=== PATIENT | male | born 1945 | race Caucasian/White ===

== ENCOUNTER → 2017-04-24 | Outpatient (CLI) | payer MEDICARE, OTHER ==
[~2017-04-24] MED LIST: ALLP100T; ALLP100T PO; AMLO10TA2 PO; AMLO10TA4; AMLO10TA82 PO; ASP325T; ASP325TEC PO; ASP81TEC PO; ATEN25TA PO; ATOR40TA PO; ATR20T; FLC100T; FLC1T; FLC1T PO; FLEC100T2 PO; IRBE1TAB18; IRBE1TAB18 PO; LOSA100T28 PO; LOSA1TAB23 PO; METO-333 PO; MTX2.5T; MTX2.5T PO; NEBI5TAB8; NEBI5TAB8 PO; SMV20T PO; SOTA80TA PO; WARF7.5T49 PO; WRF5T; WRF5T PO
== END ==
LOC: CARD 11:03
PROVIDERS: ATTEND Physician Assistant
DX: I65.23 Occlusion and stenosis of bilateral carotid arteries (principal); E78.2 Mixed hyperlipidemia; I10 Essential (primary) hypertension; I48.0 Paroxysmal atrial fibrillation
CPT/HCPCS: 93306

== ENCOUNTER 2019-06-14 05:38 | Outpatient (CLI) | payer MEDICARE, OTHER ==
[~2019-06-14] VITALS: Ht 177.8 cm; Wt 129.5 kg
[~2019-06-14 05:38] MED LIST changes: -AMLO10TA2 PO; +AMLO10TA7 PO; -LOSA100T28 PO; +LOSA100T57 PO
[2019-06-14] MEDS ORDERED: ALLO100T PO (10:21)
[2019-06-14] MEDS ORDERED: ASPI-983 PO (10:21)
== END 2019-06-14 10:22 | disposition home or self-care (01) ==
LOC: PREOP 05:38
PROVIDERS: ATTEND Internal Medicine
DX: Z01.818 Encounter for other preprocedural examination (principal)

== ENCOUNTER 2019-11-14 06:21 | Outpatient (RCR) | payer MEDICARE, OTHER ==
[~2019-11-14 06:21] MED LIST changes: +ALLO100T PO; +ASPI-1238 PO; +WARF7.5T3 PO; -WARF7.5T49 PO
== END 2020-02-12 | disposition home or self-care (01) ==
LOC: PREOP 06:21
PROVIDERS: ATTEND Internal Medicine
DX: Z01.818 Encounter for other preprocedural examination (principal)

== ENCOUNTER 2020-11-26 08:30 | Outpatient (CLI) | payer MEDICARE, OTHER ==
[~2020-11-26] VITALS: Ht 177.8 cm; Wt 129.5 kg
[~2020-11-26 08:30] MED LIST changes: +AMLO-251 PO; -AMLO10TA7 PO
== END 2020-11-26 13:57 | disposition home or self-care (01) ==
LOC: PREOP 08:30
PROVIDERS: ATTEND Internal Medicine
DX: Z01.818 Encounter for other preprocedural examination (principal)

== ENCOUNTER 2020-12-04 07:20 | Day surgery (SDC) | payer MEDICARE, OTHER ==
--- NOTE | 2019-11-11 09:43 | HISTORY AND PHYSICAL ---
DATE OF SERVICE: COLONOSCOPY HISTORY AND PHYSICAL HISTORY OF PRESENT ILLNESS: The patient is a 74-year-old white male referred by Dr. Fuller for surveillance colonoscopy. I performed his first colonoscopy on 06/21/2019 at which time eight polyps were removed, four were clustered to the hepatic flexure, two at the splenic flexure, at least 1 polyp was left that was small in the sigmoid colon where the patient did have moderate diverticular disease. With positive family history of colon cancer, it raises the possibility of hereditary nonpolyposis cancer syndrome. The majority of his polyps were tubular adenomas. He has noted no blood per rectum, bright red or melena and has had no bowel habit change. He denied any problems with his colonoscopy other than some increased sensitivity for which we will be doing this procedure under Diprivan for improved patient comfort. The patient reports no change in his health history, although he admits to being depressed over his 's failing health with advancing dementia, presumably Alzheimer's in etiology. He has had no chest discomforts or increase in dyspnea on exertion. PAST MEDICAL HISTORY: Significant for hypertension, hyperlipidemia and paroxysmal atrial fibrillation for which he takes Coumadin as well as a baby aspirin. PHYSICAL EXAMINATION: GENERAL: Revealed a depressed white male, who otherwise appeared to be in no acute distress. VITAL SIGNS: Weight at 278 pounds, is down 7 pounds from his last office weight from May. Blood pressure 136/66. HEENT: Unremarkable. CHEST: Clear. CARDIOVASCULAR: Revealed regular rate and rhythm without murmur, S3 or S4. ABDOMEN: Soft, supple without mass, organomegaly or tenderness. EXTREMITIES: Reveal trace bilateral edema without cyanosis or clubbing. No ulceration noted. ASSESSMENT AND PLAN: The patient was set up for surveillance colonoscopy for which we will be utilizing Diprivan per anesthesia due to history of increased bowel sensitivity on his last colonoscopy in May of this year. Prep instructions with Colyte were given and questions were answered. He will hold his Coumadin 48 hours prior to the test and aspirin a week prior and written instructions were given. Job ID: [id number] DocumentID: [id number] Dictated Date: 10/29/2019 11:13:03 Campus Recruiter Date: 10/29/2019 11:53:13 Dictated By: SHIVA VAUGHN MD
--- NOTE | 2020-11-11 19:08 | HISTORY AND PHYSICAL ---
DATE OF SERVICE: HISTORY OF PRESENT ILLNESS: The patient is a 75-year-old white male undergoing repeat colonoscopy for evaluation of multiple adenomatous colonic polyps having been removed on colonoscopy a little over 5 months ago. In particularly, he had 2 larger flat tubular adenomas, for which there is increased risk for recurrence due to their size. He reports that he had no difficulty after colonoscopy and no problems with bleeding and he has noted no melena or bright red blood per rectum. He reports that there have been no changes in his health status since his last colonoscopy. The patient does have a strong family history for colon cancer. Both parents were diagnosed with colon cancer. His mother at the age of 80 and father has in early 60s. PAST MEDICAL HISTORY: Significant for hypertension, hyperlipidemia and paroxysmal atrial fibrillation for which he has recently been switched to Xarelto and doing well along without any reports of melena or bright red blood per rectum. PHYSICAL EXAMINATION: GENERAL: Reveals pleasant overweight white male in no acute distress. VITAL SIGNS: Weight was 273 pounds, blood pressure 130/70. HEENT: Unremarkable. CHEST: Clear. CARDIOVASCULAR: Reveals a regular rate and rhythm without significant murmur, S3 or S4. ABDOMEN: Soft, supple without mass, organomegaly or tenderness. EXTREMITIES: Reveal no cyanosis, clubbing or edema. ASSESSMENT AND PLAN: The patient is set up for repeat surveillance colonoscopy due to strong family history for colon cancer and history of multiple adenomatous colonic polyps. Prep instructions with Suprep kit were given and questions were answered. The patient will be done under Diprivan based anesthesia. Job ID: [id number] DocumentID: [id number] Dictated Date: 11/11/2020 18:25:13 Geophysical Computer Date: 11/11/2020 18:35:30 Dictated By: SHIVA VAUGHN MD
[~2020-12-04] VITALS: Ht 177.8 cm; Wt 129.5 kg
[2020-12-04] MEDS ORDERED: GLYCOPYRROLATE 0.2 MG/ML (ROBINUL) 2 ML VIAL IJ ONE (07:21)
[2020-12-04] MEDS ORDERED: LACTATED RINGERS 1,000 ML IV ONE (07:28)
[2020-12-04] MEDS ORDERED: LACTATED RINGERS 1,000 ML IV STA (07:35)
[2020-12-04] MEDS ORDERED: MAGN400C PO (07:40)
[2020-12-04] MEDS ORDERED: RIVA10T PO (07:40)
[2020-12-04 07:45] VITALS: BP 164/79
[2020-12-04] MEDS ORDERED: LIDOCAINE JELLY 2% 6 ML SYRINGE MM PRN (07:45)
[2020-12-04] MEDS ORDERED: PROPOFOL INJECTION 50 ML IV ONE ×2 (07:47→08:52)
--- NOTE | 2020-12-04 08:05 | Pre-Op Note & Conscious Sedat ---
Pre-Operative Progress Note H&P Reviewed The H&P was reviewed, patient examined and no changes noted. Date H&P Reviewed: Dec 04, 2020 Time H&P Reviewed: 08:05 Conscious Sedation Pre-Proced ASA Score 3 For ASA 3 and 4: Consider anesthesia and medical clearance. Also, for patients with a history of failed moderate sedation consider anesthesia. Airway Lungs Heart ASA score ASA 1: a normal healthy patient ASA 2: a patient with a mild systemic disease (mid diabetes, controlled hypertension, obesity ASA 3: a patient with a severe systemic disease that limits activity (angina, COPD, prior Myocardial infarction) ASA 4: a patient with an incapacitating disease that is a constant threat to life (CHF, renal failure) ASA 5: a moribund patient not expected to survive 24 hrs. (ruptured aneurysm) ASA 6: a declared brain- patient whose organs are being harvested. For emergent operations, add the letter E after the classification Mallampati Classification Grade 2 Sedation Plan Analgesia, Amnesia, Plan communicated to team members, Discussed options with patient/fam, Discussed risks with patient/fam The patient is an appropriate candidate to undergo the planned procedure, sedation, and anesthesia. The patient immediately re-assessed prior to indication. SHIVA VAUGHN MD Dec 04, 2020 08:05
[2020-12-04 09:30] VITALS: BP 124/60
[2020-12-04 09:35] VITALS: BP 120/70
[2020-12-04 10:00] VITALS: BP 151/77
[2020-12-04 10:15] VITALS: BP 151/77
--- NOTE | 2020-12-04 15:40 | OPERATIVE REPORT ---
DATE OF SERVICE: 12/04/2020 COLONOSCOPY SUMMARY INDICATION FOR THE PROCEDURE: Surveillance, history of colon polyps and family history for colon cancer. DESCRIPTION OF PROCEDURE: The patient was placed in the left lateral decubitus position. Prior to undergoing colonoscopy, digital rectal evaluation was performed. Prostate is mildly enlarged, anodular and nontender to digital inspection. No abnormalities were noted on digital inspection of anal canal or distal rectal vault. The colonoscope was then inserted into the rectum and under direct visualization advanced to cecum. The cecum was identified by identification of ileocecal valve and cecal strap. Photographic documentation was obtained. Quality of prep was fair. FINDINGS: There was no evidence for internal or external hemorrhoids and the rectum was unremarkable. Mild to moderate diverticular disease confined to the sigmoid colon was present. Present in the mid sigmoid colon was a 1 cm pedunculated polyp on a short stalk. It was snared and submitted in its entirety for histopathology. No other sigmoid colonic abnormalities were appreciated. The descending colon was unremarkable as was the splenic flexure. In the distal transverse colon was a diminutive sessile polyp. It was biopsied and ablated and submitted for histopathology. The remainder of the transverse colon, hepatic flexure and ascending colon were unremarkable. In the cecum adjacent to the ileocecal valve was a diminutive 2 mm sessile polyp. It was photographed and biopsied and ablated with no subsequent blood loss. The cecum was suboptimally visualized due to some retained stool. ASSESSMENT: Three polyps were removed today, most notable in the mid sigmoid colon with no subsequent bleeding. The patient was advised to resume Xarelto and aspirin in one week. As long as there are no surprise on histopathology report, would advocate repeat surveillance colonoscopy in one year. Mild to moderate diverticular disease confined to the sigmoid colon was present. I thank you for the referral of this pleasant gentleman. Job ID: [id number] DocumentID: [id number] Dictated Date: 12/04/2020 10:04:32 Benzol Still Operator Date: 12/04/2020 15:39:50 Dictated By: SHIVA VAUGHN MD
== END 2020-12-04 10:15 | disposition home or self-care (01) ==
LOC: ENDO 07:20
PROVIDERS: ATTEND Internal Medicine
DX: Z12.11 Encounter for screening for malignant neoplasm of colon (principal); D12.0 Benign neoplasm of cecum; D12.5 Benign neoplasm of sigmoid colon; K63.5 Polyp of colon; K57.30 Diverticulosis of large intestine without perforation or abscess without bleeding; I10 Essential (primary) hypertension; I48.0 Paroxysmal atrial fibrillation; E78.5 Hyperlipidemia, unspecified; E66.9 Obesity, unspecified; Z68.41 Body mass index [BMI] 40.0-44.9, adult; Z79.899 Other long term (current) drug therapy; Z87.891 Personal history of nicotine dependence; Z80.0 Family history of malignant neoplasm of digestive organs
CPT/HCPCS: 88305

== ENCOUNTER → 2021-12-22 | Outpatient (CLI) | payer MEDICARE, OTHER ==
[~2021-12-22] VITALS: Ht 177.8 cm; Wt 122.7 kg
[~2021-12-22] MED LIST changes: +MAGN400C PO; +RIVA10T PO
== END | disposition home or self-care (01) ==
LOC: PREOP 05:44
PROVIDERS: ATTEND Internal Medicine
DX: Z01.818 Encounter for other preprocedural examination (principal)

== ENCOUNTER 2021-12-31 08:45 | Day surgery (SDC) | payer MEDICARE, OTHER ==
--- NOTE | 2021-12-21 20:47 | HISTORY AND PHYSICAL ---
DATE OF SERVICE: COLONOSCOPY HISTORY AND PHYSICAL HISTORY OF PRESENT ILLNESS: The patient is a 76-year-old white male referred by Dr. Fuller for surveillance colonoscopy due to past history of colon polyps. He underwent colonoscopy a little over one year ago, at which time he had three polyps, most significant one was pedunculated tubulovillous adenoma in the mid sigmoid colon. He had a tubular adenoma removed from the cecum adjacent to the ileocecal valve. It was only 2 mm in size. He reports since that time, he has had no abdominal pain or bleeding. There have been no changes in health status, although he is still grieving over the loss of his in May. PAST MEDICAL HISTORY: Significant for hypertension, hyperlipidemia and paroxysmal atrial fibrillation. PHYSICAL EXAMINATION: GENERAL: Reveals somewhat depressed-appearing white male in no acute distress. VITAL SIGNS: Weight is 279 pounds, up 3 pounds from a year ago. Blood pressure 136/60. HEENT: Unremarkable. Sclerae nonicteric. CHEST: Clear. Oral cavity reveals Mallampati 2 pharyngeal configuration without erythema or exudate. CHEST: Clear to auscultation. CARDIOVASCULAR: Reveals a regular rate and rhythm without murmur, S3 or S4. Occasional prematurity is noted. ABDOMEN: Soft, supple without mass, organomegaly or tenderness. EXTREMITIES: Reveal no cyanosis, clubbing or edema. ASSESSMENT AND PLAN: The patient is being set up for surveillance colonoscopy. Most notable polyp was in the sigmoid colon, at least 1.2 cm tubulovillous adenoma removed via snare resection little over one year ago. Prep instructions were given, and questions were answered. I thank you for the referral. Job ID: [id number] DocumentID: [id number] Dictated Date: 12/15/2021 17:56:44 Geneticist Date: 12/15/2021 18:33:06 Dictated By: SHIVA VAUGHN MD
[~2021-12-31] VITALS: Ht 177.8 cm; Wt 122.7 kg
[2021-12-31] MEDS ORDERED: LACTATED RINGERS 1,000 ML IV STA (09:03)
--- NOTE | 2021-12-31 09:06 | Pre-Op Note & Conscious Sedat ---
Pre-Operative Progress Note Date H&P Reviewed: Dec 31, 2021 Time H&P Reviewed: 09:06 History & Physical: H&P Reviewed, Patient Examed, No changes noted Pre-Op Diagnosis: hx of colon polyps Conscious Sedation Pre-Proced ASA Score 2 For ASA 3 and 4: Consider anesthesia and medical clearance. Also, for patients with a history of failed moderate sedation consider anesthesia. Airway Lungs Heart ASA score ASA 1: a normal healthy patient ASA 2: a patient with a mild systemic disease (mid diabetes, controlled hypertension, obesity ASA 3: a patient with a severe systemic disease that limits activity (angina, COPD, prior Myocardial infarction) ASA 4: a patient with an incapacitating disease that is a constant threat to life (CHF, renal failure) ASA 5: a moribund patient not expected to survive 24 hrs. (ruptured aneurysm) ASA 6: a declared brain- patient whose organs are being harvested. For emergent operations, add the letter E after the classification Mallampati Classification Grade 2 Sedation Plan Analgesia, Amnesia, Plan communicated to team members, Discussed options with patient/fam, Discussed risks with patient/fam The patient is an appropriate candidate to undergo the planned procedure, sedation, and anesthesia. The patient immediately re-assessed prior to indication. SHIVA VAUGHN MD Dec 31, 2021 09:06
[2021-12-31] MEDS ORDERED: LACTATED RINGERS 1,000 ML IV ONE (09:09)
[2021-12-31 09:12] VITALS: BP 164/70
[2021-12-31] MEDS ORDERED: PROPOFOL INJECTION 50 ML IV ONE ×2 (09:43→10:01)
[2021-12-31 10:25] VITALS: BP 102/54
--- NOTE | 2021-12-31 10:30 | Progress Note-Post Operative ---
Post-Procedure Note Physician (s)/[place] Nailer (s) Physician SHIVA VAUGHN MD Pre-Procedure Diagnosis Pre-Procedure Diagnosis: hx of colon polyps Post-Procedure Diagnosis Post-operative diagnosis: polyps removed via hot bx from distal and mid transverse colon, hepatic flexure and cecum. Moderated sigmoid diverticular disease. SHIAV VAUGHN MD Dec 31, 2021 10:30
[2021-12-31 10:31] VITALS: BP 118/58
[2021-12-31 10:47] VITALS: BP 142/67
[2021-12-31 10:55] VITALS: BP 142/67
--- NOTE | 2021-12-31 11:30 | Anesthesia-General Post-Op ---
MAC Patient Condition Mental Status/LOC: Same as Preop Cardiovascular: Satisfactory Nausea/Vomiting: Absent Respiratory: Satisfactory Pain: Controlled Complications: Absent Post Op Complications Complications None Follow Up Care/Instructions Patient Instructions None needed. Anesthesiology Discharge Order Discharge Order Patient is doing well, no complaints, stable vital signs, no apparent adverse anesthesia problems. No complications reported per nursing. CITLALLI العلي CRNA Dec 31, 2021 11:30
--- NOTE | 2021-12-31 17:11 | OPERATIVE REPORT ---
DATE OF SERVICE: COLONOSCOPY SUMMARY INDICATION FOR THE PROCEDURE: Surveillance, history of colon polyps. DESCRIPTION OF PROCEDURE: The patient was placed in a left lateral decubitus position. Prior to undergoing colonoscopy, a digital rectal evaluation was performed. Prostate was mildly enlarged and anodular on digital inspection. No digital abnormalities were noted on inspection of the anal canal or distal rectal vault. The colonoscope was then inserted into the rectum and under direct visualization advanced to the cecum. The cecum was identified by identification of ileocecal valve and cecal strap. Photographic documentation was obtained. Quality of the prep was fair. FINDINGS: There was no evidence for internal or external hemorrhoids and the rectum was unremarkable. Mild to moderate diverticular disease with one large proximal sigmoid diverticulum was present without evidence for diverticulitis. There was no evidence for any remnant of the previous pedunculated polyp removed from the sigmoid colon. Present in the distal transverse colon was an 8 mm sessile adenomatous polyp, nonulcerated. It was photographed, snared, and removed. There was a small fragment remaining post snare that was biopsied and cauterized. All tissue was submitted for histopathology. A 3 mm sessile polyp was removed via hot forceps from the mid transverse colon. A similar polyp was removed without blood loss from the hepatic flexure as well as cecum. ASSESSMENT: Multiple adenomatous polyps were again removed not enough to qualify for polyposis syndrome, but will likely be advocating repeat surveillance colonoscopy in one year pending pathology evaluation. Job ID: [id number] DocumentID: [id number] Dictated Date: 12/31/2021 10:26:08 Communication Arts Lecturer Date: 12/31/2021 17:10:24 Dictated By: SHIVA VAUGHN MD [facility]
== END 2021-12-31 11:05 | disposition home or self-care (01) ==
LOC: ENDO 08:45
PROVIDERS: ATTEND Internal Medicine
DX: Z12.11 Encounter for screening for malignant neoplasm of colon (principal); D12.0 Benign neoplasm of cecum; D12.2 Benign neoplasm of ascending colon; D12.3 Benign neoplasm of transverse colon; E66.9 Obesity, unspecified; Z68.39 Body mass index [BMI] 39.0-39.9, adult; Z87.891 Personal history of nicotine dependence
CPT/HCPCS: 88305

== ENCOUNTER → 2022-09-12 | Outpatient (CLI) | payer MEDICARE, OTHER ==
[~2022-09-12] MED LIST changes: +AMIO200T65 PO; +ERGO1250 PO; +RIVA20TA PO
--- NOTE | 2022-09-12 14:11 | Diagnostic Imaging Report ---
PROCEDURE: CT abdomen and pelvis without contrast. TECHNIQUE: Multiple contiguous axial images were obtained through the abdomen and pelvis without the use of intravenous contrast. Auto Exposure Controls were utilized during the CT exam to meet ALARA standards for radiation dose reduction. INDICATION: Abdominal discomfort and swelling. COMPARISON: No prior studies are available for comparison. FINDINGS: Imaging through the lung bases does show areas of atelectasis in the right middle lobe. The liver demonstrates nodular contour, suggestive of cirrhosis. No discrete liver mass is identified. There is a large amount of perihepatic and perisplenic ascites. Gallbladder contains small stones versus sludge. No biliary ductal dilatation is seen. Pancreas is unremarkable. Spleen is not enlarged. No adrenal mass is identified. Kidneys are without calculi or hydronephrosis. Aorta is calcified but nonaneurysmal. The bowel loops are normal in caliber and nonobstructed. There is diverticulosis of the descending and sigmoid colon but no evidence of acute diverticulitis. Bladder is decompressed. Prostate is unremarkable. Bony structures are nonacute. IMPRESSION: 1. Right middle lobe subsegmental atelectasis. 2. Cirrhotic liver morphology without evidence of discrete mass. There is moderate abdominal and pelvic ascites, suggestive of portal hypertension. Spleen does not appear to be enlarged. 3. Gallstones versus sludge. 4. Uncomplicated diverticulosis. Dictated by: Dictated on workstation # [id number]
== END ==
LOC: RAD 12:45
PROVIDERS: ATTEND Internal Medicine
DX: K74.60 Unspecified cirrhosis of liver (principal); K57.30 Diverticulosis of large intestine without perforation or abscess without bleeding; J98.11 Atelectasis; R18.8 Other ascites
CPT/HCPCS: 74176

== ENCOUNTER 2022-09-13 09:30 | Inpatient (IN) | payer MEDICARE, OTHER ==
[~2022-09-13] VITALS: Ht 175.3 cm; Wt 125.9 kg
[~2022-09-13 09:30] MED LIST changes: -AMIO200T65 PO; -ERGO1250 PO; -RIVA20TA PO
[2022-09-13] MEDS: FUROSEMIDE 40 MG/4 ML INJ (LASIX) IVP SCH (12:05)
--- NOTE | 2022-09-13 15:29 | Diagnostic Imaging Report ---
EXAMINATION: Chest 1 view HISTORY: SOB COMPARISON: 09/18/2012 FINDINGS: Heart size and pulmonary vasculature are normal. There are mild interstitial opacities in lung bases. No pleural effusion or pneumothorax. The osseous structures are intact. IMPRESSION: 1. Mild interstitial opacities the lung bases which could represent atelectasis, edema, or pneumonia. Dictated by: Dictated on workstation # [id number]
[2022-09-13] MEDS ORDERED: ONDANSETRON 4 MG/2 ML (SDV) Z0FRAN IV PRN (15:45)
[2022-09-13] MEDS ORDERED: CATHETER FLUSH 10 ML SYR IVP PRN (15:45)
[2022-09-13 15:55] VITALS: BP 101/55
[2022-09-13] MEDS ORDERED: AMIO200T65 PO (16:03)
[2022-09-13] MEDS ORDERED: RIVA20TA PO (16:03)
[2022-09-13 16:07] LABS: CLARITY,URINE CLEAR; COLOR,URINE DARK YELLOW; GLUCOSE, URINE (UA) TRACE (NEGATIVE); KETONES,URINE NEGATIVE (NEGATIVE); NITRITE,URINE NEGATIVE (NEGATIVE); PH,URINE 5.5 (5-9); PROTEIN,URINE TRACE (NEGATIVE)
[2022-09-13] MEDS ORDERED: ERGO1250 PO (16:07)
[2022-09-13 16:08] LABS: AMORPHOUS SEDIMENT,UR MOD AMOR URATES /LPF; BACTERIA,URINE TRACE /HPF; BILIRUBIN,URINE 1+ (NEGATIVE); LEUKOCYTE ESTERASE ,URINE NEGATIVE (NEGATIVE); WBC,URINE RARE /HPF
[2022-09-13 16:09] LABS: BASOPHILS # (AUTO) 0.1 10^3/uL (0.0-0.1); BASOPHILS % (AUTO) 1 % (0-10); EOSINOPHILS # (AUTO) 0.3 10^3/uL (0.0-0.3); EOSINOPHILS % (AUTO) 2 % (0-10); HEMATOCRIT 40 % (40-54); LYMPHOCYTES # (AUTO) 3.4 10^3/uL (1.0-4.0); LYMPHOCYTES % (AUTO) 22 % (12-44); MEAN CORPUSCULAR HEMOGLOBIN 33 pg (25-34); MEAN CORPUSCULAR HGB CONC 32 g/dL (32-36); MEAN CORPUSCULAR VOLUME 101 fL (80-99); MEAN PLATELET VOLUME 13.6 fL (9.0-12.2); MONOCYTES # (AUTO) 1.4 10^3/uL (0.0-1.0); MONOCYTES % (AUTO) 9 % (0-12); NEUTROPHILS # (AUTO) 10.6 10^3/uL (1.8-7.8); NEUTROPHILS % (AUTO) 67 % (42-75); PLATELET COUNT 221 10^3/uL (130-400); PROTHROMBIN TIME PATIENT 39.4 SEC (12.2-14.7); WHITE BLOOD COUNT 15.8 10^3/uL (4.3-11.0)
[2022-09-13] MEDS ORDERED: KCL 20 MEQ TAB (K-DUR) PO ONE (17:00)
[2022-09-13 17:01] LABS: BAND NEUTROPHILS 0 %; BASOPHILS % (MANUAL) 0 %; EOSINOPHILS % (MANUAL) 2 %; LYMPHOCYTES % (MANUAL) 12 %; MONOCYTES % (MANUAL) 7 %; NEUTROPHILS % (MANUAL) 79 %; RBC MORPH NORMAL
[2022-09-13 17:38] LABS: ALBUMIN 2.9 GM/DL (3.2-4.5); BILIRUBIN,TOTAL 1.6 MG/DL (0.1-1.0); CALCIUM 8.8 MG/DL (8.5-10.1); CREATININE SERUM 1.82 MG/DL (0.60-1.30); POTASSIUM 4.1 MMOL/L (3.6-5.0); TOTAL PROTEIN 7.6 GM/DL (6.4-8.2)
--- NOTE | 2022-09-13 18:10 | Consultation - Surgery ---
ELIOT TOPETE 09/13/22 1810: History of Present Illness History of Present Illness Patient Consulted On(good/time) 09/13/22 18:02 Date Seen by Provider: September 13, 2022 Time Seen by Provider: 15:30 Reason for Visit: Ascites History of Present Illness Consulted by Dr. Padilla for Ascites and SOB Pt is a very pleasant 77yo male, with history of cirrhosis of his liver, he was seen with his daughter in the room, he says that his abdominal distension/pressure has been worsening the last 12 days and its starting to make his legs swell, make it hard to breath, and he notices having diarrhea and nausea. He had a CT yesterday at [facility] which does show liquid and hepatomegaly. He says he took his blood thinner xerelto yeterday night, but is agreeable to the idea of paracentesis tomorrow. Allergies and Home Medications Allergies Coded Allergies: No Known Drug Allergies (Unverified , 11/21/09) Patient Home Medication List Allopurinol (Allopurinol) 100 Mg Tablet, 100 MG PO BID, (Reported) Entered as Reported by: RAVEN BENJAMIN on 06/14/19 1021 Last Action: Continued Amiodarone HCl (Amiodarone HCl) 200 Mg Tablet, 200 MG PO BID, (Reported) Entered as Reported by: YOHANA GABRIEL on 09/13/221602 Last Action: Continued Amlodipine Besylate (Amlodipine Besylate) 10 Mg Tablet, 10 MG PO DAILY, (Reported) Entered as Reported by: RAVEN BENJAMIN on 01/21/16928 Last Action: Held Aspirin (Aspirin EC) 81 Mg Tablet.dr, 81 MG PO DAILY, (Reported) Entered as Reported by: RAVEN BENJAMIN on 06/14/19 1021 Last Action: Held Ergocalciferol (Vitamin D2) (Vitamin D2) 1,250 Mcg (15335 Unit) Capsule, 1,250 MCG PO SAT, (Reported) Entered as Reported by: YOHANA GABRIEL on 09/13/22 160 Last Action: Continued Losartan Potassium (Losartan Potassium) 100 Mg Tablet, 100 MG PO DAILY, (Reported) Entered as Reported by: RAVEN BENJAMIN on 01/21/16928 Last Action: Held Magnesium Oxide (Magnesium) 400 Mg Capsule, 400 MG PO BID, (Reported) Entered as Reported by: CHARLENE VILLAGRAN on 12/04/20 0740 Last Action: Converted Metoprolol Tartrate (Metoprolol Tartrate) 25 Mg Tablet, 25 MG PO BID, (Reported) Entered as Reported by: RAVEN BENJAMIN on 01/21/16 0986 Last Action: Continued Rivaroxaban (Xarelto) 20 Mg Tablet, 20 MG PO DAILY, (Reported) Entered as Reported by: YOHANA GABRIEL on 09/13/22 1603 Last Action: Held Discontinued Medications Rivaroxaban (Xarelto Tablet) 10 Mg Tablet, 10 MG PO DAILY, (Reported) Discontinued Reason: Prescription changed Entered as Reported by: CHARLENE VILLAGRAN on 12/04/20739 Past Kwznyjo-Tvngum-Biqkiq Hx Patient Social History Former Smoker, Quit: Jan 13, 2005 Type Used: Cigarettes 2nd Hand Smoke Exposure: No Recent Hopitalizations: No Alcohol Use?: No (daughter said he quit a couple months ago, but his last year and he had been drinking heavily) Have you traveled recently?: No Immunizations Up To Date Tetanus Booster (TDap): Unknown Date of Pneumonia Vaccine: Feb 19, 2015 Date of Influenza Vaccine: Mar 14, 2019 Seasonal Allergies Seasonal Allergies: No Surgeries History of Surgeries: Yes Surgeries: Cardiac Respiratory History of Respiratory Disorde: No Cardiovascular History of Cardiac Disorders: Yes Cardiac Disorders: Atrial Fibrillation Neurological History of Neurological Disord: No Reproductive System Hx Reproductive Disorders: No Sexually Transmitted Disease: No Genitourinary History of Genitourinary Disor: No Gastrointestinal History of Gastrointestinal Di: Yes Gastrointestinal Disorders: Polyps Musculoskeletal History of Musculoskeletal Dis: No Musculoskeletal Disorders: Gout Endocrine History of Endocrine Disorders: No HEENT History of HEENT Disorders: No Loss of Vision: Denies Hearing Impairment: Denies Cancer History of Cancer: No Psychosocial History of Psychiatric Problem: No Behavioral Health Disorders: Depression Integumentary History of Skin or Integumenta: No Blood Transfusions History of Blood Disorders: No Adverse Reaction to a Blood Tr: No Family Medical History Family Medial History: Colon cancer Review of Systems-General Constitutional: No chills, No diaphoresis, No dizziness, No fever; weakness EENTM: No blurred vision, No vision loss, No hoarseness, No mouth pain Respiratory: No cough; dyspnea on exertion; No hemoptysis; short of breath Cardiovascular: No chest pain; edema, Hx of Intervention; No palpitations Gastrointestinal: No abdominal pain; diarrhea, loss of appetite, nausea; No vomiting Genitourinary: dysuria, pain (mentioned his casas cath "burned") Musculoskeletal: No muscle pain, No muscle stiffness, No muscle cramps Skin: No lesions, No pruritus, No rash Psychiatric/Neurological: Depressed ( last year, says he is starting to do better ); Denies Headache, Denies Numbness, Denies Paresthesia, Denies Tremors Physical Exam-General Problems Physical Exam Vital Signs Vital Signs - First Documented 09/13/22 15:55 Temp 36.1 Pulse 51 Resp 18 B/P (MAP) 101/55 (70) Pulse Ox 94 O2 Delivery Room Air Capillary Refill : General Appearance: WD/WN, no apparent distress HEENT: PERRL/EOMI; No pale conjunctivae (R), No pale conjunctivae (L), No photophobia Neck: non-tender, supple Respiratory: chest non-tender, no respiratory distress, no accessory muscle use, decreased breath sounds (b/l bases) Cardiovascular: regular rate, rhythm, no murmur Peripheral Pulses: 2+ Radial Pulses (R), 2+ Radial Pulses (L) Gastrointestinal: no pulsatile mass, distended; No guarding, No rebound, No tenderness Back: no CVA tenderness, decreased range of motion Extremities: no calf tenderness; No inflammation; other (+1 pitting edema b/l) Neurologic/Psychiatric: alert, oriented x 3; No aphasia, No facial droop Skin: warm/dry; No ecchymosis, No pallor Lymphatic: no adenopathy Data Review Labs Laboratory Tests 09/13/22 09:34: White Blood Count 15.8H, Red Blood Count 4.00L, Hemoglobin 13.0L, Hematocrit 40, Mean Corpuscular Volume 101H, Mean Corpuscular Hemoglobin 33, Mean Corpuscular Hemoglobin Concent 32, Red Cell Distribution Width 15.9H, Platelet Count 221, Mean Platelet Volume 13.6H, Immature Granulocyte % (Auto) 0, Neutrophils (%) (Auto) 67, Lymphocytes (%) (Auto) 22, Monocytes (%) (Auto) 9, Eosinophils (%) (Auto) 2, Basophils (%) (Auto) 1, Neutrophils # (Auto) 10.6H, Lymphocytes # (Auto) 3.4, Monocytes # (Auto) 1.4H, Eosinophils # (Auto) 0.3, Basophils # (Auto) 0.1, Immature Granulocyte # (Auto) 0.1, Neutrophils % (Manual) 79, Lymphocytes % (Manual) 12, Monocytes % (Manual) 7, Eosinophils % (Manual) 2, Basophils % (Manual) 0, Band Neutrophils 0, Blood Morphology Comment NORMAL, Prothrombin Time 39.4H, INR Comment 4.0H 09/13/22 09:45: Sodium Level 138, Potassium Level 4.1, Chloride Level 103, Carbon Dioxide Level 24, Anion Gap 11, Blood Urea Nitrogen 27H, Creatinine 1.82H, Estimat Glomerular Filtration Rate 38, BUN/Creatinine Ratio 15, Glucose Level 134H, Calcium Level 8.8, Corrected Calcium 9.7, Total Bilirubin 1.6H, Aspartate Amino Transf (AST/S GOT) 94H, Alanine Aminotransferase (ALT/SGPT) 35, Alkaline Phosphatase 171H, C-Reactive Protein High Sensitivity 6.11H, Total Protein 7.6, Albumin 2.9L 09/13/22 12:31: Urine Color DARK YELLOW, Urine Clarity CLEAR, Urine pH 5.5, Urine Specific Pollard 1.025H, Urine Protein TRACEH, Urine Glucose (UA) TRACEH, Urine Ketones NEGATIVE, Urine Nitrite NEGATIVE, Urine Bilirubin 1+H, Urine Urobilinogen 1.0, Urine Leukocyte Esterase NEGATIVE, Urine RBC (Auto) NEGATIVE, Urine RBC NONE, Urine WBC RARE, Urine Squamous Epithelial Cells NONE, Urine Crystals PRESENTH, Urine Amorphous Sediment MOD JOSIE URATESH, Urine Bacteria TRACE, Urine Casts PRESENT, Urine Hyaline Casts 10-25H, Urine Mucus NEGATIVE, Urine Culture Indicated NO Assessment/Plan Assessment/Plan Assessment/Plan Liver Cirrhosis Ascites Luekocytosis (15.8 today) / possible pneumonia * Pt reports CT was done yesterday in ED and it showed fluids in abdomen * will order U/S of the abdomen tomorrow * Paracentesis tomorrow, to allow last dose of xarelto to run its course. * f/u with PCP Dr. Fuller to continue monitoring liver function pt was explained to about the procedure and was agreeable to having it done RONDA LESTER DO 09/13/221: History of Present Illness History of Present Illness History of Present Illness Consult requested by Dr. Carrasco for ascites shortness of breath. Patient is a 77 year old male with recent liver failure. He has been noticing last couple weeks that began having increasing abdominal distention. Abdominal pain lower abdomen just a slight pressure type pain no radiation. Casas seems to have helped with that pain though. With increasing distention began having increasing shortness of breath. Also has noticed legs swelling more as well. He has been having nausea. Also with some diarrhea. Had ct scan abdomen/pelvis yesterday:1. Right middle lobe subsegmental atelectasis. 2. Cirrhotic liver morphology without evidence of discrete mass. There is moderate abdominal and pelvic ascites, suggestive of portal hypertension. Spleen does not appear to be enlarged. 3. Gallstones versus sludge. 4. Uncomplicated diverticulosis. Allergies and Home Medications Allergies Coded Allergies: No Known Drug Allergies (Unverified , 11/21/09) Patient Home Medication List Home Medication List Reviewed: Yes Allopurinol (Allopurinol) 100 Mg Tablet, 100 MG PO BID, (Reported) Entered as Reported by: RAVEN BENJAMIN on 06/14/19 1021 Last Action: Continued Amiodarone HCl (Amiodarone HCl) 200 Mg Tablet, 200 MG PO BID, (Reported) Entered as Reported by: YOHANA GABRIEL on 09/13/22 1603 Last Action: Continued Amlodipine Besylate (Amlodipine Besylate) 10 Mg Tablet, 10 MG PO DAILY, (Reported) Entered as Reported by: RAVEN BENJAMIN on 01/21/16928 Last Action: Held Aspirin (Aspirin EC) 81 Mg Tablet.dr, 81 MG PO DAILY, (Reported) Entered as Reported by: RAVEN BENJAMIN on 06/14/19 1021 Last Action: Held Ergocalciferol (Vitamin D2) (Vitamin D2) 1,250 Mcg (47008 Unit) Capsule, 1,250 MCG PO SAT, (Reported) Entered as Reported by: YOHANA GABRIEL on 09/13/22 1607 Last Action: Continued Losartan Potassium (Losartan Potassium) 100 Mg Tablet, 100 MG PO DAILY, (Reported) Entered as Reported by: RAVEN BENJAMIN on 01/21/16928 Last Action: Held Magnesium Oxide (Magnesium) 400 Mg Capsule, 400 MG PO BID, (Reported) Entered as Reported by: CHARLENE VILLAGRAN on 12/04/20 0740 Last Action: Converted Metoprolol Tartrate (Metoprolol Tartrate) 25 Mg Tablet, 25 MG PO BID, (Reported) Entered as Reported by: RAVEN BENJAMIN on 01/21/16 0929 Last Action: Continued Rivaroxaban (Xarelto) 20 Mg Tablet, 20 MG PO DAILY, (Reported) Entered as Reported by: YOHANA GABRIEL on 09/13/22 1603 Last Action: Held Discontinued Medications Rivaroxaban (Xarelto Tablet) 10 Mg Tablet, 10 MG PO DAILY, (Reported) Discontinued Reason: Prescription changed Entered as Reported by: CHARLENE VILLAGRAN on 12/04/20 0740 Past Rrfxqfq-Cppdou-Zovkel Hx Surgeries History of Surgeries: Yes Surgeries: Appendectomy Reviewed Nursing Assessment Reviewed/Agree w Nursing PMH: Yes Family Medical History Significant Family History: No Pertinent Family Hx Family Medial History: Colon cancer Review of Systems-General Constitutional: No chills, No diaphoresis EENTM: No blurred vision Respiratory: No cough; dyspnea on exertion, short of breath Cardiovascular: No chest pain; edema, Hx of Intervention; No palpitations Gastrointestinal: abdominal pain (lower abdomen discomfort), diarrhea, loss of appetite, nausea; No vomiting Genitourinary: dysuria, pain (mentioned his casas cath "burned") Musculoskeletal: No muscle pain, No muscle stiffness, No muscle cramps Skin: No lesions, No pruritus, No rash Psychiatric/Neurological: Depressed ( last year, says he is starting to do better ); Denies Headache, Denies Numbness All Other Systems Reviewed Negative Unless Noted: Yes (Negative excepted noted.) Physical Exam-General Problems Physical Exam General Appearance: no apparent distress, obese HEENT: PERRL/EOMI, normal ENT inspection Neck: non-tender, supple Respiratory: chest non-tender, no respiratory distress, no accessory muscle use Cardiovascular: regular rate, rhythm, no JVD Gastrointestinal: distended; No rebound, No tenderness Rectal: deferred Back: no CVA tenderness, no vertebral tenderness Extremities: non-tender, no calf tenderness, other (+1 pitting edema b/l) Neurologic/Psychiatric: alert, oriented x 3 Skin: warm/dry; No ecchymosis, No pallor Lymphatic: no adenopathy Assessment/Plan Assessment/Plan Assessment/Plan Liver Cirrhosis Symptomatic Ascites Luekocytosis (15.8 today) / possible pneumonia Hypercoagulation INR elevated Recheck labs including coagulation studies in am, may need reversed to do paracentesis * will order U/S of the abdomen tomorrow * Paracentesis tomorrow, to allow last dose of xarelto to run its course and coagulation studies approprate pt was explained to about the procedure and was agreeable to having it done Supervisory-Addendum Brief Verification & Attestation Participated in pt care: history, MDM, physical Personally performed: exam, history, MDM, supervision of care Care discussed with: Medical Student Procedures: n/a Results interpretation: Verified all documentation Verification and Attestation of Medical Student E/M Service A medical student performed and documented this service in my presence. I reviewed and verified all information documented by the medical student and made modifications to such information, when appropriate. I personally performed the physical exam and medical decision making. Ronda Lester, September 13, 2022,22:25 ELIOT TOPETE September 13, 2022 18:10 RONDA LESTER DO September 13, 2022 22:21
[2022-09-13 19:57] VITALS: BP 132/63
[2022-09-13] MEDS ORDERED: NON-FORMULARY MEDICATION 1 EA EA (Magnesium Oxide (Magnesium) 400 MG) PO SCH (21:00)
--- NOTE | 2022-09-13 21:19 | ED General ---
General Chief Complaint: Abdominal/GI Problems Stated Complaint: ASCITES|SOA|WEAKNESS|LEUKOCYTOSIS Nursing Triage Note: PT TO RM 3 WITH DAUGHTER BY WC WITH C/O FLUID ON ABDOMEN, LIVER CIRRHOSIS AND DIARRHEA FOR A FEW DAYS. PT SENT FROM DR IZQUIERDO FOR POSS PARACENTESIS Source of Information: Patient, Family Exam Limitations: No Limitations History of Present Illness Date Seen by Provider: September 13, 2022 Time Seen by Provider: 09:35 Allergies and Home Medications Allergies Coded Allergies: No Known Drug Allergies (Unverified , 11/21/09) Patient Home Medication List Allopurinol (Allopurinol) 100 Mg Tablet, 100 MG PO BID, (Reported) Entered as Reported by: RAVEN BENJAMIN on 06/14/19 102 Last Action: Continued Amiodarone HCl (Amiodarone HCl) 200 Mg Tablet, 200 MG PO BID, (Reported) Entered as Reported by: YOHANA GABRIEL on 09/13/221602 Last Action: Continued Amlodipine Besylate (Amlodipine Besylate) 10 Mg Tablet, 10 MG PO DAILY, (Reported) Entered as Reported by: RAVEN BENJAMIN on 01/21/16928 Last Action: Held Aspirin (Aspirin EC) 81 Mg Tablet.dr, 81 MG PO DAILY, (Reported) Entered as Reported by: RAVEN BENJAMIN on 06/14/19 102 Last Action: Held Ergocalciferol (Vitamin D2) (Vitamin D2) 1,250 Mcg (62026 Unit) Capsule, 1,250 M CG PO SAT, (Reported) Entered as Reported by: YOHANA GABRIEL on 09/13/22 160 Last Action: Continued Losartan Potassium (Losartan Potassium) 100 Mg Tablet, 100 MG PO DAILY, (Reported) Entered as Reported by: RAVEN BENJAMIN on 01/21/16928 Last Action: Held Magnesium Oxide (Magnesium) 400 Mg Capsule, 400 MG PO BID, (Reported) Entered as Reported by: CHARLENE VILLAGRAN on 12/04/20 0740 Last Action: Converted Metoprolol Tartrate (Metoprolol Tartrate) 25 Mg Tablet, 25 MG PO BID, (Reported) Entered as Reported by: RAVEN BENJAMIN on 01/21/16928 Last Action: Continued Rivaroxaban (Xarelto) 20 Mg Tablet, 20 MG PO DAILY, (Reported) Entered as Reported by: YOHANA GABRIEL on 09/13/22 1603 Last Action: Held Discontinued Medications Rivaroxaban (Xarelto Tablet) 10 Mg Tablet, 10 MG PO DAILY, (Reported) Discontinued Reason: Prescription changed Entered as Reported by: CHARLENE VILLAGRAN on 12/04/20 0740 Past Hsexxwd-Pupimt-Fwcecm Hx Patient Social History Tobacco Use?: No Smokeless Tobacco Frequency: Former User Use of E-Cig and/or Vaping dev: No Substance use?: No Alcohol Use?: No (daughter said he quit a couple months ago, but his last year and he had been drinking heavily) Pt feels they are or have been: No Immunizations Up To Date Tetanus Booster (TDap): Unknown Influenza Vaccine Up-to-Date: Yes; Up-to-Date First/Initial COVID19 Vaccinat: 2020 Second COVID19 Vaccination Saurabh: 2020 Third COVID19 Vaccination Date: 2020 Seasonal Allergies Seasonal Allergies: No Past Medical History Surgery/Hospitalization HX: APPENDECTOMY,AFIB,ABLATION, CARDIOVERSION ,HTN , GOUT Surgeries: Yes Cardiac Respiratory: No Currently Using CPAP: No Currently Using BIPAP: No Cardiac: Yes Atrial Fibrillation Neurological: No Reproductive Disorders: No Sexually Transmitted Disease: No Genitourinary: No Gastrointestinal: Yes Polyps Musculoskeletal: No Gout Endocrine: No HEENT: No Loss of Vision: Denies Hearing Impairment: Denies Cancer: No Psychosocial: No Depression Integumentary: No Blood Disorders: No Adverse Reaction/Blood Tranf: No Family Medical History Colon cancer Physical Exam Vital Signs Vital Signs - First Documented 09/13/22 09:30 Temp 36.4 Pulse 65 Resp 18 B/P (MAP) 130/70 (90) Pulse Ox 95 O2 Delivery Room Air Capillary Refill : Height, Weight, BMI Height: 5'10.00" Weight: 284lbs. 0.0oz. 128.394602zh; 38.81 BMI Method: Progress/Results/Core Measures Suspected Sepsis SIRS Temperature: Pulse: 51 Respiratory Rate: 17 Laboratory Tests 09/13/22 09:34: White Blood Count 15.8H Blood Pressure 132 /63 Mean: 86 Laboratory Tests 09/13/22 09:34: INR Comment 4.0H, Platelet Count 221 09/13/22 09:45: Creatinine 1.82H, Total Bilirubin 1.6H Results/Orders Lab Results Laboratory Tests Test 09/13/22 09:34 09/13/22 09:45 09/13/22 12:31 Range/Units White Blood Count 15.8 H 4.3-11.0 10^3/uL Red Blood Count 4.00 L 4.30-5.52 10^6/uL Hemoglobin 13.0 L 13.3-17.7 g/dL Hematocrit 40 40-54 % Mean Corpuscular Volume 101 H 80-99 fL Mean Corpuscular Hemoglobin 33 25-34 pg Mean Corpuscular Hemoglobin Concent 32 32-36 g/dL Red Cell Distribution Width 15.9 H 10.0-14.5 % Platelet Count 221 130-400 10^3/uL Mean Platelet Volume 13.6 H 9.0-12.2 fL Immature Granulocyte % (Auto) 0 % Neutrophils (%) (Auto) 67 42-75 % Lymphocytes (%) (Auto) 22 12-44 % Monocytes (%) (Auto) 9 0-12 % Eosinophils (%) (Auto) 2 0-10 % Basophils (%) (Auto) 1 0-10 % Neutrophils # (Auto) 10.6 H 1.8-7.8 10^3/uL Lymphocytes # (Auto) 3.4 1.0-4.0 10^3/uL Monocytes # (Auto) 1.4 H 0.0-1.0 10^3/uL Eosinophils # (Auto) 0.3 0.0-0.3 10^3/uL Basophils # (Auto) 0.1 0.0-0.1 10^3/uL Immature Granulocyte # (Auto) 0.1 0.0-0.1 10^3/uL Neutrophils % (Manual) 79 % Lymphocytes % (Manual) 12 % Monocytes % (Manual) 7 % Eosinophils % (Manual) 2 % Basophils % (Manual) 0 % Band Neutrophils 0 % Blood Morphology Comment NORMAL Prothrombin Time 39.4 H 12.2-14.7 SEC INR Comment 4.0 H 0.8-1.4 Sodium Level 138 135-145 MMOL/L Potassium Level 4.1 3.6-5.0 MMOL/L Chloride Level 103 98-107 MMOL/L Carbon Dioxide Level 24 21-32 MMOL/L Anion Gap 11 5-14 MMOL/L Blood Urea Nitrogen 27 H 7-18 MG/DL Creatinine 1.82 H 0.60-1.30 MG/DL Estimat Glomerular Filtration Rate 38 BUN/Creatinine Ratio 15 Glucose Level 134 H 70-105 MG/DL Calcium Level 8.8 8.5-10.1 MG/DL Corrected Calcium 9.7 8.5-10.1 MG/DL Total Bilirubin 1.6 H 0.1-1.0 MG/DL Aspartate Amino Transf (AST/SGOT) 94 H 5-34 U/L Alanine Aminotransferase (ALT/SGPT) 35 0-55 U/L Alkaline Phosphatase 171 H 40-136 U/L C-Reactive Protein High Sensitivity 6.11 H 0.00-0.50 MG/DL Total Protein 7.6 6.4-8.2 GM/DL Albumin 2.9 L 3.2-4.5 GM/DL Urine Color DARK YELLOW Urine Clarity CLEAR Urine pH 5.5 5-9 Urine Specific Wana 1.025 H 1.016-1.022 Urine Protein TRACE H NEGATIVE Urine Glucose (UA) TRACE H NEGATIVE Urine Ketones NEGATIVE NEGATIVE Urine Nitrite NEGATIVE NEGATIVE Urine Bilirubin 1+ H NEGATIVE Urine Urobilinogen 1.0 < = 1.0 MG/DL Urine Leukocyte Esterase NEGATIVE NEGATIVE Urine RBC (Auto) NEGATIVE NEGATIVE Urine RBC NONE /HPF Urine WBC RARE /HPF Urine Squamous Epithelial Cells NONE /HPF Urine Crystals PRESENT H /LPF Urine Amorphous Sediment MOD JOSIE URATES H /LPF Urine Bacteria TRACE /HPF Urine Casts PRESENT /LPF Urine Hyaline Casts 10-25 H /LPF Urine Mucus NEGATIVE /LPF Urine Culture Indicated NO Vital Signs/I&O 09/13/22 09:30 Temp 36.4 Pulse 65 Resp 18 B/P (MAP) 130/70 (90) Pulse Ox 95 O2 Delivery Room Air Capillary Refill : Blood Pressure Mean: 86 Departure Communication (Admissions) Dr. Carrasco Impression Primary Impression: Ascites Qualified Codes: R18.8 - Other ascites Additional Impressions: Liver failure Qualified Codes: K72.10 - Chronic hepatic failure without coma Generalized weakness Leukocytosis Qualified Codes: D72.829 - Elevated white blood cell count, unspecified Disposition: ADMITTED INPATIENT Condition: Stable Admissions Decision to Admit Reason: Admit from ER (General) Decision to Admit/Date: September 13, 2022 Departure-Patient Inst. Referrals: ELIU BETTS MD (PCP) Primary Care Physician Copy Copies To 1: ELIU BETTS MD Copies To 2: JIMMY DOWNS MD, JOSHUA T MD September 13, 2022 21:19
[2022-09-13] MEDS: ALLOPURINOL 100 MG (ZYLOPRIM) TAB PO SCH (21:50)
[2022-09-13] MEDS: MAGNESIUM OXIDE (MAG-OX)400 MG TAB PO SCH (21:51)
[2022-09-13] MEDS: meTOprolol TARTRATE 25 MG (LOPRESSOR) TABLET PO SCH (21:51)
[2022-09-13] MEDS: AMIODARONE 200 MG (CORDARONE) TAB PO SCH (21:51)
[2022-09-13] MEDS: CATHETER FLUSH 10 ML SYR IVP SCH (21:51)
[2022-09-13 23:15] VITALS: BP 120/60
[2022-09-14 03:24] VITALS: BP 134/63
[2022-09-14] MEDS: CATHETER FLUSH 10 ML SYR IVP SCH ×3 (05:51→20:00)
[2022-09-14 06:27] LABS: HEMATOCRIT 36 % (40-54); MEAN CORPUSCULAR HEMOGLOBIN 33 pg (25-34); MEAN CORPUSCULAR HGB CONC 33 g/dL (32-36); MEAN CORPUSCULAR VOLUME 99 fL (80-99); MEAN PLATELET VOLUME 13.5 fL (9.0-12.2); PLATELET COUNT 168 10^3/uL (130-400); WHITE BLOOD COUNT 15.6 10^3/uL (4.3-11.0)
[2022-09-14 06:51] LABS: INR 2.5 (0.8-1.4); PROTHROMBIN TIME PATIENT 27.4 SEC (12.2-14.7)
[2022-09-14 06:52] LABS: CALCIUM 8.5 MG/DL (8.5-10.1); CREATININE SERUM 1.85 MG/DL (0.60-1.30); POTASSIUM 4.6 MMOL/L (3.6-5.0)
--- NOTE | 2022-09-14 07:25 | Progress Note - Surgery ---
YOSELYNELIOT 09/14/22 0725: Subjective Date Seen by a Provider: September 14, 2022 Time Seen by a Provider: 06:45 Subjective/Events-last exam pt was using bathroom when I arrived, said he has had two soft bowel movements over night, and per nursing he has had limited urine output, they had changed out his first casas catheter for another, and he still is having less than 100ml out despite a bladder scan showing ~800ml. There was some blood on his gown and around the catheter, aside from this he has no complaints and denies n/v/d, chest pain, lightheadedness, abd pain, fevers or chills. +SOB, weakness Daughter voiced concerns that her father would be "thrown out" after the parac entesis and she wanted to make sure there wasnt any other comorbidities causing his symptoms. Objective Exam Vital Signs Date Time Temp Pulse Resp B/P (MAP) Pulse Ox O2 Delivery O2 Flow Rate FiO2 09/14/22 03:24 36.0 55 17 134/63 (86) 96 Room Air 09/13/22 23:15 36.5 55 17 120/60 (80) 96 Room Air 09/13/22 20:00 Room Air 09/13/22 19:57 36.1 51 17 132/63 (86) 94 Room Air 09/13/22 17:48 Room Air 09/13/22 15:55 36.1 51 18 101/55 (70) 94 Room Air 09/13/22 12:45 36.4 53 18 106/64 95 Room Air 09/13/22 09:30 36.4 65 18 130/70 (90) 95 Room Air I & O 09/14/22 07:00 Intake Total 700 ml Output Total 200 ml Balance 500 ml Capillary Refill : General Appearance: No Apparent Distress, WD/WN HEENT: PERRL/EOMI, Moist Mucous Membranes; No Photophobia, No Scleral Icterus (L), No Scleral Icterus (R) Neck: Non Tender, Supple Respiratory: Chest Non Tender, No Accessory Muscle Use, No Respiratory Distress, Decreased Breath Sounds Cardiovascular: Regular Rate, Rhythm, No Murmur Peripheral Pulses: 2+ Radial Pulses (R), 2+ Radial Pulses (L) Gastrointestinal: non tender, distended; No guarding, No rebound Extremity: No Calf Tenderness; No Inflammation, No Pedal Edema; Other (edema improved from yesterday, almost unnoticeable ) Neurologic/Psychiatric: Alert, Oriented x3; No Aphasia, No Facial Droop Skin: Warm/Dry; No Diaphoresis, No Ecchymosis; Other (some dry blood noticed around casas catheter site) Lymphatic: No Adenopathy Results Lab Laboratory Tests 09/13/22 09:34: White Blood Count 15.8H, Red Blood Count 4.00L, Hemoglobin 13.0L, Hematocrit 40, Mean Corpuscular Volume 101H, Mean Corpuscular Hemoglobin 33, Mean Corpuscular Hemoglobin Concent 32, Red Cell Distribution Width 15.9H, Platelet Count 221, Mean Platelet Volume 13.6H, Immature Granulocyte % (Auto) 0, Neutrophils (%) (Auto) 67, Lymphocytes (%) (Auto) 22, Monocytes (%) (Auto) 9, Eosinophils (%) (Auto) 2, Basophils (%) (Auto) 1, Neutrophils # (Auto) 10.6H, Lymphocytes # (Auto) 3.4, Monocytes # (Auto) 1.4H, Eosinophils # (Auto) 0.3, Basophils # (Auto) 0.1, Immature Granulocyte # (Auto) 0.1, Neutrophils % (Manual) 79, Lymphocytes % (Manual) 12, Monocytes % (Manual) 7, Eosinophils % (Manual) 2, Basophils % (Manual) 0, Band Neutrophils 0, Blood Morphology Comment NORMAL, Prothrombin Time 39.4H, INR Comment 4.0H 09/13/22 09:45: Sodium Level 138, Potassium Level 4.1, Chloride Level 103, Carbon Dioxide Level 24, Anion Gap 11, Blood Urea Nitrogen 27H, Creatinine 1.82H, Estimat Glomerular Filtration Rate 38, BUN/Creatinine Ratio 15, Glucose Level 134H, Calcium Level 8.8, Corrected Calcium 9.7, Total Bilirubin 1.6H, Aspartate Amino Transf (AST/SGOT) 94H, Alanine Aminotransferase (ALT/SGPT) 35, Alkaline Phosphatase 171H, C-Reactive Protein High Sensitivity 6.11H, Total Protein 7.6, Albumin 2.9L 09/13/22 12:31: Urine Color DARK YELLOW, Urine Clarity CLEAR, Urine pH 5.5, Urine Specific [place] 1.025H, Urine Protein TRACEH, Urine Glucose (UA) TRACEH, Urine Ketones NEGATIVE, Urine Nitrite NEGATIVE, Urine Bilirubin 1+H, Urine Urobilinogen 1.0, Urine Leukocyte Esterase NEGATIVE, Urine RBC (Auto) NEGATIVE, Urine RBC NONE, Urine WBC RARE, Urine Squamous Epithelial Cells NONE, Urine Crystals PRESENTH, Urine Amorphous Sediment MOD JOSIE URATESH, Urine Bacteria TRACE, Urine Casts PRESENT, Urine Hyaline Casts 10-25H, Urine Mucus NEGATIVE, Urine Culture Indicated NO 09/14/22 06:03: White Blood Count 15.6H, Red Blood Count 3.64L, Hemoglobin 12.0L, Hematocrit 36L , Mean Corpuscular Volume 99, Mean Corpuscular Hemoglobin 33, Mean Corpuscular Hemoglobin Concent 33, Red Cell Distribution Width 15.9H, Platelet Count 168, Mean Platelet Volume 13.5H, Prothrombin Time 27.4H, INR Comment 2.5H, Sodium Level 137, Potassium Level 4.6, Chloride Level 103, Carbon Dioxide Level 26, Anion Gap 8, Blood Urea Nitrogen 30H, Creatinine 1.85H, Estimat Glomerular Filtration Rate 37, BUN/Creatinine Ratio 16, Glucose Level 110H, Calcium Level 8.5, Activated Partial Thromboplast Time 59H Assessment/Plan Assessment/Plan Assessment/Plan Liver Cirrhosis Symptomatic Ascites Luekocytosis (15.6 today) / possible pneumonia Hypocoagulation INR elevated * INR down to 2 from 4 yesterday * Ordered 1 unit of Fresh Frozen Plasma * U/S to assess site of drain placement * Paracentesis if indicated by sonogram pt was explained to about the procedure and was agreeable to having it done RONDA YOUNGER DO 09/14/22 1734: Subjective Subjective/Events-last exam Patient abdomen still distended. Still shortness of berath. INR still elevated. No new complaints. Denies n/v fever sweats chills or chest pain at this time. Objective Exam General Appearance: No Apparent Distress, WD/WN, Obese HEENT: PERRL/EOMI, Normal ENT Inspection Neck: Non Tender, Supple Respiratory: Chest Non Tender, No Accessory Muscle Use, No Respiratory Distress Cardiovascular: Regular Rate, Rhythm, No JVD Gastrointestinal: non tender, distended; No guarding, No rebound Extremity: No Calf Tenderness, Other (edema improved from yesterday, almost unnoticeable ) Neurologic/Psychiatric: Alert, Oriented x3 Skin: Warm/Dry, Other (some dry blood noticed around casas catheter site) Lymphatic: No Adenopathy Assessment/Plan Assessment/Plan Assessment/Plan Liver Cirrhosis Symptomatic Ascites Luekocytosis (15.6 today) / possible pneumonia Hypocoagulation INR elevated * INR down to 2 from 4 yesterday * Ordered 1 unit of Fresh Frozen Plasma * U/S to assess site of drain placement * Paracentesis if indicated by sonogram pt was explained risks and benefits and wishes to proceed with U/s guided paracentesis. IF greater than 5 L removed will give albumin. Will sign off, call if needed. DATE OF SERVICE: 09/14/22 PREOPERATIVE DIAGNOSIS: Symptomatic abdominal ascites. POSTOPERATIVE DIAGNOSIS: Symptomatic abdominal ascites. PROCEDURE: Ultrasound-guided paracentesis. SURGEON: Ronda Younger DO ANESTHESIA: Local. ESTIMATED BLOOD LOSS: Scant. COMPLICATIONS: None. INDICATIONS: The patient is a 77 male with liver failure and symptomatic ascites.The patient understands risks and benefits of procedure and wished to proceed. Consent was signed and on the chart. DESCRIPTION OF PROCEDURE: The patient was prepped and draped in sterile fashion after ultrasound was used to isolate the best pocket for drainage. Local anesthetic was infiltrated. An 11 blade scalpel was then used to make a small incision. The [id number] needle and catheter were then advanced through the abdominal wall until straw-colored fluid was withdrawn. The catheter was advanced, and the needle was removed. 8850 mL of straw-colored fluid was withdrawn. The catheter was then removed, and a sterile bandage was applied. The patient tolerated procedure well without any complications. Supervisory-Addendum Brief Verification & Attestation Participated in pt care: history, MDM, physical Personally performed: exam, history, MDM, supervision of care Care discussed with: Medical Student Procedures: n/a Results interpretation: Verified all documentation Verification and Attestation of Medical Student E/M Service A medical student performed and documented this service in my presence. I reviewed and verified all information documented by the medical student and made modifications to such information, when appropriate. I personally performed the physical exam and medical decision making. Ronda Younger, September 14, 2022,17:34 ELIOT TOPETE September 14, 2022 07:25 RONDA YOUNGER DO September 14, 2022 17:34
[2022-09-14] MEDS: ALLOPURINOL 100 MG (ZYLOPRIM) TAB PO SCH ×2 (09:09→19:58)
[2022-09-14] MEDS: MAGNESIUM OXIDE (MAG-OX)400 MG TAB PO SCH ×2 (09:19→17:57)
[2022-09-14] MEDS: meTOprolol TARTRATE 25 MG (LOPRESSOR) TABLET PO SCH ×2 (09:19→19:58)
[2022-09-14] MEDS: FUROSEMIDE 40 MG/4 ML INJ (LASIX) IVP SCH (09:19)
[2022-09-14] MEDS: AMIODARONE 200 MG (CORDARONE) TAB PO SCH ×2 (09:19→20:00)
[2022-09-14] MEDS ORDERED: NS IV 500 ML 500 ML IV PRN (11:00)
[2022-09-14 11:41] VITALS: BP 140/61
--- NOTE | 2022-09-14 12:03 | Physical Therapy Progress Note ---
Therapy Progress Note Patient refused. Reports he doesn't feel well and is supposed to have a procedure later today. Will attempt treatment again tomorrow and progress per patient tolerance. ELIU HERRON PT September 14, 2022 12:03
--- NOTE | 2022-09-14 14:04 | Occupational Therapy Eval ---
OT Evaluation-General/PLF Medical Diagnosis Admission Date September 13, 2022 at 12:40 Medical Diagnosis: Liver Cirrhosis Onset Date: September 13, 2022 Therapy Diagnosis Therapy Diagnosis: weakness Height/Weight Height (Feet): 5 Height (Inches): 10.00 Weight (Pounds): 284 Weight (Ounces): 0.0 Precautions Precautions/Isolations: Fall Prevention, Standard Precautions Weight Bear Status Weight Bearing Restriction: Weight Bearing/Tolerated Referral Referral Reason: Activity Tolerance, Self Care, Evaluation/Treatment, Strengthening/ROM Social History Home: Single Level Current Living Status: Alone ( passed May 2021) Entry Into Home: Stairs With Railing Steps Into Home: 3 Steps Inside Home: 0 Other Obstacles: has more difficulty ascending steps ADL-Prior Level of Function SCALE: Activities may be completed with or without assistive devices. 0-Ybdfktdvyy-jebnpvc completes the activity by him/herself with no assistance from a helper. 5-Set-up or Clean-up Assistance-helper sets up or cleans up; patient completes activity. [place] assists only prior to or following the activity. 4-Supervision or Touching Assistance-helper provides verbal cues and/or touchi ng/steadying and/or contact guard assistance as patient completes activity. Assistance may be provided throughout the activity or intermittently. 3-Partial/Moderate Assistance-helper does LESS THAN HALF the effort. [place] lifts, holds or supports trunk or limbs, but provides less than half the effort. 2-Substantial/Maximal Assistance-helper does MORE THAN HALF the effort. [place] lifts or holds trunk or limbs and provides more than half the effort. 7-Inawpdspz-bpgawx does ALL the effort. Patient does none of the effort to complete the activity. Or, the assistance of 2 or more helpers is required for the patient to complete the activity. If activity was not attempted, code reason: 7-Patient Refused. 9-Not Applicable-not attempted and the patient did not perform the activity before the current illness, exacerbation or injury. 10-Not Attempted due to Environmental Limitations-(lack of equipment, weather restraints, etc.). 88-Not Attempted due to Medical Conditions or Safety Concerns. Self Care: Independent Functional Cognition: Independent DME/Equipment: Bath Bench, Shower Hose Housekeeping Lead DME/Equipment Comments was on Hospice however most DME has been returned ot hospice. Drive Self: Yes (difficulty w/ transfer in /out of vehicle month ago) OT Current Status Subjective Resting in bed w/ daughter present Mental Status/Objective Patient Orientation: Person, Place, Time, Situation Required redirection to answer questions w/o family interference Attachments: Zaragoza Catheter, IV, Other-See Comments (pneumothorax) Current Glasses/Contacts: Yes (reading) Hearing Aids: Yes Upper Extremity ROM ROM/MMT performed in supine d/t drain not sutured. ROM WFLS Upper Extremity Strength MMT +4/5 ADL-Treatment Eating (QC): 6 Oral Hygiene (QC): 4 Shower/Bathe Self (QC): 88 Upper Body Dressing (QC): 7 Lower Body Dressing (QC): 88 On/Off Footwear (QC): 7 Toileting Hygiene (QC): 88 to remain supine Education OT Patient Education: Modified ADL techniques, Progress toward Goal/Update tx plan, Purpose of tx/functional activities, Reviewed precautions, Rehab process, Safety issues, Transfer techniques, Use of adapted equipment Teaching Recipient: Patient, Family Teaching Methods: Demonstration, Discussion Response to Teaching: Reinforcement Needed OT Jail Goals [place] Operator Goals 1=Demonstrate adherence to instructed precautions during ADL tasks. 2=Patient will verbalize/demonstrate understanding of assistive devices/modifications for ADL. 3=Patient will improve strength/tolerance for activity to enable patient to perform ADL's. OT Education/Plan Problem List/Assessment Assessment: Decreased Activ Tolerance, Impaired Self-Care Skills Discharge Recommendations Plan/Recommendations: Continue POC Therapy Discharge Recommendati: Post Acute OT Treatment Plan/Plan of Care Treatment,Training & Education: Yes Patient would benefit from OT for education, treatment and training to promote independence in ADL's, mobility, safety and/or upper extremity function for ADL's. Plan of Care: ADL Retraining, Functional Mobility, Group Exercise/Act as Ind, UE Funct Exercise/Act Treatment Duration: September 24, 2022 Frequency: 3 times per week (3-5 times week) Estimated Hrs Per Day: .25 hour per day Agreement: Yes Rehab Potential: Guarded Time Start Time: 14:00 Stop Time: 14:28 DATE: September 14, 2022 Total Time Billed (hr/min): 28 Billed Treatment Time EVM 28 min ALCON JACK OT September 14, 2022 14:03
--- NOTE | 2022-09-14 14:45 | Progress Note - Hospitalist ---
Subjective HPI/CC On Admission Date Seen by Provider: September 14, 2022 Subjective/Events-last exam Pt reports having a rough night. Had some hematuria after casas placed and then concerned about catheter clotting off. Abd usg pending. hematuria resolved. Objective Exam Vital Signs Vital Signs Date Time Temp Pulse Resp B/P (MAP) Pulse Ox O2 Delivery O2 Flow Rate FiO2 09/14/22 11:41 36.3 55 18 140/61 (87) 95 Room Air Capillary Refill : General Appearance: No Apparent Distress, Chronically ill Respiratory: Lungs Clear, No Respiratory Distress Cardiovascular: Regular Rate, Rhythm Gastrointestinal: Normal Bowel Sounds, Distended; No Guarding Neurologic/Psychiatric: Alert, Oriented x3 Results/Procedures Lab Laboratory Tests 09/14/22 06:03 Patient resulted labs reviewed. Assessment/Plan Assessment and Plan Assess & Plan/Chief Complaint Decompensated cirrhosis RODRIGUEZ Ascites Elevated INR DC lasix Casas in place- three way place for CBI but CBI discontinued due to cleaning of hematuria INR down to 2.5- FFP ordered Paracentesis planing by surgery today PT/OT Hematuria three way catheter in place CBI discontinued as hematuria resolved A fib HTN Continue home meds as able Hold GILLIAN Wu MD September 14, 2022 14:45
--- NOTE | 2022-09-14 14:52 | Diagnostic Imaging Report ---
PROCEDURE: US Abdomen, limited. TECHNIQUE: Multiple realtime grayscale images were obtained over the abdomen in various projections. INDICATION: Ascites. COMPARISON: CT dated 09/12/2022 FINDINGS: Limited sonographic evaluation the abdomen was performed and demonstrates moderate ascites. IMPRESSION: 1. Moderate ascites. Dictated by: Dictated on workstation # [id number]
[2022-09-14 16:28] VITALS: BP 135/62
[2022-09-14] MEDS ORDERED: ALBUMIN 25% 25 GM/100 ML 200 ML IV ONE (17:30)
[2022-09-14 19:37] VITALS: BP 134/60
[2022-09-15 00:11] VITALS: BP 132/58
[2022-09-15 04:00] VITALS: BP 128/60
[2022-09-15 05:39] LABS: HEMOGLOBIN 10.4 g/dL (13.3-17.7)
[2022-09-15 05:40] LABS: MEAN PLATELET VOLUME 13.4 fL (9.0-12.2); WHITE BLOOD COUNT 7.3 10^3/uL (4.3-11.0)
[2022-09-15 05:58] LABS: POTASSIUM 4.3 MMOL/L (3.6-5.0)
[2022-09-15 05:59] LABS: CALCIUM 8.5 MG/DL (8.5-10.1)
[2022-09-15 06:03] LABS: CREATININE SERUM 1.76 MG/DL (0.60-1.30)
[2022-09-15 06:08] LABS: INR 1.9 (0.8-1.4); PROTHROMBIN TIME PATIENT 22.7 SEC (12.2-14.7)
[2022-09-15] MEDS: CATHETER FLUSH 10 ML SYR IVP SCH (06:19)
[2022-09-15 07:46] VITALS: BP 104/56
[2022-09-15] MEDS: ALLOPURINOL 100 MG (ZYLOPRIM) TAB PO SCH (08:47)
[2022-09-15] MEDS: MAGNESIUM OXIDE (MAG-OX)400 MG TAB PO SCH (08:47)
[2022-09-15 08:50] VITALS: BP 96/48
[2022-09-15] MEDS: AMIODARONE 200 MG (CORDARONE) TAB PO SCH (09:23)
[2022-09-15] MEDS: meTOprolol TARTRATE 25 MG (LOPRESSOR) TABLET PO SCH (09:24)
--- NOTE | 2022-09-15 11:28 | Progress Note - Hospitalist ---
Subjective HPI/CC On Admission Date Seen by Provider: September 15, 2022 Subjective/Events-last exam Pt reports feeling much better. Abdomen much less distended. Ready to work with PT today. Still has catheter in though. Discussed with him and his daughter regarding discharge planning and seeing what patient could do with PT first. Objective Exam Vital Signs Vital Signs Date Time Temp Pulse Resp B/P (MAP) Pulse Ox O2 Delivery O2 Flow Rate FiO2 09/15/22 08:50 48 96/48 (64) 09/15/22 08:00 Room Air 09/15/22 07:46 36.3 18 93 Capillary Refill : General Appearance: No Apparent Distress, Obese Respiratory: Lungs Clear, No Respiratory Distress Cardiovascular: No Murmur, Bradycardia Gastrointestinal: Normal Bowel Sounds, Soft, Other (much less distended) Neurologic/Psychiatric: Alert, Oriented x3 Results/Procedures Lab Laboratory Tests 09/15/22 05:10 Patient resulted labs reviewed. Assessment/Plan Assessment and Plan Assess & Plan/Chief Complaint Decompensated cirrhosis RODRIGUEZ Ascites Elevated INR Thrombocytopenia Zaragoza in place- to monitor UOP INR improved Paracentesisdone 09/14- almost 9L removed PT/OT IRF eval SW consulted Trend plts Hematuria Resolved Catheter in place A fib HTN Continue home meds as able Resume xarelto DVT ppx: GILLIAN Gresham MD September 15, 2022 11:27
--- NOTE | 2022-09-15 11:37 | Physical Therapy Daily Note ---
PT Daily Note-Current Subjective Patient is up in recliner and agrees to PT. Pain Section J - Health Conditions 1. Rarely or not at all 2. Occasionally 3. Frequently 4. Almost constantly 8. Unable to answer Pain Effect on Sleep: 1 Pain Interference with Therapy: 1 Pain Interference w/Day-to-Day: 1 Mental Status Patient Orientation: Normal For Age Attachments: Zaragoza Catheter Transfers SCALE: Activities may be completed with or without assistive devices. 9-Rpxicrzosu-hnrfits completes the activity by him/herself with no assistance from a helper. 5-Set-up or Clean-up Assistance-helper sets up or cleans up; patient completes activity. Jbphh assists only prior to or following the activity. 4-Supervision or Touching Assistance-helper provides verbal cues and/or touching/steadying and/or contact guard assistance as patient completes activity. Assistance may be provided throughout the activity or intermittently. 3-Partial/Moderate Assistance-helper does LESS THAN HALF the effort. Jbphh lifts, holds or supports trunk or limbs, but provides less than half the effort. 2-Substantial/Maximal Assistance-helper does MORE THAN HALF the effort. Jbphh lifts or holds trunk or limbs and provides more than half the effort. 8-Xfwkrshvd-qzrktj does ALL the effort. Patient does none of the effort to complete the activity. Or, the assistance of 2 or more helpers is required for the patient to complete the activity. If activity was not attempted, code reason: 7-Patient Refused. 9-Not Applicable-not attempted and the patient did not perform the activity before the current illness, exacerbation or injury. 10-Not Attempted due to Environmental Limitations-(lack of equipment, weather restraints, etc.). 88-Not Attempted due to Medical Conditions or Safety Concerns. Sit to Stand (QC): 6 Gait Training Distance: 200' Walk 10 feet (QC): 4 Walk 50 ft with 2 Turns(QC): 4 Walk 150 ft (QC): 4 Gait Assistive Device: FWW improved gait sequence with FWW use Assessment Patient would benefit from FWW for home use and patient agrees. Noted i mprovement in balance and functional mobility with FWW use for energy conservation. PT Plan Treatment/Plan Treatment Plan: Continue Plan of Care Treatment Duration: October 01, 2022 Frequency: 6 times per week Estimated Hrs Per Day: .25 hour per day Patient and/or Family Agrees t: Yes Time Time In: 1048 Time Out: 1058 DATE: September 15, 2022 Total Billed Treatment Time: 10 Total Billed Treatment 1 visit FA 10 min GEORGIE TOVAR PT September 15, 2022 11:37
--- NOTE | 2022-09-15 11:58 | Occupational Ther Daily Note ---
OT Current Status-Daily Note Subjective EASILY AROUSED ON OT ARRIVAL, AGREES TO THERAPY Mental Status/Objective Patient Orientation: Person, Place, Time, Situation Attachments: Zaragoza Catheter ADL-Treatment Therapy Code Descriptions/Definitions Functional [place] Measure: 0=Not Assessed/NA 4=Minimal Assistance 1=Total Assistance 5=Supervision or Setup 2=Maximal Assistance 6=Modified [place] 3=Moderate Assistance 7=Complete IndependenceSCALE: Activities may be completed with or without assistive devices. 7-Linyvzrqew-zxkpqdo completes the activity by him/herself with no assistance from a helper. 5-Set-up or Clean-up Assistance-helper sets up or cleans up; patient completes activity. [place] assists only prior to or following the activity. 4-Supervision or Touching Assistance-helper provides verbal cues and/or touching/steadying and/or contact guard assistance as patient completes activity. Assistance may be provided throughout the activity or intermittently. 3-Partial/Moderate Assistance-helper does LESS THAN HALF the effort. [place] lifts, holds or supports trunk or limbs, but provides less than half the effort. 2-Substantial/Maximal Assistance-helper does MORE THAN HALF the effort. [place] lifts or holds trunk or limbs and provides more than half the effort. 9-Nucthvsjs-fbfdtz does ALL the effort. Patient does none of the effort to complete the activity. Or, the assistance of 2 or more helpers is required for the patient to complete the activity. If activity was not attempted, code reason: 7-Patient Refused. 9-Not Applicable-not attempted and the patient did not perform the activity before the current illness, exacerbation or injury. 10-Not Attempted due to Environmental Limitations-(lack of equipment, weather restraints, etc.). 88-Not Attempted due to Medical Conditions or Safety Concerns. Eating (QC): 6 Oral Hygiene (QC): 5 Shower/Bathe Self (QC): 7 Upper Body Dressing (QC): 5 Lower Body Dressing (QC): 4 On/Off Footwear: 3 Toileting Hygiene (QC): 3 Toilet Transfer (QC): 4 Education OT Patient Education: Correct positioning, Modified ADL techniques, Progress toward Goal/Update tx plan, Purpose of tx/functional activities, Reviewed precautions, Rehab process, Safety issues, Transfer techniques Teaching Recipient: Patient Teaching Methods: Demonstration, Discussion Response to Teaching: Reinforcement Needed OT [facility] Goals [facility] Goals 1=Demonstrate adherence to instructed precautions during ADL tasks. 2=Patient will verbalize/demonstrate understanding of assistive devices/modifications for ADL. 3=Patient will improve strength/tolerance for activity to enable patient to perform ADL's. OT Education/Plan Problem List/Assessment Assessment: Decreased Activ Tolerance, Impaired Self-Care Skills Discharge Recommendations Plan/Recommendations: Continue POC Treatment Plan/Plan of Care Treatment,Training & Education: Yes Patient would benefit from OT for education, treatment and training to promote independence in ADL's, mobility, safety and/or upper extremity function for ADL's. Plan of Care: ADL Retraining, Functional Mobility, Group Exercise/Act as Ind, UE Funct Exercise/Act Treatment Duration: September 24, 2022 Frequency: 3 times per week (3-5 times week) Estimated Hrs Per Day: .25 hour per day Agreement: Yes Rehab Potential: Guarded ALL NEEDS MET Time Start Time: 09:55 Stop Time: 10:10 DATE: September 15, 2022 Total Time Billed (hr/min): 15 Billed Treatment Time ADL 15 MIN ALCON JACK OT September 15, 2022 11:58
[2022-09-15 12:28] VITALS: BP 103/49
[2022-09-15 14:11] VITALS: BP 103/49
--- NOTE | 2022-09-15 14:18 | Discharge Summary ---
Diagnosis/Chief Complaint Date of Admission September 15, 2022 at 09:50 Date of Discharge Discharge Date: September 15, 2022 Primary Care Paul Fuller MD Discharge Summary Procedures/Consulations Dr Younger- Surgery Discharge Physical Exam Allergies: Coded Allergies: No Known Drug Allergies (Unverified , 11/21/09) Vitals & I&Os Vital Signs Date Time Temp Pulse Resp B/P (MAP) Pulse Ox O2 Delivery O2 Flow Rate FiO2 09/15/22 12:28 36.4 46 18 103/49 (67) 97 Room Air General Appearance: No Apparent Distress, Chronically ill, Obese Respiratory: Lungs Clear, No Respiratory Distress Cardiovascular: Regular Rate, Rhythm, No Murmur Neurologic/Psychiatric: Alert, Oriented x3 Hospital Course Patient was admitted to the hospital secondary to decompensated cirrhosis with ascites and generalized weakness. He was seen by surgery and after unit of [facility] due to supratherapeutic INR from auto anticoagulation he underwent paracentesis. Just under 9 L was removed and he was given albumin following that. He was seen by physical therapy and Occupational Therapy due to his debility and deemed an appropriate candidate for inpatient rehab. Was discharged there in stable improved condition. His Xarelto was restarted for stroke prophylaxis from his A-fib though his antihypertensives were held due to hypotension likely secondary to volume paracentesis. I did call and update Dr. Fuller regarding this admission upon patient's discharge to inpatient rehab. Labs (last 24 hrs) Laboratory Tests 09/15/22 05:10: White Blood Count 7.3, Red Blood Count 3.19L, Hemoglobin 10.4L, Hematocrit 32L, Mean Corpuscular Volume 99, Mean Corpuscular Hemoglobin 33, Mean Corpuscular H emoglobin Concent 33, Red Cell Distribution Width 15.9H, Platelet Count 93L, Mean Platelet Volume 13.4H, Percent Immature Platelet Fraction 13.3H, Prothrombin Time 22.7H, INR Comment 1.9H, Sodium Level 137, Potassium Level 4.3, Chloride Level 104, Carbon Dioxide Level 22, Anion Gap 11, Blood Urea Nitrogen 29H, Creatinine 1.76H, Estimat Glomerular Filtration Rate 39, BUN/Creatinine Ratio 16, Glucose Level 80, Calcium Level 8.5 Patient resulted labs reviewed. Discussion & Recommendations Discharge Planning: >30 minutes discharge planning Discharge Home Medications: Active Scripts Active Reported Vitamin D2 (Ergocalciferol (Vitamin D2)) 1,250 Mcg (08509 Unit) Capsule 1,250 Mcg PO SAT Amiodarone HCl 200 Mg Tablet 200 Mg PO BID Xarelto (Rivaroxaban) 20 Mg Tablet 20 Mg PO DAILY Magnesium (Magnesium Oxide) 400 Mg Capsule 400 Mg PO BID Aspirin EC (Aspirin) 81 Mg Tablet.dr 81 Mg PO DAILY Allopurinol 100 Mg Tablet 100 Mg PO BID Metoprolol Tartrate 25 Mg Tablet 25 Mg PO BID Losartan Potassium 100 Mg Tablet 100 Mg PO DAILY Amlodipine Besylate 10 Mg Tablet 10 Mg PO DAILY Instructions to patient/family Please see electronic discharge instructions given to patient. GILLIAN LUI MD September 15, 2022 14:18
[2022-09-16] MEDS ORDERED: RIVAROXABAN 20 MG TABLET (XARELTO) PO SCH (09:00)
[2022-09-17] MEDS ORDERED: VITAMIN D2 1.25 MG (50,000 UNITS) CAP PO SCH (09:00)
== END 2022-09-15 14:15 | DRG 433 ==
LOC: ER 09:32 → EDUNIT# 12:13 → 4TH 12:40 → OBSVTOIN 09-15 09:50
PROVIDERS: ADMIT Family Medicine; ATTEND Family Medicine
PROC: 0W9G3ZZ Drainage of Peritoneal Cavity, Percutaneous Approach (ICD-10-PCS; principal; 2022-09-14)
DX: K74.60 Unspecified cirrhosis of liver (principal); R18.8 Other ascites; T83.83XA Hemorrhage due to genitourinary prosthetic devices, implants and grafts, initial encounter; K75.81 Nonalcoholic steatohepatitis (NASH); I95.89 Other hypotension; D69.6 Thrombocytopenia, unspecified; I10 Essential (primary) hypertension; F32.A Depression, unspecified; I48.91 Unspecified atrial fibrillation; Z79.01 Long term (current) use of anticoagulants; D72.829 Elevated white blood cell count, unspecified; M10.9 Gout, unspecified; Z87.891 Personal history of nicotine dependence; Z79.82 Long term (current) use of aspirin; Z79.899 Other long term (current) drug therapy
CPT/HCPCS: 36415; 36430; 51702; 71045; 76705; 80048; 80053; 81000; 85007; 85027; 85610; 85730; 86141; 86850; 86900; 86901; 86927; G0378

== ENCOUNTER 2022-09-15 12:41 | Inpatient (IN) | payer MEDICARE, OTHER ==
[~2022-09-15] VITALS: Ht 175.3 cm; Wt 122.6 kg
[~2022-09-15 12:41] MED LIST changes: +AMIO200T65 PO; +ERGO1250 PO; +RIVA20TA PO
--- NOTE | 2022-09-15 14:43 | PM&R Post Admission Assessment ---
PM&R Date of Visit: September 15, 2022 Time of Visit: 14:45 History of Present Illness CC: Debility from end stage liver disease HPI: (DC summary from 4th floor: Patient was admitted to the hospital secondary to decompensated cirrhosis with ascites and generalized weakness. He was seen by surgery and after unit of [facility] due to supratherapeutic INR from auto anticoagulation he underwent paracentesis. Just under 9 L was removed and he w as given albumin following that. He was seen by physical therapy and Occupational Therapy due to his debility and deemed an appropriate candidate for inpatient rehab. Was discharged there in stable improved condition. His Xarelto was restarted for stroke prophylaxis from his A-fib though his antihypertensives were held due to hypotension likely secondary to volume paracentesis. I did call and update Dr. Fuller regarding this admission upon patient's discharge to inpatient rehab). Currently patient is willing to participate in therapy and will be monitored in meantime. Past Nvbckxr-Nbnkok-Nlponn Hx Past Med/Social Hx: Reviewed Nursing Past Med/Soc Hx, Reviewed and Corrections made Patient Social History Marrital Status: single Employed/Student: retired Alcohol Use: Past History Alcohol Beverage of Choice: Vodka Former Smoker, Quit: Jan 13, 2005 Type Used: Cigarettes 2nd Hand Smoke Exposure: No Recent Hopitalizations: No Immunizations Up To Date Tetanus Booster (TDap): Unknown Date of Pneumonia Vaccine: Feb 19, 2015 Date of Influenza Vaccine: Mar 14, 2019 Seasonal Allergies Seasonal Allergies: No Past Medical History Surgeries: Appendectomy Currently Using CPAP: No Currently Using BIPAP: No Cardiac: Atrial Fibrillation Reproductive: No Sexually Transmitted Disease: No Gastrointestinal: Polyps, Cirrhosis Musculoskeletal: Gout Loss of Vision: Denies Hearing Impairment: Denies Psychosocial: Depression History of Blood Disorders: No Adverse Reaction to Blood Jiménez: No Family History Colon cancer No Pertinent Family Hx PM&R Allergy/Meds/Data Review Allergies Coded Allergies: No Known Drug Allergies (Unverified , 11/21/09) Home Medications Scheduled Allopurinol (Allopurinol), 100 MG PO BID, (Reported) Amiodarone HCl (Amiodarone HCl), 200 MG PO BID, (Reported) Amlodipine Besylate (Amlodipine Besylate), 10 MG PO DAILY, (Reported) Aspirin (Aspirin EC), 81 MG PO DAILY, (Reported) Ergocalciferol (Vitamin D2) (Vitamin D2), 1,250 MCG PO SAT, (Reported) Losartan Potassium (Losartan Potassium), 100 MG PO DAILY, (Reported) Magnesium Oxide (Magnesium), 400 MG PO BID, (Reported) Metoprolol Tartrate (Metoprolol Tartrate), 25 MG PO BID, (Reported) Rivaroxaban (Xarelto), 20 MG PO DAILY, (Reported) Discontinued Medications Rivaroxaban (Xarelto Tablet), 10 MG PO DAILY, (Reported) Discontinued Reason: Prescription changed Current Medications Current Medications Reviewed Review of Systems Constitutional: see HPI, malaise, weakness EENTM: no symptoms reported Respiratory: no symptoms reported Cardiovascular: edema Gastrointestinal: no symptoms reported Genitourinary: no symptoms reported Musculoskeletal: no symptoms reported Skin: no symptoms reported Psychiatric/Neurological: No Symptoms Reported All Other Systems Reviewed Negative Unless Noted: Yes Physical Exam Physical Exam Vital Signs Capillary Refill : Height, Weight, BMI Height: 5'10.00" Weight: 284lbs. 0.0oz. 128.902149fi; 40.96 BMI Method: General Appearance: No Apparent Distress, WD/WN, Chronically ill, Obese Eyes: Bilateral Eye Normal Inspection, Bilateral Eye PERRL HEENT: PERRL/EOMI, Normal ENT Inspection, Pharynx Normal Neck: Full Range of Motion, Normal Inspection, Non Tender, Supple, Carotid Bruit Respiratory: Chest Non Tender, Lungs Clear, Normal Breath Sounds, No Accessory Muscle Use, No Respiratory Distress Cardiovascular: No Edema, No Gallop, No JVD, No Murmur, Normal Peripheral Pulses, Irregularly Irregular Gastrointestinal: Normal Bowel Sounds, No Organomegaly, No Pulsatile Mass, Non Tender, Soft, Distended, Other (ascites) Back: Normal Inspection, No CVA Tenderness, No Vertebral Tenderness Extremity: Normal Capillary Refill, Normal Inspection, Normal Range of Motion, Non Tender, No Calf Tenderness, Pedal Edema Neurologic/Psychiatric: Alert, Oriented x3, No Motor/Sensory Deficits, Normal Mood/Affect Skin: Normal Color, Warm/Dry Lymphatic: No Adenopathy PM&R Medical Assessment & Plan REHAB/MEDICAL ASSESSMENT AND PLAN: REHAB IMPAIRMENT GROUP: Debility from decompensation of liver failure ETIOLOGIC DIAGNOSIS: Debility from decompensation of liver failure The comorbidities that impact the patients function and/or functional outcome by: end stage liver disease, ascites, a fib, lives alone REHAB PLAN: The patient is being admitted to our comprehensive inpatient rehabilitation facility and can tolerate the intensity of service consisting of at least: 180 minutes of therapy a day, 5 out of 7 days a week Rehab treatment will consist of: PT OT will focus on regaining function in order to ambulate and increase ADL's to create and safe DC to home The patient/family has a good understanding of our discharge process and will benefit from an interdisciplinary inpatient rehabilitation program. The patient has potential to make improvement and is in need of at least two of the following multidisciplinary therapies including but not limited to physical, occupational, speech, and prosthetics and orthotics. Additionally the patient will need services from respiratory, nutritional services, wound care, psychology, etc. (Customize this to each patient). Given the patients complex condition and risk of further medical complications, rehabilitation services cannot be safely or effectively provided at a lower level of care such as a custodial facility. BARRIERS TO DISCHARGE: ESLD ESTIMATED LOS: 7 days DISPOSITION: Home RELEVANT CHANGES SINCE PREADMISSION SCREENING: I have compared the patients medical and functional status at the time of the preadmission screening and there are: no changes PROGNOSIS: Fair REHABILITATION GOALS: 1. PT OT will focus on regaining function in order to ambulate and increase ADL's to create and safe DC to home All the above goals were reviewed with the patient and he/she is in agreement. By signing this document, I acknowledge that I have personally performed a full physical examination on this patient within 24 hours of admission to this inpatient rehabilitation facility and have determined the patient to be able to tolerate the above course of treatment at an intensive level for a reasonable period of time. I will be completing a detailed individualized Plan of Care for this patient by day #4 of the patients stay based upon the Preadmission Screen, the Post-Admission Evaluation, and the therapy evaluations. Admission Dx/Comorbidities: (1) Liver failure Status: Acute ICD Codes: K72.90 - Hepatic failure, unspecified without coma Assessment/Plan Assessment and Plan Assess & Plan/Chief Complaint Assessment: Debility following ESLD decompensation Ascites AF Previous OAC for CVA prophylaxis holding for now HTN HLP Plan: Monitor labs Monitor AF Decision on anticoagulation pending PT OT TULIO HILLMAN DO September 15, 2022 14:43
[2022-09-15] MEDS ORDERED: LOPERAMIDE 2 MG (IMODIUM) TABLET PO PRN (14:45)
[2022-09-15] MEDS ORDERED: CALCIUM CARBONATE 500 MG (TUMS) TAB.CHEW PO PRN (14:45)
[2022-09-15] MEDS ORDERED: ALPRAZolam 0.25 MG (XANAX) TAB PO PRN (14:45)
[2022-09-15] MEDS ORDERED: DOCUSATE SODIUM 100 MG (COLACE) CAP PO PRN (14:45)
[2022-09-15] MEDS ORDERED: FLEET ENEMA ADULT 1 EA BTL PR PRN (14:45)
[2022-09-15] MEDS ORDERED: ONDANSETRON 4 MG/2 ML (SDV) Z0FRAN IV PRN (14:45)
[2022-09-15] MEDS ORDERED: LACTULOSE SYRUP 10GM/15ML (ENULOSE) 30ML UDC PO PRN (14:45)
[2022-09-15] MEDS ORDERED: MELATONIN 3 MG TABLET PO PRN (14:45)
[2022-09-15] MEDS ORDERED: guaiFENesin/CODEINE (ROBITUSSIN AC) 10ML UDC PO PRN (14:45)
[2022-09-15] MEDS ORDERED: BISACODYL 10 MG SUPP (DULCOLAX) PR PRN (14:45)
[2022-09-15] MEDS ORDERED: ONDANSETRON 4 MG (ZOFRAN) ORAL DISSOLVE TAB PO PRN (14:45)
[2022-09-15 15:04] VITALS: BP 128/60
--- NOTE | 2022-09-15 15:10 | Physical Therapy Evaluation ---
PT Evaluation-General Medical Diagnosis Admission Date September 15, 2022 at 14:05 Medical Diagnosis: liver failure, cirrhosis Onset Date: September 13, 2022 Therapy Diagnosis Therapy Diagnosis: decreased actvity tolerance, safety deficit/fall risk, functional mobility Height/Weight Height (Feet): 5 Height (Inches): 10.00 Weight (Pounds): 284 Weight (Ounces): 0.0 Precautions Precautions/Isolations: Fall Prevention, Standard Precautions Recent paracentesis at abdomen (~ 9L) Weight Bear Status Full Weight Bearing Full Weight Bearing Referral Physician: Pedro Reason for Referral: Evaluation/Treatment Medical History Pertinent Medical History: Atrial Fib, HTN Additional Medical History depression, gout, polyps, hx cardia ablation and cardioversion, 9L paracentesis of abdomen 09/14/22. Reviewed History: Yes Social History Home: Single Level Current Living Status: Alone Entry Into Home: Stairs With Railing PT Steps Into Home: 3 PT Steps Inside Home: 0 May 2021 Prior Prior Level of Function SCALE: Activities may be completed with or without assistive devices. 1-Pottgiqwit-yphzmxp completes the activity by him/herself with no assistance from a helper. 5-Set-up or Clean-up Assistance-helper sets up or cleans up; patient completes activity. [place] assists only prior to or following the activity. 4-Supervision or Touching Assistance-helper provides verbal cues and/or touching/steadying and/or contact guard assistance as patient completes activi ty. Assistance may be provided throughout the activity or intermittently. 3-Partial/Moderate Assistance-helper does LESS THAN HALF the effort. Equinunk lifts, holds or supports trunk or limbs, but provides less than half the effort. 2-Substantial/Maximal Assistance-helper does MORE THAN HALF the effort. [place]unk lifts or holds trunk or limbs and provides more than half the effort. 7-Efaelcmkp-kzholf does ALL the effort. Patient does none of the effort to complete the activity. Or, the assistance of 2 or more helpers is required for the patient to complete the activity. If activity was not attempted, code reason: 7-Patient Refused. 9-Not Applicable-not attempted and the patient did not perform the activity before the current illness, exacerbation or injury. 10-Not Attempted due to Environmental Limitations-(lack of equipment, weather restraints, etc.). 88-Not Attempted due to Medical Conditions or Safety Concerns. Bed Mobility: 6 (Regular bed) Transfers (B,C,W/C): 6 Gait: 6 (/s AD) Stairs: 6 (3 with rails) Wheelchair Mobility: 9 Indoor Mobility (Ambulation): Independent Stairs: Independent Prior Device Use: none, but has 2 canes available at home.Did state he had a hand-held shower PT Evaluation-Current Subjective C/o mild discomfort in abdomen, but does not rate as pain. Pleasant male. States he drove prior to coming to the hospital. States he could cook simple meals, but did not have endurance to stand to cook a big meal. States daughter helps with cleaning, shopping, laundry. Pain Section J - Health Conditions 1. Rarely or not at all 2. Occasionally 3. Frequently 4. Almost constantly 8. Unable to answer Pain Effect on Sleep: 1 Pain Interference with Therapy: 1 Pain Interference w/Day-to-Day: 1 Pt/Family Goals To return to his home. Objective Patient Orientation: Person, Place Attachments: [place] Catheter ROM/Strength ROM Lower Extremities mild limitation in hip flexion due to abdominal girth Strength Lower Extremities MMT seated in w/c: Ankle PF 5/5 (B), ankle DF 4+/5 (B), knee extension 4+/5, knee flexion 5/5 (B), hip flexion 3+/5 in limited range due to abdominal girth Sensory Vision: Functional Hearing: Functional Sensation Right Lower Extremit: Intact Sensation Left Lower Extremity: Intact Transfers Roll Left & Right (QC): 6 (with use of bed rail) Sit to Lying (QC): 3 (mod (A) for (B) LE's) Lying to Sitting/Side of Bed(Q: 3 (Min (A) to assist with trunk elevation) Sit to Stand (QC): 3 (Min (A) from lower chairs to FWW) Chair/Qbd-rd-Hjzrn Xfer(QC): 3 (min (A) - CGA with cues for safety, turning completely and using walker correctly.) Toilet Transfer (QC): 3 (min (A) from low toilet with grab bars) Car Transfer (QC): 3 (Min (A) to lift legs in to car. Attempted to stand with one leg on ground and one leg in "car". Instructed to sit for safety and swing both legs out - min (A) to move both legs out of car.) Gait Does the Patient Walk?: Yes Mode of Locomotion: Walk Anticipated Mode of Locomotion: Walk Walk 10 feet (QC): 3 (Min (A), assist with walker control to not understep walker) Walk 50 ft with 2 Turns(QC): 3 (Min (A) with FWW) Walk 150 ft (QC): 3 (Min (A) with FWW) Walking 10ft/uneven surface-QC: 3 (Min (A) with FWW) Distance: 150' Gait Assistive Device: FWW Wheelchair Training Does the Pt Use a Wheelchair?: No Wheel 50 ft with 2 turns (QC): 9 Wheel 150 ft (QC): 9 Stairs 1 Step (curb) (QC): 3 (2" curb step with FWW min (A)) 4 Steps (QC): 3 (min (A) with (B) railings.) 12 Steps (QC): 88 (fatigued after 10 steps, 12 not attempted) Walking Assistive Device: Walker Balance Sitting Static: Good Sitting Dynamic: Fair Standing Static: Fair Standing Dynamic: Fair Picking up an Object (QC): 6 (with walker and automation software engineer) Special Test Comments Elderly Mobility Scale: 01/01 Treatment (B) LE exercise in sittin x 20 heel raise,toe raise 1 x 15 ankle circles CW,CCW (B) LAQ x 15 (B) Hip flexion/march x 10 (B) Hip abduction with green t-band x 10 Ham curls with GTB x 10 (B) Hip adduction pillow squeeze x 15 *All exercises, with exception of ham curls, given in HEP for patient to complete on his own during down time and on weekends. Patient education on HEP completion. Copies of HEP placed in patient chart and in "HOME PROGRAMS" file in patient room. Patient verbalized understanding. Assessment/Needs 77 year old male with liver failure, admitted to ARU this date for continued rehab to build up activity tolerance, strength and mobility so that patient can regain functional (I) and return to his previous residence safely. Rehab Potential: Good Equipment Needs FWW at this time. PT Correction Goals Correction Goals PT University Professor Goals Time Frame: September 29, 2022 Roll Left to Right (QC): 6 Sit to Lying (QC): 6 (with leg dictating machine typist if needed) Lying-Sitting on Side/Bed(QC): 6 Sit to Stand (QC): 6 (to FWW) Chair/Kpv-ox-Iulsj Xfer(QC): 6 (with FWW) Toilet/Commode Transfer (QC): 6 (with FWW) Car Transfer (QC): 5 (with FWW) Does the Patient Walk: Yes Walk 10 feet (QC): 6 (with FWW) Walk 10ft-Uneven Surface(QC): 6 (with FWW) Walk 50ft with 2 Turns (QC): 6 (with FWW) Walk 150 ft (QC): 6 (with FWW) Does the Pt use WC or Scooter?: No Wheel 50 feet with 2 turns (QC: 9 Type: N/A Wheel 150 feet: 9 Type: N/A 1 Step (curb) (QC): 6 (with FWW) 4 Steps (QC): 6 (with rails) 12 Steps (QC): 6 (with (B) Rails) Picking up an Object (QC): 6 (with AD) Elderly Mobility Scale of 13/20 or greater. PT Plan Problem List Problem List: Activity Tolerance, Functional Strength, Safety, Balance, Gait, Transfer, Bed Mobility, ROM Treatment/Plan Treatment Plan: Continue Plan of Care Treatment Plan: Bed Mobility, Education, Functional Activity Yordy, Functional Strength, Group Therapy, Gait, Safety, Therapeutic Exercise, Transfers, Other (Co-treatment prn to address multiple issues which require 2 skilled therapists to treat safely.) Treatment Duration: September 29, 2022 Frequency: At least 5 of 7 days/Wk (IRF) Estimated Hrs Per Day: 1.5 hours per day Patient and/or Family Agrees t: Yes Safety Risks/Education Patient Education: Transfer Techniques, Issued Written HEP Teaching Recipient: Patient Teaching Methods: Demonstration, Handout, Discussion, Audiovisual Response to Teaching: Verbalize Understanding, Reinforcement Needed Discharge Recommendations Therapy Discharge Recommendati: Post Acute PT Equpiment Recommendations-D/C: Front Wheeled Walker Target Placement To previous residence Time Time In: 1405 (Co-treat 14:35) Time Out: 1420 (Co-treat: 1550) DATE: September 15, 2022 Total Billed Treatment Time: 90 Total Billed Treatment 15' EVM, 75' co-treatment (1EX, 2FA, 2 GT) -- co-treatment to address multiple functional issues due to patient's activity tolerance deficits, which requireed 2 skilled therapists to address and ensure patient safety Nayeli Pleitez PT September 15, 2022 15:10
--- NOTE | 2022-09-15 15:35 | Occupational Therapy Eval ---
OT Evaluation-General/PLF Medical Diagnosis Admission Date September 15, 2022 at 14:05 Medical Diagnosis: debility with ascites Onset Date: September 13, 2022 Therapy Diagnosis Therapy Diagnosis: decreased ADL status Height/Weight Height (Feet): 5 Height (Inches): 10.00 Weight (Pounds): 284 Weight (Ounces): 0.0 Precautions Precautions/Isolations: Fall Prevention, Standard Precautions Referral Physician: Pedro Referral Reason: Evaluation/Treatment Medical History Additional Medical History cirrhosis of liver, afib, gout, depression Current History ED with worsening abdominal distension, pressure for the last 12 days with leg swelling, difficulty breathing, diarrhea and nausea. CT showed liquid and hepatomegaly. s/p paracentesis 09/14/22 (8850 mL fluid withdrawn) Social History Home: Single Level Current Living Status: Alone Entry Into Home: Stairs With Railing Steps Into Home: 3 ADL-Prior Level of Function SCALE: Activities may be completed with or without assistive devices. 0-Rluceqjzlk-xdcerzf completes the activity by him/herself with no assistance from a helper. 5-Set-up or Clean-up Assistance-helper sets up or cleans up; patient completes activity. [place] assists only prior to or following the activity. 4-Supervision or Touching Assistance-helper provides verbal cues and/or t ouching/steadying and/or contact guard assistance as patient completes activity. Assistance may be provided throughout the activity or intermittently. 3-Partial/Moderate Assistance-helper does LESS THAN HALF the effort. [place] lifts, holds or supports trunk or limbs, but provides less than half the effort. 2-Substantial/Maximal Assistance-helper does MORE THAN HALF the effort. [place] lifts or holds trunk or limbs and provides more than half the effort. 2-Yxvdjwmdd-ztubhn does ALL the effort. Patient does none of the effort to complete the activity. Or, the assistance of 2 or more helpers is required for the patient to complete the activity. If activity was not attempted, code reason: 7-Patient Refused. 9-Not Applicable-not attempted and the patient did not perform the activity before the current illness, exacerbation or injury. 10-Not Attempted due to Environmental Limitations-(lack of equipment, weather restraints, etc.). 88-Not Attempted due to Medical Conditions or Safety Concerns. ADL PLOF Comments Pt reports IND with ADLs and functional mobility without AD. Pt owns a couple of canes, no walker or w/c. Pt's daughter (Tiffani) assists with IADLs. Pt reports able to make simple meals, but requires rest breaks. Self Care: Independent Functional Cognition: Independent DME/Equipment: Shower Hose Qi Specialist, Tub/Shower OT Current Status Subjective Pt agreeable to OT evaluation with OT/PT cotreat. Pt reports discomfort at catheter site, RN notified. Mental Status/Objective Patient Orientation: Person, Place, Time, Situation Current Glasses/Contacts: Yes (reading) Hearing Aids: No Dentures/Partials: Yes Hand Dominance: Right Upper Extremity ROM WFL, BUE shoulder flexion to approx 160 degrees Upper Extremity Coordination WFL Upper Extremity Sensation WFL Upper Extremity Strength grossly 4/5 BUEs. ADL-Treatment Eating (QC): 6 Oral Hygiene (QC): 5 Shower/Bathe Self (QC): 3 (Min A with washing/drying BLEs lower legs/feet.) Upper Body Dressing (QC): 5 Lower Body Dressing (QC): 3 (Min A threading LLE into shorts.) On/Off Footwear (QC): 2 (Pt able to reach top of sock, but unable to doff either sock completely. Total assist with donning. ) Toileting Hygiene (QC): 4 (CGA) Other Treatments OT evaluation complete. OT/PT cotreat due to skill of 2 clinicians required which a rehabilitation construction specialist could not perform in order to coordinate UE/LEs, decrease fall risk, and due to pt's limitations in strength, activity tolerance, mobility and transfers. OT focused on UE placement, cues for sequencing and safety and ADLs, PT focused on LE placement, gross overall movement, transfers and mobility. Pt completed functional mobility and transfers, including bed mobility, car transfer, uneven and even surface using FWW, steps. Pt then completed showering and dressing tasks in bathroom. Pt reports discomfort at catheter site, especially with bending forward with ADLS, RN notified. Pt limited with LE dressing due to discomfort with catheter. Pt used FWW to transfer to recliner. UE exercises performed in order to increase BUE strength and activity tolerance. Pt educated on HEP, instructed to complete of an evening and on weekends, x15 reps, 5/5 theraband exercises. Pt completed x15 reps 5/5 exercises with moderate-heavy resistance (green) theraband, demonstrating and verbalizing understanding of exercises. Printed copy of HEP placed in pt's paper chart, in his room, and attached to dry erase board in his room, RN notified of HEP. Post tx, pt in recliner, call light in reach and all needs met. IND rolling, mod A sit to lying, min A lying to sitting, min A sit to stand, min A-CGA bed to chair, min A toilet transfer, min A car transfer. Min A gait with FWW (150'), Education OT Patient Education: Correct positioning, Energy conservation, Modified ADL techniques, Progress toward Goal/Update tx plan, Purpose of tx/functional activities, Rehab process Teaching Recipient: Patient Teaching Methods: Demonstration Response to Teaching: Return Demonstration BIMS CAM BIMS Expression of Ideas and Wants: Without Difficulty Understanding Verbal Content: Understands IRF KAILA BIMS: IRF KAIL[place] BIMS Response (Comments) Value Repitition of Three Words Three 3 Recalls Socks Yes, No Cue Required 2 Recalls Blue Yes, After Cueing (Color) 1 Recalls Bed No, Could Not Recall 0 Year Correct 3 Month Accurate Within 5 Days 2 Day Correct 1 Total [address] Ass[address] Mental St[address] No CAM Mental Status Change/Baseline: 0 Inattention: 0 Disorganized thinkin Altered level of consciousness: 0 OT Short Term Goals Short Term Goals Time Frame: September 28, 2022 Shower/bathe self: 5 Lower body dressin Putting on/taking off footwear: 5 OT Director Insurance Goals Residential Goals Time Frame: October 07, 2022 Eating (QC): 6 Oral Hygiene (QC): 6 Toileting Hygiene (QC): 6 Shower/Bathe Self (QC): 6 Upper Body Dressing (QC): 6 Lower Body Dressing (QC): 6 On/Off Footwear (QC): 6 Additional Goals: 1-Demonstrate ADL Tasks, 2-Verbalize Understanding, 3- ImproveStrength/Yordy 1=Demonstrate adherence to instructed precautions during ADL tasks. 2=Patient will verbalize/demonstrate understanding of assistive devices/modifications for ADL. 3=Patient will improve strength/tolerance for activity to enable patient to perform ADL's. OT Education/Plan Problem List/Assessment Assessment: Decreased Activ Tolerance, Decreased UE Strength, Impaired Funct Balance, Impaired I ADL's, Impaired Self-Care Skills Discharge Recommendations Plan/Recommendations: Continue POC Equpiment Recommendations-D/C: Extended Bath Bench Treatment Plan/Plan of Care Patient would benefit from OT for education, treatment and training to promote independence in ADL's, mobility, safety and/or upper extremity function for ADL's. Plan of Care: ADL Retraining, Functional Mobility, Group Exercise/Act as Ind, UE Funct Exercise/Act Treatment Duration: October 07, 2022 Frequency: At least 5 of 7 days/Wk (IRF) Estimated Hrs Per Day: 1.5 hours per day Agreement: Yes Rehab Potential: Good Time Start Time: 14:20 Stop Time: 15:50 DATE: September 15, 2022 Total Time Billed (hr/min): 90 Billed Treatment Time [id number] OT evaluation (15'), Cotreat [id number] (75') 1, EVM (15'), FA 2 (30'), ADL 2 (30'), EX (15') ODILIA SANCHEZ OT September 15, 2022 15:35
[2022-09-15] MEDS: MAGNESIUM OXIDE (MAG-OX)400 MG TAB PO SCH (17:17)
[2022-09-15 19:50] VITALS: BP 118/59
[2022-09-15 21:00] VITALS: BP 134/60
[2022-09-15] MEDS: AMIODARONE 200 MG (CORDARONE) TAB PO SCH (21:33)
[2022-09-15] MEDS: ALLOPURINOL 100 MG (ZYLOPRIM) TAB PO SCH (21:33)
[2022-09-15] MEDS: polyethylene glycoL POWDER 17 GM (MIRALAX) PACK PO SCH (21:33)
[2022-09-15] MEDS: DOCUSATE SODIUM 100 MG (COLACE) CAP PO SCH (21:33)
[2022-09-15] MEDS: meTOprolol TARTRATE 25 MG (LOPRESSOR) TABLET PO SCH (21:33)
[2022-09-15] MEDS: SENNA W/DOCUSATE (SENOKOT S) TABLET PO SCH (21:33)
[2022-09-15] MEDS: CATHETER FLUSH 10 ML SYR IVP SCH (21:35)
[2022-09-16 05:17] LABS: HEMOGLOBIN 10.4 g/dL (13.3-17.7)
[2022-09-16 05:18] LABS: BASOPHILS % (AUTO) 0 % (0-10); EOSINOPHILS # (AUTO) 0.1 10^3/uL (0.0-0.3); EOSINOPHILS % (AUTO) 2 % (0-10); HEMATOCRIT 31 % (40-54); LYMPHOCYTES % (AUTO) 26 % (12-44); MEAN CORPUSCULAR HEMOGLOBIN 34 pg (25-34); MEAN CORPUSCULAR HGB CONC 34 g/dL (32-36); MEAN CORPUSCULAR VOLUME 98 fL (80-99); MEAN PLATELET VOLUME 13.2 fL (9.0-12.2); MONOCYTES # (AUTO) 0.7 10^3/uL (0.0-1.0); MONOCYTES % (AUTO) 10 % (0-12); NEUTROPHILS # (AUTO) 4.8 10^3/uL (1.8-7.8); NEUTROPHILS % (AUTO) 62 % (42-75); PLATELET COUNT 92 10^3/uL (130-400); WHITE BLOOD COUNT 7.8 10^3/uL (4.3-11.0)
[2022-09-16 05:34] LABS: ALBUMIN 2.6 GM/DL (3.2-4.5); BILIRUBIN,TOTAL 1.3 MG/DL (0.1-1.0); CREATININE SERUM 1.69 MG/DL (0.60-1.30); POTASSIUM 3.9 MMOL/L (3.6-5.0); TOTAL PROTEIN 6.3 GM/DL (6.4-8.2)
[2022-09-16] MEDS: CATHETER FLUSH 10 ML SYR IVP SCH ×3 (05:38→20:34)
--- NOTE | 2022-09-16 06:28 | Individualized Plan of Care ---
Individualized Plan of Care Rehab Nursing IPOC Order Admission Date September 15, 2022 at 14:05 Current Orders Orders Admission Arrival Bed Request (09/15/22 14:12) Initiate Admission Nursing Pro .admission (09/15/22 14:33) Medication-Hold (09/15/22 14:33) General/Regular (09/15/22 Lunch) Allopurinol Tablet (Zyloprim Tablet) (09/15/22 21:00) Amiodarone Tablet (Cordarone Tablet) (09/15/22 21:00) Ergocalciferol Capsule (Vitamin D2 Capsu (09/17/22 09:00) Magnesium Oxide Tablet (Mag Ox Tablet) (09/15/22 18:00) Ondansetron Injection (Zofran Injectio (09/15/22 14:45) Rivaroxaban Tablet (Xarelto Tablet) (09/16/22 09:00) Sodium Chloride Flush (Catheter Flush Sy (09/15/22 22:00) Metoprolol Tartrate (Ir) Tab (Lopressor (09/15/22 21:00) Incentive Spirometry Initial (09/15/22 14:33) Incentive Spirometry (Nursing) Q2H (09/15/22 14:33) Admission Order(Inpt,Obs,Sdc) (09/15/22 14:38) Vital Signs: Per Unit Policy ( 08,16,00 (09/15/22 14:38) Dieudonne Hose 09,21 (09/15/22 14:38) Sequential Compression Device (09/15/22 14:38) Plastic Surgery Manager-Inpt Rehab Con (09/15/22 14:38) Rehab Nursing Orders-Ipoc (09/15/22 14:38) Physical Therapy Rehab Orders (09/15/22 14:38) Occupational Therapy Rehab Ord (09/15/22 14:38) Speech Therapy Rehab Orders (09/15/22 14:38) Cbc With Automated Diff (09/16/22 06:00) Comprehensive Metabolic Panel (09/16/22 06:00) Precautions (Aru) (09/15/22 14:38) Weekly Weight WEEK (09/15/22 14:38) Rehab-Intensity Of Therapy (09/15/22 14:38) Initiate Admission Nursing Pro .admission (09/15/22 14:38) Alprazolam Tablet (Xanax Tablet) (09/15/22 14:45) Calcium Carbonate Chew Tablet (Antacid C (09/15/22 14:45) Diphenhydramine Tablet (Benadryl Tablet) (09/15/22 14:45) Docusate Sodium Capsule (Colace Capsule) (09/15/22 21:00) Docusate Sodium Capsule (Colace Capsule) (09/15/22 14:45) Bisacodyl Suppository (Dulcolax Supposit (09/15/22 14:45) Lactulose Oral Solution (Enulose Oral So (09/15/22 14:45) Na Phos/Na Biphos Enema (Fleet Enema Rao (09/15/22 14:45) Guaifenesin/Codeine Syrup (Robitussin Ac (09/15/22 14:45) Loperamide Tablet (Imodium Tablet) (09/15/22 14:45) Melatonin Tablet (Melatonin Tablet) (09/15/22 14:45) Polyethylene Glycol Powder Pkt (Miralax (09/15/22 21:00) Ondansetron Oral Dissolve Tab (Zofran (09/15/22 14:45) Senna S Tablet (Senokot S Tablet) (09/15/22 21:00) Acetaminophen Tablet/Caplet (Tylenol T (09/15/22 14:45) Initiate Admission Nursing Pro .admission (09/15/22 14:38) Isolation Central Supply Req (09/15/22 16:04) Patient Visit (09/15/22 ) Pt Eval Moderate Complexity (09/15/22 ) Functional Activities, Ea 15 (09/15/22 ) Gait Training, Ea 15 Min (09/15/22 ) Exercise Therap, Ea 15 Min (09/15/22 ) Ketoconazole Cream (Nizoral 2% Cream) (09/16/22 10:15) Code/Resuscitation (09/16/22 12:59) Patient Visit (09/16/22 ) Exercise Therap, Ea 15 Min (09/16/22 ) Gait Training, Ea 15 Min (09/16/22 ) Gait Training, Ea 15 Min (09/16/22 ) Functional Activities, Ea 15 (09/16/22 ) Catheter(Urinary) Discontinue (09/17/22 08:00) Rehab Nursing Orders: Ongoing Assess. of Cognitive Status, Ongoing Assess. of Function Status, Bladder Management, Bladder Scan, Bladder Training, Bowel Management, Bowel Training, Disease Management & Educaiton, DVT Prophylaxis, Fall Prevention, Fluid/Electrolyte/Nutrition Mgmt, Infection Prevention, Medication Management & Education, Management of Risks & Complications, Management of Skin Intergrity, Nutrition Management, Pain Management, Patient/Family Support, Safety Management, Swallow Precautions, Wound Management Intensity of Therapy to be met Patient to be seen: Min.3h per day/5 of 7d PT IPOC Problem List: Activity Tolerance, Functional Strength, Safety, Balance, Gait, Transfer, Bed Mobility, ROM Treatment Plan: Continue Plan of Care Bed Mobility, Education, Functional Activity Yordy, Functional Strength, Group Therapy, Gait, Safety, Therapeutic Exercise, Transfers, Other (Co-treatment prn to address multiple issues which require 2 skilled therapists to treat safely.) Treatment Duration: September 29, 2022 Frequency: At least 5 of 7 days/Wk (IRF) Estimated Hrs Per Day: 1.5 hours per day OT IPOC Problems: Decreased Activ Tolerance, Decreased UE Strength, Impaired Funct Balance, Impaired I ADL's, Impaired Self-Care Skills OT Treatment, Training and Edu: Yes Plan of Care: ADL Retraining, Functional Mobility, Group Exercise/Act as Ind, UE Funct Exercise/Act Treatment Duration: October 07, 2022 Frequency: At least 5 of 7 days/Wk (IRF) Estimated Hrs Per Day: 1.[address] IPOC Speech Therapy Treatment Plan: Discontinue ST Treatment Duration: September 15, 2022 Frequency: Modified Program (IRF) Estimated Hrs Per Day: Other Plastic Surgery Manager/Case Mgmt Plastic Surgery Manager/Case Managemen: Discharge Planning Dietitian/Mobility Manager Dietitian/Mobility Manager to monitor nutritional status and make changes and/or recommendations as needed and work with speech pathology on dietary upgrades as the occur. Physician IPOC Medical Issues being managed closely and that require the 24 hour availability of a physician: Recent decompensated liver failure with paracentesis will require close monitoring of AF and monitor creat closely to prevent decompensation Medical Issues: Bowel/Bladder Function, DVT Prophylaxis, Falls Precautions, Fluid/Electrolyte/Nutrition Balance, Infection Protection, Pain Management Brief Synthesis of Preadmission Screen, Post-Admission Evaluation, and Therapy Evaluations: PT OT will focus on regaining function with use of AD in order to retain function in order to return back to independent living Medical Prognosis: Fair Anticipated Length of Stay: 7 days TULIO HILLMAN DO September 16, 2022 06:28
--- NOTE | 2022-09-16 06:28 | PM&R Progress Note ---
Subjective HPI/CC On Admission Date Seen by Provider: September 16, 2022 Time Seen by Provider: 11:30 Subjective/Events-last exam 09/16/2022: Doing well today Catheter will be DC No pain reported Walking is slightly better Fatigues easily Review of Systems General: Fatigue, Malaise Objective Exam Vital Signs Vital Signs Date Time Temp Pulse Resp B/P (MAP) Pulse Ox O2 Delivery O2 Flow Rate FiO2 09/16/22 19:23 36.1 55 16 100/62 (75) 96 Room Air Capillary Refill : General Appearance: No Apparent Distress, WD/WN, Chronically ill, Obese HEENT: PERRL/EOMI, Normal ENT Inspection, Pharynx Normal Neck: Full Range of Motion, Normal Inspection, Non Tender, Supple, Carotid Bruit Respiratory: Chest Non Tender, Lungs Clear, Normal Breath Sounds, No Accessory Muscle Use, No Respiratory Distress Cardiovascular: No Edema, No Gallop, No JVD, No Murmur, Normal Peripheral Pulses, Irregularly Irregular Gastrointestinal: Normal Bowel Sounds, No Organomegaly, No Pulsatile Mass, Non Tender, Soft, Distended, Other (ascites) Back: Normal Inspection, No CVA Tenderness, No Vertebral Tenderness Extremity: Normal Capillary Refill, Normal Inspection, Normal Range of Motion, Non Tender, No Calf Tenderness, Pedal Edema Neurologic/Psychiatric: Alert, Oriented x3, No Motor/Sensory Deficits, Normal Mood/Affect Skin: Normal Color, Warm/Dry Lymphatic: No Adenopathy Results/Procedures Lab Laboratory Tests 09/16/22 05:11 Patient resulted labs reviewed. FIM Transfers Therapy Code Descriptions/Definitions Functional [place] Measure: 0=Not Assessed/NA 4=Minimal Assistance 1=Total Assistance 5=Supervision or Setup 2=Maximal Assistance 6=Modified [place] 3=Moderate Assistance 7=Complete IndependenceSCALE: Activities may be completed with or without assistive devices. 6-Jbkhammyfa-cebtmlk completes the activity by him/herself with no assistance from a helper. 5-Set-up or Clean-up Assistance-helper sets up or cleans up; patient completes activity. [place] assists only prior to or following the activity. 4-Supervision or Touching Assistance-helper provides verbal cues and/or touching/steadying and/or contact guard assistance as patient completes activity. Assistance may be provided throughout the activity or intermittently. 3-Partial/Moderate Assistance-helper does LESS THAN HALF the effort. [place] lifts, holds or supports trunk or limbs, but provides less than half the effort. 2-Substantial/Maximal Assistance-helper does MORE THAN HALF the effort. [place] lifts or holds trunk or limbs and provides more than half the effort. 5-Nxmcyhyff-lgkpsy does ALL the effort. Patient does none of the effort to complete the activity. Or, the assistance of 2 or more helpers is required for the patient to complete the activity. If activity was not attempted, code reason: 7-Patient Refused. 9-Not Applicable-not attempted and the patient did not perform the activity before the current illness, exacerbation or injury. 10-Not Attempted due to Environmental Limitations-(lack of equipment, weather restraints, etc.). 88-Not Attempted due to Medical Conditions or Safety Concerns. Roll Left to Right (QC): 6 (with use of bed rail) Sit to Lying (QC): 3 (mod (A) for (B) LE's) Sit to Stand (QC): 3 (Min (A) from lower chairs to FWW) Chair/Tpj-hw-Nsmhg Xfer(QC): 3 (min (A) - CGA with cues for safety, turning co mpletely and using walker correctly.) Car Transfer (QC): 3 (Min (A) to lift legs in to car. Attempted to stand with one leg on ground and one leg in "car". Instructed to sit for safety and swing both legs out - min (A) to move both legs out of car.) Gait Training Does the Patient Walk?: Yes Walk 10 feet (QC): 3 (Min (A), assist with walker control to not understep walker) Walk 50 ft with 2 Turns(QC): 3 (Min (A) with FWW) Walk 150 ft (QC): 3 (Min (A) with FWW) Walking 10ft/uneven surface-QC: 3 (Min (A) with FWW) Gait Assistive Device: FWW Wheelchair Training Does the Pt Use a Wheelchair?: No Wheel 50 ft with 2 turns (QC): 9 Wheel 150 ft (QC): 9 Stair Training 1 Step (curb) (QC): 3 (2" curb step with FWW min (A)) 4 Steps (QC): 3 (min (A) with (B) railings.) 12 Steps (QC): 88 (fatigued after 10 steps, 12 not attempted) Balance Picking up an Object (QC): 6 (with walker and plasma center technician) ADL-Treatment Eating (QC): 6 Oral Hygiene (QC): 5 Shower/Bathe Self (QC): 3 (Min A with washing/drying BLEs lower legs/feet.) Upper Body Dressing (QC): 5 Lower Body Dressing (QC): 3 (Min A threading LLE into shorts.) On/Off Footwear (QC): 2 (Pt able to reach top of sock, but unable to doff either sock completely. Total assist with donning. ) Toileting Hygiene (QC): 4 (CGA) Assessment/Plan Assessment and Plan Assess & Plan/Chief Complaint Assessment: Debility following ESLD decompensation Ascites AF Previous OAC for CVA prophylaxis holding for now HTN HLP Plan: Monitor labs Monitor AF Decision on anticoagulation pending PT OT 09/16/2022: DC catheter tomorrow Monitor closely (1) Liver failure Status: Acute TULIO HILLMAN DO September 16, 2022 06:28
[2022-09-16 07:55] VITALS: BP 115/58
--- NOTE | 2022-09-16 08:29 | Speech Therapy Progress Note ---
Therapy Progress Note Speech pathology received a "cognitive training" consultation for the patient as a part of the group acute rehabilitation order set. At this time, skilled speech pathology services have not been requested or warranted. Please re-consult speech pathology with any changes or concerns. Thank you. YAHAIRA BARNHART September 16, 2022 08:28
[2022-09-16] MEDS: meTOprolol TARTRATE 25 MG (LOPRESSOR) TABLET PO SCH ×2 (08:46→19:41)
[2022-09-16] MEDS: AMIODARONE 200 MG (CORDARONE) TAB PO SCH ×2 (08:46→20:34)
[2022-09-16] MEDS: MAGNESIUM OXIDE (MAG-OX)400 MG TAB PO SCH ×2 (08:46→17:32)
[2022-09-16] MEDS: RIVAROXABAN 20 MG TABLET (XARELTO) PO SCH (08:46)
[2022-09-16] MEDS: ALLOPURINOL 100 MG (ZYLOPRIM) TAB PO SCH ×2 (08:46→20:34)
[2022-09-16] MEDS: polyethylene glycoL POWDER 17 GM (MIRALAX) PACK PO SCH ×2 (08:48→19:41)
[2022-09-16] MEDS: DOCUSATE SODIUM 100 MG (COLACE) CAP PO SCH ×2 (08:48→20:34)
[2022-09-16] MEDS: SENNA W/DOCUSATE (SENOKOT S) TABLET PO SCH ×2 (08:48→20:08)
--- NOTE | 2022-09-16 09:25 | Occupational Ther Daily Note ---
OT Current Status-Daily Note Subjective Pt in recliner following PT tx, agreeable to OT Tx. Pt's TV in his room isn't working properly, RN and care team aware and maintenance notified of issue. Mental Status/Objective Patient Orientation: Person, Place, Time, Situation ADL-Treatment Therapy Code Descriptions/Definitions Functional [place] Measure: 0=Not Assessed/NA 4=Minimal Assistance 1=Total Assistance 5=Supervision or Setup 2=Maximal Assistance 6=Modified [place] 3=Moderate Assistance 7=Complete IndependenceSCALE: Activities may be completed with or without assistive devices. 6-Hxgpygihiu-nmzrkzj completes the activity by him/herself with no assistance from a helper. 5-Set-up or Clean-up Assistance-helper sets up or cleans up; patient completes activity. [place] assists only prior to or following the activity. 4-Supervision or Touching Assistance-helper provides verbal cues and/or touching/steadying and/or contact guard assistance as patient completes activity. Assistance may be provided throughout the activity or intermittently. 3-Partial/Moderate Assistance-helper does LESS THAN HALF the effort. [place] lifts, holds or supports trunk or limbs, but provides less than half the effort. 2-Substantial/Maximal Assistance-helper does MORE THAN HALF the effort. [place] lifts or holds trunk or limbs and provides more than half the effort. 0-Isyqgvuol-qnwtjy does ALL the effort. Patient does none of the effort to complete the activity. Or, the assistance of 2 or more helpers is required for the patient to complete the activity. If activity was not attempted, code reason: 7-Patient Refused. 9-Not Applicable-not attempted and the patient did not perform the activity before the current illness, exacerbation or injury. 10-Not Attempted due to Environmental Limitations-(lack of equipment, weather restraints, etc.). 88-Not Attempted due to Medical Conditions or Safety Concerns. Other Treatment Pt in recliner, declined ADLs on this date. Pt stood from recliner with CGA, then used FWW to perform functional mobility to therapy gym, CGA-SBA. OT tx focused on increaisng BUE Strength an dactivity tolerance. Pt completed arm bike x10 mins, 15 Watt resistance, multiple rest breaks. Pt removed beads from mod- heavy resistance theraputty (green), able to locate all beads without cues. Pt completed pipe tree activity, utilizing BUEs. Pt able to follow printed pattern to complete x4 configurations total. Pt then completed UE reaching task of nut/bolt block. Pt initially instructed to remove nut/bolt/washer from block, turn around, and place back onto the board. Pt had difficulty understanding instructions, even with demonstration. Pt instead instructed to remove all components from the block to start with, then placed bolt onto block, followed by washers. Pt reports increased fatigue with BUEs, unable to place nuts back onto board due to fatigue. Pt used FWW to return to his room, SBA, transferring to recliner. Pt verbalized understanding of weekend HEP, stating he has no further questions at this time. Post tx, pt in recliner, call light in reach and all needs met. Education OT Patient Education: Correct positioning, Energy conservation, Modified ADL techniques, Progress toward Goal/Update tx plan, Purpose of tx/functional activities, Rehab process Teaching Recipient: Patient Teaching Methods: Discussion Response to Teaching: Verbalize Understanding OT Short Term Goals Short Term Goals Time Frame: September 28, 2022 Shower/bathe self: 5 Lower body dressin Putting on/taking off footwear: 5 OT Half-Way Goals Half-Way Goals Time Frame: October 07, 2022 Acute change in mental status: 0 Inattention: 0 Disorganized thinkin Altered level of consciousness: 0 Eating (QC): 6 Oral Hygiene (QC): 6 Toileting Hygiene (QC): 6 Shower/Bathe Self (QC): 6 Upper Body Dressing (QC): 6 Lower Body Dressing (QC): 6 On/Off Footwear (QC): 6 Additional Goals: 1-Demonstrate ADL Tasks, 2-Verbalize Understanding, 3- ImproveStrength/Yordy 1=Demonstrate adherence to instructed precautions during ADL tasks. 2=Patient will verbalize/demonstrate understanding of assistive devices/modifications for ADL. 3=Patient will improve strength/tolerance for activity to enable patient to perform ADL's. OT Education/Plan Problem List/Assessment Assessment: Decreased Activ Tolerance, Decreased UE Strength, Impaired Funct Balance, Impaired I ADL's, Impaired Self-Care Skills Discharge Recommendations Plan/Recommendations: Continue POC Treatment Plan/Plan of Care Patient would benefit from OT for education, treatment and training to promote independence in ADL's, mobility, safety and/or upper extremity function for ADL's. Plan of Care: ADL Retraining, Functional Mobility, Group Exercise/Act as Ind, UE Funct Exercise/Act Treatment Duration: October 07, 2022 Frequency: At least 5 of 7 days/Wk (IRF) Estimated Hrs Per Day: 1.5 hours per day Agreement: Yes Rehab Potential: Good Time Start Time: 09:00 Stop Time: 10:30 DATE: September 16, 2022 Total Time Billed (hr/min): 90 Billed Treatment Time 1, EX (15'), FA 5 (75') ODILIA SANCHEZ OT September 16, 2022 09:25
--- NOTE | 2022-09-16 09:27 | Physical Therapy Daily Note ---
PT Daily Note-Current Subjective Patient has no c/o pain, but does state he is sore from the waist down, "like being sore after football practice". Patient pleasant and agreeable to work with therapy. Pain Section J - Health Conditions 1. Rarely or not at all 2. Occasionally 3. Frequently 4. Almost constantly 8. Unable to answer Pain Effect on Sleep: 1 Pain Interference with Therapy: 1 Pain Interference w/Day-to-Day: 1 Transfers SCALE: Activities may be completed with or without assistive devices. 7-Dzwhmwpaxv-scxuzfj completes the activity by him/herself with no assistance from a helper. 5-Set-up or Clean-up Assistance-helper sets up or cleans up; patient completes activity. [place] assists only prior to or following the activity. 4-Supervision or Touching Assistance-helper provides verbal cues and/or touching/steadying and/or contact guard assistance as patient completes activity. Assistance may be provided throughout the activity or intermittently. 3-Partial/Moderate Assistance-helper does LESS THAN HALF the effort. [place] lifts, holds or supports trunk or limbs, but provides less than half the effort. 2-Substantial/Maximal Assistance-helper does MORE THAN HALF the effort. [place] lifts or holds trunk or limbs and provides more than half the effort. 1-Rsigmuhcw-wpqnzs does ALL the effort. Patient does none of the effort to complete the activity. Or, the assistance of 2 or more helpers is required for the patient to complete the activity. If activity was not attempted, code reason: 7-Patient Refused. 9-Not Applicable-not attempted and the patient did not perform the activity before the current illness, exacerbation or injury. 10-Not Attempted due to Environmental Limitations-(lack of equipment, weather restraints, etc.). 88-Not Attempted due to Medical Conditions or Safety Concerns. Lying to Sitting/Side of Bed(Q: 4 (steadying assist while rising to sitting, use of bed rail) Sit to Stand (QC): 4 (CGA from recliner x 2, from Nustep x 1, to FWW) Chair/Hwd-ja-Zwfvd Xfer(QC): 3 (Min-CGA with FWW with cues to turn completely to seat, and min (A) to control descent to Nustep) Weight Bearing Full Weight Bearing Full Weight Bearing Gait Training Distance: 150', 100' Walk 10 feet (QC): 3 (CGA-min (A) with FWW, some c/o mild dizziness ) Walk 50 ft with 2 Turns(QC): 3 (CGA-min (A) with FWW, some c/o mild dizziness ) Walk 150 ft (QC): 3 (CGA-min (A) with FWW, some c/o mild dizziness, 2 standing rest breaks to reach 150'.) Gait Assistive Device: FWW Exercises Supine Ex: Bridging, Ankle pumps, Quad Set, Lower trunk rotation, Heel Slides, Short Arc Quads, Straight leg raise, Hip abd/add Supine Reps: 10 (20 reps of ankle pumps) Seated HEP reviewed and completed with patient: -Heel/toe raises x 20 (B) -ankle circles CW and CCW x 15 (B) -LAQ x 15 (B) -hip flexion/march x 15 (B) -Hip abduction with patient holding GTB x 15 -Hip adduction pillow squeeze x 15 Educated patient to completed in "downtime in afternoons" and over weekend with assist of aid if needed. NuStep Minutes: 8 NuStep Workload: 1 Assessment Current Status: Good Progress Good tolerance to LE strength/endurance exercise and Nustep exercise. Patient able to ambulate with less fatigue this am. PT Usp Goals Usp Goals PT Usp Goals Time Frame: September 29, 2022 Roll Left & Right (QC): 6 Sit to Lying (QC): 6 (with leg abnormal psychology teacher if needed) Lying-Sitting on Side/Bed(QC): 6 Sit to Stand (QC): 6 (to FWW) Chair/Fqg-ky-Fdaew Xfer(QC): 6 (with FWW) Toilet Transfer (QC): 6 (with FWW) Car Transfer (QC): 5 (with FWW) Does the Patient Walk: Yes Walk 10 feet (QC): 6 (with FWW) Walk 50ft with 2 Turns (QC): 6 (with FWW) Walk 150 ft (QC): 6 (with FWW) Walking 10ft on Uneven Surface: 6 (with FWW) 1 Step (curb) (QC): 6 (with FWW) 4 Steps (QC): 6 (with rails) 12 Steps (QC): 6 (with (B) Rails) Picking up an Object (QC): 6 (with AD) Does the Pt use WC or Scooter?: No Wheel 50 feet with 2 turns (QC: 9 Type: N/A Wheel 150 feet: 9 Type: N/A PT Plan Problem List Problem List: Activity Tolerance, Functional Strength, Safety Treatment/Plan Treatment Plan: Continue Plan of Care Treatment Plan: Bed Mobility, Education, Functional Activity Yordy, Functional Strength, Group Therapy, Gait, Safety, Therapeutic Exercise, Transfers, Other (Co-treatment prn to address multiple issues which require 2 skilled therapists to treat safely.) Treatment Duration: September 29, 2022 Frequency: At least 5 of 7 days/Wk (IRF) Estimated Hrs Per Day: 1.5 hours per day Patient and/or Family Agrees t: Yes Time Time In: 800 Time Out: 900 DATE: September 16, 2022 Total Billed Treatment Time: 60 Total Billed Treatment 3 EX, 1 GT = 60' Nayeli Pleitez PT September 16, 2022 09:27
[2022-09-16] MEDS: KETOCONAZOLE 2% CREAM 15 GM (NIZORAL) TOP SCH (11:48)
--- NOTE | 2022-09-16 14:18 | Physical Therapy Daily Note ---
PT Daily Note-Current Subjective pt in recliner upon arrival and willing for therapy. Pt reports no pain only fatigue. Pain Section J - Health Conditions 1. Rarely or not at all 2. Occasionally 3. Frequently 4. Almost constantly 8. Unable to answer Pain Effect on Sleep: 1 Pain Interference with Therapy: 1 Pain Interference w/Day-to-Day: 1 Transfers SCALE: Activities may be completed with or without assistive devices. 9-Xkmwtecxfm-kxcscuq completes the activity by him/herself with no assistance from a helper. 5-Set-up or Clean-up Assistance-helper sets up or cleans up; patient completes activity. [place] assists only prior to or following the activity. 4-Supervision or Touching Assistance-helper provides verbal cues and/or touc nathalie/steadying and/or contact guard assistance as patient completes activity. Assistance may be provided throughout the activity or intermittently. 3-Partial/Moderate Assistance-helper does LESS THAN HALF the effort. [place] lifts, holds or supports trunk or limbs, but provides less than half the effort. 2-Substantial/Maximal Assistance-helper does MORE THAN HALF the effort. [place] lifts or holds trunk or limbs and provides more than half the effort. 9-Uhowowixq-cyxein does ALL the effort. Patient does none of the effort to complete the activity. Or, the assistance of 2 or more helpers is required for the patient to complete the activity. If activity was not attempted, code reason: 7-Patient Refused. 9-Not Applicable-not attempted and the patient did not perform the activity before the current illness, exacerbation or injury. 10-Not Attempted due to Environmental Limitations-(lack of equipment, weather restraints, etc.). 88-Not Attempted due to Medical Conditions or Safety Concerns. Weight Bearing Full Weight Bearing Full Weight Bearing Stair Training 4 Steps (QC): 4 Treatments Pt is able to ascend and descend 5 stairs with CGA. VC for safety and Catheter management. Pt is able to ambulate 150ft with RW and CGA with VC for safety when pivoting and pt does require 2 rest breaks secondary to fatigue. after rest pt is able to continue ambulation. PT Sap Hana Developer Goals Sap Hana Developer Goals PT Custodial Goals Time Frame: September 29, 2022 Roll Left & Right (QC): 6 Sit to Lying (QC): 6 (with leg enterprise systems architect if needed) Lying-Sitting on Side/Bed(QC): 6 Sit to Stand (QC): 6 (to FWW) Chair/Ltm-gv-Hugab Xfer(QC): 6 (with FWW) Toilet Transfer (QC): 6 (with FWW) Car Transfer (QC): 5 (with FWW) Does the Patient Walk: Yes Walk 10 feet (QC): 6 (with FWW) Walk 50ft with 2 Turns (QC): 6 (with FWW) Walk 150 ft (QC): 6 (with FWW) Walking 10ft on Uneven Surface: 6 (with FWW) 1 Step (curb) (QC): 6 (with FWW) 4 Steps (QC): 6 (with rails) 12 Steps (QC): 6 (with (B) Rails) Picking up an Object (QC): 6 (with AD) Does the Pt use WC or Scooter?: No Wheel 50 feet with 2 turns (QC: 9 Type: N/A Wheel 150 feet: 9 Type: N/A PT Plan Problem List Problem List: Activity Tolerance Treatment/Plan Treatment Plan: Continue Plan of Care Treatment Plan: Bed Mobility, Education, Functional Activity Yordy, Functional Strength, Group Therapy, Gait, Safety, Therapeutic Exercise, Transfers, Other (Co-treatment prn to address multiple issues which require 2 skilled therapists to treat safely.) Treatment Duration: September 29, 2022 Frequency: At least 5 of 7 days/Wk (IRF) Estimated Hrs Per Day: 1.5 hours per day Patient and/or Family Agrees t: Yes Time Time In: 1130 Time Out: 1200 DATE: September 16, 2022 Total Billed Treatment Time: 30 Total Billed Treatment 1 GT FA Nettie Corrales NETWORK SYSTEMS INTEGRATOR September 16, 2022 14:18
[2022-09-16 19:23] VITALS: BP 100/62
[2022-09-17] MEDS: CATHETER FLUSH 10 ML SYR IVP SCH ×3 (06:22→21:10)
--- NOTE | 2022-09-17 06:46 | PM&R Progress Note ---
Subjective HPI/CC On Admission Date Seen by Provider: September 17, 2022 Time Seen by Provider: 11:30 Subjective/Events-last exam 09/17/2022: Doing better [place] out Monitor for retention No falls Improved 09/16/2022: Doing well today Catheter will be DC No pain reported Walking is slightly better Fatigues easily Review of Systems General: Fatigue, Malaise Objective Exam Vital Signs Vital Signs Date Time Temp Pulse Resp B/P (MAP) Pulse Ox O2 Delivery O2 Flow Rate FiO2 09/17/22 07:28 36.2 54 20 106/62 (77) 98 Room Air Capillary Refill : General Appearance: No Apparent Distress, WD/WN, Chronically ill, Obese HEENT: PERRL/EOMI, Normal ENT Inspection, Pharynx Normal Neck: Full Range of Motion, Normal Inspection, Non Tender, Supple, Carotid Bruit Respiratory: Chest Non Tender, Lungs Clear, Normal Breath Sounds, No Accessory Muscle Use, No Respiratory Distress Cardiovascular: No Edema, No Gallop, No JVD, No Murmur, Normal Peripheral Pulses, Irregularly Irregular Gastrointestinal: Normal Bowel Sounds, No Organomegaly, No Pulsatile Mass, Non Tender, Soft, Distended, Other (ascites) Back: Normal Inspection, No CVA Tenderness, No Vertebral Tenderness Extremity: Normal Capillary Refill, Normal Inspection, Normal Range of Motion, Non Tender, No Calf Tenderness, Pedal Edema Neurologic/Psychiatric: Alert, Oriented x3, No Motor/Sensory Deficits, Normal Mood/Affect Skin: Normal Color, Warm/Dry Lymphatic: No Adenopathy Results/Procedures Lab Patient resulted labs reviewed. FIM Transfers Therapy Code Descriptions/Definitions Functional [place] Measure: 0=Not Assessed/NA 4=Minimal Assistance 1=Total Assistance 5=Supervision or Setup 2=Maximal Assistance 6=Modified [place] 3=Moderate Assistance 7=Complete IndependenceSCALE: Activities may be completed with or without assistive devices. 5-Ooyslubwai-lvalzbl completes the activity by him/herself with no assistance from a helper. 5-Set-up or Clean-up Assistance-helper sets up or cleans up; patient completes activity. [place] assists only prior to or following the activity. 4-Supervision or Touching Assistance-helper provides verbal cues and/or touching/steadying and/or contact guard assistance as patient completes activity. Assistance may be provided throughout the activity or intermittently. 3-Partial/Moderate Assistance-helper does LESS THAN HALF the effort. [place] lifts, holds or supports trunk or limbs, but provides less than half the effort. 2-Substantial/Maximal Assistance-helper does MORE THAN HALF the effort. [place] lifts or holds trunk or limbs and provides more than half the effort. 2-Sarfkmhwe-ysqarg does ALL the effort. Patient does none of the effort to complete the activity. Or, the assistance of 2 or more helpers is required for the patient to complete the activity. If activity was not attempted, code reason: 7-Patient Refused. 9-Not Applicable-not attempted and the patient did not perform the activity before the current illness, exacerbation or injury. 10-Not Attempted due to Environmental Limitations-(lack of equipment, weather restraints, etc.). 88-Not Attempted due to Medical Conditions or Safety Concerns. Roll Left to Right (QC): 6 (with use of bed rail) Sit to Lying (QC): 3 (mod (A) for (B) LE's) Sit to Stand (QC): 3 (Min (A) from lower chairs to FWW) Chair/Ndg-cv-Squop Xfer(QC): 3 (min (A) - CGA with cues for safety, turning completely and using walker correctly.) Car Transfer (QC): 3 (Min (A) to lift legs in to car. Attempted to stand with one leg on ground and one leg in "car". Instructed to sit for safety and swing both legs out - min (A) to move both legs out of car.) Gait Training Does the Patient Walk?: Yes Walk 10 feet (QC): 3 (Min (A), assist with walker control to not understep walker) Walk 50 ft with 2 Turns(QC): 3 (Min (A) with FWW) Walk 150 ft (QC): 3 (Min (A) with FWW) Walking 10ft/uneven surface-QC: 3 (Min (A) with FWW) Gait Assistive Device: FWW Wheelchair Training Does the Pt Use a Wheelchair?: No Wheel 50 ft with 2 turns (QC): 9 Wheel 150 ft (QC): 9 Stair Training 1 Step (curb) (QC): 3 (2" curb step with FWW min (A)) 4 Steps (QC): 4 12 Steps (QC): 88 (fatigued after 10 steps, 12 not attempted) Balance Picking up an Object (QC): 6 (with walker and well control instructor) ADL-Treatment Eating (QC): 6 Oral Hygiene (QC): 5 Shower/Bathe Self (QC): 3 (Min A with washing/drying BLEs lower legs/feet.) Upper Body Dressing (QC): 5 Lower Body Dressing (QC): 3 (Min A threading LLE into shorts.) On/Off Footwear (QC): 2 (Pt able to reach top of sock, but unable to doff either sock completely. Total assist with donning. ) Toileting Hygiene (QC): 4 (CGA) Assessment/Plan Assessment and Plan Assess & Plan/Chief Complaint Assessment: Debility following ESLD decompensation Ascites AF Previous OAC for CVA prophylaxis holding for now HTN HLP Plan: Monitor labs Monitor AF Decision on anticoagulation pending PT OT 09/16/2022: DC catheter tomorrow Monitor closely 09/17/2022: Monitor for retention (1) Liver failure Status: Acute TULIO HILLMAN DO September 17, 2022 06:46
[2022-09-17 07:28] VITALS: BP 106/62
[2022-09-17] MEDS: meTOprolol TARTRATE 25 MG (LOPRESSOR) TABLET PO SCH ×3 (10:07→21:10)
[2022-09-17] MEDS: ALLOPURINOL 100 MG (ZYLOPRIM) TAB PO SCH ×2 (10:07→21:09)
[2022-09-17] MEDS: KETOCONAZOLE 2% CREAM 15 GM (NIZORAL) TOP SCH (10:08)
[2022-09-17] MEDS: AMIODARONE 200 MG (CORDARONE) TAB PO SCH ×2 (10:08→21:10)
[2022-09-17] MEDS: RIVAROXABAN 20 MG TABLET (XARELTO) PO SCH (10:08)
[2022-09-17] MEDS: MAGNESIUM OXIDE (MAG-OX)400 MG TAB PO SCH ×2 (10:08→18:19)
[2022-09-17] MEDS: VITAMIN D2 1.25 MG (50,000 UNITS) CAP PO SCH (10:11)
[2022-09-17] MEDS: polyethylene glycoL POWDER 17 GM (MIRALAX) PACK PO SCH ×2 (10:33→22:00)
[2022-09-17] MEDS: DOCUSATE SODIUM 100 MG (COLACE) CAP PO SCH ×2 (10:33→21:10)
[2022-09-17] MEDS: SENNA W/DOCUSATE (SENOKOT S) TABLET PO SCH ×2 (10:35→21:09)
[2022-09-17 20:35] VITALS: BP 116/56
[2022-09-18] MEDS: CATHETER FLUSH 10 ML SYR IVP SCH ×3 (06:16→20:59)
--- NOTE | 2022-09-18 07:05 | PM&R Progress Note ---
Subjective HPI/CC On Admission Date Seen by Provider: September 18, 2022 Time Seen by Provider: 12:00 Subjective/Events-last exam 09/18/2022: Doing well Sleeping well No falls Improved 09/17/2022: Doing better [place] out Monitor for retention No falls Improved 09/16/2022: Doing well today Catheter will be DC No pain reported Walking is slightly better Fatigues easily Review of Systems General: Fatigue, Malaise Objective Exam Vital Signs Vital Signs Date Time Temp Pulse Resp B/P (MAP) Pulse Ox O2 Delivery O2 Flow Rate FiO2 09/18/22 08:43 Room Air 09/18/22 08:16 36.2 58 18 99/52 (68) 96 Capillary Refill : General Appearance: No Apparent Distress, WD/WN, Chronically ill, Obese HEENT: PERRL/EOMI, Normal ENT Inspection, Pharynx Normal Neck: Full Range of Motion, Normal Inspection, Non Tender, Supple, Carotid Bruit Respiratory: Chest Non Tender, Lungs Clear, Normal Breath Sounds, No Accessory Muscle Use, No Respiratory Distress Cardiovascular: No Edema, No Gallop, No JVD, No Murmur, Normal Peripheral Pulses, Irregularly Irregular Gastrointestinal: Normal Bowel Sounds, No Organomegaly, No Pulsatile Mass, Non Tender, Soft, Distended, Other (ascites) Back: Normal Inspection, No CVA Tenderness, No Vertebral Tenderness Extremity: Normal Capillary Refill, Normal Inspection, Normal Range of Motion, Non Tender, No Calf Tenderness, Pedal Edema Neurologic/Psychiatric: Alert, Oriented x3, No Motor/Sensory Deficits, Normal Mood/Affect Skin: Normal Color, Warm/Dry Lymphatic: No Adenopathy Results/Procedures Lab Patient resulted labs reviewed. FIM Transfers Therapy Code Descriptions/Definitions Functional [place] Measure: 0=Not Assessed/NA 4=Minimal Assistance 1=Total Assistance 5=Supervision or Setup 2=Maximal Assistance 6=Modified [place] 3=Moderate Assistance 7=Complete IndependenceSCALE: Activities may be completed with or without assistive devices. 4-Kmerrahyfy-voqxasc completes the activity by him/herself with no assistance from a helper. 5-Set-up or Clean-up Assistance-helper sets up or cleans up; patient completes activity. [place] assists only prior to or following the activity. 4-Supervision or Touching Assistance-helper provides verbal cues and/or touching/steadying and/or contact guard assistance as patient completes activity. Assistance may be provided throughout the activity or intermittently. 3-Partial/Moderate Assistance-helper does LESS THAN HALF the effort. [place] lifts, holds or supports trunk or limbs, but provides less than half the effort. 2-Substantial/Maximal Assistance-helper does MORE THAN HALF the effort. [place] lifts or holds trunk or limbs and provides more than half the effort. 9-Qhxlcrtzp-cbcdqm does ALL the effort. Patient does none of the effort to complete the activity. Or, the assistance of 2 or more helpers is required for the patient to complete the activity. If activity was not attempted, code reason: 7-Patient Refused. 9-Not Applicable-not attempted and the patient did not perform the activity b efore the current illness, exacerbation or injury. 10-Not Attempted due to Environmental Limitations-(lack of equipment, weather restraints, etc.). 88-Not Attempted due to Medical Conditions or Safety Concerns. Roll Left to Right (QC): 6 (with use of bed rail) Sit to Lying (QC): 3 (mod (A) for (B) LE's) Sit to Stand (QC): 3 (Min (A) from lower chairs to FWW) Chair/Vpn-aw-Fmvgh Xfer(QC): 3 (min (A) - CGA with cues for safety, turning completely and using walker correctly.) Car Transfer (QC): 3 (Min (A) to lift legs in to car. Attempted to stand with one leg on ground and one leg in "car". Instructed to sit for safety and swing both legs out - min (A) to move both legs out of car.) Gait Training Does the Patient Walk?: Yes Walk 10 feet (QC): 3 (Min (A), assist with walker control to not understep walker) Walk 50 ft with 2 Turns(QC): 3 (Min (A) with FWW) Walk 150 ft (QC): 3 (Min (A) with FWW) Walking 10ft/uneven surface-QC: 3 (Min (A) with FWW) Gait Assistive Device: FWW Wheelchair Training Does the Pt Use a Wheelchair?: No Wheel 50 ft with 2 turns (QC): 9 Wheel 150 ft (QC): 9 Stair Training 1 Step (curb) (QC): 3 (2" curb step with FWW min (A)) 4 Steps (QC): 4 12 Steps (QC): 88 (fatigued after 10 steps, 12 not attempted) Balance Picking up an Object (QC): 6 (with walker and silk printer) ADL-Treatment Eating (QC): 6 Oral Hygiene (QC): 5 Shower/Bathe Self (QC): 3 (Min A with washing/drying BLEs lower legs/feet.) Upper Body Dressing (QC): 5 Lower Body Dressing (QC): 3 (Min A threading LLE into shorts.) On/Off Footwear (QC): 2 (Pt able to reach top of sock, but unable to doff either sock completely. Total assist with donning. ) Toileting Hygiene (QC): 4 (CGA) Assessment/Plan Assessment and Plan Assess & Plan/Chief Complaint Assessment: Debility following ESLD decompensation Ascites AF Previous OAC for CVA prophylaxis holding for now HTN HLP Plan: Monitor labs Monitor AF Decision on anticoagulation pending PT OT 09/16/2022: DC catheter tomorrow Monitor closely 09/17/2022: Monitor for retention 09/18/2022: No major issues (1) Liver failure Status: Acute TULIO HILLMAN DO September 18, 2022 07:05
[2022-09-18 08:16] VITALS: BP 99/52
[2022-09-18] MEDS: meTOprolol TARTRATE 25 MG (LOPRESSOR) TABLET PO SCH ×2 (08:28→20:58)
[2022-09-18] MEDS: SENNA W/DOCUSATE (SENOKOT S) TABLET PO SCH ×2 (08:53→21:09)
[2022-09-18] MEDS: ALLOPURINOL 100 MG (ZYLOPRIM) TAB PO SCH ×2 (08:53→20:58)
[2022-09-18] MEDS: DOCUSATE SODIUM 100 MG (COLACE) CAP PO SCH ×2 (08:53→21:09)
[2022-09-18] MEDS: MAGNESIUM OXIDE (MAG-OX)400 MG TAB PO SCH ×2 (08:53→16:48)
[2022-09-18] MEDS: polyethylene glycoL POWDER 17 GM (MIRALAX) PACK PO SCH ×3 (08:53→19:34)
[2022-09-18] MEDS: KETOCONAZOLE 2% CREAM 15 GM (NIZORAL) TOP SCH (08:53)
[2022-09-18] MEDS: AMIODARONE 200 MG (CORDARONE) TAB PO SCH ×2 (08:53→20:58)
[2022-09-18] MEDS: RIVAROXABAN 20 MG TABLET (XARELTO) PO SCH (08:53)
[2022-09-18 19:05] VITALS: BP 122/57
[2022-09-18] MEDS: diphenhydrAMINE 25 MG TAB (BENADRYL) PO PRN (21:03)
[2022-09-19] MEDS: CATHETER FLUSH 10 ML SYR IVP SCH ×3 (06:09→21:03)
--- NOTE | 2022-09-19 06:50 | PM&R Progress Note ---
Subjective HPI/CC On Admission Date Seen by Provider: September 19, 2022 Time Seen by Provider: 08:30 Subjective/Events-last exam 09/19/2022: Much improved Working with therapy Labs reviewed No falls 09/18/2022: Doing well Sleeping well No falls Improved 09/17/2022: Doing better [place] out Monitor for retention No falls Improved 09/16/2022: Doing well today Catheter will be DC No pain reported Walking is slightly better Fatigues easily Review of Systems General: Fatigue, Malaise Objective Exam Vital Signs Vital Signs Date Time Temp Pulse Resp B/P (MAP) Pulse Ox O2 Delivery O2 Flow Rate FiO2 09/19/22 20:52 37.0 60 18 121/58 (79) 97 Room Air Capillary Refill : General Appearance: No Apparent Distress, WD/WN, Chronically ill, Obese HEENT: PERRL/EOMI, Normal ENT Inspection, Pharynx Normal Neck: Full Range of Motion, Normal Inspection, Non Tender, Supple, Carotid Bruit Respiratory: Chest Non Tender, Lungs Clear, Normal Breath Sounds, No Accessory Muscle Use, No Respiratory Distress Cardiovascular: No Edema, No Gallop, No JVD, No Murmur, Normal Peripheral Pulses, Irregularly Irregular Gastrointestinal: Normal Bowel Sounds, No Organomegaly, No Pulsatile Mass, Non Tender, Soft, Distended, Other (ascites) Back: Normal Inspection, No CVA Tenderness, No Vertebral Tenderness Extremity: Normal Capillary Refill, Normal Inspection, Normal Range of Motion, Non Tender, No Calf Tenderness, Pedal Edema Neurologic/Psychiatric: Alert, Oriented x3, No Motor/Sensory Deficits, Normal Mood/Affect Skin: Normal Color, Warm/Dry Lymphatic: No Adenopathy Results/Procedures Lab Laboratory Tests 09/19/22 06:57 Patient resulted labs reviewed. FIM Transfers Therapy Code Descriptions/Definitions Functional [place] Measure: 0=Not Assessed/NA 4=Minimal Assistance 1=Total Assistance 5=Supervision or Setup 2=Maximal Assistance 6=Modified [place] 3=Moderate Assistance 7=Complete IndependenceSCALE: Activities may be completed with or without assistive devices. 1-Tbwqityuth-nntfhvf completes the activity by him/herself with no assistance from a helper. 5-Set-up or Clean-up Assistance-helper sets up or cleans up; patient completes activity. [place] assists only prior to or following the activity. 4-Supervision or Touching Assistance-helper provides verbal cues and/or touching/steadying and/or contact guard assistance as patient completes activity. Assistance may be provided throughout the activity or intermittently. 3-Partial/Moderate Assistance-helper does LESS THAN HALF the effort. [place] lifts, holds or supports trunk or limbs, but provides less than half the effort. 2-Substantial/Maximal Assistance-helper does MORE THAN HALF the effort. [place] lifts or holds trunk or limbs and provides more than half the effort. 7-Ndlckwkrb-ldgsqg does ALL the effort. Patient does none of the effort to complete the activity. Or, the assistance of 2 or more helpers is required for the patient to complete the activity. If activity was not attempted, code reason: 7-Patient Refused. 9-Not Applicable-not attempted and the patient did not perform the activity before the current illness, exacerbation or injury. 10-Not Attempted due to Environmental Limitations-(lack of equipment, weather restraints, etc.). 88-Not Attempted due to Medical Conditions or Safety Concerns. Roll Left to Right (QC): 6 (with use of bed rail) Sit to Lying (QC): 3 (mod (A) for (B) LE's) Sit to Stand (QC): 3 (Min (A) from lower chairs to FWW) Chair/Yvr-lj-Mctxo Xfer(QC): 3 (min (A) - CGA with cues for safety, turning c ompletely and using walker correctly.) Car Transfer (QC): 3 (Min (A) to lift legs in to car. Attempted to stand with one leg on ground and one leg in "car". Instructed to sit for safety and swing both legs out - min (A) to move both legs out of car.) Gait Training Does the Patient Walk?: Yes Walk 10 feet (QC): 3 (Min (A), assist with walker control to not understep walker) Walk 50 ft with 2 Turns(QC): 3 (Min (A) with FWW) Walk 150 ft (QC): 3 (Min (A) with FWW) Walking 10ft/uneven surface-QC: 3 (Min (A) with FWW) Gait Assistive Device: FWW Wheelchair Training Does the Pt Use a Wheelchair?: No Wheel 50 ft with 2 turns (QC): 9 Wheel 150 ft (QC): 9 Stair Training 1 Step (curb) (QC): 3 (2" curb step with FWW min (A)) 4 Steps (QC): 4 12 Steps (QC): 88 (fatigued after 10 steps, 12 not attempted) Balance Picking up an Object (QC): 6 (with walker and mud boss) ADL-Treatment Eating (QC): 6 Oral Hygiene (QC): 5 Shower/Bathe Self (QC): 3 (Min A with washing/drying BLEs lower legs/feet.) Upper Body Dressing (QC): 5 Lower Body Dressing (QC): 3 (Min A threading LLE into shorts.) On/Off Footwear (QC): 2 (Pt able to reach top of sock, but unable to doff either sock completely. Total assist with donning. ) Toileting Hygiene (QC): 4 (CGA) Assessment/Plan Assessment and Plan Assess & Plan/Chief Complaint Assessment: Debility following ESLD decompensation Ascites AF Previous OAC for CVA prophylaxis holding for now HTN HLP Plan: Monitor labs Monitor AF Decision on anticoagulation pending PT OT 09/16/2022: DC catheter tomorrow Monitor closely 09/17/2022: Monitor for retention 09/18/2022: No major issues 09/19/2022: Monitor closely (1) Liver failure Status: Acute TULIO HILLMAN DO September 19, 2022 06:50
[2022-09-19 07:15] LABS: BASOPHILS % (AUTO) 0 % (0-10); EOSINOPHILS # (AUTO) 0.4 10^3/uL (0.0-0.3); HEMOGLOBIN 11.2 g/dL (13.3-17.7); MEAN CORPUSCULAR VOLUME 97 fL (80-99)
[2022-09-19 07:17] LABS: BASOPHILS # (AUTO) 0.1 10^3/uL (0.0-0.1); EOSINOPHILS % (AUTO) 3 % (0-10); HEMATOCRIT 33 % (40-54); LYMPHOCYTES % (AUTO) 15 % (12-44); MEAN CORPUSCULAR HEMOGLOBIN 33 pg (25-34); MEAN CORPUSCULAR HGB CONC 34 g/dL (32-36); MEAN PLATELET VOLUME 12.9 fL (9.0-12.2); MONOCYTES # (AUTO) 1.5 10^3/uL (0.0-1.0); MONOCYTES % (AUTO) 12 % (0-12); NEUTROPHILS # (AUTO) 9.1 10^3/uL (1.8-7.8); NEUTROPHILS % (AUTO) 69 % (42-75); PLATELET COUNT 116 10^3/uL (130-400); WHITE BLOOD COUNT 13.1 10^3/uL (4.3-11.0)
[2022-09-19 07:24] LABS: ALBUMIN 2.6 GM/DL (3.2-4.5); POTASSIUM 4.4 MMOL/L (3.6-5.0)
[2022-09-19 07:25] LABS: CALCIUM 8.5 MG/DL (8.5-10.1)
[2022-09-19 07:26] LABS: TOTAL PROTEIN 6.5 GM/DL (6.4-8.2)
[2022-09-19 07:28] LABS: BILIRUBIN,TOTAL 1.7 MG/DL (0.1-1.0)
[2022-09-19 07:30] LABS: CREATININE SERUM 1.31 MG/DL (0.60-1.30)
--- NOTE | 2022-09-19 08:41 | Occupational Ther Daily Note ---
OT Current Status-Daily Note Subjective Pt found in bed, agreed to therapy. alert and cooperative. No pain mentioned. Mental Status/Objective Patient Orientation: Person, Place, Time, Situation ADL-Treatment Pt refused shower, but agreed to sponge bath. Pt ambulated with FWW , CGA to toilet. Pt urinated only. Pt CGA for toilet transfer. Pt SBA for toilet hygiene. Pt completed pericare while standing in bathroom. Pt completed upper body dressing with set up assist. Pt was able to doff old socks but needed max assist for donning socks. Increased time due to multiple breaks needed. Pt then transferred to chair in bathroom at sink and completed grooming and oral care independently. Pt ambulated with FWW SBA to chair in room. Pt completed 5 B UE exercises with green theraband. Pt needed demonstration but no verbal cues after demonstration. Pt completed 15 reps 2 sets with multiple recovery breaks after each one/each set. Pt then completed theraputty activity with green theraputty medium level difficulty. Pt also completed a clothespin activity addressing hand/finger strengthening, and coordination. Pt was left in room in chair, phone and call light within reach, all needs met in room. Therapy Code Descriptions/Definitions Functional [place] Measure: 0=Not Assessed/NA 4=Minimal Assistance 1=Total Assistance 5=Supervision or Setup 2=Maximal Assistance 6=Modified [place] 3=Moderate Assistance 7=Complete IndependenceSCALE: Activities may be completed with or without assistive devices. 0-Dtovocghxm-lyhyxvd completes the activity by him/herself with no assistance from a helper. 5-Set-up or Clean-up Assistance-helper sets up or cleans up; patient completes activity. [place] assists only prior to or following the activity. 4-Supervision or Touching Assistance-helper provides verbal cues and/or touching/steadying and/or contact guard assistance as patient completes activity. Assistance may be provided throughout the activity or intermittently. 3-Partial/Moderate Assistance-helper does LESS THAN HALF the effort. [place] lifts, holds or supports trunk or limbs, but provides less than half the effort. 2-Substantial/Maximal Assistance-helper does MORE THAN HALF the effort. [place] lifts or holds trunk or limbs and provides more than half the effort. 0-Ibsagkljx-xpagwu does ALL the effort. Patient does none of the effort to com plete the activity. Or, the assistance of 2 or more helpers is required for the patient to complete the activity. If activity was not attempted, code reason: 7-Patient Refused. 9-Not Applicable-not attempted and the patient did not perform the activity before the current illness, exacerbation or injury. 10-Not Attempted due to Environmental Limitations-(lack of equipment, weather restraints, etc.). 88-Not Attempted due to Medical Conditions or Safety Concerns. Eating (QC): 6 Oral Hygiene (QC): 6 (while seated ) Upper Body Dressing (QC): 5 On/Off Footwear: 3 Toileting Hygiene (QC): 4 Toilet Transfer (QC): 4 Education OT Patient Education: Energy conservation, Exercise program, Home exercise program, Progress toward Goal/Update tx plan, Purpose of tx/functional activities Teaching Recipient: Patient Teaching Methods: Demonstration Response to Teaching: Verbalize Understanding, Return Demonstration OT Short Term Goals Short Term Goals Time Frame: September 28, 2022 Shower/bathe self: 5 Lower body dressin Putting on/taking off footwear: 5 OT Shelter Goals [facility] Goals Time Frame: October 07, 2022 Acute change in mental status: 0 Inattention: 0 Disorganized thinkin Altered level of consciousness: 0 Eating (QC): 6 Oral Hygiene (QC): 6 Toileting Hygiene (QC): 6 Shower/Bathe Self (QC): 6 Upper Body Dressing (QC): 6 Lower Body Dressing (QC): 6 On/Off Footwear (QC): 6 Additional Goals: 1-Demonstrate ADL Tasks, 2-Verbalize Understanding, 3- ImproveStrength/Yordy 1=Demonstrate adherence to instructed precautions during ADL tasks. 2=Patient will verbalize/demonstrate understanding of assistive devices/modifications for ADL. 3=Patient will improve strength/tolerance for activity to enable patient to perform ADL's. OT Education/Plan Problem List/Assessment Assessment: Decreased Activ Tolerance, Decreased UE Strength Discharge Recommendations Plan/Recommendations: Continue POC Equpiment Recommendations-D/C: Sock Aide (will educate on next session) Treatment Plan/Plan of Care Patient would benefit from OT for education, treatment and training to promote independence in ADL's, mobility, safety and/or upper extremity function for ADL's. Plan of Care: ADL Retraining, Functional Mobility, Group Exercise/Act as Ind, UE Funct Exercise/Act Treatment Duration: October 07, 2022 Frequency: At least 5 of 7 days/Wk (IRF) Estimated Hrs Per Day: 1.5 hours per day Agreement: Yes Rehab Potential: Good Time Start Time: 07:30 Stop Time: 09:00 DATE: September 19, 2022 Total Time Billed (hr/min): 90 Billed Treatment Time 1 visit ADL 2 (30 mins) EX 4 (60 min) Xiomara Liang COTA September 19, 2022 08:41
[2022-09-19 09:00] VITALS: BP 112/65
[2022-09-19] MEDS: MAGNESIUM OXIDE (MAG-OX)400 MG TAB PO SCH ×2 (09:06→17:36)
[2022-09-19] MEDS: RIVAROXABAN 20 MG TABLET (XARELTO) PO SCH (09:06)
[2022-09-19] MEDS: meTOprolol TARTRATE 25 MG (LOPRESSOR) TABLET PO SCH ×2 (09:06→21:03)
[2022-09-19] MEDS: DOCUSATE SODIUM 100 MG (COLACE) CAP PO SCH ×2 (09:06→21:02)
[2022-09-19] MEDS: AMIODARONE 200 MG (CORDARONE) TAB PO SCH ×2 (09:06→21:03)
[2022-09-19] MEDS: SENNA W/DOCUSATE (SENOKOT S) TABLET PO SCH ×2 (09:06→21:02)
[2022-09-19] MEDS: ALLOPURINOL 100 MG (ZYLOPRIM) TAB PO SCH ×2 (09:06→21:02)
[2022-09-19] MEDS: polyethylene glycoL POWDER 17 GM (MIRALAX) PACK PO SCH ×2 (09:07→21:03)
[2022-09-19] MEDS: KETOCONAZOLE 2% CREAM 15 GM (NIZORAL) TOP SCH (09:11)
--- NOTE | 2022-09-19 11:28 | Physical Therapy Daily Note ---
PT Daily Note-Current Subjective Pt found seated in recliner upon entry. Agreed to PT. States that he is feeling a little tired today but he is doing well. Pt reports that he is not having any pain. Also reports that the pills he took earlier today have been bothering his stomach. Pain Section J - Health Conditions 1. Rarely or not at all 2. Occasionally 3. Frequently 4. Almost constantly 8. Unable to answer Pain Effect on Sleep: 1 Pain Interference with Therapy: 1 Pain Interference w/Day-to-Day: 1 Mental Status Patient Orientation: Person, Place Transfers SCALE: Activities may be completed with or without assistive devices. 3-Pzixlpgpxm-nouopdy completes the activity by him/herself with no assistance from a helper. 5-Set-up or Clean-up Assistance-helper sets up or cleans up; patient completes activity. [place] assists only prior to or following the activity. 4-Supervision or Touching Assistance-helper provides verbal cues and/or touching/steadying and/or contact guard assistance as patient completes activity. Assistance may be provided throughout the activity or intermittently. 3-Partial/Moderate Assistance-helper does LESS THAN HALF the effort. [place] lifts, holds or supports trunk or limbs, but provides less than half the effort. 2-Substantial/Maximal Assistance-helper does MORE THAN HALF the effort. [place] lifts or holds trunk or limbs and provides more than half the effort. 0-Yfnwpqrew-mtcigt does ALL the effort. Patient does none of the effort to complete the activity. Or, the assistance of 2 or more helpers is required for the patient to complete the activity. If activity was not attempted, code reason: 7-Patient Refused. 9-Not Applicable-not attempted and the patient did not perform the activity before the current illness, exacerbation or injury. 10-Not Attempted due to Environmental Limitations-(lack of equipment, weather restraints, etc.). 88-Not Attempted due to Medical Conditions or Safety Concerns. Roll Left & Right (QC): 6 Sit to Lying (QC): 3 Sit to Stand (QC): 4 Toilet Transfer (QC): 4 Pt independent /c rolling in bed. MIN-MOD assist /c LEs and trunk to complete sit to lying transfer. Pt CGA for safety due to balance deficits to complete sit to stand and toilet transfers. Weight Bearing Full Weight Bearing Full Weight Bearing Gait Training Does the Patient Walk?: Yes Distance: 75, 50, 50 Walk 10 feet (QC): 4 Walk 50 ft with 2 Turns(QC): 4 Gait Persons Needed: 1 Gait Assistive Device: FWW Pt ambulates /c CGA and use of FWW. Able to ambulate up to 75 feet before requiring a seated rest break. Pt displays good step length throughout /c slow gait cycle. No loss of balance demonstrated. Wheelchair Training Does the Pt Use a Wheelchair?: No Exercises NuStep Minutes: 7 NuStep Workload: 2 Treatments Standing exercises: Marching x 15 Step ups x 10 Side-stepping at // x 3 trips Seated exercises: RTB abd x 20 RTB marching x 20 RTB hamstring curls x 20 Heel/toe raises x 20 Hip add /c ball x 20 Sit to stands x 5 Assessment Current Status: Fair Progress Pt displays very limited endurance /c therapeutic exercises and ambulation. Required seated rest breaks throughout visit. Demonstrates good muscle strength /c exercise. Reports increased fatigue /c completion of standing exercises and nu step. Continue to progress pt as tolerated per POC to improve endurance, strength, and functional ability. PT Skilled Nursing Goals Skilled Nursing Goals PT Skilled Nursing Goals Time Frame: September 29, 2022 Roll Left & Right (QC): 6 Sit to Lying (QC): 6 (with leg feller seam operator if needed) Lying-Sitting on Side/Bed(QC): 6 Sit to Stand (QC): 6 (to FWW) Chair/Wqc-xg-Dpphs Xfer(QC): 6 (with FWW) Toilet Transfer (QC): 6 (with FWW) Car Transfer (QC): 5 (with FWW) Does the Patient Walk: Yes Walk 10 feet (QC): 6 (with FWW) Walk 50ft with 2 Turns (QC): 6 (with FWW) Walk 150 ft (QC): 6 (with FWW) Walking 10ft on Uneven Surface: 6 (with FWW) 1 Step (curb) (QC): 6 (with FWW) 4 Steps (QC): 6 (with rails) 12 Steps (QC): 6 (with (B) Rails) Picking up an Object (QC): 6 (with AD) Does the Pt use WC or Scooter?: No Wheel 50 feet with 2 turns (QC: 9 Type: N/A Wheel 150 feet: 9 Type: N/A PT Plan Treatment/Plan Treatment Plan: Continue Plan of Care Treatment Plan: Bed Mobility, Education, Functional Activity Yordy, Functional Strength, Group Therapy, Gait, Safety, Therapeutic Exercise, Transfers, Other (Co-treatment prn to address multiple issues which require 2 skilled therapists to treat safely.) Treatment Duration: September 29, 2022 Frequency: At least 5 of 7 days/Wk (IRF) Estimated Hrs Per Day: 1.5 hours per day Patient and/or Family Agrees t: Yes Time Time In: 0930 Time Out: 1100 DATE: September 19, 2022 Total Billed Treatment Time: 90 Total Billed Treatment 1 visit GT x 2 FA x 2 EX x 2 ALYSIA COATS PTA September 19, 2022 11:28
[2022-09-19 20:52] VITALS: BP 121/58
[2022-09-20] MEDS: CATHETER FLUSH 10 ML SYR IVP SCH (05:17)
--- NOTE | 2022-09-20 06:50 | PM&R Progress Note ---
Subjective HPI/CC On Admission Date Seen by Provider: September 20, 2022 Time Seen by Provider: 09:00 Subjective/Events-last exam 09/20/2022: Doing much better No pain reported Moving well 09/19/2022: Much improved Working with therapy Labs reviewed No falls 09/18/2022: Doing well Sleeping well No falls Improved 09/17/2022: Doing better [place] out Monitor for retention No falls Improved 09/16/2022: Doing well today Catheter will be DC No pain reported Walking is slightly better Fatigues easily Review of Systems General: Fatigue, Malaise Objective Exam Vital Signs Vital Signs Date Time Temp Pulse Resp B/P (MAP) Pulse Ox O2 Delivery O2 Flow Rate FiO2 09/20/22 20:45 95 Room Air 09/20/22 20:27 36.2 53 20 118/58 (78) Capillary Refill : General Appearance: No Apparent Distress, WD/WN, Chronically ill, Obese HEENT: PERRL/EOMI, Normal ENT Inspection, Pharynx Normal Neck: Full Range of Motion, Normal Inspection, Non Tender, Supple, Carotid Bruit Respiratory: Chest Non Tender, Lungs Clear, Normal Breath Sounds, No Accessory Muscle Use, No Respiratory Distress Cardiovascular: No Edema, No Gallop, No JVD, No Murmur, Normal Peripheral Pulses, Irregularly Irregular Gastrointestinal: Normal Bowel Sounds, No Organomegaly, No Pulsatile Mass, Non Tender, Soft, Distended, Other (ascites) Back: Normal Inspection, No CVA Tenderness, No Vertebral Tenderness Extremity: Normal Capillary Refill, Normal Inspection, Normal Range of Motion, Non Tender, No Calf Tenderness, Pedal Edema Neurologic/Psychiatric: Alert, Oriented x3, No Motor/Sensory Deficits, Normal Mood/Affect Skin: Normal Color, Warm/Dry Lymphatic: No Adenopathy Results/Procedures Lab Patient resulted labs reviewed. FIM Transfers Therapy Code Descriptions/Definitions Functional [place] Measure: 0=Not Assessed/NA 4=Minimal Assistance 1=Total Assistance 5=Supervision or Setup 2=Maximal Assistance 6=Modified [place] 3=Moderate Assistance 7=Complete IndependenceSCALE: Activities may be completed with or without assistive devices. 0-Janosvvuzk-puiklbz completes the activity by him/herself with no assistance from a helper. 5-Set-up or Clean-up Assistance-helper sets up or cleans up; patient completes activity. [place] assists only prior to or following the activity. 4-Supervision or Touching Assistance-helper provides verbal cues and/or touching/steadying and/or contact guard assistance as patient completes activity. Assistance may be provided throughout the activity or intermittently. 3-Partial/Moderate Assistance-helper does LESS THAN HALF the effort. [place] lifts, holds or supports trunk or limbs, but provides less than half the effort. 2-Substantial/Maximal Assistance-helper does MORE THAN HALF the effort. [place] lifts or holds trunk or limbs and provides more than half the effort. 3-Nqlydzlnv-rliopx does ALL the effort. Patient does none of the effort to comp lete the activity. Or, the assistance of 2 or more helpers is required for the patient to complete the activity. If activity was not attempted, code reason: 7-Patient Refused. 9-Not Applicable-not attempted and the patient did not perform the activity before the current illness, exacerbation or injury. 10-Not Attempted due to Environmental Limitations-(lack of equipment, weather restraints, etc.). 88-Not Attempted due to Medical Conditions or Safety Concerns. Roll Left to Right (QC): 6 Sit to Lying (QC): 3 Sit to Stand (QC): 4 Chair/Ike-my-Rtbjp Xfer(QC): 3 (min (A) - CGA with cues for safety, turning completely and using walker correctly.) Car Transfer (QC): 3 (Min (A) to lift legs in to car. Attempted to stand with one leg on ground and one leg in "car". Instructed to sit for safety and swing both legs out - min (A) to move both legs out of car.) Gait Training Does the Patient Walk?: Yes Distance: 75, 50, 50 Walk 10 feet (QC): 4 Walk 50 ft with 2 Turns(QC): 4 Walk 150 ft (QC): 3 (Min (A) with FWW) Walking 10ft/uneven surface-QC: 3 (Min (A) with FWW) Gait Persons Needed: 1 Gait Assistive Device: FWW Wheelchair Training Does the Pt Use a Wheelchair?: No Wheel 50 ft with 2 turns (QC): 9 Wheel 150 ft (QC): 9 Stair Training 1 Step (curb) (QC): 3 (2" curb step with FWW min (A)) 4 Steps (QC): 4 12 Steps (QC): 88 (fatigued after 10 steps, 12 not attempted) Balance Picking up an Object (QC): 6 (with walker and planning specialist) ADL-Treatment Eating (QC): 6 Oral Hygiene (QC): 6 (while seated ) Shower/Bathe Self (QC): 3 (Min A with washing/drying BLEs lower legs/feet.) Upper Body Dressing (QC): 5 Lower Body Dressing (QC): 3 (Min A threading LLE into shorts.) On/Off Footwear (QC): 3 Toileting Hygiene (QC): 4 Toilet Transfer (QC): 4 Assessment/Plan Assessment and Plan Assess & Plan/Chief Complaint Assessment: Debility following ESLD decompensation Ascites AF Previous OAC for CVA prophylaxis holding for now HTN HLP Plan: Monitor labs Monitor AF Decision on anticoagulation pending PT OT 09/16/2022: DC catheter tomorrow Monitor closely 09/17/2022: Monitor for retention 09/18/2022: No major issues 09/19/2022: Monitor closely 09/20/2022: Continue aggressive therapy (1) Liver failure Status: Acute TULIO HILLMAN DO September 20, 2022 06:50
[2022-09-20] MEDS: MAGNESIUM OXIDE (MAG-OX)400 MG TAB PO SCH ×2 (08:19→17:30)
[2022-09-20] MEDS: ACETAMINOPHEN 325 MG TABLET PO PRN (08:19)
[2022-09-20] MEDS: RIVAROXABAN 20 MG TABLET (XARELTO) PO SCH (08:19)
[2022-09-20] MEDS: ALLOPURINOL 100 MG (ZYLOPRIM) TAB PO SCH ×2 (08:19→20:46)
[2022-09-20] MEDS: meTOprolol TARTRATE 25 MG (LOPRESSOR) TABLET PO SCH ×2 (08:22→20:46)
[2022-09-20] MEDS: SENNA W/DOCUSATE (SENOKOT S) TABLET PO SCH ×2 (08:22→20:46)
[2022-09-20] MEDS: polyethylene glycoL POWDER 17 GM (MIRALAX) PACK PO SCH ×2 (08:22→20:48)
[2022-09-20] MEDS: DOCUSATE SODIUM 100 MG (COLACE) CAP PO SCH ×2 (08:22→20:46)
[2022-09-20] MEDS: AMIODARONE 200 MG (CORDARONE) TAB PO SCH ×2 (08:23→20:46)
[2022-09-20 08:24] VITALS: BP 100/49
--- NOTE | 2022-09-20 08:50 | Occupational Ther Daily Note ---
OT Current Status-Daily Note Subjective Pt found in room, agreed to OT. Alert and cooperative. No pain mentioned ADL-Treatment Pt agreed to shower. Pt ambulated to bathroom with FWW SBA. Pt completed a toilet transfer with SBA. Pt completed toilet hygiene with moderate assistance. Pt showered and bathed self with no assistance needed by therapist. Pt transferred out of shower to a chair in bathroom with FWW, SBA. Pt completed upper body dressing with set up assistance. Pt demonstrated difficulty putting legs into pant, and pulling up but can hike over hips, moderate assistance needed. Pt needed min assist for donning socks using adaptive equipment. therapist demonstrated on using adaptive equipment but needs further education and reinforcers when using sock aide. Pt completed oral hygiene and grooming while seated at the sink, independently. Pt ambulated back to chair in room. Pt completed B UE exercises with green theraband, 15 reps 2 sets. Pt fatigued quickly and needed multiple recovery breaks. Pt was left in room with call light and phone within reach, all needs met in room. Therapy Code Descriptions/Definitions Functional [place] Measure: 0=Not Assessed/NA 4=Minimal Assistance 1=Total Assistance 5=Supervision or Setup 2=Maximal Assistance 6=Modified [place] 3=Moderate Assistance 7=Complete IndependenceSCALE: Activities may be completed with or without assistive devices. 2-Hxtcaezirb-shmpnky completes the activity by him/herself with no assistance from a helper. 5-Set-up or Clean-up Assistance-helper sets up or cleans up; patient completes activity. [place] assists only prior to or following the activity. 4-Supervision or Touching Assistance-helper provides verbal cues and/or touching/steadying and/or contact guard assistance as patient completes activity. Assistance may be provided throughout the activity or intermittently. 3-Partial/Moderate Assistance-helper does LESS THAN HALF the effort. [place] lifts, holds or supports trunk or limbs, but provides less than half the effort. 2-Substantial/Maximal Assistance-helper does MORE THAN HALF the effort. [place] lifts or holds trunk or limbs and provides more than half the effort. 2-Btqplpwuf-kuiguc does ALL the effort. Patient does none of the effort to complete the activity. Or, the assistance of 2 or more helpers is required for the patient to complete the activity. If activity was not attempted, code reason: 7-Patient Refused. 9-Not Applicable-not attempted and the patient did not perform the activity before the current illness, exacerbation or injury. 10-Not Attempted due to Environmental Limitations-(lack of equipment, weather restraints, etc.). 88-Not Attempted due to Medical Conditions or Safety Concerns. Eating (QC): 6 Oral Hygiene (QC): 6 (seated at sink) Bathing Location: L Arm, R Arm, L Upper Leg, R Upper Leg, L Lower Leg (including foot), R Lower Leg (including foot), Chest, Abdomen, Buttocks, Perineal Area Shower/Bathe Self (QC): 5 Upper Body Dressing (QC): 5 Lower Body Dressing (QC): 3 On/Off Footwear: 3 Toileting Hygiene (QC): 3 Toilet Transfer (QC): 4 Education OT Patient Education: Correct positioning, Energy conservation, Home exercise program, Progress toward Goal/Update tx plan, Purpose of tx/functional activities, Safety issues, Transfer techniques, Use of adapted equipment Teaching Recipient: Patient Teaching Methods: Demonstration Response to Teaching: Verbalize Understanding, Return Demonstration, Reinforcement Needed OT Short Term Goals Short Term Goals Time Frame: September 28, 2022 Shower/bathe self: 5 Lower body dressin Putting on/taking off footwear: 5 OT [facility] Goals [facility] Goals Time Frame: October 07, 2022 Acute change in mental status: 0 Inattention: 0 Disorganized thinkin Altered level of consciousness: 0 Eating (QC): 6 Oral Hygiene (QC): 6 Toileting Hygiene (QC): 6 Shower/Bathe Self (QC): 6 Upper Body Dressing (QC): 6 Lower Body Dressing (QC): 6 On/Off Footwear (QC): 6 Additional Goals: 1-Demonstrate ADL Tasks, 2-Verbalize Understanding, 3- ImproveStrength/Yordy 1=Demonstrate adherence to instructed precautions during ADL tasks. 2=Patient will verbalize/demonstrate understanding of assistive devices/modifications for ADL. 3=Patient will improve strength/tolerance for activity to enable patient to perform ADL's. OT Education/Plan Problem List/Assessment Assessment: Decreased Activ Tolerance, Decreased UE Strength Discharge Recommendations Plan/Recommendations: Continue POC Treatment Plan/Plan of Care Patient would benefit from OT for education, treatment and training to promote independence in ADL's, mobility, safety and/or upper extremity function for AD L's. Plan of Care: ADL Retraining, Functional Mobility, Group Exercise/Act as Ind, UE Funct Exercise/Act Treatment Duration: October 07, 2022 Frequency: At least 5 of 7 days/Wk (IRF) Estimated Hrs Per Day: 1.5 hours per day Agreement: Yes Rehab Potential: Good Time Start Time: 07:14 Stop Time: 08:45 DATE: September 20, 2022 Total Time Billed (hr/min): 90 Billed Treatment Time 1 visit ADL 4 EX 2 Xiomara Liang COTA September 20, 2022 08:50
[2022-09-20] MEDS: KETOCONAZOLE 2% CREAM 15 GM (NIZORAL) TOP SCH (09:25)
--- NOTE | 2022-09-20 10:54 | Physical Therapy Daily Note ---
PT Daily Note-Current Subjective Pt found seated in recliner upon entry. Agreed to PT. Reports he slept on and off last night. No report of pain. Pt reports dizziness during therapeutic exercises. Pain Section J - Health Conditions 1. Rarely or not at all 2. Occasionally 3. Frequently 4. Almost constantly 8. Unable to answer Pain Effect on Sleep: 1 Pain Interference with Therapy: 1 Pain Interference w/Day-to-Day: 1 Mental Status Patient Orientation: Person, Place Transfers SCALE: Activities may be completed with or without assistive devices. 5-Qnvkulwjxa-vlwwtvx completes the activity by him/herself with no assistance from a helper. 5-Set-up or Clean-up Assistance-helper sets up or cleans up; patient completes activity. [place] assists only prior to or following the activity. 4-Supervision or Touching Assistance-helper provides verbal cues and/or touching/steadying and/or contact guard assistance as patient completes activity. Assistance may be provided throughout the activity or intermittently. 3-Partial/Moderate Assistance-helper does LESS THAN HALF the effort. [place] lifts, holds or supports trunk or limbs, but provides less than half the effort. 2-Substantial/Maximal Assistance-helper does MORE THAN HALF the effort. [place] lifts or holds trunk or limbs and provides more than half the effort. 8-Tysgmmxdo-tbarzw does ALL the effort. Patient does none of the effort to complete the activity. Or, the assistance of 2 or more helpers is required for the patient to complete the activity. If activity was not attempted, code reason: 7-Patient Refused. 9-Not Applicable-not attempted and the patient did not perform the activity before the current illness, exacerbation or injury. 10-Not Attempted due to Environmental Limitations-(lack of equipment, weather restraints, etc.). 88-Not Attempted due to Medical Conditions or Safety Concerns. Sit to Stand (QC): 4 Pt SBA /c sit to stand transfers due to strength deficits. Weight Bearing Full Weight Bearing Full Weight Bearing Gait Training Does the Patient Walk?: Yes Distance: 150, 150, 150 Walk 10 feet (QC): 4 Walk 50 ft with 2 Turns(QC): 4 Walk 150 ft (QC): 4 Gait Persons Needed: 1 Gait Assistive Device: FWW Pt close SBA /c use of FWW /c ambulation. Able to ambulate up to 150 feet before requiring a seated rest break. Displays short step lengths /c steady ambulation speed. Pt demonstrates forward trunk lean while ambulating. No loss of balance displayed throughout. Exercises NuStep Minutes: 5 NuStep Workload: 2 Treatments Standing exercises: Mini squat x 10 Step ups x 10 Side-stepping at // x 3 trips Hip 3-ways x 10 ea Heel/toe raises x 10 Assessment Current Status: Good Progress Pt displays improved tolerance to gait training and therapeutic exercises this visit. Continues to demonstrate limited endurance while completing nu-step. Pt able to ambulate up to 150 feet /c use of FWW. Short step lengths /c no loss of balance displayed. Required short seated rest breaks throughout visit. Continue to progress pt as tolerated per POC to improve strength, endurance, and functional ability. PT Calender Feeder Goals Calender Feeder Goals PT Calender Feeder Goals Time Frame: September 29, 2022 Roll Left & Right (QC): 6 Sit to Lying (QC): 6 (with leg drapery examiner if needed) Lying-Sitting on Side/Bed(QC): 6 Sit to Stand (QC): 6 (to FWW) Chair/Cxr-zk-Qmsfx Xfer(QC): 6 (with FWW) Toilet Transfer (QC): 6 (with FWW) Car Transfer (QC): 5 (with FWW) Does the Patient Walk: Yes Walk 10 feet (QC): 6 (with FWW) Walk 50ft with 2 Turns (QC): 6 (with FWW) Walk 150 ft (QC): 6 (with FWW) Walking 10ft on Uneven Surface: 6 (with FWW) 1 Step (curb) (QC): 6 (with FWW) 4 Steps (QC): 6 (with rails) 12 Steps (QC): 6 (with (B) Rails) Picking up an Object (QC): 6 (with AD) Does the Pt use WC or Scooter?: No Wheel 50 feet with 2 turns (QC: 9 Type: N/A Wheel 150 feet: 9 Type: N/A PT Plan Treatment/Plan Treatment Plan: Continue Plan of Care Treatment Plan: Bed Mobility, Education, Functional Activity Yordy, Functional Strength, Group Therapy, Gait, Safety, Therapeutic Exercise, Transfers, Other (Co-treatment prn to address multiple issues which require 2 skilled therapists to treat safely.) Treatment Duration: September 29, 2022 Frequency: At least 5 of 7 days/Wk (IRF) Estimated Hrs Per Day: 1.5 hours per day Patient and/or Family Agrees t: Yes Time Time In: 1000 Time Out: 1100 DATE: September 20, 2022 Total Billed Treatment Time: 60 Total Billed Treatment 1 visit GT x 3 EX x 3 ALYSIA COATS PTA September 20, 2022 10:54
--- NOTE | 2022-09-20 11:21 | Physical Therapy Progress Note ---
Therapy Progress Note Patient will require use of a FWW upon discharge. The patient will be unable to complete activities of daily living without use of a FWW. Patient has demonstrated ability to safely ambulate with us of walker. The patient's functional mobility deficits can be sufficiently resolved with use of a FWW. ALYSIA COATS MILLED LUMBER GRADER September 20, 2022 11:21
--- NOTE | 2022-09-20 14:13 | Physical Therapy Daily Note ---
PT Daily Note-Current Subjective Pt found laying in bed upon entry. Agreed to PT. Reports fatigue but does not have any pain. Pain Section J - Health Conditions 1. Rarely or not at all 2. Occasionally 3. Frequently 4. Almost constantly 8. Unable to answer Pain Effect on Sleep: 1 Pain Interference with Therapy: 1 Pain Interference w/Day-to-Day: 1 Mental Status Patient Orientation: Person, Place Transfers SCALE: Activities may be completed with or without assistive devices. 7-Jxmeiyxiik-icysxzg completes the activity by him/herself with no assistance from a helper. 5-Set-up or Clean-up Assistance-helper sets up or cleans up; patient completes activity. [place] assists only prior to or following the activity. 4-Supervision or Touching Assistance-helper provides verbal cues and/or touching/steadying and/or contact guard assistance as patient completes activity. Assistance may be provided throughout the activity or intermittently. 3-Partial/Moderate Assistance-helper does LESS THAN HALF the effort. [place] lifts, holds or supports trunk or limbs, but provides less than half the effort. 2-Substantial/Maximal Assistance-helper does MORE THAN HALF the effort. [place] lifts or holds trunk or limbs and provides more than half the effort. 4-Rvsdmdwga-oaqrkz does ALL the effort. Patient does none of the effort to complete the activity. Or, the assistance of 2 or more helpers is required for the patient to complete the activity. If activity was not attempted, code reason: 7-Patient Refused. 9-Not Applicable-not attempted and the patient did not perform the activity before the current illness, exacerbation or injury. 10-Not Attempted due to Environmental Limitations-(lack of equipment, weather restraints, etc.). 88-Not Attempted due to Medical Conditions or Safety Concerns. Weight Bearing Full Weight Bearing Full Weight Bearing Treatments Supine exercises: SLRs x 20 Heel slides x 20 Hip abd x 20 Ankle pumps x 20 Glute sets x 20 Quad sets x 20 Hamstring sets x 20 Hip add /c pillow x 20 SAQs x 20 TA sets x 20 LTRs x 20 Assessment Current Status: Fair Progress Pt displays increased fatigue this visit but does demonstrate good muscle strength /c therapeutic exercises. Completes all exercises supine. Required short rest breaks between sets. Continue to progress pt as tolerated per POC to improve strength, endurance, and functional ability. PT Glass Smoother Goals Glass Smoother Goals PT Glass Smoother Goals Time Frame: September 29, 2022 Roll Left & Right (QC): 6 Sit to Lying (QC): 6 (with leg lacrosse coach if needed) Lying-Sitting on Side/Bed(QC): 6 Sit to Stand (QC): 6 (to FWW) Chair/Flc-lo-Qbiwv Xfer(QC): 6 (with FWW) Toilet Transfer (QC): 6 (with FWW) Car Transfer (QC): 5 (with FWW) Does the Patient Walk: Yes Walk 10 feet (QC): 6 (with FWW) Walk 50ft with 2 Turns (QC): 6 (with FWW) Walk 150 ft (QC): 6 (with FWW) Walking 10ft on Uneven Surface: 6 (with FWW) 1 Step (curb) (QC): 6 (with FWW) 4 Steps (QC): 6 (with rails) 12 Steps (QC): 6 (with (B) Rails) Picking up an Object (QC): 6 (with AD) Does the Pt use WC or Scooter?: No Wheel 50 feet with 2 turns (QC: 9 Type: N/A Wheel 150 feet: 9 Type: N/A PT Plan Treatment/Plan Treatment Plan: Continue Plan of Care Treatment Plan: Bed Mobility, Education, Functional Activity Yordy, Functional Strength, Group Therapy, Gait, Safety, Therapeutic Exercise, Transfers, Other (Co-treatment prn to address multiple issues which require 2 skilled therapists to treat safely.) Treatment Duration: September 29, 2022 Frequency: At least 5 of 7 days/Wk (IRF) Estimated Hrs Per Day: 1.5 hours per day Patient and/or Family Agrees t: Yes Time Time In: 1400 Time Out: 1430 DATE: September 20, 2022 Total Billed Treatment Time: 30 Total Billed Treatment 1 visit EX x 2 MAJOR,ALYSIA DISTRIBUTION ASSOCIATE September 20, 2022 14:13
--- NOTE | 2022-09-20 17:16 | Podiatry Progress Note ---
Standard Progress Note Progress Notes/Assess & Plan Date Seen by a Provider: September 20, 2022 Time Seen by a Provider: 17:14 Progress/Assessment & Plan Consultation was dictated and foot care given. Apply topical antibiotic ointment to the fissures of the heels daily and cover with light dressings. Final Diagnosis Onychomycosis, Fissures, Hyperkeratosis, Peripheral Neuropathy IRISH GARCIA DPTavia September 20, 2022 17:16
--- NOTE | 2022-09-20 18:13 | CONSULTATION REPORT ---
DATE OF SERVICE: 09/20/2022 REASON FOR COMPLAINT: Foot care. HISTORY OF PRESENT ILLNESS: This 77-year-old male was admitted to the hospital, secondary to decompensating cirrhosis with ascites and generalized weakness. He has difficulty reaching for and caring for his feet. He has also developed some painful calluses and toenails. PAST MEDICAL HISTORY: Includes AFib, cirrhosis, gout, depression. PAST SURGERIES: Include appendectomy and polyp repair. SOCIAL HISTORY: The patient is single. He is retired. He consumes vodka and cigarettes. ALLERGIES: He has no known drug allergies. CURRENT MEDICATIONS: Listed on the patient's chart. PHYSICAL EXAMINATION: EXTREMITIES: On lower extremity examination, the patient has 2/4 dorsalis pedis pulse on the right, 1/4 on the left, 0/4 posterior tibial pulse bilaterally. Cap refill time is less than 3 seconds to the great toe bilaterally. NEUROLOGIC: The patient has intact protective sensation with 10 gram monofilament wire examination bilaterally. Diminished vibratory sensation to the forefoot. Diminished deep tendon reflexes to the Achilles tendon bilaterally. INTEGUMENT: The patient has multiple hyperkeratotic lesions with fissures to the plantar and plantar medial aspect of the heel bilaterally. With debridement, there is microbleeding identified to the fevers. There is also hyperkeratotic lesions with fissures to the fifth metatarsal, right worse than left. There are thick yellow dystrophic toenails with subungual debris associated with the right 2, 3, 4 and 5 digits as well as left 1, 2 and 5 digits. MUSCULOSKELETAL FINDINGS: The patient has 4/5 muscle strength to the 4 major quadrants of the foot. ASSESSMENT: Edema, atherosclerosis, idiopathic peripheral neuropathy, onychomycosis, hyperkeratosis with fissures. PLAN: Various options were discussed with the patient today. His hyperkeratotic lesions were debrided sharply with a 15 blade. We talked to the patient and daughter about utilizing mild abrasive on more frequent basis and utilizing appropriate shoe gear and socks on a more regular basis. Today, silver nitrate was applied to these microbleeds as well as bacitracin ointment. Light dressing will be applied on a daily basis until completely resolved. The patient's toenails were debrided today manually and mechanically, right 2, 3, 4 and 5 digits as well as left 1, 2 and 5 digits. Betadine applied. The patient noted good reduction of symptoms after procedure. The patient is welcome to follow up in the clinic upon discharge as necessary. Job ID: [id number] DocumentID: [id number] Dictated Date: 09/20/2022 17:13:44 Stock Broker Date: 09/20/2022 18:13:00 Dictated By: ANGIE FRIAS
[2022-09-20 20:27] VITALS: BP 118/58
[2022-09-20] MEDS: diphenhydrAMINE 25 MG TAB (BENADRYL) PO PRN (20:46)
[2022-09-20] MEDS: BACITRACIN OINTMENT 28 GM TUBE TOP SCH (20:48)
[2022-09-21] MEDS: diphenhydrAMINE 25 MG TAB (BENADRYL) PO PRN (02:42)
--- NOTE | 2022-09-21 05:28 | PM&R Progress Note ---
Subjective HPI/CC On Admission Date Seen by Provider: September 21, 2022 Time Seen by Provider: 11:00 Subjective/Events-last exam 09/21/2022: No major issues Starting on Aldactone and Lasix No pain reported 09/20/2022: Doing much better No pain reported Moving well 09/19/2022: Much improved Working with therapy Labs reviewed No falls 09/18/2022: Doing well Sleeping well No falls Improved 09/17/2022: Doing better [place] out Monitor for retention No falls Improved 09/16/2022: Doing well today Catheter will be DC No pain reported Walking is slightly better Fatigues easily Review of Systems General: Fatigue, Malaise Objective Exam Vital Signs Vital Signs Date Time Temp Pulse Resp B/P (MAP) Pulse Ox O2 Delivery O2 Flow Rate FiO2 09/21/22 20:40 96 Room Air 09/21/22 20:32 36.6 58 20 134/62 (86) Capillary Refill : General Appearance: No Apparent Distress, WD/WN, Chronically ill, Obese HEENT: PERRL/EOMI, Normal ENT Inspection, Pharynx Normal Neck: Full Range of Motion, Normal Inspection, Non Tender, Supple, Carotid Bruit Respiratory: Chest Non Tender, Lungs Clear, Normal Breath Sounds, No Accessory Muscle Use, No Respiratory Distress Cardiovascular: No Edema, No Gallop, No JVD, No Murmur, Normal Peripheral Pulses, Irregularly Irregular Gastrointestinal: Normal Bowel Sounds, No Organomegaly, No Pulsatile Mass, Non Tender, Soft, Distended, Other (ascites) Back: Normal Inspection, No CVA Tenderness, No Vertebral Tenderness Extremity: Normal Capillary Refill, Normal Inspection, Normal Range of Motion, Non Tender, No Calf Tenderness, Pedal Edema Neurologic/Psychiatric: Alert, Oriented x3, No Motor/Sensory Deficits, Normal Mood/Affect Skin: Normal Color, Warm/Dry Lymphatic: No Adenopathy Results/Procedures Lab Patient resulted labs reviewed. FIM Transfers Therapy Code Descriptions/Definitions Functional [place] Measure: 0=Not Assessed/NA 4=Minimal Assistance 1=Total Assistance 5=Supervision or Setup 2=Maximal Assistance 6=Modified [place] 3=Moderate Assistance 7=Complete IndependenceSCALE: Activities may be completed with or without assistive devices. 7-Gqkkswezwm-chaziyn completes the activity by him/herself with no assistance from a helper. 5-Set-up or Clean-up Assistance-helper sets up or cleans up; patient completes activity. [place] assists only prior to or following the activity. 4-Supervision or Touching Assistance-helper provides verbal cues and/or touching/steadying and/or contact guard assistance as patient completes activit y. Assistance may be provided throughout the activity or intermittently. 3-Partial/Moderate Assistance-helper does LESS THAN HALF the effort. [place] lifts, holds or supports trunk or limbs, but provides less than half the effort. 2-Substantial/Maximal Assistance-helper does MORE THAN HALF the effort. [place] lifts or holds trunk or limbs and provides more than half the effort. 2-Gtxehxvwg-mzlage does ALL the effort. Patient does none of the effort to complete the activity. Or, the assistance of 2 or more helpers is required for the patient to complete the activity. If activity was not attempted, code reason: 7-Patient Refused. 9-Not Applicable-not attempted and the patient did not perform the activity before the current illness, exacerbation or injury. 10-Not Attempted due to Environmental Limitations-(lack of equipment, weather restraints, etc.). 88-Not Attempted due to Medical Conditions or Safety Concerns. Roll Left to Right (QC): 6 Sit to Lying (QC): 3 Sit to Stand (QC): 4 Chair/Xwe-ng-Vkrxh Xfer(QC): 3 (Min-CGA with FWW with cues to turn completely to seat, and min (A) to control descent to Nustep) Car Transfer (QC): 3 (Min (A) to lift legs in to car. Attempted to stand with one leg on ground and one leg in "car". Instructed to sit for safety and swing both legs out - min (A) to move both legs out of car.) Gait Training Does the Patient Walk?: Yes Distance: 150, 150, 150 Walk 10 feet (QC): 4 Walk 50 ft with 2 Turns(QC): 4 Walk 150 ft (QC): 4 Walking 10ft/uneven surface-QC: 3 (Min (A) with FWW) Gait Persons Needed: 1 Gait Assistive Device: FWW Wheelchair Training Does the Pt Use a Wheelchair?: No Wheel 50 ft with 2 turns (QC): 9 Wheel 150 ft (QC): 9 Stair Training 1 Step (curb) (QC): 3 (2" curb step with FWW min (A)) 4 Steps (QC): 4 12 Steps (QC): 88 (fatigued after 10 steps, 12 not attempted) Balance Picking up an Object (QC): 6 (with walker and pickling tank operator) ADL-Treatment Eating (QC): 6 Oral Hygiene (QC): 6 (seated at sink) Bathing Location: L Arm, R Arm, L Upper Leg, R Upper Leg, L Lower Leg (including foot), R Lower Leg (including foot), Chest, Abdomen, Buttocks, Perine al Area Shower/Bathe Self (QC): 5 Upper Body Dressing (QC): 5 Lower Body Dressing (QC): 3 On/Off Footwear (QC): 3 Toileting Hygiene (QC): 3 Toilet Transfer (QC): 4 Assessment/Plan Assessment and Plan Assess & Plan/Chief Complaint Assessment: Debility following ESLD decompensation Ascites AF Previous OAC for CVA prophylaxis holding for now HTN HLP Plan: Monitor labs Monitor AF Decision on anticoagulation pending PT OT 09/16/2022: DC catheter tomorrow Monitor closely 09/17/2022: Monitor for retention 09/18/2022: No major issues 09/19/2022: Monitor closely 09/20/2022: Continue aggressive therapy 09/21/2022: Start Aldactone and Lasix for ESLD (1) Liver failure Status: Acute TULIO HILLMAN DO September 21, 2022 05:28
[2022-09-21 07:47] VITALS: BP 125/72
[2022-09-21] MEDS: MAGNESIUM OXIDE (MAG-OX)400 MG TAB PO SCH ×2 (08:07→17:23)
[2022-09-21] MEDS: DOCUSATE SODIUM 100 MG (COLACE) CAP PO SCH ×2 (08:08→20:43)
[2022-09-21] MEDS: meTOprolol TARTRATE 25 MG (LOPRESSOR) TABLET PO SCH ×2 (08:08→20:43)
[2022-09-21] MEDS: AMIODARONE 200 MG (CORDARONE) TAB PO SCH ×2 (08:08→20:43)
[2022-09-21] MEDS: ALLOPURINOL 100 MG (ZYLOPRIM) TAB PO SCH ×2 (08:08→20:43)
[2022-09-21] MEDS: ACETAMINOPHEN 325 MG TABLET PO PRN ×2 (08:08→14:09)
[2022-09-21] MEDS: RIVAROXABAN 20 MG TABLET (XARELTO) PO SCH (08:08)
[2022-09-21] MEDS: polyethylene glycoL POWDER 17 GM (MIRALAX) PACK PO SCH ×3 (08:09→20:44)
[2022-09-21] MEDS: SENNA W/DOCUSATE (SENOKOT S) TABLET PO SCH ×2 (08:10→20:43)
[2022-09-21] MEDS: BACITRACIN OINTMENT 28 GM TUBE TOP SCH ×2 (10:12→20:43)
[2022-09-21] MEDS: SPIRONOLACTONE 25 MG (ALDACTONE) TAB PO SCH (12:56)
[2022-09-21] MEDS: FUROSEMIDE 20 MG (LASIX) TAB PO SCH (12:56)
--- NOTE | 2022-09-21 13:12 | Physical Therapy Daily Note ---
PT Daily Note-Current Subjective pt in recliner upon arrival and agreeable to therapy. pt stated Dr Whitney had came in the evening prior and preformed a debridement on both feet causing them to both be sore as some areas were bleeding from the procedure. pt stated he did not want to walk a long way with his feet hurting as they are. Pain Section J - Health Conditions 1. Rarely or not at all 2. Occasionally 3. Frequently 4. Almost constantly 8. Unable to answer Pain Effect on Sleep: 1 Pain Interference with Therapy: 1 Pain Interference w/Day-to-Day: 1 Mental Status Patient Orientation: Person, Place, Time, Situation Transfers SCALE: Activities may be completed with or without assistive devices. 5-Ffjhbydvuu-vtwgvba completes the activity by him/herself with no assistance from a helper. 5-Set-up or Clean-up Assistance-helper sets up or cleans up; patient completes activity. [place] assists only prior to or following the activity. 4-Supervision or Touching Assistance-helper provides verbal cues and/or touching/steadying and/or contact guard assistance as patient completes a ctivity. Assistance may be provided throughout the activity or intermittently. 3-Partial/Moderate Assistance-helper does LESS THAN HALF the effort. [place] lifts, holds or supports trunk or limbs, but provides less than half the effort. 2-Substantial/Maximal Assistance-helper does MORE THAN HALF the effort. [place] lifts or holds trunk or limbs and provides more than half the effort. 6-Yswsnzftu-fsciie does ALL the effort. Patient does none of the effort to complete the activity. Or, the assistance of 2 or more helpers is required for the patient to complete the activity. If activity was not attempted, code reason: 7-Patient Refused. 9-Not Applicable-not attempted and the patient did not perform the activity before the current illness, exacerbation or injury. 10-Not Attempted due to Environmental Limitations-(lack of equipment, weather restraints, etc.). 88-Not Attempted due to Medical Conditions or Safety Concerns. Weight Bearing Full Weight Bearing Full Weight Bearing Exercises Seated Therapy Exercises: Ankle pumps, Long arc quads, Hip flexion, Kicking activity, Glut set Standing: Step-ups Treatments pt is able to ambulate to therapy gym with SBA with no LOB. pt preformed Nu-step for aprox 10 min with 2 rest breaks total for 2-4 mins as bottom of his feet were sore. pt preformed standing step ups on curb size step 10 times then requires rest. pt was able to preform this activity 3 times with rest in between. pt was able to ambuate back to his room and sit in recliner then preform sitting ther-ex in all planes of motion available for 3 sets of 20 with 1lb weight. pt left in recliner with all needs met Assessment Current Status: Good Progress PT Digital Sales Executive Goals Digital Sales Executive Goals PT [facility] Goals Time Frame: September 29, 2022 Roll Left & Right (QC): 6 Sit to Lying (QC): 6 (with leg coil builder if needed) Lying-Sitting on Side/Bed(QC): 6 Sit to Stand (QC): 6 (to FWW) Chair/Dog-ai-Ldybf Xfer(QC): 6 (with FWW) Toilet Transfer (QC): 6 (with FWW) Car Transfer (QC): 5 (with FWW) Does the Patient Walk: Yes Walk 10 feet (QC): 6 (with FWW) Walk 50ft with 2 Turns (QC): 6 (with FWW) Walk 150 ft (QC): 6 (with FWW) Walking 10ft on Uneven Surface: 6 (with FWW) 1 Step (curb) (QC): 6 (with FWW) 4 Steps (QC): 6 (with rails) 12 Steps (QC): 6 (with (B) Rails) Picking up an Object (QC): 6 (with AD) Does the Pt use WC or Scooter?: No Wheel 50 feet with 2 turns (QC: 9 Type: N/A Wheel 150 feet: 9 Type: N/A PT Plan Treatment/Plan Treatment Plan: Continue Plan of Care Treatment Plan: Bed Mobility, Education, Functional Activity Yordy, Functional Strength, Group Therapy, Gait, Safety, Therapeutic Exercise, Transfers, Other (Co-treatment prn to address multiple issues which require 2 skilled therapists to treat safely.) Treatment Duration: September 29, 2022 Frequency: At least 5 of 7 days/Wk (IRF) Estimated Hrs Per Day: 1.5 hours per day Patient and/or Family Agrees t: Yes Time Time In: 0930 Time Out: 1030 DATE: September 21, 2022 Total Billed Treatment Time: 90 Total Billed Treatment 1 EX x2 GT FA x 3 Nettie Corrales PRODUCTION CONSULTANT September 21, 2022 13:12
[2022-09-21] MEDS: diphenhydrAMINE 2% 30 GM CR (ALLERGY CREAM) TOP PRN ×2 (14:02→20:43)
[2022-09-21 14:03] VITALS: BP 137/65
--- NOTE | 2022-09-21 14:25 | Occupational Ther Daily Note ---
OT Current Status-Daily Note Subjective Pt found in room in bed. Alert and cooperative. Agreed to OT. ADL-Treatment Pt sat up in bed to complete 15 reps 2 sets of B UE exersices from HEP with green theraband. Pt then sat EOB with no asistance. Pt ambulated with FWW, SBA. Pt completed toilet transfer CGA. Pt completed toilet hygiene with min assist. Pt also completed lower body dressing with adaptive equipment (chucker), set up assist, after demonstration. Pt will continue to work on donning pants and brief with chucker. Pt stated he has a chucker at home. Pt propelled in wheelchair to bed. Pt completed cloths pin activity while up in bed with minimal recovery breaks. Pt completed a nuts and bolts activity addressing fine motor, dexterity, and coordination, as well as reaching and crossing midline. Pt also had 1 # wts attached to wrist for half of the nuts and bolt activity. Pt was left in bed in room, with phone and call light within reach. All pts needs were met. Therapy Code Descriptions/Definitions Functional [place] Measure: 0=Not Assessed/NA 4=Minimal Assistance 1=Total Assistance 5=Supervision or Setup 2=Maximal Assistance 6=Modified [place] 3=Moderate Assistance 7=Complete IndependenceSCALE: Activities may be completed with or without assistive devices. 7-Bithevhiev-xlxetws completes the activity by him/herself with no assistance from a helper. 5-Set-up or Clean-up Assistance-helper sets up or cleans up; patient completes activity. [place] assists only prior to or following the activity. 4-Supervision or Touching Assistance-helper provides verbal cues and/or touching/steadying and/or contact guard assistance as patient completes activity. Assistance may be provided throughout the activity or intermittently. 3-Partial/Moderate Assistance-helper does LESS THAN HALF the effort. [place] lifts, holds or supports trunk or limbs, but provides less than half the effort. 2-Substantial/Maximal Assistance-helper does MORE THAN HALF the effort. [place] lifts or holds trunk or limbs and provides more than half the effort. 8-Kqafagjpj-iumipt does ALL the effort. Patient does none of the effort to co mplete the activity. Or, the assistance of 2 or more helpers is required for the patient to complete the activity. If activity was not attempted, code reason: 7-Patient Refused. 9-Not Applicable-not attempted and the patient did not perform the activity before the current illness, exacerbation or injury. 10-Not Attempted due to Environmental Limitations-(lack of equipment, weather restraints, etc.). 88-Not Attempted due to Medical Conditions or Safety Concerns. Toileting Hygiene (QC): 3 Toilet Transfer (QC): 4 Pt was assisted to the ground due to knee weakness/buckling while standing after toileting. Pt had just finished with toileting and hiking pants when pt said "uh oh" and knees buckled. SINGH assisted pt gently to floor, ARU staff assisted pt to feet and moved pt to bed. See nrsg report for follow up. Education OT Patient Education: Correct positioning, Energy conservation, Exercise program, Home exercise program, Safety issues, Transfer techniques Teaching Recipient: Patient Teaching Methods: Demonstration Response to Teaching: Verbalize Understanding OT Short Term Goals Short Term Goals Time Frame: September 28, 2022 Shower/bathe self: 5 Lower body dressin Putting on/taking off footwear: 5 OT Fine Grade Bulldozer Operator Goals Longterm Goals Time Frame: October 07, 2022 Acute change in mental status: 0 Inattention: 0 Disorganized thinkin Altered level of consciousness: 0 Eating (QC): 6 Oral Hygiene (QC): 6 Toileting Hygiene (QC): 6 Shower/Bathe Self (QC): 6 Upper Body Dressing (QC): 6 Lower Body Dressing (QC): 6 On/Off Footwear (QC): 6 Additional Goals: 1-Demonstrate ADL Tasks, 2-Verbalize Understanding, 3- ImproveStrength/Yordy 1=Demonstrate adherence to instructed precautions during ADL tasks. 2=Patient will verbalize/demonstrate understanding of assistive devices/modifications for ADL. 3=Patient will improve strength/tolerance for activity to enable patient to perform ADL's. OT Education/Plan Discharge Recommendations Plan/Recommendations: Continue POC Treatment Plan/Plan of Care Patient would benefit from OT for education, treatment and training to promote independence in ADL's, mobility, safety and/or upper extremity function for ADL's. Plan of Care: ADL Retraining, Functional Mobility, Group Exercise/Act as Ind, UE Funct Exercise/Act Treatment Duration: October 07, 2022 Frequency: At least 5 of 7 days/Wk (IRF) Estimated Hrs Per Day: 1.5 hours per day Agreement: Yes Rehab Potential: Good Time Start Time: 13:10 Stop Time: 14:40 DATE: September 21, 2022 Total Time Billed (hr/min): 90 Billed Treatment Time 1 visit ADL 4 (60 min) Ex 2 (30 min) Xiomara Liang COTA September 21, 2022 14:25
[2022-09-21 20:32] VITALS: BP 134/62
--- NOTE | 2022-09-22 05:31 | PM&R Progress Note ---
Subjective HPI/CC On Admission Date Seen by Provider: September 22, 2022 Time Seen by Provider: 12:00 Subjective/Events-last exam 09/22/2022: No major issues Tolerating new meds well No falls 09/21/2022: No major issues Starting on Aldactone and Lasix No pain reported 09/20/2022: Doing much better No pain reported Moving well 09/19/2022: Much improved Working with therapy Labs reviewed No falls 09/18/2022: Doing well Sleeping well No falls Improved 09/17/2022: Doing better [place] out Monitor for retention No falls Improved 09/16/2022: Doing well today Catheter will be DC No pain reported Walking is slightly better Fatigues easily Review of Systems General: Fatigue, Malaise Objective Exam Vital Signs Vital Signs Date Time Temp Pulse Resp B/P (MAP) Pulse Ox O2 Delivery O2 Flow Rate FiO2 09/22/22 20:30 97 Room Air 09/22/22 19:50 36.0 58 18 126/62 (83) Capillary Refill : General Appearance: No Apparent Distress, WD/WN, Chronically ill, Obese HEENT: PERRL/EOMI, Normal ENT Inspection, Pharynx Normal Neck: Full Range of Motion, Normal Inspection, Non Tender, Supple, Carotid Bruit Respiratory: Chest Non Tender, Lungs Clear, Normal Breath Sounds, No Accessory Muscle Use, No Respiratory Distress Cardiovascular: No Edema, No Gallop, No JVD, No Murmur, Normal Peripheral Pulses, Irregularly Irregular Gastrointestinal: Normal Bowel Sounds, No Organomegaly, No Pulsatile Mass, Non Tender, Soft, Distended, Other (ascites) Back: Normal Inspection, No CVA Tenderness, No Vertebral Tenderness Extremity: Normal Capillary Refill, Normal Inspection, Normal Range of Motion, Non Tender, No Calf Tenderness, Pedal Edema Neurologic/Psychiatric: Alert, Oriented x3, No Motor/Sensory Deficits, Normal Mood/Affect Skin: Normal Color, Warm/Dry Lymphatic: No Adenopathy Results/Procedures Lab Patient resulted labs reviewed. FIM Transfers Therapy Code Descriptions/Definitions Functional [place] Measure: 0=Not Assessed/NA 4=Minimal Assistance 1=Total Assistance 5=Supervision or Setup 2=Maximal Assistance 6=Modified [place] 3=Moderate Assistance 7=Complete IndependenceSCALE: Activities may be completed with or without assistive devices. 6-Iozuwoemmd-eutcbcm completes the activity by him/herself with no assistance from a helper. 5-Set-up or Clean-up Assistance-helper sets up or cleans up; patient completes activity. [place] assists only prior to or following the activity. 4-Supervision or Touching Assistance-helper provides verbal cues and/or touching/steadying and/or contact guard assistance as patient completes activity. Assistance may be provided throughout the activity or intermittently. 3-Partial/Moderate Assistance-helper does LESS THAN HALF the effort. [place] lifts, holds or supports trunk or limbs, but provides less than half the effort. 2-Substantial/Maximal Assistance-helper does MORE THAN HALF the effort. [place] lifts or holds trunk or limbs and provides more than half the effort. 2-Kpxwkywng-mtvjfu does ALL the effort. Patient does none of the effort to complete the activity. Or, the assistance of 2 or more helpers is required for the patient to complete the activity. If activity was not attempted, code reason: 7-Patient Refused. 9-Not Applicable-not attempted and the patient did not perform the activity before the current illness, exacerbation or injury. 10-Not Attempted due to Environmental Limitations-(lack of equipment, weather restraints, etc.). 88-Not Attempted due to Medical Conditions or Safety Concerns. Roll Left to Right (QC): 6 Sit to Lying (QC): 3 Sit to Stand (QC): 4 Chair/Wdj-yb-Zvzjk Xfer(QC): 3 (Min-CGA with FWW with cues to turn completely to seat, and min (A) to control descent to [place]) Car Transfer (QC): 3 (Min (A) to lift legs in to car. Attempted to stand with one leg on ground and one leg in "car". Instructed to sit for safety and swing both legs out - min (A) to move both legs out of car.) Gait Training Does the Patient Walk?: Yes Distance: 150, 150, 150 Walk 10 feet (QC): 4 Walk 50 ft with 2 Turns(QC): 4 Walk 150 ft (QC): 4 Walking 10ft/uneven surface-QC: 3 (Min (A) with FWW) Gait Persons Needed: 1 Gait Assistive Device: FWW Wheelchair Training Does the Pt Use a Wheelchair?: No Wheel 50 ft with 2 turns (QC): 9 Wheel 150 ft (QC): 9 Stair Training 1 Step (curb) (QC): 3 (2" curb step with FWW min (A)) 4 Steps (QC): 4 12 Steps (QC): 88 (fatigued after 10 steps, 12 not attempted) Balance Picking up an Object (QC): 6 (with walker and stripping and booking machine operator) ADL-Treatment Eating (QC): 6 Oral Hygiene (QC): 6 (seated at sink) Bathing Location: L Arm, R Arm, L Upper Leg, R Upper Leg, L Lower Leg (including foot), R Lower Leg (including foot), Chest, Abdomen, Buttocks, Perineal Area Shower/Bathe Self (QC): 5 Upper Body Dressing (QC): 5 Lower Body Dressing (QC): 3 On/Off Footwear (QC): 3 Toileting Hygiene (QC): 3 Toilet Transfer (QC): 4 Assessment/Plan Assessment and Plan Assess & Plan/Chief Complaint Assessment: Debility following ESLD decompensation Ascites AF Previous OAC for CVA prophylaxis holding for now HTN HLP Plan: Monitor labs Monitor AF Decision on anticoagulation pending PT OT 09/16/2022: DC catheter tomorrow Monitor closely 09/17/2022: Monitor for retention 09/18/2022: No major issues 09/19/2022: Monitor closely 09/20/2022: Continue aggressive therapy 09/21/2022: Start Aldactone and Lasix for ESLD 09/22/2022: Check labs in am (1) Liver failure Status: Acute TULIO HILLMAN DO September 22, 2022 05:31
[2022-09-22 07:46] VITALS: BP 119/62
[2022-09-22] MEDS: FUROSEMIDE 20 MG (LASIX) TAB PO SCH (08:10)
[2022-09-22] MEDS: SPIRONOLACTONE 25 MG (ALDACTONE) TAB PO SCH (08:10)
[2022-09-22] MEDS: meTOprolol TARTRATE 25 MG (LOPRESSOR) TABLET PO SCH ×2 (08:10→20:03)
[2022-09-22] MEDS: MAGNESIUM OXIDE (MAG-OX)400 MG TAB PO SCH ×2 (08:10→17:07)
[2022-09-22] MEDS: RIVAROXABAN 20 MG TABLET (XARELTO) PO SCH (08:10)
[2022-09-22] MEDS: AMIODARONE 200 MG (CORDARONE) TAB PO SCH ×2 (08:10→20:03)
[2022-09-22] MEDS: ALLOPURINOL 100 MG (ZYLOPRIM) TAB PO SCH ×2 (08:10→20:03)
[2022-09-22] MEDS: ACETAMINOPHEN 325 MG TABLET PO PRN (08:11)
[2022-09-22] MEDS: polyethylene glycoL POWDER 17 GM (MIRALAX) PACK PO SCH ×2 (08:13→21:57)
[2022-09-22] MEDS: BACITRACIN OINTMENT 28 GM TUBE TOP SCH ×2 (08:13→20:05)
[2022-09-22] MEDS: DOCUSATE SODIUM 100 MG (COLACE) CAP PO SCH ×2 (08:13→20:04)
[2022-09-22] MEDS: SENNA W/DOCUSATE (SENOKOT S) TABLET PO SCH ×2 (08:13→21:57)
--- NOTE | 2022-09-22 09:06 | Physical Therapy Daily Note ---
PT Daily Note-Current Subjective pt in bed upon arrival and willing for therapy this day. pt stated he did not want to walk a lot today as he was lowered to the ground with a loss of balance yesterday. pt stated 3/10 pain in left knee secondary to fall. nursing is aware and administer Tylenol. pt did stated he was slightly dizzy with standing dynami c movement but "nothing more than normal" dizziness did dissipate when sitting. . Pain Section J - Health Conditions 1. Rarely or not at all 2. Occasionally 3. Frequently 4. Almost constantly 8. Unable to answer Pain Effect on Sleep: 1 Pain Interference with Therapy: 1 Pain Interference w/Day-to-Day: 1 Mental Status Patient Orientation: Person, Place, Time, Situation Transfers SCALE: Activities may be completed with or without assistive devices. 6-Emdeoujsqp-ipjnerw completes the activity by him/herself with no assistance from a helper. 5-Set-up or Clean-up Assistance-helper sets up or cleans up; patient completes activity. [place] assists only prior to or following the activity. 4-Supervision or Touching Assistance-helper provides verbal cues and/or touching/steadying and/or contact guard assistance as patient completes activity. Assistance may be provided throughout the activity or intermittently. 3-Partial/Moderate Assistance-helper does LESS THAN HALF the effort. [place] lifts, holds or supports trunk or limbs, but provides less than half the effort. 2-Substantial/Maximal Assistance-helper does MORE THAN HALF the effort. [place] lifts or holds trunk or limbs and provides more than half the effort. 9-Zteiwoyut-intcuo does ALL the effort. Patient does none of the effort to complete the activity. Or, the assistance of 2 or more helpers is required for the patient to complete the activity. If activity was not attempted, code reason: 7-Patient Refused. 9-Not Applicable-not attempted and the patient did not perform the activity before the current illness, exacerbation or injury. 10-Not Attempted due to Environmental Limitations-(lack of equipment, weather restraints, etc.). 88-Not Attempted due to Medical Conditions or Safety Concerns. Weight Bearing Full Weight Bearing Full Weight Bearing Exercises Seated Therapy Exercises: Ankle pumps, Sit to stand, Long arc quads, Hip flexion, Kicking activity, Glut set Treatments pt was able to ambulate 80ft x 2 wth RW and WC follow behind that was not needed. pt did require CGA with VC for correct upright posture of 25% this day. pt is able to preform dynamic standing balance activities reaching outside COG. with No LOB at // bar. but does require 1 hand on the // bar for increased balance. pt does require multiple rest breaks secondary to dizziness when standing but is able to resume activity after a sitting rest. pt is able to preform standing marches, step ups and mini squats.with no LOB for a total of 2 sets of 15 for each activity. VC of 30% were needed for correct mm movement and sequencing. pt was left in recliner in the care of nursing with call light and all needs met. Assessment Current Status: Fair Progress PT Correction Goals Electro Optics Engineer Goals PT Electro Optics Engineer Goals Time Frame: September 29, 2022 Roll Left & Right (QC): 6 Sit to Lying (QC): 6 (with leg coning machine operator if needed) Lying-Sitting on Side/Bed(QC): 6 Sit to Stand (QC): 6 (to FWW) Chair/Nhu-pu-Tjijv Xfer(QC): 6 (with FWW) Toilet Transfer (QC): 6 (with FWW) Car Transfer (QC): 5 (with FWW) Does the Patient Walk: Yes Walk 10 feet (QC): 6 (with FWW) Walk 50ft with 2 Turns (QC): 6 (with FWW) Walk 150 ft (QC): 6 (with FWW) Walking 10ft on Uneven Surface: 6 (with FWW) 1 Step (curb) (QC): 6 (with FWW) 4 Steps (QC): 6 (with rails) 12 Steps (QC): 6 (with (B) Rails) Picking up an Object (QC): 6 (with AD) Does the Pt use WC or Scooter?: No Wheel 50 feet with 2 turns (QC: 9 Type: N/A Wheel 150 feet: 9 Type: N/A PT Plan Treatment/Plan Treatment Plan: Continue Plan of Care Treatment Plan: Bed Mobility, Education, Functional Activity Yordy, Functional Strength, Group Therapy, Gait, Safety, Therapeutic Exercise, Transfers, Other (Co-treatment prn to address multiple issues which require 2 skilled therapists to treat safely.) Treatment Duration: September 29, 2022 Frequency: At least 5 of 7 days/Wk (IRF) Estimated Hrs Per Day: 1.5 hours per day Patient and/or Family Agrees t: Yes Time Time In: 0800 Time Out: 0900 DATE: September 22, 2022 Total Billed Treatment Time: 60 Total Billed Treatment 1 EX GT FA x 2 Nettie Corrales COMPLIANCE DIRECTOR September 22, 2022 09:06
[2022-09-22] MEDS: diphenhydrAMINE 2% 30 GM CR (ALLERGY CREAM) TOP PRN (09:10)
--- NOTE | 2022-09-22 11:16 | Occupational Ther Daily Note ---
OT Current Status-Daily Note Subjective Pt required max encouragement to participate in OT Tx today. Pt adamantly refused showering, dressing and all ADL tasks. Pt reluctantly agreeable to UE exercises and strengthening after encouragement. ADL-Treatment Therapy Code Descriptions/Definitions Functional [place] Measure: 0=Not Assessed/NA 4=Minimal Assistance 1=Total Assistance 5=Supervision or Setup 2=Maximal Assistance 6=Modified [place] 3=Moderate Assistance 7=Complete IndependenceSCALE: Activities may be completed with or without assistive devices. 5-Ufdgnyqnjh-vxhwtmj completes the activity by him/herself with no assistance from a helper. 5-Set-up or Clean-up Assistance-helper sets up or cleans up; patient completes activity. [place] assists only prior to or following the activity. 4-Supervision or Touching Assistance-helper provides verbal cues and/or touching/steadying and/or contact guard assistance as patient completes activity. Assistance may be provided throughout the activity or intermittently. 3-Partial/Moderate Assistance-helper does LESS THAN HALF the effort. [place] lifts, holds or supports trunk or limbs, but provides less than half the effort. 2-Substantial/Maximal Assistance-helper does MORE THAN HALF the effort. [place] lifts or holds trunk or limbs and provides more than half the effort. 0-Cwcalatqv-yoszyc does ALL the effort. Patient does none of the effort to complete the activity. Or, the assistance of 2 or more helpers is required for the patient to complete the activity. If activity was not attempted, code reason: 7-Patient Refused. 9-Not Applicable-not attempted and the patient did not perform the activity before the current illness, exacerbation or injury. 10-Not Attempted due to Environmental Limitations-(lack of equipment, weather restraints, etc.). 88-Not Attempted due to Medical Conditions or Safety Concerns. Other Treatment Pt in bed, requests OT tx in bed. OT educated pt on importance of getting out of bed to continue with strengthening. With max encouragement, pt agreeable to going to therapy gym for UE Exercises and activities. Pt refused all ADLs on this date. Pt transferred supine to sit EOB, min A. Pt stood from EOB with mod A due to pt holding onto the walker instead of pushing up to the bed. Education provided on safety with transfers. Pt used FWW to perform functional mobility to therapy gym, CGA with 1 seated rest break. OT provided education on toilet tongs to assist with posterior hygiene after BM, pt verbalized understanding of device, but declines trialing device during tx due to not needing to use bathroom yet. OT placed toilet tongs in his bathroom, and informed RN about device to encourage pt to use next time he toilets. OT tx focused on increasing BUE strength and activity tolerance. 1lb wrist weights applied to BUEs, pt completed UE reaching task, placing/removing 1" pegs from foam pegboard, alternating hands. Pt then completed UE reaching task, completing nut/bolt block, 1lb wrist weights BUEs. Pt able to remove and place nuts/bolts/washers from wooden block, utilizing BUEs for task, x16 total. Pt used FWW to perform functional mobility to shower room, w/c follow, CGA, 1 seated rest break. Pt educated on tub transfer bench, pt demo'd understanding of transfer, requiring min A to lift LEs into/out of shower utilizing leg anime artist. Pt returned to his room using FWW, w/c follow, CGA with 1 seated rest break. Pt sat EOB, VCs required for safety during transfer. Pt requests assistance to lift LEs into bed, OT provided pt with leg anime artist and he was able to transfer sit to supine with SBA. Review of HEP complete, pt unable to recall theraband exercises, requiring VCs and instructions for 5/5 exercises. Pt completed x15 reps each, 5/5 exercises using mod-heavy resistance theraband, rest breaks between exercises. Post tx, pt in bed, call light in reach and all needs met, bed alarm activated. Education OT Patient Education: Correct positioning, Energy conservation, Modified ADL techniques, Progress toward Goal/Update tx plan, Purpose of tx/functional activities, Rehab process Teaching Recipient: Patient Teaching Methods: Discussion Response to Teaching: Verbalize Understanding OT Short Term Goals Short Term Goals Time Frame: September 28, 2022 Shower/bathe self: 5 Lower body dressin Putting on/taking off footwear: 5 OT Assisted Goals Air Valve Repairer Goals Time Frame: October 07, 2022 Acute change in mental status: 0 Inattention: 0 Disorganized thinkin Altered level of consciousness: 0 Eating (QC): 6 Oral Hygiene (QC): 6 Toileting Hygiene (QC): 6 Shower/Bathe Self (QC): 6 Upper Body Dressing (QC): 6 Lower Body Dressing (QC): 6 On/Off Footwear (QC): 6 Additional Goals: 1-Demonstrate ADL Tasks, 2-Verbalize Understanding, 3- ImproveStrength/Yordy 1=Demonstrate adherence to instructed precautions during ADL tasks. 2=Patient will verbalize/demonstrate understanding of assistive devices/modifications for ADL. 3=Patient will improve strength/tolerance for activity to enable patient to perform ADL's. OT Education/Plan Problem List/Assessment Assessment: Decreased Activ Tolerance, Decreased UE Strength, Impaired Funct Balance, Impaired I ADL's, Impaired Self-Care Skills Discharge Recommendations Plan/Recommendations: Continue POC Treatment Plan/Plan of Care Patient would benefit from OT for education, treatment and training to promote independence in ADL's, mobility, safety and/or upper extremity function for ADL's. Plan of Care: ADL Retraining, Functional Mobility, Group Exercise/Act as Ind, UE Funct Exercise/Act Treatment Duration: October 07, 2022 Frequency: At least 5 of 7 days/Wk (IRF) Estimated Hrs Per Day: 1.5 hours per day Agreement: Yes Rehab Potential: Good Time Start Time: 10:30 Stop Time: 12:00 DATE: September 22, 2022 Total Time Billed (hr/min): 90 Billed Treatment Time 1, FA 4 (60'), EX (15'), ADL (15') ODILIA SANCHEZ OT September 22, 2022 11:16
--- NOTE | 2022-09-22 12:57 | Physical Therapy Daily Note ---
PT Daily Note-Current Subjective Pt in bed upon entering and stated he did no t want to preform therapy. pt was educated for therapy and pt willing. pt stated he would not ambulate and requested to stay in bed. pt stated left knee was 5/10 and nursing was aware. Pain Section J - Health Conditions 1. Rarely or not at all 2. Occasionally 3. Frequently 4. Almost constantly 8. Unable to answer Pain Effect on Sleep: 1 Pain Interference with Therapy: 1 Pain Interference w/Day-to-Day: 1 Mental Status Patient Orientation: Person, Place, Time, Situation Transfers SCALE: Activities may be completed with or without assistive devices. 1-Hzuqdvgpxf-devjyrg completes the activity by him/herself with no assistance from a helper. 5-Set-up or Clean-up Assistance-helper sets up or cleans up; patient completes activity. [place] assists only prior to or following the activity. 4-Supervision or Touching Assistance-helper provides verbal cues and/or touching/steadying and/or contact guard assistance as patient completes activity. Assistance may be provided throughout the activity or intermittently. 3-Partial/Moderate Assistance-helper does LESS THAN HALF the effort. [place] lifts, holds or supports trunk or limbs, but provides less than half the effort. 2-Substantial/Maximal Assistance-helper does MORE THAN HALF the effort. [place] lifts or holds trunk or limbs and provides more than half the effort. 8-Birwcfskh-fesmsb does ALL the effort. Patient does none of the effort to complete the activity. Or, the assistance of 2 or more helpers is required for the patient to complete the activity. If activity was not attempted, code reason: 7-Patient Refused. 9-Not Applicable-not attempted and the patient did not perform the activity before the current illness, exacerbation or injury. 10-Not Attempted due to Environmental Limitations-(lack of equipment, weather restraints, etc.). 88-Not Attempted due to Medical Conditions or Safety Concerns. Weight Bearing Full Weight Bearing Full Weight Bearing Treatments Pt preformed supine ther-ex in all planes of motion available this day. pt was able to preform 3 sets x 20 reps each with rest in between secondary to fatigue. pt did need 40% VC for correct mm movement and 10% TC along side. pt was left in bed with call light and all needs met. Assessment Current Status: Fair Progress PT Prison Goals Prison Goals PT Glass Sander Goals Time Frame: September 29, 2022 Roll Left & Right (QC): 6 Sit to Lying (QC): 6 (with leg spine nurse if needed) Lying-Sitting on Side/Bed(QC): 6 Sit to Stand (QC): 6 (to FWW) Chair/Emj-va-Ddgem Xfer(QC): 6 (with FWW) Toilet Transfer (QC): 6 (with FWW) Car Transfer (QC): 5 (with FWW) Does the Patient Walk: Yes Walk 10 feet (QC): 6 (with FWW) Walk 50ft with 2 Turns (QC): 6 (with FWW) Walk 150 ft (QC): 6 (with FWW) Walking 10ft on Uneven Surface: 6 (with FWW) 1 Step (curb) (QC): 6 (with FWW) 4 Steps (QC): 6 (with rails) 12 Steps (QC): 6 (with (B) Rails) Picking up an Object (QC): 6 (with AD) Does the Pt use WC or Scooter?: No Wheel 50 feet with 2 turns (QC: 9 Type: N/A Wheel 150 feet: 9 Type: N/A PT Plan Treatment/Plan Treatment Plan: Continue Plan of Care Treatment Plan: Bed Mobility, Education, Functional Activity Yordy, Functional Strength, Group Therapy, Gait, Safety, Therapeutic Exercise, Transfers, Other (Co-treatment prn to address multiple issues which require 2 skilled therapists to treat safely.) Treatment Duration: September 29, 2022 Frequency: At least 5 of 7 days/Wk (IRF) Estimated Hrs Per Day: 1.5 hours per day Patient and/or Family Agrees t: Yes Time Time In: 1000 Time Out: 1030 DATE: September 22, 2022 Total Billed Treatment Time: 30 Total Billed Treatment 1 EX x 2 Nettie Corrales MANAGER RECRUITMENT September 22, 2022 12:56
[2022-09-22] MEDS: DICLOFENAC 1% GEL 100 GM (VOLTAREN) TUBE TOP SCH ×3 (13:23→20:05)
[2022-09-22] MEDS: TAMSULOSIN 0.4 MG (FLOMAX) CAP PO SCH (17:07)
[2022-09-22 19:50] VITALS: BP 126/62
[2022-09-23] MEDS: diphenhydrAMINE 2% 30 GM CR (ALLERGY CREAM) TOP PRN (02:35)
[2022-09-23] MEDS: diphenhydrAMINE 25 MG TAB (BENADRYL) PO PRN (02:35)
[2022-09-23] MEDS: ACETAMINOPHEN 325 MG TABLET PO PRN (05:40)
[2022-09-23 05:42] LABS: BASOPHILS # (AUTO) 0.1 10^3/uL (0.0-0.1); BASOPHILS % (AUTO) 1 % (0-10); EOSINOPHILS # (AUTO) 0.3 10^3/uL (0.0-0.3); EOSINOPHILS % (AUTO) 4 % (0-10); HEMATOCRIT 30 % (40-54); HEMOGLOBIN 10.1 g/dL (13.3-17.7); LYMPHOCYTES # (AUTO) 2.1 10^3/uL (1.0-4.0); LYMPHOCYTES % (AUTO) 24 % (12-44); MEAN CORPUSCULAR HEMOGLOBIN 33 pg (25-34); MEAN CORPUSCULAR HGB CONC 34 g/dL (32-36); MEAN CORPUSCULAR VOLUME 96 fL (80-99); MONOCYTES # (AUTO) 1.1 10^3/uL (0.0-1.0); MONOCYTES % (AUTO) 12 % (0-12); NEUTROPHILS % (AUTO) 58 % (42-75); PLATELET COUNT 105 10^3/uL (130-400); WHITE BLOOD COUNT 8.6 10^3/uL (4.3-11.0)
[2022-09-23 05:45] LABS: INR 3.6 (0.8-1.4)
[2022-09-23 05:57] LABS: ALBUMIN 2.4 GM/DL (3.2-4.5); BILIRUBIN,TOTAL 1.4 MG/DL (0.1-1.0); CALCIUM 8.4 MG/DL (8.5-10.1); CREATININE SERUM 1.37 MG/DL (0.60-1.30); POTASSIUM 5.1 MMOL/L (3.6-5.0); TOTAL PROTEIN 6.3 GM/DL (6.4-8.2)
--- NOTE | 2022-09-23 06:05 | PM&R Progress Note ---
Subjective HPI/CC On Admission Date Seen by Provider: September 23, 2022 Time Seen by Provider: 12:00 Subjective/Events-last exam 09/23/2022: Had family training today Patient mentioned that he was going to "hang himself" but behavioral health saw him and denied this statement Will start Celexa after we discussed his situational depression 09/22/2022: No major issues Tolerating new meds well No falls 09/21/2022: No major issues Starting on Aldactone and Lasix No pain reported 09/20/2022: Doing much better No pain reported Moving well 09/19/2022: Much improved Working with therapy Labs reviewed No falls 09/18/2022: Doing well Sleeping well No falls Improved 09/17/2022: Doing better [place] out Monitor for retention No falls Improved 09/16/2022: Doing well today Catheter will be DC No pain reported Walking is slightly better Fatigues easily Review of Systems General: Fatigue, Malaise Objective Exam Vital Signs Vital Signs Date Time Temp Pulse Resp B/P (MAP) Pulse Ox O2 Delivery O2 Flow Rate FiO2 09/23/22 09:00 Room Air 09/23/22 08:00 36.5 58 20 125/76 (92) 96 Capillary Refill : General Appearance: No Apparent Distress, WD/WN, Chronically ill, Obese HEENT: PERRL/EOMI, Normal ENT Inspection, Pharynx Normal Neck: Full Range of Motion, Normal Inspection, Non Tender, Supple, Carotid Bruit Respiratory: Chest Non Tender, Lungs Clear, Normal Breath Sounds, No Accessory Muscle Use, No Respiratory Distress Cardiovascular: No Edema, No Gallop, No JVD, No Murmur, Normal Peripheral Puls es, Irregularly Irregular Gastrointestinal: Normal Bowel Sounds, No Organomegaly, No Pulsatile Mass, Non Tender, Soft, Distended, Other (ascites) Back: Normal Inspection, No CVA Tenderness, No Vertebral Tenderness Extremity: Normal Capillary Refill, Normal Inspection, Normal Range of Motion, Non Tender, No Calf Tenderness, Pedal Edema Neurologic/Psychiatric: Alert, Oriented x3, No Motor/Sensory Deficits, Normal Mood/Affect Skin: Normal Color, Warm/Dry Lymphatic: No Adenopathy Results/Procedures Lab Laboratory Tests 09/23/22 05:23 Patient resulted labs reviewed. FIM Transfers Therapy Code Descriptions/Definitions Functional [place] Measure: 0=Not Assessed/NA 4=Minimal Assistance 1=Total Assistance 5=Supervision or Setup 2=Maximal Assistance 6=Modified [place] 3=Moderate Assistance 7=Complete IndependenceSCALE: Activities may be completed with or without assistive devices. 0-Glgtqjnxka-kioajje completes the activity by him/herself with no assistance from a helper. 5-Set-up or Clean-up Assistance-helper sets up or cleans up; patient completes activity. [place] assists only prior to or following the activity. 4-Supervision or Touching Assistance-helper provides verbal cues and/or touching/steadying and/or contact guard assistance as patient completes activity. Assistance may be provided throughout the activity or intermittently. 3-Partial/Moderate Assistance-helper does LESS THAN HALF the effort. [place] lifts, holds or supports trunk or limbs, but provides less than half the effort. 2-Substantial/Maximal Assistance-helper does MORE THAN HALF the effort. [place] lifts or holds trunk or limbs and provides more than half the effort. 1-Kbdcjsufz-ffimzd does ALL the effort. Patient does none of the effort to complete the activity. Or, the assistance of 2 or more helpers is required for the patient to complete the activity. If activity was not attempted, code reason: 7-Patient Refused. 9-Not Applicable-not attempted and the patient did not perform the activity before the current illness, exacerbation or injury. 10-Not Attempted due to Environmental Limitations-(lack of equipment, weather restraints, etc.). 88-Not Attempted due to Medical Conditions or Safety Concerns. Roll Left to Right (QC): 6 Sit to Lying (QC): 3 Sit to Stand (QC): 4 Chair/Zcf-yp-Xvqoo Xfer(QC): 3 (Min-CGA with FWW with cues to turn completely to seat, and min (A) to control descent to [place]) Car Transfer (QC): 3 (Min (A) to lift legs in to car. Attempted to stand with one leg on ground and one leg in "car". Instructed to sit for safety and swing both legs out - min (A) to move both legs out of car.) Gait Training Does the Patient Walk?: Yes Distance: 150, 150, 150 Walk 10 feet (QC): 4 Walk 50 ft with 2 Turns(QC): 4 Walk 150 ft (QC): 4 Walking 10ft/uneven surface-QC: 3 (Min (A) with FWW) Gait Persons Needed: 1 Gait Assistive Device: FWW Wheelchair Training Does the Pt Use a Wheelchair?: No Wheel 50 ft with 2 turns (QC): 9 Wheel 150 ft (QC): 9 Stair Training 1 Step (curb) (QC): 3 (2" curb step with FWW min (A)) 4 Steps (QC): 4 12 Steps (QC): 88 (fatigued after 10 steps, 12 not attempted) Balance Picking up an Object (QC): 6 (with walker and pipe stem sawyer) ADL-Treatment Eating (QC): 6 Oral Hygiene (QC): 6 (seated at sink) Bathing Location: L Arm, R Arm, L Upper Leg, R Upper Leg, L Lower Leg ( including foot), R Lower Leg (including foot), Chest, Abdomen, Buttocks, Perineal Area Shower/Bathe Self (QC): 5 Upper Body Dressing (QC): 5 Lower Body Dressing (QC): 3 On/Off Footwear (QC): 3 Toileting Hygiene (QC): 3 Toilet Transfer (QC): 4 Assessment/Plan Assessment and Plan Assess & Plan/Chief Complaint Assessment: Debility following ESLD decompensation Ascites AF Previous OAC for CVA prophylaxis holding for now HTN HLP Depression Plan: Monitor labs Monitor AF Decision on anticoagulation pending PT OT 09/16/2022: DC catheter tomorrow Monitor closely 09/17/2022: Monitor for retention 09/18/2022: No major issues 09/19/2022: Monitor closely 09/20/2022: Continue aggressive therapy 09/21/2022: Start Aldactone and Lasix for ESLD 09/22/2022: Check labs in am 09/23/2022: Start Celexa (1) Liver failure Status: Acute TULIO HILLMAN DO September 23, 2022 06:04
[2022-09-23 08:00] VITALS: BP 125/76
[2022-09-23] MEDS: MAGNESIUM OXIDE (MAG-OX)400 MG TAB PO SCH ×2 (08:11→17:12)
[2022-09-23] MEDS: RIVAROXABAN 20 MG TABLET (XARELTO) PO SCH (08:11)
[2022-09-23] MEDS: ALLOPURINOL 100 MG (ZYLOPRIM) TAB PO SCH ×2 (08:11→21:52)
[2022-09-23] MEDS: SPIRONOLACTONE 25 MG (ALDACTONE) TAB PO SCH (08:11)
[2022-09-23] MEDS: FUROSEMIDE 20 MG (LASIX) TAB PO SCH (08:11)
[2022-09-23] MEDS: meTOprolol TARTRATE 25 MG (LOPRESSOR) TABLET PO SCH ×2 (08:12→21:51)
[2022-09-23] MEDS: polyethylene glycoL POWDER 17 GM (MIRALAX) PACK PO SCH ×2 (08:12→21:50)
[2022-09-23] MEDS: DOCUSATE SODIUM 100 MG (COLACE) CAP PO SCH ×2 (08:12→21:52)
[2022-09-23] MEDS: AMIODARONE 200 MG (CORDARONE) TAB PO SCH ×2 (08:12→21:51)
[2022-09-23] MEDS: SENNA W/DOCUSATE (SENOKOT S) TABLET PO SCH ×2 (08:12→21:50)
[2022-09-23] MEDS: BACITRACIN OINTMENT 28 GM TUBE TOP SCH ×2 (08:14→21:52)
[2022-09-23] MEDS: DICLOFENAC 1% GEL 100 GM (VOLTAREN) TUBE TOP SCH ×4 (08:15→21:55)
--- NOTE | 2022-09-23 08:52 | Occupational Ther Daily Note ---
OT Current Status-Daily Note Subjective Pt agreeable to shower prior to family training with daughter. During family training, pt made comment about using leg field pipelines supervisor to hang himself when he returns home, ARU RN dry cleaning supervisor and pt's RN aware. Mental Status/Objective Patient Orientation: Normal For Age ADL-Treatment Therapy Code Descriptions/Definitions Functional [place] Measure: 0=Not Assessed/NA 4=Minimal Assistance 1=Total Assistance 5=Supervision or Setup 2=Maximal Assistance 6=Modified [place] 3=Moderate Assistance 7=Complete IndependenceSCALE: Activities may be completed with or without assistive devices. 3-Joucvjixjo-dlbahpp completes the activity by him/herself with no assistance from a helper. 5-Set-up or Clean-up Assistance-helper sets up or cleans up; patient completes activity. [place] assists only prior to or following the activity. 4-Supervision or Touching Assistance-helper provides verbal cues and/or touching/steadying and/or contact guard assistance as patient completes activity. Assistance may be provided throughout the activity or intermittently. 3-Partial/Moderate Assistance-helper does LESS THAN HALF the effort. [place] lifts, holds or supports trunk or limbs, but provides less than half the effort. 2-Substantial/Maximal Assistance-helper does MORE THAN HALF the effort. [place] lifts or holds trunk or limbs and provides more than half the effort. 2-Asqjrmhwq-vbpkds does ALL the effort. Patient does none of the effort to co mplete the activity. Or, the assistance of 2 or more helpers is required for the patient to complete the activity. If activity was not attempted, code reason: 7-Patient Refused. 9-Not Applicable-not attempted and the patient did not perform the activity before the current illness, exacerbation or injury. 10-Not Attempted due to Environmental Limitations-(lack of equipment, weather restraints, etc.). 88-Not Attempted due to Medical Conditions or Safety Concerns. Eating (QC): 6 Shower/Bathe Self (QC): 3 (Min A washing buttocks for thoroughness) Upper Body Dressing (QC): 7 (Pt adamantly declined UE dressing due to not having what he wants, pt to have daughter bring clothes for monday.) Lower Body Dressing (QC): 4 (CGA in stand during pant hike. Pt able to use equipment operat0r to don with increased time and min VCS.) On/Off Footwear: 3 (Mod A overall. Min A doffing with equipment operat0r due to dressings on heels. Max A with donning using sock aide.) Toileting Hygiene (QC): 3 (Min A posterior hygiene for thoroughness.) Other Treatment Pt in bed, transferred supine to sit EOB, min A, min A to scoot hips towards EOB. Pt used FWW to transfer to [facility]. Pt doffed clothes, encouragement required for pt to attempt task himself. Min A to doff gripper socks due to bandages on his heels. Pt completed shower, LH sponge provided to pt to increase independence with washing LEs and back. Pt still required assistance with washing buttocks for thoroughness. Pt declined UE dressing due to not having clothes he likes, pt to ask daughter to bring different clothes for Monday. Pt donned brief using equipment operat0r, min VCs and CGA in stand. Pt transferred to /, [facility] S[facility], and then used FWW to transfer from /c to [facility]. Pt's RN present to change dressings on b/l feet, OT cleaned up shower area. Pt then donned gripper socks using sock aide, max A with donning. OT/PT [place] due to skill of 2 clinicians required that a vocational rehab consultant could not perform in order to coordiante UE/lEs, decrease fall risk, and due to pt's limitations in strength, activity tolerance, mobility/transfers. OT focused on UE placement, cues for sequencing and safety and ADLS, PT focused on LE placement, gross overall movements, transfers and mobility. Pt's daughter present for family training. OT educated pt's daughter on assistance level required with ADLs at this time, she verbalized understanding. OT also provided education on encouragement required to get pt to participate in therapy txs and to get out of bed throughout the day. Pt's daughter educated and shown pt's performance with mobility, including sit to stand, stairs, car transfer, using leg field pipelines supervisor, etc. Pt's daughter states no further concerns/questions at this time. Post tx, pt in recliner, call light in reach and all needs met. Education OT Patient Education: Correct positioning, Exercise program, Modified ADL techniques, Progress toward Goal/Update tx plan, Purpose of tx/functional activities, Rehab process Teaching Recipient: Patient Teaching Methods: Discussion Response to Teaching: Verbalize Understanding OT Short Term Goals Short Term Goals Time Frame: September 28, 2022 Shower/bathe self: 5 Lower body dressin Putting on/taking off footwear: 5 OT Long-Term Goals Shop Firer/Fireman Goals Time Frame: October 07, 2022 Acute change in mental status: 0 Inattention: 0 Disorganized thinkin Altered level of consciousness: 0 Eating (QC): 6 Oral Hygiene (QC): 6 Toileting Hygiene (QC): 6 Shower/Bathe Self (QC): 6 Upper Body Dressing (QC): 6 Lower Body Dressing (QC): 6 On/Off Footwear (QC): 6 Additional Goals: 1-Demonstrate ADL Tasks, 2-Verbalize Understanding, 3- ImproveStrength/Yordy 1=Demonstrate adherence to instructed precautions during ADL tasks. 2=Patient will verbalize/demonstrate understanding of assistive devices/modifications for ADL. 3=Patient will improve strength/tolerance for activity to enable patient to perform ADL's. OT Education/Plan Problem List/Assessment Assessment: Decreased Activ Tolerance, Decreased UE Strength, Impaired Funct Balance, Impaired I ADL's, Impaired Self-Care Skills Discharge Recommendations Plan/Recommendations: Continue POC Treatment Plan/Plan of Care Patient would benefit from OT for education, treatment and training to promote independence in ADL's, mobility, safety and/or upper extremity function for ADL's. Plan of Care: ADL Retraining, Functional Mobility, Group Exercise/Act as Ind, UE Funct Exercise/Act Treatment Duration: October 07, 2022 Frequency: At least 5 of 7 days/Wk (IRF) Estimated Hrs Per Day: 1.5 hours per day Agreement: Yes Rehab Potential: Good Time Start Time: 08:00 Stop Time: 09:30 DATE: September 23, 2022 Total Time Billed (hr/min): 90 Billed Treatment Time OT tx [id number], [place] [id number] 1, ADL 5 (75'), FA (15') ODILIA SANCHEZ OT September 23, 2022 08:52
--- NOTE | 2022-09-23 09:55 | Physical Therapy Daily Note ---
PT Daily Note-Current Pain Section J - Health Conditions 1. Rarely or not at all 2. Occasionally 3. Frequently 4. Almost constantly 8. Unable to answer Pain Effect on Sleep: 1 Pain Interference with Therapy: 1 Pain Interference w/Day-to-Day: 1 Mental Status Patient Orientation: Person, Place, Situation Transfers SCALE: Activities may be completed with or without assistive devices. 6-Lvmotgafsp-encmcfo completes the activity by him/herself with no assistance from a helper. 5-Set-up or Clean-up Assistance-helper sets up or cleans up; patient completes activity. [place] assists only prior to or following the activity. 4-Supervision or Touching Assistance-helper provides verbal cues and/or touching/steadying and/or contact guard assistance as patient completes activity. Assistance may be provided throughout the activity or intermittently. 3-Partial/Moderate Assistance-helper does LESS THAN HALF the effort. [place] lifts, holds or supports trunk or limbs, but provides less than half the effort. 2-Substantial/Maximal Assistance-helper does MORE THAN HALF the effort. [place] lifts or holds trunk or limbs and provides more than half the effort. 4-Srfatxwkz-thsehx does ALL the effort. Patient does none of the effort to c omplete the activity. Or, the assistance of 2 or more helpers is required for the patient to complete the activity. If activity was not attempted, code reason: 7-Patient Refused. 9-Not Applicable-not attempted and the patient did not perform the activity before the current illness, exacerbation or injury. 10-Not Attempted due to Environmental Limitations-(lack of equipment, weather restraints, etc.). 88-Not Attempted due to Medical Conditions or Safety Concerns. Weight Bearing Full Weight Bearing Full Weight Bearing Treatments Poultry Breeder/OT co-treated educating daughter on pt level of assistance for daily ADL and mobility. OT forouising on the ADL daily care while PT focused on the transfers, ambulation and balance. pt did preform car transfers and stairs with CGA and VC for safety. daughter was advised to install andother hand rail on the left for increased independence and balance entering and exiting the home. edu daughter on lack of motivation and depression concerns with pt which daughter is addressing with dr. Tejeda Current Status: Fair Progress PT Penitentiary Goals Penitentiary Goals PT Penitentiary Goals Time Frame: September 29, 2022 Roll Left & Right (QC): 6 Sit to Lying (QC): 6 (with leg scouring pads supervisor if needed) Lying-Sitting on Side/Bed(QC): 6 Sit to Stand (QC): 6 (to FWW) Chair/Wnl-km-Grcco Xfer(QC): 6 (with FWW) Toilet Transfer (QC): 6 (with FWW) Car Transfer (QC): 5 (with FWW) Does the Patient Walk: Yes Walk 10 feet (QC): 6 (with FWW) Walk 50ft with 2 Turns (QC): 6 (with FWW) Walk 150 ft (QC): 6 (with FWW) Walking 10ft on Uneven Surface: 6 (with FWW) 1 Step (curb) (QC): 6 (with FWW) 4 Steps (QC): 6 (with rails) 12 Steps (QC): 6 (with (B) Rails) Picking up an Object (QC): 6 (with AD) Does the Pt use WC or Scooter?: No Wheel 50 feet with 2 turns (QC: 9 Type: N/A Wheel 150 feet: 9 Type: N/A PT Plan Treatment/Plan Treatment Plan: Continue Plan of Care Treatment Plan: Bed Mobility, Education, Functional Activity Yordy, Functional Strength, Group Therapy, Gait, Safety, Therapeutic Exercise, Transfers, Other (Co-treatment prn to address multiple issues which require 2 skilled therapists to treat safely.) Treatment Duration: September 29, 2022 Frequency: At least 5 of 7 days/Wk (IRF) Estimated Hrs Per Day: 1.5 hours per day Patient and/or Family Agrees t: Yes Time Time In: 899 Time Out: 929 DATE: September 23, 2022 Total Billed Treatment Time: 30 Total Billed Treatment 1 FA x 2 PT and OT co-treated form [id number] for family training this day for 30 mins time. Nettie Corrales AIRPLANE FLIGHT ATTENDANT SUPERVISOR September 23, 2022 09:55
--- NOTE | 2022-09-23 12:31 | Physical Therapy Daily Note ---
PT Daily Note-Current Subjective pt was in bed upon arrival and was willing for therapy. pt stated that he would rather stay here then be at home, he gets more visitors and attention here. Pain Section J - Health Conditions 1. Rarely or not at all 2. Occasionally 3. Frequently 4. Almost constantly 8. Unable to answer Pain Effect on Sleep: 1 Pain Interference with Therapy: 1 Pain Interference w/Day-to-Day: 1 Mental Status Patient Orientation: Person, Place, Time, Situation Transfers SCALE: Activities may be completed with or without assistive devices. 5-Yrlwubsgaq-maqcpov completes the activity by him/herself with no assistance from a helper. 5-Set-up or Clean-up Assistance-helper sets up or cleans up; patient completes activity. [place] assists only prior to or following the activity. 4-Supervision or Touching Assistance-helper provides verbal cues and/or touching/steadying and/or contact guard assistance as patient completes activity. Assistance may be provided throughout the activity or intermittently. 3-Partial/Moderate Assistance-helper does LESS THAN HALF the effort. [place] lifts, holds or supports trunk or limbs, but provides less than half the effort. 2-Substantial/Maximal Assistance-helper does MORE THAN HALF the effort. [place] lifts or holds trunk or limbs and provides more than half the effort. 1-Tnppnzxij-cgcznf does ALL the effort. Patient does none of the effort to complete the activity. Or, the assistance of 2 or more helpers is required for the patient to complete the activity. If activity was not attempted, code reason: 7-Patient Refused. 9-Not Applicable-not attempted and the patient did not perform the activity before the current illness, exacerbation or injury. 10-Not Attempted due to Environmental Limitations-(lack of equipment, weather restraints, etc.). 88-Not Attempted due to Medical Conditions or Safety Concerns. Weight Bearing Full Weight Bearing Full Weight Bearing Treatments Pt was able to preform bed to recliner transfers with MIN A for standing up out of bed. pt could ambulate 3 ft to chair and required VC to back up fully against the chair. to prevent falls. pt required max encouragement to stay on and finish tasks.pt executed 3 sets of 20 sitting ther-ex in all planes of motion available. with multiple rest breaks Assessment Current Status: Fair Progress PT Cashier Gambling Goals Penitentiary Goals PT Cashier Gambling Goals Time Frame: September 29, 2022 Roll Left & Right (QC): 6 Sit to Lying (QC): 6 (with leg medical collector if needed) Lying-Sitting on Side/Bed(QC): 6 Sit to Stand (QC): 6 (to FWW) Chair/Bqq-pe-Brwek Xfer(QC): 6 (with FWW) Toilet Transfer (QC): 6 (with FWW) Car Transfer (QC): 5 (with FWW) Does the Patient Walk: Yes Walk 10 feet (QC): 6 (with FWW) Walk 50ft with 2 Turns (QC): 6 (with FWW) Walk 150 ft (QC): 6 (with FWW) Walking 10ft on Uneven Surface: 6 (with FWW) 1 Step (curb) (QC): 6 (with FWW) 4 Steps (QC): 6 (with rails) 12 Steps (QC): 6 (with (B) Rails) Picking up an Object (QC): 6 (with AD) Does the Pt use WC or Scooter?: No Wheel 50 feet with 2 turns (QC: 9 Type: N/A Wheel 150 feet: 9 Type: N/A PT Plan Treatment/Plan Treatment Plan: Continue Plan of Care Treatment Plan: Bed Mobility, Education, Functional Activity Yordy, Functional Strength, Group Therapy, Gait, Safety, Therapeutic Exercise, Transfers, Other (Co-treatment prn to address multiple issues which require 2 skilled therapists to treat safely.) Treatment Duration: September 29, 2022 Frequency: At least 5 of 7 days/Wk (IRF) Estimated Hrs Per Day: 1.5 hours per day Patient and/or Family Agrees t: Yes Time Time In: 1115 Time Out: 1150 DATE: September 23, 2022 Total Billed Treatment Time: 35 Total Billed Treatment 1 Ex x 2 Nettie Corrales WAIST PLEATER September 23, 2022 12:31
--- NOTE | 2022-09-23 14:59 | Physical Therapy Daily Note ---
PT Daily Note-Current Subjective pt in bed upon arrival and willing for therapy. pt stated he just wanted to stay in him room and do therapy and with edu was willing to ambulate outside pf room to [address]. Pain Section J - Health Conditions 1. Rarely or not at all 2. Occasionally 3. Frequently 4. Almost constantly 8. Unable to answer Pain Effect on Sleep: 1 Pain Interference with Therapy: 1 Pain Interference w/Day-to-Day: 1 Mental Status Patient Orientation: Person, Place, Time, Situation Transfers SCALE: Activities may be completed with or without assistive devices. 0-Odtcgcnlet-klmtcvg completes the activity by him/herself with no assistance from a helper. 5-Set-up or Clean-up Assistance-helper sets up or cleans up; patient completes activity. [place] assists only prior to or following the activity. 4-Supervision or Touching Assistance-helper provides verbal cues and/or touching/steadying and/or contact guard assistance as patient completes activity. Assistance may be provided throughout the activity or intermittently. 3-Partial/Moderate Assistance-helper does LESS THAN HALF the effort. [place] lifts, holds or supports trunk or limbs, but provides less than half the effort. 2-Substantial/Maximal Assistance-helper does MORE THAN HALF the effort. [place] lifts or holds trunk or limbs and provides more than half the effort. 9-Tcjqoxkwj-lulzzf does ALL the effort. Patient does none of the effort to complete the activity. Or, the assistance of 2 or more helpers is required for the patient to complete the activity. If activity was not attempted, code reason: 7-Patient Refused. 9-Not Applicable-not attempted and the patient did not perform the activity before the current illness, exacerbation or injury. 10-Not Attempted due to Environmental Limitations-(lack of equipment, weather restraints, etc.). 88-Not Attempted due to Medical Conditions or Safety Concerns. Weight Bearing Full Weight Bearing Full Weight Bearing Treatments Pt was able to ambulate 40 ft x 2 with WC follow Behind. pt sat at 40ft and rested for aprox 2 mins and was able to resume ambulation. pt was able to preform 2 stand pivot stranfers with CGA and VC of 20% for safety. pt is able to preform bed mobility with SBA. pt was left in bed with call light and all needs met this day. Assessment Current Status: Fair Progress PT Svp Of Digital Goals Prison Goals PT Svp Of Digital Goals Time Frame: September 29, 2022 Roll Left & Right (QC): 6 Sit to Lying (QC): 6 (with leg snuff drier if needed) Lying-Sitting on Side/Bed(QC): 6 Sit to Stand (QC): 6 (to FWW) Chair/Rby-ee-Vwcje Xfer(QC): 6 (with FWW) Toilet Transfer (QC): 6 (with FWW) Car Transfer (QC): 5 (with FWW) Does the Patient Walk: Yes Walk 10 feet (QC): 6 (with FWW) Walk 50ft with 2 Turns (QC): 6 (with FWW) Walk 150 ft (QC): 6 (with FWW) Walking 10ft on Uneven Surface: 6 (with FWW) 1 Step (curb) (QC): 6 (with FWW) 4 Steps (QC): 6 (with rails) 12 Steps (QC): 6 (with (B) Rails) Picking up an Object (QC): 6 (with AD) Does the Pt use WC or Scooter?: No Wheel 50 feet with 2 turns (QC: 9 Type: N/A Wheel 150 feet: 9 Type: N/A PT Plan Treatment/Plan Treatment Plan: Continue Plan of Care Treatment Plan: Bed Mobility, Education, Functional Activity Yordy, Functional Strength, Group Therapy, Gait, Safety, Therapeutic Exercise, Transfers, Other (Co-treatment prn to address multiple issues which require 2 skilled therapists to treat safely.) Treatment Duration: September 29, 2022 Frequency: At least 5 of 7 days/Wk (IRF) Estimated Hrs Per Day: 1.5 hours per day Patient and/or Family Agrees t: Yes Time Time In: 1423 Time Out: 1438 DATE: September 23, 2022 Total Billed Treatment Time: 15 Total Billed Treatment 1 gt Nettie Corrales PRICING SUPERVISOR September 23, 2022 14:59
[2022-09-23] MEDS: TAMSULOSIN 0.4 MG (FLOMAX) CAP PO SCH (17:12)
[2022-09-23 20:30] VITALS: BP 120/74
--- NOTE | 2022-09-24 06:08 | PM&R Progress Note ---
Subjective HPI/CC On Admission Date Seen by Provider: September 24, 2022 Time Seen by Provider: 09:30 Subjective/Events-last exam 09/24/2022: Weight gain noted Labs noted Lasix and Aldactone 09/23/2022: Had family training today Patient mentioned that he was going to "hang himself" but behavioral health saw him and denied this statement Will start Celexa after we discussed his situational depression 09/22/2022: No major issues Tolerating new meds well No falls 09/21/2022: No major issues Starting on Aldactone and Lasix No pain reported 09/20/2022: Doing much better No pain reported Moving well 09/19/2022: Much improved Working with therapy Labs reviewed No falls 09/18/2022: Doing well Sleeping well No falls Improved 09/17/2022: Doing better Zaragoza out Monitor for retention No falls Improved 09/16/2022: Doing well today Catheter will be DC No pain reported Walking is slightly better Fatigues easily Review of Systems General: Fatigue, Malaise Objective Exam Vital Signs Vital Signs Date Time Temp Pulse Resp B/P (MAP) Pulse Ox O2 Delivery O2 Flow Rate FiO2 09/24/22 09:40 Room Air 09/24/22 08:14 36.2 65 18 119/58 (78) 95 Capillary Refill : General Appearance: No Apparent Distress, WD/WN, Chronically ill, Obese HEENT: PERRL/EOMI, Normal ENT Inspection, Pharynx Normal Neck: Full Range of Motion, Normal Inspection, Non Tender, Supple, Carotid Bruit Respiratory: Chest Non Tender, Lungs Clear, Normal Breath Sounds, No Accessory Muscle Use, No Respiratory Distress Cardiovascular: No Edema, No Gallop, No JVD, No Murmur, Normal Peripheral Pulses, Irregularly Irregular Gastrointestinal: Normal Bowel Sounds, No Organomegaly, No Pulsatile Mass, Non Tender, Soft, Distended, Other (ascites) Back: Normal Inspection, No CVA Tenderness, No Vertebral Tenderness Extremity: Normal Capillary Refill, Normal Inspection, Normal Range of Motion, Non Tender, No Calf Tenderness, Pedal Edema Neurologic/Psychiatric: Alert, Oriented x3, No Motor/Sensory Deficits, Normal Mood/Affect Skin: Normal Color, Warm/Dry Lymphatic: No Adenopathy Results/Procedures Lab Patient resulted labs reviewed. FIM Transfers Therapy Code Descriptions/Definitions Functional [place] Measure: 0=Not Assessed/NA 4=Minimal Assistance 1=Total Assistance 5=Supervision or Setup 2=Maximal Assistance 6=Modified [place] 3=Moderate Assistance 7=Complete IndependenceSCALE: Activities may be completed with or without assistive devices. 2-Nxjyheqebx-jhkuxpl completes the activity by him/herself with no assistance from a helper. 5-Set-up or Clean-up Assistance-helper sets up or cleans up; patient completes activity. [place] assists only prior to or following the activity. 4-Supervision or Touching Assistance-helper provides verbal cues and/or touching/steadying and/or contact guard assistance as patient completes activity. Assistance may be provided throughout the activity or intermittently. 3-Partial/Moderate Assistance-helper does LESS THAN HALF the effort. [place] lifts, holds or supports trunk or limbs, but provides less than half the effort. 2-Substantial/Maximal Assistance-helper does MORE THAN HALF the effort. [place] lifts or holds trunk or limbs and provides more than half the effort. 3-Upofedyku-jzubol does ALL the effort. Patient does none of the effort to complete the activity. Or, the assistance of 2 or more helpers is required for the patient to complete the activity. If activity was not attempted, code reason: 7-Patient Refused. 9-Not Applicable-not attempted and the patient did not perform the activity before the current illness, exacerbation or injury. 10-Not Attempted due to Environmental Limitations-(lack of equipment, weather restraints, etc.). 88-Not Attempted due to Medical Conditions or Safety Concerns. Roll Left to Right (QC): 6 Sit to Lying (QC): 3 Sit to Stand (QC): 4 Chair/Yhq-uq-Psvug Xfer(QC): 3 (Min-CGA with FWW with cues to turn completely to seat, and min (A) to control descent to Nustep) Car Transfer (QC): 3 (Min (A) to lift legs in to car. Attempted to stand with one leg on ground and one leg in "car". Instructed to sit for safety and swing both legs out - min (A) to move both legs out of car.) Gait Training Does the Patient Walk?: Yes Distance: 150, 150, 150 Walk 10 feet (QC): 4 Walk 50 ft with 2 Turns(QC): 4 Walk 150 ft (QC): 4 Walking 10ft/uneven surface-QC: 3 (Min (A) with FWW) Gait Persons Needed: 1 Gait Assistive Device: FWW Wheelchair Training Does the Pt Use a Wheelchair?: No Wheel 50 ft with 2 turns (QC): 9 Wheel 150 ft (QC): 9 Stair Training 1 Step (curb) (QC): 3 (2" curb step with FWW min (A)) 4 Steps (QC): 4 12 Steps (QC): 88 (fatigued after 10 steps, 12 not attempted) Balance Picking up an Object (QC): 6 (with walker and senior software engineer) ADL-Treatment Eating (QC): 6 Oral Hygiene (QC): 6 (seated at sink) Bathing Location: L Arm, R Arm, L Upper Leg, R Upper Leg, L Lower Leg (including foot), R Lower Leg (including foot), Chest, Abdomen, Buttocks, Perineal Area Shower/Bathe Self (QC): 3 (Min A washing buttocks for thoroughness) Upper Body Dressing (QC): 7 (Pt adamantly declined UE dressing due to not having what he wants, pt to have daughter bring clothes for monday.) Lower Body Dressing (QC): 4 (CGA in stand during pant hike. Pt able to use senior software engineer to don with increased time and min VCS.) On/Off Footwear (QC): 3 (Mod A overall. Min A doffing with senior software engineer due to dressings on heels. Max A with donning using sock aide.) Toileting Hygiene (QC): 3 (Min A posterior hygiene for thoroughness.) Toilet Transfer (QC): 4 Assessment/Plan Assessment and Plan Assess & Plan/Chief Complaint Assessment: Debility following ESLD decompensation Ascites AF Previous OAC for CVA prophylaxis holding for now HTN HLP Depression Plan: Monitor labs Monitor AF Decision on anticoagulation pending PT OT 09/16/2022: DC catheter tomorrow Monitor closely 09/17/2022: Monitor for retention 09/18/2022: No major issues 09/19/2022: Monitor closely 09/20/2022: Continue aggressive therapy 09/21/2022: Start Aldactone and Lasix for ESLD 09/22/2022: Check labs in am 09/23/2022: Start Celexa 09/24/2022: Monitor closely (1) Liver failure Status: Acute TULIO HILLMAN DO September 24, 2022 06:08
[2022-09-24] MEDS: ALLOPURINOL 100 MG (ZYLOPRIM) TAB PO SCH ×2 (08:05→22:04)
[2022-09-24] MEDS: AMIODARONE 200 MG (CORDARONE) TAB PO SCH ×2 (08:05→22:04)
[2022-09-24] MEDS: SPIRONOLACTONE 25 MG (ALDACTONE) TAB PO SCH (08:05)
[2022-09-24] MEDS: MAGNESIUM OXIDE (MAG-OX)400 MG TAB PO SCH ×2 (08:05→17:16)
[2022-09-24] MEDS: SENNA W/DOCUSATE (SENOKOT S) TABLET PO SCH ×2 (08:05→22:04)
[2022-09-24] MEDS: DOCUSATE SODIUM 100 MG (COLACE) CAP PO SCH ×2 (08:05→22:04)
[2022-09-24] MEDS: RIVAROXABAN 20 MG TABLET (XARELTO) PO SCH (08:05)
[2022-09-24] MEDS: polyethylene glycoL POWDER 17 GM (MIRALAX) PACK PO SCH ×2 (08:05→21:45)
[2022-09-24] MEDS: meTOprolol TARTRATE 25 MG (LOPRESSOR) TABLET PO SCH ×2 (08:05→22:04)
[2022-09-24] MEDS: FUROSEMIDE 20 MG (LASIX) TAB PO SCH (08:05)
[2022-09-24] MEDS: VITAMIN D2 1.25 MG (50,000 UNITS) CAP PO SCH (08:10)
[2022-09-24] MEDS: DICLOFENAC 1% GEL 100 GM (VOLTAREN) TUBE TOP SCH ×4 (08:11→22:05)
[2022-09-24 08:14] VITALS: BP 119/58
[2022-09-24] MEDS: BACITRACIN OINTMENT 28 GM TUBE TOP SCH ×2 (08:15→22:06)
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
[2022-09-24] MEDS: TAMSULOSIN 0.4 MG (FLOMAX) CAP PO SCH (17:16)
[2022-09-24 20:00] VITALS: BP 124/59
--- NOTE | 2022-09-25 07:37 | PM&R Progress Note ---
Subjective HPI/CC On Admission Date Seen by Provider: September 25, 2022 Time Seen by Provider: 12:00 Subjective/Events-last exam 09/25/2022: No concerns DC bladder scan since it is picking up the ascites DC tomorrow No falls 09/24/2022: Weight gain noted Labs noted Lasix and Aldactone 09/23/2022: Had family training today Patient mentioned that he was going to "hang himself" but behavioral health saw him and denied this statement Will start Celexa after we discussed his situational depression 09/22/2022: No major issues Tolerating new meds well No falls 09/21/2022: No major issues Starting on Aldactone and Lasix No pain reported 09/20/2022: Doing much better No pain reported Moving well 09/19/2022: Much improved Working with therapy Labs reviewed No falls 09/18/2022: Doing well Sleeping well No falls Improved 09/17/2022: Doing better Zaragoza out Monitor for retention No falls Improved 09/16/2022: Doing well today Catheter will be DC No pain reported Walking is slightly better Fatigues easily Review of Systems General: Fatigue, Malaise Objective Exam Vital Signs Vital Signs Date Time Temp Pulse Resp B/P (MAP) Pulse Ox O2 Delivery O2 Flow Rate FiO2 09/25/22 09:14 Room Air 09/25/22 07:55 36.0 60 18 125/56 (79) 95 Capillary Refill : General Appearance: No Apparent Distress, WD/WN, Chronically ill, Obese HEENT: PERRL/EOMI, Normal ENT Inspection, Pharynx Normal Neck: Full Range of Motion, Normal Inspection, Non Tender, Supple, Carotid Bruit Respiratory: Chest Non Tender, Lungs Clear, Normal Breath Sounds, No Accessory Muscle Use, No Respiratory Distress Cardiovascular: No Edema, No Gallop, No JVD, No Murmur, Normal Peripheral Pulses, Irregularly Irregular Gastrointestinal: Normal Bowel Sounds, No Organomegaly, No Pulsatile Mass, Non Tender, Soft, Distended, Other (ascites) Back: Normal Inspection, No CVA Tenderness, No Vertebral Tenderness Extremity: Normal Capillary Refill, Normal Inspection, Normal Range of Motion, Non Tender, No Calf Tenderness, Pedal Edema Neurologic/Psychiatric: Alert, Oriented x3, No Motor/Sensory Deficits, Normal Mood/Affect Skin: Normal Color, Warm/Dry Lymphatic: No Adenopathy Results/Procedures Lab Patient resulted labs reviewed. FIM Transfers Therapy Code Descriptions/Definitions Functional [place] Measure: 0=Not Assessed/NA 4=Minimal Assistance 1=Total Assistance 5=Supervision or Setup 2=Maximal Assistance 6=Modified [place] 3=Moderate Assistance 7=Complete IndependenceSCALE: Activities may be completed with or without assistive devices. 9-Vaolekieoo-ubmmhlh completes the activity by him/herself with no assistance from a helper. 5-Set-up or Clean-up Assistance-helper sets up or cleans up; patient completes activity. [place] assists only prior to or following the activity. 4-Supervision or Touching Assistance-helper provides verbal cues and/or touching/steadying and/or contact guard assistance as patient completes activity. Assistance may be provided throughout the activity or intermittently. 3-Partial/Moderate Assistance-helper does LESS THAN HALF the effort. [place] lifts, holds or supports trunk or limbs, but provides less than half the effort. 2-Substantial/Maximal Assistance-helper does MORE THAN HALF the effort. [place] lifts or holds trunk or limbs and provides more than half the effort. 6-Tvbgeoecg-latqxl does ALL the effort. Patient does none of the effort to complete the activity. Or, the assistance of 2 or more helpers is required for the patient to complete the activity. If activity was not attempted, code reason: 7-Patient Refused. 9-Not Applicable-not attempted and the patient did not perform the activity before the current illness, exacerbation or injury. 10-Not Attempted due to Environmental Limitations-(lack of equipment, weather restraints, etc.). 88-Not Attempted due to Medical Conditions or Safety Concerns. Roll Left to Right (QC): 6 Sit to Lying (QC): 3 Sit to Stand (QC): 4 Chair/Gof-yy-Phati Xfer(QC): 3 (Min-CGA with FWW with cues to turn completely to seat, and min (A) to control descent to Nustep) Car Transfer (QC): 3 (Min (A) to lift legs in to car. Attempted to stand with one leg on ground and one leg in "car". Instructed to sit for safety and swing both legs out - min (A) to move both legs out of car.) Gait Training Does the Patient Walk?: Yes Distance: 150, 150, 150 Walk 10 feet (QC): 4 Walk 50 ft with 2 Turns(QC): 4 Walk 150 ft (QC): 4 Walking 10ft/uneven surface-QC: 3 (Min (A) with FWW) Gait Persons Needed: 1 Gait Assistive Device: FWW Wheelchair Training Does the Pt Use a Wheelchair?: No Wheel 50 ft with 2 turns (QC): 9 Wheel 150 ft (QC): 9 Stair Training 1 Step (curb) (QC): 3 (2" curb step with FWW min (A)) 4 Steps (QC): 4 12 Steps (QC): 88 (fatigued after 10 steps, 12 not attempted) Balance Picking up an Object (QC): 6 (with walker and data control clerk) ADL-Treatment Eating (QC): 6 Oral Hygiene (QC): 6 (seated at sink) Bathing Location: L Arm, R Arm, L Upper Leg, R Upper Leg, L Lower Leg (including foot), R Lower Leg (including foot), Chest, Abdomen, Buttocks, Perineal Area Shower/Bathe Self (QC): 3 (Min A washing buttocks for thoroughness) Upper Body Dressing (QC): 7 (Pt adamantly declined UE dressing due to not having what he wants, pt to have daughter bring clothes for monday.) Lower Body Dressing (QC): 4 (CGA in stand during pant hike. Pt able to use data control clerk to don with increased time and min VCS.) On/Off Footwear (QC): 3 (Mod A overall. Min A doffing with data control clerk due to dressings on heels. Max A with donning using sock aide.) Toileting Hygiene (QC): 3 (Min A posterior hygiene for thoroughness.) Toilet Transfer (QC): 4 Assessment/Plan Assessment and Plan Assess & Plan/Chief Complaint Assessment: Debility following ESLD decompensation Ascites AF Previous OAC for CVA prophylaxis holding for now HTN HLP Depression Plan: Monitor labs Monitor AF Decision on anticoagulation pending PT OT 09/16/2022: DC catheter tomorrow Monitor closely 09/17/2022: Monitor for retention 09/18/2022: No major issues 09/19/2022: Monitor closely 09/20/2022: Continue aggressive therapy 09/21/2022: Start Aldactone and Lasix for ESLD 09/22/2022: Check labs in am 09/23/2022: Start Celexa 09/24/2022: Monitor closely 09/25/2022: Anti-coagulation not indicated for ESLD patient too high risk for bleeding (1) Liver failure Status: Acute TULIO HILLMAN DO September 25, 2022 07:37
[2022-09-25 07:55] VITALS: BP 125/56
[2022-09-25] MEDS: MAGNESIUM OXIDE (MAG-OX)400 MG TAB PO SCH ×2 (07:56→17:00)
[2022-09-25] MEDS: FUROSEMIDE 20 MG (LASIX) TAB PO SCH (07:56)
[2022-09-25] MEDS: SENNA W/DOCUSATE (SENOKOT S) TABLET PO SCH ×2 (07:56→21:53)
[2022-09-25] MEDS: DOCUSATE SODIUM 100 MG (COLACE) CAP PO SCH ×2 (07:56→21:52)
[2022-09-25] MEDS: RIVAROXABAN 20 MG TABLET (XARELTO) PO SCH (07:56)
[2022-09-25] MEDS: ALLOPURINOL 100 MG (ZYLOPRIM) TAB PO SCH ×2 (07:56→21:52)
[2022-09-25] MEDS: AMIODARONE 200 MG (CORDARONE) TAB PO SCH ×2 (07:56→21:52)
[2022-09-25] MEDS: meTOprolol TARTRATE 25 MG (LOPRESSOR) TABLET PO SCH ×2 (07:56→21:52)
[2022-09-25] MEDS: SPIRONOLACTONE 25 MG (ALDACTONE) TAB PO SCH (07:56)
[2022-09-25] MEDS: polyethylene glycoL POWDER 17 GM (MIRALAX) PACK PO SCH ×2 (07:57→21:53)
[2022-09-25] MEDS: DICLOFENAC 1% GEL 100 GM (VOLTAREN) TUBE TOP SCH ×4 (07:57→21:55)
[2022-09-25] MEDS: BACITRACIN OINTMENT 28 GM TUBE TOP SCH ×2 (07:57→21:56)
[2022-09-25] MEDS ORDERED: LIDOCAINE UROJET 2% GEL 10 ML PKG ONE (10:57)
[2022-09-25] MEDS ORDERED: FURO20TA4 PO (16:28)
[2022-09-25] MEDS ORDERED: SPIR25TA5 PO (16:28)
[2022-09-25] MEDS ORDERED: CITA20TA9 PO (16:28)
[2022-09-25] MEDS ORDERED: DICL100G13 TOP (16:28)
[2022-09-25] MEDS: TAMSULOSIN 0.4 MG (FLOMAX) CAP PO SCH (17:00)
[2022-09-25 19:46] VITALS: BP 116/54
[2022-09-26 05:11] LABS: BASOPHILS % (AUTO) 1 % (0-10)
[2022-09-26 05:13] LABS: BASOPHILS # (AUTO) 0.1 10^3/uL (0.0-0.1); EOSINOPHILS # (AUTO) 0.4 10^3/uL (0.0-0.3); EOSINOPHILS % (AUTO) 3 % (0-10); HEMATOCRIT 29 % (40-54); HEMOGLOBIN 9.7 g/dL (13.3-17.7); LYMPHOCYTES # (AUTO) 1.9 10^3/uL (1.0-4.0); LYMPHOCYTES % (AUTO) 17 % (12-44); MEAN CORPUSCULAR HEMOGLOBIN 33 pg (25-34); MEAN CORPUSCULAR HGB CONC 34 g/dL (32-36); MEAN CORPUSCULAR VOLUME 97 fL (80-99); MEAN PLATELET VOLUME 12.9 fL (9.0-12.2); MONOCYTES % (AUTO) 9 % (0-12); NEUTROPHILS # (AUTO) 7.6 10^3/uL (1.8-7.8); NEUTROPHILS % (AUTO) 70 % (42-75); PLATELET COUNT 119 10^3/uL (130-400)
--- NOTE | 2022-09-26 05:27 | Discharge Summary ---
Diagnosis/Chief Complaint Date of Admission September 15, 2022 at 14:05 Date of Discharge Discharge Date: September 26, 2022 Discharge Summary Discharge Physical Examination Allergies: Coded Allergies: No Known Drug Allergies (Unverified , 11/21/09) Vitals & I&Os Vital Signs Date Time Temp Pulse Resp B/P (MAP) Pulse Ox O2 Delivery O2 Flow Rate FiO2 09/25/22 21:40 93 Room Air 09/25/22 19:46 36.5 51 20 116/54 (74) Hospital Course Labs (last 24 hrs) Laboratory Tests 09/16/22 05:11: White Blood Count 7.8, Red Blood Count 3.10L, Hemoglobin 10.4L, Hematocrit 31L, Mean Corpuscular Volume 98, Mean Corpuscular Hemoglobin 34, Mean Corpuscular He moglobin Concent 34, Red Cell Distribution Width 16.1H, Platelet Count 92L, Mean Platelet Volume 13.2H, Immature Granulocyte % (Auto) 0, Neutrophils (%) (Auto) 62, Lymphocytes (%) (Auto) 26, Monocytes (%) (Auto) 10, Eosinophils (%) (Auto) 2, Basophils (%) (Auto) 0, Neutrophils # (Auto) 4.8, Lymphocytes # (Auto) 2.0, Monocytes # (Auto) 0.7, Eosinophils # (Auto) 0.1, Basophils # (Auto) 0.0, Immature Granulocyte # (Auto) 0.0, Percent Immature Platelet Fraction 14.7H, Sodium Level 136, Potassium Level 3.9, Chloride Level 104, Carbon Dioxide Level 24, Anion Gap 8, Blood Urea Nitrogen 27H, Creatinine 1.69H, Estimat Glomerular Filtration Rate 41, BUN/Creatinine Ratio 16, Glucose Level 108H, Calcium Level 8.0L, Corrected Calcium 9.1, Total Bilirubin 1.3H, Aspartate Amino Transf (AST/SGOT) 72H, Alanine Aminotransferase (ALT/SGPT) 26, Alkaline Phosphatase 128, Total Protein 6.3L, Albumin 2.6L 09/19/22 06:57: White Blood Count 13.1H, Red Blood Count 3.40L, Hemoglobin 11.2L, Hematocrit 33L , Mean Corpuscular Volume 97, Mean Corpuscular Hemoglobin 33, Mean Corpuscular Hemoglobin Concent 34, Red Cell Distribution Width 15.8H, Platelet Count 116L, Mean Platelet Volume 12.9H, Immature Granulocyte % (Auto) 0, Neutrophils (%) (Auto) 69, Lymphocytes (%) (Auto) 15, Monocytes (%) (Auto) 12, Eosinophils (%) (Auto) 3, Basophils (%) (Auto) 0, Neutrophils # (Auto) 9.1H, Lymphocytes # (Auto) 2.0, Monocytes # (Auto) 1.5H, Eosinophils # (Auto) 0.4H, Basophils # (Auto) 0.1, Immature Granulocyte # (Auto) 0.1, Percent Immature Platelet Fraction 17.8H, Sodium Level 131L, Potassium Level 4.4, Chloride Level 98, Carbon Dioxide Level 23, Anion Gap 10, Blood Urea Nitrogen 20H, Creatinine 1.31H , Estimat Glomerular Filtration Rate 56, BUN/Creatinine Ratio 15, Glucose Level 101, Calcium Level 8.5, Corrected Calcium 9.6, Total Bilirubin 1.7H, Aspartate Amino Transf (AST/SGOT) 92H, Alanine Aminotransferase (ALT/SGPT) 41, Alkaline Phosphatase 161H, Total Protein 6.5, Albumin 2.6L 09/23/22 05:23: White Blood Count 8.6, Red Blood Count 3.08L, Hemoglobin 10.1L, Hematocrit 30L, Mean Corpuscular Volume 96, Mean Corpuscular Hemoglobin 33, Mean Corpuscular Hemoglobin Concent 34, Red Cell Distribution Width 16.1H, Platelet Count 105L, Mean Platelet Volume 13.0H, Immature Granulocyte % (Auto) 1, Neutrophils (%) (Auto) 58, Lymphocytes (%) (Auto) 24, Monocytes (%) (Auto) 12, Eosinophils (%) (Auto) 4, Basophils (%) (Auto) 1, Neutrophils # (Auto) 5.0, Lymphocytes # (Auto) 2.1, Monocytes # (Auto) 1.1H, Eosinophils # (Auto) 0.3, Basophils # (Auto) 0.1, Immature Granulocyte # (Auto) 0.0, Percent Immature Platelet Fraction 13.8H, Sodium Level 127L, Potassium Level 5.1H, Chloride Level 97L, Carbon Dioxide Level 22, Anion Gap 8, Blood Urea Nitrogen 24H, Creatinine 1.37H, Estimat Glomerular Filtration Rate 53, BUN/Creatinine Ratio 18, Glucose Level 101, Calcium Level 8.4L, Corrected Calcium 9.7, Total Bilirubin 1.4H, Aspartate Amino Transf (AST/SGOT) 98H, Alanine Aminotransferase (ALT/SGPT) 42, Alkaline Phosphatase 176H, Total Protein 6.3L, Albumin 2.4L, Prothrombin Time 35.0H, INR Comment 3.6H 09/26/22 04:46: White Blood Count 11.0, Red Blood Count 2.93L, Hemoglobin 9.7L, Hematocrit 29L, Mean Corpuscular Volume 97, Mean Corpuscular Hemoglobin 33, Mean Corpuscular Hemoglobin Concent 34, Red Cell Distribution Width 16.8H, Platelet Count 119L, Mean Platelet Volume 12.9H, Immature Granulocyte % (Auto) 1, Neutrophils (%) (Auto) 70, Lymphocytes (%) (Auto) 17, Monocytes (%) (Auto) 9, Eosinophils (%) (Auto) 3, Basophils (%) (Auto) 1, Neutrophils # (Auto) 7.6, Lymphocytes # (Auto) 1.9, Monocytes # (Auto) 1.0, Eosinophils # (Auto) 0.4H, Basophils # (Auto) 0.1, Immature Granulocyte # (Auto) 0.1, Percent Immature Platelet Fraction 13.8H, Sodium Level 127L, Potassium Level 5.3H, Chloride Level 96L, Carbon Dioxide Level 24, Anion Gap 7, Blood Urea Nitrogen 24H, Creatinine 1.31H, Estimat Glomerular Filtration Rate 56, BUN/Creatinine Ratio 18, Glucose Level 93, Calcium Level 8.9, Corrected Calcium 10.2H, Total Bilirubin 1.2H, Aspartate Amino Transf (AST/SGOT) 113H, Alanine Aminotransferase (ALT/SGPT) 48, Alkaline Phosphatase 181H, Total Protein 6.2L, Albumin 2.4L Pending Labs Laboratory Tests 09/16/22 05:11: White Blood Count 7.8, Red Blood Count 3.10, Hemoglobin 10.4, Hematocrit 31, Mean Corpuscular Volume 98, Mean Corpuscular Hemoglobin 34, Mean Corpuscular Hemoglobin Concent 34, Red Cell Distribution Width 16.1, Platelet Count 92, Mean Platelet Volume 13.2, Immature Granulocyte % (Auto) 0, Neutrophils (%) (Auto) 62, Lymphocytes (%) (Auto) 26, Monocytes (%) (Auto) 10, Eosinophils (%) (Auto) 2, Basophils (%) (Auto) 0, Neutrophils # (Auto) 4.8, Lymphocytes # (Auto) 2.0, Monocytes # (Auto) 0.7, Eosinophils # (Auto) 0.1, Basophils # (Auto) 0.0, Immature Granulocyte # (Auto) 0.0, Percent Immature Platelet Fraction 14.7, Sodium Level 136, Potassium Level 3.9, Chloride Level 104, Carbon Dioxide Level 24, Anion Gap 8, Blood Urea Nitrogen 27, Creatinine 1.69, Estimat Glomerular Filtration Rate 41, BUN/Creatinine Ratio 16, Glucose Level 108, Calcium Level 8.0, Corrected Calcium 9.1, Total Bilirubin 1.3, Aspartate Amino Transf (AST/SGOT) 72, Alanine Aminotransferase (ALT/SGPT) 26, Alkaline Phosphatase 128, Total Protein 6.3, Albumin 2.6 09/19/22 06:57: White Blood Count 13.1, Red Blood Count 3.40, Hemoglobin 11.2, Hematocrit 33, Mean Corpuscular Volume 97, Mean Corpuscular Hemoglobin 33, Mean Corpuscular Hemoglobin Concent 34, Red Cell Distribution Width 15.8, Platelet Count 116, Mean Platelet Volume 12.9, Immature Granulocyte % (Auto) 0, Neutrophils (%) (Auto) 69, Lymphocytes (%) (Auto) 15, Monocytes (%) (Auto) 12, Eosinophils (%) (Auto) 3, Basophils (%) (Auto) 0, Neutrophils # (Auto) 9.1, Lymphocytes # (Auto) 2.0, Monocytes # (Auto) 1.5, Eosinophils # (Auto) 0.4, Basophils # (Auto) 0.1, Immature Granulocyte # (Auto) 0.1, Percent Immature Platelet Fraction 17.8, Sodium Level 131, Potassium Level 4.4, Chloride Level 98, Carbon Dioxide Level 23, Anion Gap 10, Blood Urea Nitrogen 20, Creatinine 1.31, Estimat Glomerular Filtration Rate 56, BUN/Creatinine Ratio 15, Glucose Level 101, Calcium Level 8.5, Corrected Calcium 9.6, Total Bilirubin 1.7, Aspartate Amino Transf (AST/SGOT) 92, Alanine Aminotransferase (ALT/SGPT) 41, Alkaline Phosphatase 161, Total Protein 6.5, Albumin 2.6 09/23/22 05:23: White Blood Count 8.6, Red Blood Count 3.08, Hemoglobin 10.1, Hematocrit 30, Mean Corpuscular Volume 96, Mean Corpuscular Hemoglobin 33, Mean Corpuscular Hemoglobin Concent 34, Red Cell Distribution Width 16.1, Platelet Count 105, Mean Platelet Volume 13.0, Immature Granulocyte % (Auto) 1, Neutrophils (%) (Auto) 58, Lymphocytes (%) (Auto) 24, Monocytes (%) (Auto) 12, Eosinophils (%) (Auto) 4, Basophils (%) (Auto) 1, Neutrophils # (Auto) 5.0, Lymphocytes # (Auto) 2.1, Monocytes # (Auto) 1.1, Eosinophils # (Auto) 0.3, Basophils # (Auto) 0.1, Immature Granulocyte # (Auto) 0.0, Percent Immature Platelet Fraction 13.8, Sodium Level 127, Potassium Level 5.1, Chloride Level 97, Carbon Dioxide Level 22, Anion Gap 8, Blood Urea Nitrogen 24, Creatinine 1.37, Estimat Glomerular Filtration Rate 53, BUN/Creatinine Ratio 18, Glucose Level 101, Calcium Level 8.4, Corrected Calcium 9.7, Total Bilirubin 1.4, Aspartate Amino Transf (AST/SGOT) 98, Alanine Aminotransferase (ALT/SGPT) 42, Alkaline Phosphatase 176, Total Protein 6.3, Albumin 2.4, Prothrombin Time 35.0, INR Comment 3.6 09/26/22 04:46: White Blood Count 11.0, Red Blood Count 2.93, Hemoglobin 9.7, Hematocrit 29, Mean Corpuscular Volume 97, Mean Corpuscular Hemoglobin 33, Mean Corpuscular Hemoglobin Concent 34, Red Cell Distribution Width 16.8, Platelet Count 119, Mean Platelet Volume 12.9, Immature Granulocyte % (Auto) 1, Neutrophils (%) (Auto) 70, Lymphocytes (%) (Auto) 17, Monocytes (%) (Auto) 9, Eosinophils (%) (Auto) 3, Basophils (%) (Auto) 1, Neutrophils # (Auto) 7.6, Lymphocytes # (Auto) 1.9, Monocytes # (Auto) 1.0, Eosinophils # (Auto) 0.4, Basophils # (Auto) 0.1, Immature Granulocyte # (Auto) 0.1, Percent Immature Platelet Fraction 13.8, Sodium Level 127, Potassium Level 5.3, Chloride Level 96, Carbon Dioxide Level 24, Anion Gap 7, Blood Urea Nitrogen 24, Creatinine 1.31, Estimat Glomerular Filtration Rate 56, BUN/Creatinine Ratio 18, Glucose Level 93, Calcium Level 8.9, Corrected Calcium 10.2, Total Bilirubin 1.2, Aspartate Amino Transf (AST/SGOT) 113, Alanine Aminotransferase (ALT/SGPT) 48, Alkaline Phosphatase 181, Total Protein 6.2, Albumin 2.4 Discharge Home Medications: Active Scripts Active Furosemide 20 Mg Tablet 20 Mg PO DAILY Citalopram HBr (Citalopram Hydrobromide) 20 Mg Tablet 20 Mg PO DAILY Diclofenac Sodium 1 % Gel..gram. 0 Gm TOP QID four times daily Spironolactone 25 Mg Tablet 25 Mg PO DAILY Reported Vitamin D2 (Ergocalciferol (Vitamin D2)) 1,250 Mcg (36205 Unit) Capsule 1,250 Mcg PO SAT Amiodarone HCl 200 Mg Tablet 200 Mg PO BID Xarelto (Rivaroxaban) 20 Mg Tablet 20 Mg PO DAILY Magnesium (Magnesium Oxide) 400 Mg Capsule 400 Mg PO BID Aspirin EC (Aspirin) 81 Mg Tablet.dr 81 Mg PO DAILY Allopurinol 100 Mg Tablet 100 Mg PO BID Metoprolol Tartrate 25 Mg Tablet 25 Mg PO BID Losartan Potassium 100 Mg Tablet 100 Mg PO DAILY Amlodipine Besylate 10 Mg Tablet 10 Mg PO DAILY Instructions to patient/family Please see electronic discharge instructions given to patient. Diagnosis/Problems Diagnosis/Problems (1) Liver failure Status: Acute TULIO HILLMAN DO September 26, 2022 05:27
[2022-09-26 05:32] LABS: ALBUMIN 2.4 GM/DL (3.2-4.5); BILIRUBIN,TOTAL 1.2 MG/DL (0.1-1.0); CALCIUM 8.9 MG/DL (8.5-10.1); CREATININE SERUM 1.31 MG/DL (0.60-1.30); POTASSIUM 5.3 MMOL/L (3.6-5.0); TOTAL PROTEIN 6.2 GM/DL (6.4-8.2)
--- NOTE | 2022-09-26 06:10 | Discharge Summary ---
Diagnosis/Chief Complaint Date of Admission September 15, 2022 at 14:05 Date of Discharge Discharge Date: September 26, 2022 Discharge Diagnosis Assessment: Debility following ESLD decompensation Ascites AF Previous OAC for CVA prophylaxis holding for now HTN HLP Depression Plan: Monitor labs Monitor AF Decision on anticoagulation pending PT OT 09/16/2022: DC catheter tomorrow Monitor closely 09/17/2022: Monitor for retention 09/18/2022: No major issues 09/19/2022: Monitor closely 09/20/2022: Continue aggressive therapy 09/21/2022: Start Aldactone and Lasix for ESLD 09/22/2022: Check labs in am 09/23/2022: Start Celexa 09/24/2022: Monitor closely 09/25/2022: Anti-coagulation not indicated for ESLD patient too high risk for bleeding (1) Liver failure Status: Acute Discharge Summary Discharge Physical Examination Allergies: Coded Allergies: No Known Drug Allergies (Unverified , 11/21/09) Vitals & I&Os Vital Signs Date Time Temp Pulse Resp B/P (MAP) Pulse Ox O2 Delivery O2 Flow Rate FiO2 09/26/22 14:00 36.0 60 20 124/57 96 Room Air General Appearance: Alert, Oriented X3, Cooperative Respiratory: Clear to Auscultation Cardiovascular: Regular Rate Psych/Mental Status: Mental Status NL Hospital Course Was the Problem List Reviewed?: Yes Standard course after he was admitted from 4th floor following decompensated ESLD s/p paracentesis removing 9 liters of fluid. Patient had slow recovery and patient and family no interested in pursuing any aggressive liver disease management since this is due to alcoholism. Cessation of alcohol counseled. Depression was noted so SSRI was started. Labs remained stable. OAC was restarted but coagulopathy from ESLD is present so will need close monitoring. Overall his labs remained stable and usual for ESLD but Aldactone DC at time of DC due to concern for hyperkalemia so he was sent home on Lasix with close f/u with PCP. [facility] with hospice would be a good option. Labs (last 24 hrs) Laboratory Tests 09/16/22 05:11: White Blood Count 7.8, Red Blood Count 3.10L, Hemoglobin 10.4L, Hematocrit 31L, Mean Corpuscular Volume 98, Mean Corpuscular Hemoglobin 34, Mean Corpuscular Hemoglobin Concent 34, Red Cell Distribution Width 16.1H, Platelet Count 92L, Mean Platelet Volume 13.2H, Immature Granulocyte % (Auto) 0, Neutrophils (%) (Auto) 62, Lymphocytes (%) (Auto) 26, Monocytes (%) (Auto) 10, Eosinophils (%) (Auto) 2, Basophils (%) (Auto) 0, Neutrophils # (Auto) 4.8, Lymphocytes # (Auto) 2.0, Monocytes # (Auto) 0.7, Eosinophils # (Auto) 0.1, Basophils # (Auto) 0.0, Immature Granulocyte # (Auto) 0.0, Percent Immature Platelet Fraction 14.7H, Sodium Level 136, Potassium Level 3.9, Chloride Level 104, Carbon Dioxide Level 24, Anion Gap 8, Blood Urea Nitrogen 27H, Creatinine 1.69H, Estimat Glomerular Filtration Rate 41, BUN/Creatinine Ratio 16, Glucose Level 108H, Calcium Level 8.0L, Corrected Calcium 9.1, Total Bilirubin 1.3H, Aspartate Amino Transf (AST/SGOT) 72H, Alanine Aminotransferase (ALT/SGPT) 26, Alkaline Phosphatase 128, Total Protein 6.3L, Albumin 2.6L 09/19/22 06:57: White Blood Count 13.1H, Red Blood Count 3.40L, Hemoglobin 11.2L, Hematocrit 33L , Mean Corpuscular Volume 97, Mean Corpuscular Hemoglobin 33, Mean Corpuscular Hemoglobin Concent 34, Red Cell Distribution Width 15.8H, Platelet Count 116L, Mean Platelet Volume 12.9H, Immature Granulocyte % (Auto) 0, Neutrophils (%) (Auto) 69, Lymphocytes (%) (Auto) 15, Monocytes (%) (Auto) 12, Eosinophils (%) (Auto) 3, Basophils (%) (Auto) 0, Neutrophils # (Auto) 9.1H, Lymphocytes # (Auto) 2.0, Monocytes # (Auto) 1.5H, Eosinophils # (Auto) 0.4H, Basophils # (Auto) 0.1, Immature Granulocyte # (Auto) 0.1, Percent Immature Platelet Fraction 17.8H, Sodium Level 131L, Potassium Level 4.4, Chloride Level 98, Carbon Dioxide Level 23, Anion Gap 10, Blood Urea Nitrogen 20H, Creatinine 1.31H , Estimat Glomerular Filtration Rate 56, BUN/Creatinine Ratio 15, Glucose Level 101, Calcium Level 8.5, Corrected Calcium 9.6, Total Bilirubin 1.7H, Aspartate Amino Transf (AST/SGOT) 92H, Alanine Aminotransferase (ALT/SGPT) 41, Alkaline Phosphatase 161H, Total Protein 6.5, Albumin 2.6L 09/23/22 05:23: White Blood Count 8.6, Red Blood Count 3.08L, Hemoglobin 10.1L, Hematocrit 30L, Mean Corpuscular Volume 96, Mean Corpuscular Hemoglobin 33, Mean Corpuscular Hemoglobin Concent 34, Red Cell Distribution Width 16.1H, Platelet Count 105L, Mean Platelet Volume 13.0H, Immature Granulocyte % (Auto) 1, Neutrophils (%) (Auto) 58, Lymphocytes (%) (Auto) 24, Monocytes (%) (Auto) 12, Eosinophils (%) (Auto) 4, Basophils (%) (Auto) 1, Neutrophils # (Auto) 5.0, Lymphocytes # (Auto) 2.1, Monocytes # (Auto) 1.1H, Eosinophils # (Auto) 0.3, Basophils # (Auto) 0.1, Immature Granulocyte # (Auto) 0.0, Percent Immature Platelet Fraction 13.8H, Sodium Level 127L, Potassium Level 5.1H, Chloride Level 97L, Carbon Dioxide Level 22, Anion Gap 8, Blood Urea Nitrogen 24H, Creatinine 1.37H, Estimat Glomerular Filtration Rate 53, BUN/Creatinine Ratio 18, Glucose Level 101, Calcium Level 8.4L, Corrected Calcium 9.7, Total Bilirubin 1.4H, Aspartate Amino Transf (AST/SGOT) 98H, Alanine Aminotransferase (ALT/SGPT) 42, Alkaline Phosphatase 176H, Total Protein 6.3L, Albumin 2.4L, Prothrombin Time 35.0H, INR Comment 3.6H 09/26/22 04:46: White Blood Count 11.0, Red Blood Count 2.93L, Hemoglobin 9.7L, Hematocrit 29L, Mean Corpuscular Volume 97, Mean Corpuscular Hemoglobin 33, Mean Corpuscular Hemoglobin Concent 34, Red Cell Distribution Width 16.8H, Platelet Count 119L, Mean Platelet Volume 12.9H, Immature Granulocyte % (Auto) 1, Neutrophils (%) (Auto) 70, Lymphocytes (%) (Auto) 17, Monocytes (%) (Auto) 9, Eosinophils (%) (Auto) 3, Basophils (%) (Auto) 1, Neutrophils # (Auto) 7.6, Lymphocytes # (Auto) 1.9, Monocytes # (Auto) 1.0, Eosinophils # (Auto) 0.4H, Basophils # (Auto) 0.1, Immature Granulocyte # (Auto) 0.1, Percent Immature Platelet Fraction 13.8H, Sodium Level 127L, Potassium Level 5.3H, Chloride Level 96L, Carbon Dioxide Level 24, Anion Gap 7, Blood Urea Nitrogen 24H, Creatinine 1.31H, Estimat Glomerular Filtration Rate 56, BUN/Creatinine Ratio 18, Glucose Level 93, Calcium Level 8.9, Corrected Calcium 10.2H, Total Bilirubin 1.2H, Aspartate Amino Transf (AST/SGOT) 113H, Alanine Aminotransferase (ALT/SGPT) 48, Alkaline Phosphatase 181H, Total Protein 6.2L, Albumin 2.4L Pending Labs Laboratory Tests 09/16/22 05:11: White Blood Count 7.8, Red Blood Count 3.10, Hemoglobin 10.4, Hematocrit 31, Mean Corpuscular Volume 98, Mean Corpuscular Hemoglobin 34, Mean Corpuscular Hemoglobin Concent 34, Red Cell Distribution Width 16.1, Platelet Count 92, Mean Platelet Volume 13.2, Immature Granulocyte % (Auto) 0, Neutrophils (%) (Auto) 62, Lymphocytes (%) (Auto) 26, Monocytes (%) (Auto) 10, Eosinophils (%) (Auto) 2, Basophils (%) (Auto) 0, Neutrophils # (Auto) 4.8, Lymphocytes # (Auto) 2.0, Monocytes # (Auto) 0.7, Eosinophils # (Auto) 0.1, Basophils # (Auto) 0.0, Immature Granulocyte # (Auto) 0.0, Percent Immature Platelet Fraction 14.7, Sodium Level 136, Potassium Level 3.9, Chloride Level 104, Carbon Dioxide Level 24, Anion Gap 8, Blood Urea Nitrogen 27, Creatinine 1.69, Estimat Glomerular Filtration Rate 41, BUN/Creatinine Ratio 16, Glucose Level 108, Calcium Level 8.0, Corrected Calcium 9.1, Total Bilirubin 1.3, Aspartate Amino Transf (AST/SGOT) 72, Alanine Aminotransferase (ALT/SGPT) 26, Alkaline Phosphatase 128, Total Protein 6.3, Albumin 2.6 09/19/22 06:57: White Blood Count 13.1, Red Blood Count 3.40, Hemoglobin 11.2, Hematocrit 33, Mean Corpuscular Volume 97, Mean Corpuscular Hemoglobin 33, Mean Corpuscular Hemoglobin Concent 34, Red Cell Distribution Width 15.8, Platelet Count 116, Mean Platelet Volume 12.9, Immature Granulocyte % (Auto) 0, Neutrophils (%) (Auto) 69, Lymphocytes (%) (Auto) 15, Monocytes (%) (Auto) 12, Eosinophils (%) (Auto) 3, Basophils (%) (Auto) 0, Neutrophils # (Auto) 9.1, Lymphocytes # (Auto) 2.0, Monocytes # (Auto) 1.5, Eosinophils # (Auto) 0.4, Basophils # (Auto) 0.1, Immature Granulocyte # (Auto) 0.1, Percent Immature Platelet Fraction 17.8, Sodium Level 131, Potassium Level 4.4, Chloride Level 98, Carbon Dioxide Level 23, Anion Gap 10, Blood Urea Nitrogen 20, Creatinine 1.31, Estimat Glomerular Filtration Rate 56, BUN/Creatinine Ratio 15, Glucose Level 101, Calcium Level 8.5, Corrected Calcium 9.6, Total Bilirubin 1.7, Aspartate Amino Transf (AST/SGOT) 92, Alanine Aminotransferase (ALT/SGPT) 41, Alkaline Phosphatase 161, Total Protein 6.5, Albumin 2.6 09/23/22 05:23: White Blood Count 8.6, Red Blood Count 3.08, Hemoglobin 10.1, Hematocrit 30, Mean Corpuscular Volume 96, Mean Corpuscular Hemoglobin 33, Mean Corpuscular Hemoglobin Concent 34, Red Cell Distribution Width 16.1, Platelet Count 105, Mean Platelet Volume 13.0, Immature Granulocyte % (Auto) 1, Neutrophils (%) (Auto) 58, Lymphocytes (%) (Auto) 24, Monocytes (%) (Auto) 12, Eosinophils (%) (Auto) 4, Basophils (%) (Auto) 1, Neutrophils # (Auto) 5.0, Lymphocytes # (Auto) 2.1, Monocytes # (Auto) 1.1, Eosinophils # (Auto) 0.3, Basophils # (Auto) 0.1, Immature Granulocyte # (Auto) 0.0, Percent Immature Platelet Fraction 13.8, Sodium Level 127, Potassium Level 5.1, Chloride Level 97, Carbon Dioxide Level 22, Anion Gap 8, Blood Urea Nitrogen 24, Creatinine 1.37, Estimat Glomerular Filtration Rate 53, BUN/Creatinine Ratio 18, Glucose Level 101, Calcium Level 8.4, Corrected Calcium 9.7, Total Bilirubin 1.4, Aspartate Amino Transf (AST/SGOT) 98, Alanine Aminotransferase (ALT/SGPT) 42, Alkaline Phosphatase 176, Total Protein 6.3, Albumin 2.4, Prothrombin Time 35.0, INR Comment 3.6 09/26/22 04:46: White Blood Count 11.0, Red Blood Count 2.93, Hemoglobin 9.7, Hematocrit 29, Mean Corpuscular Volume 97, Mean Corpuscular Hemoglobin 33, Mean Corpuscular Hemoglobin Concent 34, Red Cell Distribution Width 16.8, Platelet Count 119, Mean Platelet Volume 12.9, Immature Granulocyte % (Auto) 1, Neutrophils (%) (Auto) 70, Lymphocytes (%) (Auto) 17, Monocytes (%) (Auto) 9, Eosinophils (%) (Auto) 3, Basophils (%) (Auto) 1, Neutrophils # (Auto) 7.6, Lymphocytes # (Auto) 1.9, Monocytes # (Auto) 1.0, Eosinophils # (Auto) 0.4, Basophils # (Auto) 0.1, Immature Granulocyte # (Auto) 0.1, Percent Immature Platelet Fraction 13.8, Sodium Level 127, Potassium Level 5.3, Chloride Level 96, Carbon Dioxide Level 24, Anion Gap 7, Blood Urea Nitrogen 24, Creatinine 1.31, Estimat Glomerular Filtration Rate 56, BUN/Creatinine Ratio 18, Glucose Level 93, Calcium Level 8.9, Corrected Calcium 10.2, Total Bilirubin 1.2, Aspartate Amino Transf (AST/SGOT) 113, Alanine Aminotransferase (ALT/SGPT) 48, Alkaline Phosphatase 1 81, Total Protein 6.2, Albumin 2.4 Discharge Home Medications: Active Scripts Active Furosemide 20 Mg Tablet 20 Mg PO DAILY Citalopram HBr (Citalopram Hydrobromide) 20 Mg Tablet 20 Mg PO DAILY Diclofenac Sodium 1 % Gel..gram. 0 Gm TOP QID four times daily Reported Vitamin D2 (Ergocalciferol (Vitamin D2)) 1,250 Mcg (98034 Unit) Capsule 1,250 Mcg PO SAT Amiodarone HCl 200 Mg Tablet 200 Mg PO BID Xarelto (Rivaroxaban) 20 Mg Tablet 20 Mg PO DAILY Magnesium (Magnesium Oxide) 400 Mg Capsule 400 Mg PO BID Aspirin EC (Aspirin) 81 Mg Tablet.dr 81 Mg PO DAILY Allopurinol 100 Mg Tablet 100 Mg PO BID Metoprolol Tartrate 25 Mg Tablet 25 Mg PO BID Instructions to patient/family Please see electronic discharge instructions given to patient. Diagnosis/Problems Diagnosis/Problems (1) Liver failure Status: Acute TULIO HILLMAN DO September 26, 2022 06:10
[2022-09-26] MEDS ORDERED: SODIUM POLYSTYRENE POWDER 15 GM BOTTLE PO ONE (06:45)
[2022-09-26 08:38] VITALS: BP 124/57
[2022-09-26] MEDS: SENNA W/DOCUSATE (SENOKOT S) TABLET PO SCH (08:43)
[2022-09-26] MEDS: MAGNESIUM OXIDE (MAG-OX)400 MG TAB PO SCH (08:43)
[2022-09-26] MEDS: FUROSEMIDE 20 MG (LASIX) TAB PO SCH (08:43)
[2022-09-26] MEDS: RIVAROXABAN 20 MG TABLET (XARELTO) PO SCH (08:43)
[2022-09-26] MEDS: meTOprolol TARTRATE 25 MG (LOPRESSOR) TABLET PO SCH (08:43)
[2022-09-26] MEDS: AMIODARONE 200 MG (CORDARONE) TAB PO SCH (08:43)
[2022-09-26] MEDS: DOCUSATE SODIUM 100 MG (COLACE) CAP PO SCH (08:44)
[2022-09-26] MEDS: polyethylene glycoL POWDER 17 GM (MIRALAX) PACK PO SCH (09:35)
[2022-09-26] MEDS: ALLOPURINOL 100 MG (ZYLOPRIM) TAB PO SCH (10:12)
[2022-09-26] MEDS: BACITRACIN OINTMENT 28 GM TUBE TOP SCH (10:13)
[2022-09-26] MEDS: DICLOFENAC 1% GEL 100 GM (VOLTAREN) TUBE TOP SCH (10:13)
--- NOTE | 2022-09-26 11:47 | Physical Therapy Daily Note ---
PT Daily Note-Current Subjective Pt laying in bed upon arrival and willing for therapy. pt did not want to preform activities this day but was only willing to do so after edu of said activities where needed to be done to be released this day. Pain Section J - Health Conditions 1. Rarely or not at all 2. Occasionally 3. Frequently 4. Almost constantly 8. Unable to answer Pain Effect on Sleep: 1 Pain Interference with Therapy: 1 Pain Interference w/Day-to-Day: 1 Mental Status Patient Orientation: Person, Place, Situation Transfers SCALE: Activities may be completed with or without assistive devices. 9-Yxglnlmdmt-ndcbqvt completes the activity by him/herself with no assistance from a helper. 5-Set-up or Clean-up Assistance-helper sets up or cleans up; patient completes activity. Ono assists only prior to or following the activity. 4-Supervision or Touching Assistance-helper provides verbal cues and/or touching/steadying and/or contact guard assistance as patient completes activity. Assistance may be provided throughout the activity or intermittently. 3-Partial/Moderate Assistance-helper does LESS THAN HALF the effort. Ono lifts, holds or supports trunk or limbs, but provides less than half the effort. 2-Substantial/Maximal Assistance-helper does MORE THAN HALF the effort. Ono lifts or holds trunk or limbs and provides more than half the effort. 8-Hoyciwmvs-xdvwom does ALL the effort. Patient does none of the effort to complete the activity. Or, the assistance of 2 or more helpers is required for the patient to complete the activity. If activity was not attempted, code reason: 7-Patient Refused. 9-Not Applicable-not attempted and the patient did not perform the activity before the current illness, exacerbation or injury. 10-Not Attempted due to Environmental Limitations-(lack of equipment, weather restraints, etc.). 88-Not Attempted due to Medical Conditions or Safety Concerns. Roll Left & Right (QC): 5 Sit to Lying (QC): 5 Lying to Sitting/Side of Bed(Q: 5 Sit to Stand (QC): 4 Chair/Asc-aw-Gukxh Xfer(QC): 4 Toilet Transfer (QC): 4 Car Transfer (QC): 4 Weight Bearing Full Weight Bearing Full Weight Bearing Gait Training Walk 10 feet (QC): 4 Walk 50 ft with 2 Turns(QC): 4 Walk 150 ft (QC): 4 Walking 10ft/uneven surface-QC: 4 Wheelchair Training Wheel 50 ft with 2 turns (QC): 4 Wheel 150 ft (QC): 4 Stair Training 1 Step (curb) (QC): 4 4 Steps (QC): 4 12 Steps (QC): 07 Treatments pt was able to preform bed mobility, car transfers and walking on uneven surfaces with CGA and multiple VC for safety and sequencing for Ad and safety to prevent falls and energy conservation. pt refused to preform 12 stiars as he was fatigued from 4 stairs. pt did require several rest breaks after each activity secondary to fatigue. after rest pt was able to resume activity. pt was left in bed with call light and all needs met this day. Assessment Current Status: Fair Progress PT Nursing Home Goals Nursing Home Goals PT Nursing Home Goals Time Frame: September 29, 2022 Roll Left & Right (QC): 6 Sit to Lying (QC): 6 (with leg surveying crew stake runner if needed) Lying-Sitting on Side/Bed(QC): 6 Sit to Stand (QC): 6 (to FWW) Chair/Fko-jq-Knktt Xfer(QC): 6 (with FWW) Toilet Transfer (QC): 6 (with FWW) Car Transfer (QC): 5 (with FWW) Does the Patient Walk: Yes Walk 10 feet (QC): 6 (with FWW) Walk 50ft with 2 Turns (QC): 6 (with FWW) Walk 150 ft (QC): 6 (with FWW) Walking 10ft on Uneven Surface: 6 (with FWW) 1 Step (curb) (QC): 6 (with FWW) 4 Steps (QC): 6 (with rails) 12 Steps (QC): 6 (with (B) Rails) Picking up an Object (QC): 6 (with AD) Does the Pt use WC or Scooter?: No Wheel 50 feet with 2 turns (QC: 9 Type: N/A Wheel 150 feet: 9 Type: N/A PT Plan Treatment/Plan Treatment Plan: Continue Plan of Care Treatment Plan: Bed Mobility, Education, Functional Activity Yordy, Functional Strength, Group Therapy, Gait, Safety, Therapeutic Exercise, Transfers, Other (Co-treatment prn to address multiple issues which require 2 skilled therapists to treat safely.) Treatment Duration: September 29, 2022 Frequency: At least 5 of 7 days/Wk (IRF) Estimated Hrs Per Day: 1.5 hours per day Patient and/or Family Agrees t: Yes Time Time In: 0830 Time Out: 0900 DATE: September 26, 2022 Total Billed Treatment Time: 30 Total Billed Treatment 1 FA GT Nettie Corrales RADIATION CONTROL SPECIALIST September 26, 2022 11:47
--- NOTE | 2022-09-26 12:35 | Occupational Ther Daily Note ---
OT Current Status-Daily Note Subjective Pt alert, lying in bed. Pt agrees to therapy. No c/o pain. Mental Status/Objective Patient Orientation: Person, Place, Time, Situation ADL-Treatment Pt agrees to sponge bath. Pt able to complete sponge bath sitting on EOB, washing all areas in sitting using LH sponge for feet then assist to thoroughly cleanse buttocks in standing, min A. Set up for UBD. SBA for LBD. Min A dof fing with private equity associate due to dressings on heels, set up to place socks on sock aide then pt used to don socks by self. Pt demonstrates ability to complete oral care by self in sitting. Independent with oral care. Pt demonstrates min A posterior hygiene for thoroughness. After therapy, pt lying in bed with call light/phone in reach. All needs met in room. Therapy Code Descriptions/Definitions Functional Moffat Measure: 0=Not Assessed/NA 4=Minimal Assistance 1=Total Assistance 5=Supervision or Setup 2=Maximal Assistance 6=Modified Moffat 3=Moderate Assistance 7=Complete IndependenceSCALE: Activities may be completed with or without assistive devices. 5-Wdmpnflorm-wywjhme completes the activity by him/herself with no assistance from a helper. 5-Set-up or Clean-up Assistance-helper sets up or cleans up; patient completes activity. Morrow assists only prior to or following the activity. 4-Supervision or Touching Assistance-helper provides verbal cues and/or touching/steadying and/or contact guard assistance as patient completes activity. Assistance may be provided throughout the activity or intermittently. 3-Partial/Moderate Assistance-helper does LESS THAN HALF the effort. Morrow lifts, holds or supports trunk or limbs, but provides less than half the effort. 2-Substantial/Maximal Assistance-helper does MORE THAN HALF the effort. Morrow lifts or holds trunk or limbs and provides more than half the effort. 7-Gnwtgisgz-gcbesb does ALL the effort. Patient does none of the effort to complete the activity. Or, the assistance of 2 or more helpers is required for the patient to complete the activity. If activity was not attempted, code reason: 7-Patient Refused. 9-Not Applicable-not attempted and the patient did not perform the activity before the current illness, exacerbation or injury. 10-Not Attempted due to Environmental Limitations-(lack of equipment, weather restraints, etc.). 88-Not Attempted due to Medical Conditions or Safety Concerns. Eating (QC): 6 Oral Hygiene (QC): 6 Shower/Bathe Self (QC): 3 Upper Body Dressing (QC): 5 Lower Body Dressing (QC): 4 On/Off Footwear: 3 Toileting Hygiene (QC): 3 Toilet Transfer (QC): 4 BIMS CAM BIMS Expression of Ideas and Wants: Without Difficulty Understanding Verbal Content: Understands Brief Interview/Mental Status: Yes IRF KAILA BIMS: IRF KAILA BIMS Response (Comments) Value Repitition of Three Words Three 3 Recalls Socks Yes, No Cue Required 2 Recalls Blue Yes, After Cueing (Color) 1 Recalls Bed No, Could Not Recall 0 Year Correct 3 Month Accurate Within 5 Days 2 Day Correct 1 Total 12 Patient Normally Able to Recal: Current Session, Location of own room, That he/she in a hsp Should Staff Asses. Mental St.: No CAM Mental Status Change/Baseline: 0 Inattention: 0 Disorganized thinkin Altered level of consciousness: 0 OT Short Term Goals Short Term Goals Time Frame: September 28, 2022 Shower/bathe self: 5 Lower body dressin Putting on/taking off footwear: 5 OT Prison Goals Prison Goals Time Frame: October 07, 2022 Acute change in mental status: 0 Inattention: 0 Disorganized thinkin Altered level of consciousness: 0 Eating (QC): 6 Oral Hygiene (QC): 6 Toileting Hygiene (QC): 6 Shower/Bathe Self (QC): 6 Upper Body Dressing (QC): 6 Lower Body Dressing (QC): 6 On/Off Footwear (QC): 6 Additional Goals: 1-Demonstrate ADL Tasks, 2-Verbalize Understanding, 3- ImproveStrength/Yordy 1=Demonstrate adherence to instructed precautions during ADL tasks. 2=Patient will verbalize/demonstrate understanding of assistive devices/modifications for ADL. 3=Patient will improve strength/tolerance for activity to enable patient to perform ADL's. OT Education/Plan Problem List/Assessment Assessment: Decreased Activ Tolerance, Decreased UE Strength, Impaired I ADL's Discharge Recommendations Plan/Recommendations: Discharge/Goals Met (Home with family) Therapy Discharge Recommendati: Home & Family Treatment Plan/Plan of Care Patient would benefit from OT for education, treatment and training to promote independence in ADL's, mobility, safety and/or upper extremity function for ADL's. Plan of Care: ADL Retraining, Functional Mobility, Group Exercise/Act as Ind, UE Funct Exercise/Act Treatment Duration: October 07, 2022 Frequency: At least 5 of 7 days/Wk (IRF) Estimated Hrs Per Day: 1.5 hours per day Agreement: Yes Rehab Potential: Good Time Start Time: 10:00 Stop Time: 10:30 DATE: September 26, 2022 Total Time Billed (hr/min): 30 Billed Treatment Time 1 visit-ADL 2 (30 min) YOLANDA BURNS September 26, 2022 12:35
--- NOTE | 2022-09-26 13:09 | Therapy Team Discharge Summary ---
Therapy Discharge Summary Discharge Recommendations Date of Discharge Physical Therapy Roll Left to Right (QC): 5 Sit to Lying (QC): 5 Lying to Sitting/Side of Bed(Q: 5 Sit to Stand (QC): 4 Chair/Ftk-cz-Jnnri Xfer(QC): 4 Toilet Transfer (QC): 4 Car Transfer (QC): 4 Does the Patient Walk: Yes Mode of Locomotion: Walk Anticipated Mode of Locomotion: Walk Walk 10 feet (QC): 4 Walk 50 ft with 2 Turns(QC): 4 Walk 150 ft (QC): 4 Walking 10ft on uneven surface: 4 Distance: 150' Gait Assistive Device: FWW Does the Pt Use a Wheelchair: No Wheel 50 ft with 2 turns (QC): 4 Wheel 150 ft (QC): 4 1 Step (curb) (QC): 4 4 Steps (QC): 4 12 Steps (QC): 07 Walking Assistive Device: Walker Balance Sitting Static: Good Balance Sitting Dynamic: Fair Balance-Standing Static: Fair Picking up an Object (QC): 6 (with walker and glass melt operator) Occupational Therapy Pt admitted to ARU with debility with ascites. At [facility], pt was independent with ADLS and functional mobility, no AD. Upon initial evaluation, pt was independent with eating, required set up with oral care and UE dressing, min A showering and LE dressing, max A footwear and CGA toileting. OT tx focused on increasing BUE strength and activity tolerance, family education/training, and increasing safety and independence with ADLs and functional mobility. Pt made some functional progress towards goals, attaining LTGs for eating and oral care. Pt discharging home with family support, d/c from OT. Decreased Activ Tolerance, Decreased UE Strength, Impaired I ADL's Eating (QC): 6 Oral Hygiene (QC): 6 Shower/Bathe Self (QC): 3 Upper Body Dressing (QC): 5 Lower Body Dressing (QC): 4 On/Off Footwear (QC): 3 Toileting Hygiene (QC): 3 PT Object Oriented Developer Goals [facility] Goals PT Object Oriented Developer Goals Time Frame: September 29, 2022 Roll Left to Right (QC): 6 Sit to Lying (QC): 6 (with leg outplacement consultant if needed) Lying-Sitting on Side/Bed(QC): 6 Sit to Stand (QC): 6 (to FWW) Chair/Ktl-kr-Jffea Xfer(QC): 6 (with FWW) Toilet/Commode Transfer (QC): 6 (with FWW) Car Transfer (QC): 5 (with FWW) Does the Patient Walk: Yes Walk 10 feet (QC): 6 (with FWW) Walk 10ft-Uneven Surface(QC): 6 (with FWW) Walk 50ft with 2 Turns (QC): 6 (with FWW) Walk 150 ft (QC): 6 (with FWW) Does the Pt use WC or Scooter?: No Wheel 50 feet with 2 turns (QC: 9 Type: N/A Wheel 150 feet: 9 Type: N/A 1 Step (curb) (QC): 6 (with FWW) 4 Steps (QC): 6 (with rails) 12 Steps (QC): 6 (with (B) Rails) Picking up an Object (QC): 6 (with AD) OT Object Oriented Developer Goals Object Oriented Developer Goals Time Frame: October 07, 2022 Acute change in mental status: 0 Inattention: 0 Disorganized thinkin Altered level of consciousness: 0 Eating (QC): 6 (met) Oral Hygiene (QC): 6 (met) Toileting Hygiene (QC): 6 (not met) Shower/Bathe Self (QC): 6 (not met) Upper Body Dressing (QC): 6 (not met) Lower Body Dressing (QC): 6 (not met) On/Off Footwear (QC): 6 (not met) Additional Goals: 1-Demonstrate ADL Tasks, 2-Verbalize Understanding, 3- ImproveStrength/Yordy 1=Demonstrate adherence to instructed precautions during ADL tasks. 2=Patient will verbalize/demonstrate understanding of assistive devices/modifications for ADL. 3=Patient will improve strength/tolerance for activity to enable patient to perform ADL's. ODILIA SANCHEZ OT September 26, 2022 13:09
[2022-09-26 14:00] VITALS: BP 124/57
--- NOTE | 2022-09-26 15:48 | Therapy Team Discharge Summary ---
Therapy Discharge Summary Discharge Recommendations Date of Discharge 09/26/2022 Physical Therapy Pt was admitted to ARU on 09/15/2022 for liver cirrhosis. Pt progressed well with PT and is CGA for bed mobility, functional transfers, ambulation, w/c mobility, and steps. Pt scored 12/20 on the elderly mobility scale on 09/26/2022. Barriers to progress and meeting set goals include decreased strength and endurance. Roll Left to Right (QC): 5 Sit to Lying (QC): 5 Lying to Sitting/Side of Bed(Q: 5 Sit to Stand (QC): 4 Chair/Swg-pv-Juvzt Xfer(QC): 4 Toilet Transfer (QC): 4 Car Transfer (QC): 4 Does the Patient Walk: Yes Mode of Locomotion: Walk Anticipated Mode of Locomotion: Walk Walk 10 feet (QC): 4 Walk 50 ft with 2 Turns(QC): 4 Walk 150 ft (QC): 4 Walking 10ft on uneven surface: 4 Distance: 150' Gait Assistive Device: FWW Does the Pt Use a Wheelchair: No Wheel 50 ft with 2 turns (QC): 4 Wheel 150 ft (QC): 4 1 Step (curb) (QC): 4 4 Steps (QC): 4 12 Steps (QC): 07 Walking Assistive Device: Walker Balance Sitting Static: Good Balance Sitting Dynamic: Fair Balance-Standing Static: Fair Picking up an Object (QC): 6 (with walker and school bus driver/mechanic) Occupational Therapy Decreased Activ Tolerance, Decreased UE Strength, Impaired I ADL's Eating (QC): 6 Oral Hygiene (QC): 6 Shower/Bathe Self (QC): 3 Upper Body Dressing (QC): 5 Lower Body Dressing (QC): 4 On/Off Footwear (QC): 3 Toileting Hygiene (QC): 3 PT Butter Liquefier Goals Usp Goals PT Usp Goals Time Frame: September 29, 2022 Roll Left to Right (QC): 6 Sit to Lying (QC): 6 (with leg travelift operator if needed) Lying-Sitting on Side/Bed(QC): 6 Sit to Stand (QC): 6 (to FWW) Chair/Adb-cc-Enxbh Xfer(QC): 6 (with FWW) Toilet/Commode Transfer (QC): 6 (with FWW) Car Transfer (QC): 5 (with FWW) Does the Patient Walk: Yes Walk 10 feet (QC): 6 (with FWW) Walk 10ft-Uneven Surface(QC): 6 (with FWW) Walk 50ft with 2 Turns (QC): 6 (with FWW) Walk 150 ft (QC): 6 (with FWW) Does the Pt use WC or Scooter?: No Wheel 50 feet with 2 turns (QC: 9 Type: N/A Wheel 150 feet: 9 Type: N/A 1 Step (curb) (QC): 6 (with FWW) 4 Steps (QC): 6 (with rails) 12 Steps (QC): 6 (with (B) Rails) Picking up an Object (QC): 6 (with AD) OT Usp Goals Usp Goals Time Frame: October 07, 2022 Acute change in mental status: 0 Inattention: 0 Disorganized thinkin Altered level of consciousness: 0 Eating (QC): 6 (met) Oral Hygiene (QC): 6 (met) Toileting Hygiene (QC): 6 (not met) Shower/Bathe Self (QC): 6 (not met) Upper Body Dressing (QC): 6 (not met) Lower Body Dressing (QC): 6 (not met) On/Off Footwear (QC): 6 (not met) Additional Goals: 1-Demonstrate ADL Tasks, 2-Verbalize Understanding, 3- ImproveStrength/Yordy 1=Demonstrate adherence to instructed precautions during ADL tasks. 2=Patient will verbalize/demonstrate understanding of assistive devices/modifications for ADL. 3=Patient will improve strength/tolerance for activity to enable patient to perform ADL's. YESSI PADILLA PT September 26, 2022 15:47
--- NOTE | 2022-09-27 14:13 | D/C HH Face to Face Order ---
D/C Face to Face Orders Reconcile Patient Problems Problems Reviewed?: Yes Instructions for Patient [facility], Patient Instructions/FollowUp: PCP 1 week Physician to follow Patient: Alina Discharge Diet for Home: No Restrictions Patient Problems: ESLD Patient Data-Allergies,Ht & Wt Patient Allergies: Coded Allergies: No Known Drug Allergies (Unverified , 11/21/09) Height (Feet): 5 Height (Inches): 10.00 Weight (Pounds): 284 Weight (Ounces): 0.0 Home Health Need/Face to Face Date of Face to Face: September 27, 2022 Clinical Findings: Generalized weakness and fatigue, Muscle weakness I have seen Pt dydy-yh-wzif: Yes Discharged To: Home Diagnosis/Conditions: ESLD Patient is Homebound due to: Muscle weakness Homebound Status Due to the above stated illness, injury or surgical procedure (medical condition or diagnosis) and associated clinical findings, the patient is homebound because of his/her inability to leave home except with aid of a supportive device and/or person AND leaving the home requires a considerable and taxing effort or is medically contraindicated. Pt req the following assistanc: [facility] Nursing Orders Home Health Services Order: Nursing Services, Client Support Representative-Evaluate & Treat, Physical Therapy-Evaluate & Treat Certify Stmt I certify that this patient is under my care and that I, a nurse practitioner or a physician; a client account assistant working with me, had a face to face encounter that - meets the physician face to face encounter requirements with this patient as dated. TULIO HILLMAN DO September 27, 2022 14:13
== END 2022-09-26 14:00 | disposition home health service (06) | DRG 948 ==
PROVIDERS: ADMIT Internal Medicine; ATTEND Internal Medicine
PROC: 0HBRXZZ Excision of Toe Nail, External Approach (ICD-10-PCS; principal; 2022-09-20)
PROC: 0HBRXZZ Excision of Toe Nail, External Approach (ICD-10-PCS; 2022-09-20)
PROC: 0HBRXZZ Excision of Toe Nail, External Approach (ICD-10-PCS; 2022-09-20)
PROC: 0HBRXZZ Excision of Toe Nail, External Approach (ICD-10-PCS; 2022-09-20)
PROC: 0HBRXZZ Excision of Toe Nail, External Approach (ICD-10-PCS; 2022-09-20)
PROC: 0HBRXZZ Excision of Toe Nail, External Approach (ICD-10-PCS; 2022-09-20)
PROC: 0HBRXZZ Excision of Toe Nail, External Approach (ICD-10-PCS; 2022-09-20)
PROC: 0HBNXZZ Excision of Left Foot Skin, External Approach (ICD-10-PCS; 2022-09-20)
PROC: 0HBMXZZ Excision of Right Foot Skin, External Approach (ICD-10-PCS; 2022-09-20)
DX: R53.81 Other malaise (principal); R18.8 Other ascites; K72.10 Chronic hepatic failure without coma; Z66 Do not resuscitate; M10.9 Gout, unspecified; F32.A Depression, unspecified; I48.91 Unspecified atrial fibrillation; I10 Essential (primary) hypertension; E78.5 Hyperlipidemia, unspecified; G60.9 Hereditary and idiopathic neuropathy, unspecified; B35.1 Tinea unguium; L57.0 Actinic keratosis; I70.208 Unspecified atherosclerosis of native arteries of extremities, other extremity; F43.21 Adjustment disorder with depressed mood; Z87.891 Personal history of nicotine dependence; Z79.899 Other long term (current) drug therapy; Z79.82 Long term (current) use of aspirin
CPT/HCPCS: 36415; 80053; 85025; 85610

== ENCOUNTER 2022-10-06 12:08 | Inpatient (IN) | payer MEDICARE, OTHER ==
[~2022-10-06] VITALS: Ht 175 cm; Wt 117.2 kg
[~2022-10-06 12:08] MED LIST changes: +CITA20TA9 PO; +DICL100G13 TOP; +FURO20TA4 PO; +SPIR25TA5 PO
--- NOTE | 2022-10-06 13:02 | ED GI ---
General Chief Complaint: Abdominal/GI Problems Stated Complaint: PARACENTISIS Nursing Triage Note: PT PRESENTS TO ED WITH C/O ASCITES, ABDOMINAL DISCOMFORT, AND OLIGURIA X 4 DAYS. PT HAS HX OF LIVER FAILURE AND HAD 8L REMOVED VIA PARACENTESIS A MONTH AGO. PT PLACED IN REHAB UPON DISCHARGE ON THE . Source of Information: Patient, Family Exam Limitations: No Limitations History of Present Illness Date Seen by Provider: October 06, 2022 Time Seen by Provider: 12:18 Initial Comments 77-year-old male presents to the ER for concerns of ascites. He states that he noticed abdominal swelling starting about 4 days ago. Patient was admitted for ascites and pneumonia on 09/13/2022. He had almost 9 L removed via paracentesis during last admission. Patient states that last time he felt like he waited too long, so that is why he is here today. He denies any abdominal pain. Reports shortness of air with exertion, but states there has been no change in this since his admission. Denies fevers, chest pain, nausea, vomiting. He does report decreased appetite. Reports diarrhea, but states this is due to being given laxatives for constipation. He reports approximately 8 episodes of diarrhea in the last 10 hours. His liver cirrhosis is due to alcoholism. States he has not drank alcohol since March 2022. Other past medical history includes atrial fibrillation and hypertension. Allergies and Home Medications Allergies Coded Allergies: No Known Drug Allergies (Unverified , 11/21/09) Patient Home Medication List Home Medication List Reviewed: Yes Allopurinol (Allopurinol) 100 Mg Tablet, 100 MG PO BID, (Reported) Entered as Reported by: RAVEN BENJAMIN on 06/14/19 1021 Amiodarone HCl (Amiodarone HCl) 200 Mg Tablet, 200 MG PO BID, (Reported) Entered as Reported by: YOHANA GABRIEL on 09/13/22 1603 Aspirin (Aspirin EC) 81 Mg Tablet.dr, 81 MG PO DAILY, (Reported) Entered as Reported by: RAVEN BENJAMIN on 06/14/19 1021 Citalopram Hydrobromide (Citalopram HBr) 20 Mg Tablet, 20 MG PO DAILY Prescribed by: TULIO HILLMAN on 09/25/22 1628 Diclofenac Sodium (Diclofenac Sodium) 1 % Gel..gram., 0 GM TOP QID Prescribed by: TULIO HILLMAN on 09/25/22 1628 Ergocalciferol (Vitamin D2) (Vitamin D2) 1,250 Mcg (23231 Unit) Capsule, 1,250 MCG PO SAT, (Reported) Entered as Reported by: YOHANA GABRIEL on 09/13/22 1607 Furosemide (Furosemide) 20 Mg Tablet, 20 MG PO DAILY Prescribed by: TULIO HILLMAN on 09/25/22 1628 Magnesium Oxide (Magnesium) 400 Mg Capsule, 400 MG PO BID, (Reported) Entered as Reported by: CHARLENE VILLAGRAN on 12/04/20 0740 Metoprolol Tartrate (Metoprolol Tartrate) 25 Mg Tablet, 25 MG PO BID, (Reported) Entered as Reported by: RAVEN BENJAMIN on 01/21/16 0929 Rivaroxaban (Xarelto) 20 Mg Tablet, 20 MG PO DAILY, (Reported) Entered as Reported by: YOHANA GABRIEL on 09/13/22 1603 Review of Systems Review of Systems Constitutional: see HPI Past Unzuzva-Hhwmua-Pkkxwk Hx Patient Social History Tobacco Use?: No Substance use?: No Alcohol Use?: No Pt feels they are or have been: No Immunizations Up To Date Tetanus Booster (TDap): Unknown First/Initial COVID19 Vaccinat: 2020 Second COVID19 Vaccination Saurabh: 2020 Third COVID19 Vaccination Date: 2020 Seasonal Allergies Seasonal Allergies: No Past Medical History Surgery/Hospitalization HX: APPENDECTOMY,AFIB,ABLATION, CARDIOVERSION ,HTN , GOUT Surgeries: Yes Appendectomy Respiratory: No Currently Using CPAP: No Currently Using BIPAP: No Cardiac: Yes Atrial Fibrillation Neurological: No Reproductive Disorders: No Sexually Transmitted Disease: No Genitourinary: No Gastrointestinal: Yes Polyps, Cirrhosis Musculoskeletal: No Gout Endocrine: No HEENT: No Loss of Vision: Denies Hearing Impairment: Denies Cancer: No Psychosocial: No Depression Integumentary: No Blood Disorders: No Adverse Reaction/Blood Tranf: No Family Medical History Colon cancer No Pertinent Family Hx Physical Exam Vital Signs Vital Signs - First Documented 10/06/22 12:22 Temp 36.0 Pulse 44 Resp 22 B/P (MAP) 90/58 (69) Pulse Ox 95 O2 Delivery Room Air Capillary Refill : Height/Weight/BMI Height: 5'10.00" Weight: 284lbs. 0.0oz. 128.928313ru; 38.00 BMI Method: General Appearance: WD/WN, no apparent distress Neck: supple, normal inspection Respiratory: lungs clear, no respiratory distress, no accessory muscle use, decreased breath sounds (Bilateral lower lobes) Cardiovascular: bradycardia Gastrointestinal: normal bowel sounds, distended Extremities: pedal edema (4+ lower extremity edema) Neurologic/Psychiatric: alert, normal mood/affect Skin: normal color, warm/dry Progress/Results/Core Measures Results/Orders Lab Results Laboratory Tests Test 10/06/22 12:34 Range/Units White Blood Count 15.7 H 4.3-11.0 10^3/uL Red Blood Count 3.43 L 4.30-5.52 10^6/uL Hemoglobin 11.5 L 13.3-17.7 g/dL Hematocrit 34 L 40-54 % Mean Corpuscular Volume 99 80-99 fL Mean Corpuscular Hemoglobin 34 25-34 pg Mean Corpuscular Hemoglobin Concent 34 32-36 g/dL Red Cell Distribution Width 17.6 H 10.0-14.5 % Platelet Count 189 130-400 10^3/uL Mean Platelet Volume 12.6 H 9.0-12.2 fL Immature Granulocyte % (Auto) 0 % Neutrophils (%) (Auto) 61 42-75 % Lymphocytes (%) (Auto) 24 12-44 % Monocytes (%) (Auto) 11 0-12 % Eosinophils (%) (Auto) 3 0-10 % Basophils (%) (Auto) 1 0-10 % Neutrophils # (Auto) 9.6 H 1.8-7.8 10^3/uL Lymphocytes # (Auto) 3.8 1.0-4.0 10^3/uL Monocytes # (Auto) 1.7 H 0.0-1.0 10^3/uL Eosinophils # (Auto) 0.4 H 0.0-0.3 10^3/uL Basophils # (Auto) 0.1 0.0-0.1 10^3/uL Immature Granulocyte # (Auto) 0.1 0.0-0.1 10^3/uL Neutrophils % (Manual) 68 % Lymphocytes % (Manual) 13 % Monocytes % (Manual) 15 % Eosinophils % (Manual) 4 % Platelet Estimate ADEQUATE Anisocytosis SLIGHT Prothrombin Time 38.5 H 12.2-14.7 SEC INR Comment 4.0 H 0.8-1.4 Activated Partial Thromboplast Time 61 H 24-35 SEC Sodium Level 131 L 135-145 MMOL/L Potassium Level 5.2 H 3.6-5.0 MMOL/L Chloride Level 96 L 98-107 MMOL/L Carbon Dioxide Level 26 21-32 MMOL/L Anion Gap 9 5-14 MMOL/L Blood Urea Nitrogen 49 H 7-18 MG/DL Creatinine 4.78 H 0.60-1.30 MG/DL Estimat Glomerular Filtration Rate 12 BUN/Creatinine Ratio 10 Glucose Level 100 70-105 MG/DL Calcium Level 8.5 8.5-10.1 MG/DL Corrected Calcium 9.7 8.5-10.1 MG/DL Total Bilirubin 1.7 H 0.1-1.0 MG/DL Aspartate Amino Transf (AST/SGOT) 99 H 5-34 U/L Alanine Aminotransferase (ALT/SGPT) 55 0-55 U/L Alkaline Phosphatase 141 H 40-136 U/L Total Protein 6.5 6.4-8.2 GM/DL Albumin 2.5 L 3.2-4.5 GM/DL My Orders Orders - IVAN BECKETT APRN Ekg Tracing (10/06/22 12:40) Cbc With Automated Diff (10/06/22 12:56) Comprehensive Metabolic Panel (10/06/22 12:56) Protime With Inr (10/06/22 13:10) Partial Thromboplastin Time (10/06/22 13:10) Manual Differential (10/06/22 12:34) Ed Iv/Invasive Line Start (10/06/22 13:21) Ns Iv 1000 Ml (Sodium Chloride 0.9%) (10/06/22 13:30) Ed Admission (Communication) (10/06/22 13:41) Vital Signs/I&O 10/06/22 12:22 Temp 36.0 Pulse 44 Resp 22 B/P (MAP) 90/58 (69) Pulse Ox 95 O2 Delivery Room Air Blood Pressure Mean: 69 Progress Progress Note : Progress Note Patient seen evaluated, resting comfortably in bed, no acute distress. Based on exam and symptoms, work-up initially including CBC, CMP, coags, EKG. EKG shows sinus bradycardia with first-degree block and prolonged QT interval. No significant Q waves, ST elevation, or T wave inversion. According to patient's discharge summary from previous visit, he was supposed to be taken off of losartan and amlodipine, but paperwork from [facility] list these medications. Its is possible that he has been getting these medications. His blood pressure is low as well as his heart rate. 1335 Labs reviewed. CBC shows elevated WBC 15.7, decreased hemoglobin 11.5, decreased hematocrit 34. Hemoglobin on 09/26/2022 was 9.7 and hematocrit was 29. CMP shows decreased sodium 131, increased potassium 5.2, decreased chloride 96. Creatinine is 4.79, BUN 49, GFR 12. Previous labs on 09/26/2022 show creatinine was 1.31, BUN was 24, GFR was 56. AST elevated 99, this is improved from previous at 113. ALT 55. Albumin low 2.5, similar to previous. Coags show elevated PT 38.5, elevated INR 4.0, elevated APTT 61. 1 L of IV fluids ordered, nurses instructed to run this slowly. I called and spoke with Dr. Santos, hospitalist, regarding patient. He agrees to admit for acute kidney injury. He will consult surgery if needed for paracentesis. All results and plan of care discussed with patient and daughter. Initial ECG Impression Date: October 06, 2022 Initial ECG Impression Time: 12:43 Initial ECG Rate: 43 Initial ECG Rhythm: S.Jesus Initial ECG Intervals NH interval prolonged - 235, QTc interval prolonged - 518 Initial ECG Impression: 1st Degree AV Block Initial ECG Comparisson: Changed (Previous EKG from 2012) Departure Impression Primary Impression: TOMY (acute kidney injury) Disposition: ADMITTED INPATIENT Condition: Stable Admissions Decision to Admit Reason: Admit from ER (General) Decision to Admit/Date: October 06, 2022 Time/Decision to Admit Time: 13:35 Departure-Patient Inst. Referrals: ELIU BETTS MD (PCP/Family) Primary Care Physician IVAN BECKETT APRN October 06, 2022 13:02
[2022-10-06 13:04] LABS: ALBUMIN 2.5 GM/DL (3.2-4.5); POTASSIUM 5.2 MMOL/L (3.6-5.0)
[2022-10-06 13:05] LABS: CALCIUM 8.5 MG/DL (8.5-10.1)
[2022-10-06 13:06] LABS: TOTAL PROTEIN 6.5 GM/DL (6.4-8.2)
[2022-10-06 13:08] LABS: BILIRUBIN,TOTAL 1.7 MG/DL (0.1-1.0)
[2022-10-06 13:09] LABS: BASOPHILS # (AUTO) 0.1 10^3/uL (0.0-0.1); BASOPHILS % (AUTO) 1 % (0-10); EOSINOPHILS # (AUTO) 0.4 10^3/uL (0.0-0.3); EOSINOPHILS % (AUTO) 3 % (0-10); HEMATOCRIT 34 % (40-54); HEMOGLOBIN 11.5 g/dL (13.3-17.7); LYMPHOCYTES # (AUTO) 3.8 10^3/uL (1.0-4.0); LYMPHOCYTES % (AUTO) 24 % (12-44); MEAN CORPUSCULAR HEMOGLOBIN 34 pg (25-34); MEAN CORPUSCULAR HGB CONC 34 g/dL (32-36); MEAN CORPUSCULAR VOLUME 99 fL (80-99); MEAN PLATELET VOLUME 12.6 fL (9.0-12.2); MONOCYTES # (AUTO) 1.7 10^3/uL (0.0-1.0); MONOCYTES % (AUTO) 11 % (0-12); NEUTROPHILS # (AUTO) 9.6 10^3/uL (1.8-7.8); NEUTROPHILS % (AUTO) 61 % (42-75); PLATELET COUNT 189 10^3/uL (130-400); WHITE BLOOD COUNT 15.7 10^3/uL (4.3-11.0)
[2022-10-06 13:10] LABS: CREATININE SERUM 4.78 MG/DL (0.60-1.30)
[2022-10-06 13:23] LABS: NEUTROPHILS % (MANUAL) 68 %
[2022-10-06 13:24] LABS: ANISOCYTOSIS SLIGHT; EOSINOPHILS % (MANUAL) 4 %; LYMPHOCYTES % (MANUAL) 13 %; MONOCYTES % (MANUAL) 15 %; PLATELET ESTIMATE ADEQUATE
[2022-10-06 13:29] LABS: PROTHROMBIN TIME PATIENT 38.5 SEC (12.2-14.7)
[2022-10-06] MEDS ORDERED: NS IV 1000 ML 1,000 ML IV SCH (13:30)
[2022-10-06] MEDS ORDERED: LACTULOSE SYRUP 10GM/15ML (ENULOSE) 30ML UDC PO PRN (15:30)
[2022-10-06] MEDS ORDERED: MILK OF MAGNESIA 400 MG/5 ML 30 ML UDC PO PRN (15:30)
[2022-10-06] MEDS ORDERED: CALCIUM CARBONATE 500 MG (TUMS) TAB.CHEW PO PRN (15:30)
[2022-10-06] MEDS ORDERED: ONDANSETRON 4 MG (ZOFRAN) ORAL DISSOLVE TAB PO PRN (15:30)
[2022-10-06] MEDS ORDERED: ANTACID SUSP 30 ML UDC (MYLANTA) PO PRN (15:30)
[2022-10-06] MEDS ORDERED: MELATONIN 3 MG TABLET PO PRN (15:30)
[2022-10-06] MEDS ORDERED: BISACODYL 10 MG SUPP (DULCOLAX) PR PRN (15:30)
[2022-10-06] MEDS ORDERED: polyethylene glycoL POWDER 17 GM (MIRALAX) PACK PO PRN (15:30)
[2022-10-06] MEDS ORDERED: ONDANSETRON 4 MG/2 ML (SDV) Z0FRAN IV PRN (15:30)
[2022-10-06 15:36] VITALS: BP 105/52
[2022-10-06] MEDS ORDERED: NS IV 500 ML 500 ML IV PRN (15:45)
[2022-10-06] MEDS: ALBUMIN 25% 25 GM/100 ML 100 ML IV SCH ×2 (16:33→20:58)
[2022-10-06] MEDS: cefTRIAXone IV/IM 1,000 MG in NS (IVPB) 50 ML IV SCH (16:33)
[2022-10-06] MEDS: ALLOPURINOL 100 MG (ZYLOPRIM) TAB PO SCH (16:48)
[2022-10-06] MEDS: DOCUSATE SODIUM 100 MG (COLACE) CAP PO SCH (20:28)
[2022-10-06] MEDS: SENNOSIDES 8.6 MG (SENOKOT) TAB PO SCH (20:28)
[2022-10-06 21:01] VITALS: BP 102/52
[2022-10-06] MEDS: AMIODARONE 200 MG (CORDARONE) TAB PO SCH (21:20)
[2022-10-06] MEDS: meTOprolol TARTRATE 25 MG (LOPRESSOR) TABLET PO SCH (21:20)
[2022-10-06] MEDS ORDERED: ALBUMIN 25% 25 GM/100 ML 100 ML IV SCH (22:00)
[2022-10-07 04:30] VITALS: BP 94/46
[2022-10-07 05:51] LABS: POTASSIUM 5.1 MMOL/L (3.6-5.0)
[2022-10-07 05:52] LABS: CALCIUM 8.4 MG/DL (8.5-10.1)
[2022-10-07 05:55] LABS: BASOPHILS # (AUTO) 0.1 10^3/uL (0.0-0.1); BASOPHILS % (AUTO) 1 % (0-10); EOSINOPHILS # (AUTO) 0.3 10^3/uL (0.0-0.3); EOSINOPHILS % (AUTO) 3 % (0-10); HEMATOCRIT 30 % (40-54); LYMPHOCYTES # (AUTO) 2.2 10^3/uL (1.0-4.0); LYMPHOCYTES % (AUTO) 23 % (12-44); MEAN CORPUSCULAR HEMOGLOBIN 33 pg (25-34); MEAN CORPUSCULAR HGB CONC 33 g/dL (32-36); MEAN CORPUSCULAR VOLUME 100 fL (80-99); MEAN PLATELET VOLUME 12.9 fL (9.0-12.2); MONOCYTES # (AUTO) 1.1 10^3/uL (0.0-1.0); MONOCYTES % (AUTO) 11 % (0-12); NEUTROPHILS # (AUTO) 5.8 10^3/uL (1.8-7.8); NEUTROPHILS % (AUTO) 62 % (42-75); PLATELET COUNT 119 10^3/uL (130-400); WHITE BLOOD COUNT 9.3 10^3/uL (4.3-11.0)
[2022-10-07 05:56] LABS: CREATININE SERUM 5.09 MG/DL (0.60-1.30)
[2022-10-07 05:59] LABS: MAGNESIUM 2.7 MG/DL (1.6-2.4)
[2022-10-07 06:04] LABS: INR 2.7 (0.8-1.4); PROTHROMBIN TIME PATIENT 28.7 SEC (12.2-14.7)
[2022-10-07] MEDS: ALBUMIN 25% 25 GM/100 ML 100 ML IV SCH ×3 (06:09→21:33)
[2022-10-07] MEDS: POTASSIUM CL 10MEQ/50ML IVPB 50 ML IV SCH (07:34)
[2022-10-07] MEDS: MAGNESIUM 1 GM/100 ML IVPB 100 ML IV SCH (07:34)
[2022-10-07] MEDS: POTASSIUM BICARB 20 MEQ (EFFER-K) TABLET PO SCH (07:35)
[2022-10-07] MEDS: KCL 20 MEQ TAB (K-DUR) PO SCH (07:35)
[2022-10-07 07:44] VITALS: BP 85/44
[2022-10-07] MEDS ORDERED: CITA20TA9 PO (08:10)
[2022-10-07] MEDS ORDERED: CHOL-34 PO (08:11)
[2022-10-07] MEDS ORDERED: FURO20TA4 PO (08:11)
[2022-10-07] MEDS ORDERED: KETO15CR2 TP (08:14)
[2022-10-07] MEDS ORDERED: [UNRECOGNIZED DRUG - CODE] TP (08:14)
[2022-10-07] MEDS ORDERED: AMLO-250 PO (08:15)
[2022-10-07] MEDS ORDERED: POLY17PO6 PO (08:15)
[2022-10-07] MEDS ORDERED: LOSA100T57 PO (08:16)
[2022-10-07] MEDS: ALLOPURINOL 100 MG (ZYLOPRIM) TAB PO SCH ×2 (08:53→17:33)
[2022-10-07] MEDS: meTOprolol TARTRATE 25 MG (LOPRESSOR) TABLET PO SCH (08:54)
[2022-10-07] MEDS: AMIODARONE 200 MG (CORDARONE) TAB PO SCH (08:54)
[2022-10-07] MEDS: SENNOSIDES 8.6 MG (SENOKOT) TAB PO SCH ×2 (08:54→21:32)
[2022-10-07] MEDS: DOCUSATE SODIUM 100 MG (COLACE) CAP PO SCH ×2 (08:54→21:32)
[2022-10-07 12:00] VITALS: BP 84/39
--- NOTE | 2022-10-07 12:48 | History & Physical-Hospitalist ---
[facility] 10/07/22 1248: History of Present Illness HPI/Chief Complaint Boby Daniel is a 77-year-old male presents to the ER for concerns of ab dominal swelling for the past 4 days. He was admitted here 09/13 for ascites and had 9L drained via paracentesis. His daughter is here and contributes to history. He moved into [facility] last week for daily therapy to regain strength, previously he was living at home alone. Daughter reports pt was down to having no swelling in his legs and then swelling started about 4 days ago with the abdomen. He has not had any abdominal pain. Has had some SOB on exertion but this is his baseline. He has had somewhat decreased urine output and notes is has been dark over the past few days. He has decreased appetite and has not been eating very well. Notes some diarrhea over the past couple days though attributes it to being given increased stool softener and prune juice. Today he expresses that he would not want to be on dialysis or have a liver transplant. Source: patient, family Date Seen 10/07/22 Time Seen by a Provider: 09:15 Attending Physician Paul Fuller MD PCP Admitting Physician: Johnathon Guzman MD Attending Physician: Johnathon Guzman MD Referring Physician Date of Admission October 06, 2022 at 15:11 Home Medications & Allergies Home Medications Reviewed patient Home Medication Reconciliation performed by pharmacy medication reconciliations serology technician and/or nursing. Patients Allergies have been reviewed. Allergies Allergies Coded Allergies No Known Drug Allergies (Unverified11/21/09) Past Gkbfjam-Ekmrwb-Zovlpx Hx Patient Social History Marrital Status: Tobacco Use?: No Smoking Status: Never a Smoker Smokeless Tobacco Frequency: Never a User Use of E-Cig and/or Vaping dev: No Substance use?: No Alcohol Use?: No (quit 03/2022, prior drank socially up to 3 drinks per week) Pt feels they are or have been: No Immunizations Up To Date Date of Influenza Vaccine: Mar 14, 2019 First/Initial COVID19 Vaccinat: 2020 Second COVID19 Vaccination Saurabh: 2020 Tetanus Booster (TDap): Unknown Date of Pneumonia Vaccine: Feb 19, 2015 Seasonal Allergies Seasonal Allergies: No Current Status Advance Directives: Yes Advance Directive Location: Copy from prev record Communicates: Verbally Primary Language: Faroese Preferred Spoken Language: Faroese Is interpretation needed?: No Implanted or Applied Medical D: None Past Medical History Surgeries: Appendectomy, Cardiac (ablation) Currently Using CPAP: No Currently Using BIPAP: No Atrial Fibrillation, Hypertension Polyps, Cirrhosis Gout Loss of Vision: Denies Hearing Impairment: Denies Depression Blood Disorders: No Adverse Reaction/Blood Tranf: No Family Medical History Colon cancer GI Disease (liver disease) Review of Systems Constitutional: No dizziness, No fever EENTM: No nose congestion, No throat swelling Respiratory: No cough; dyspnea on exertion (baseline); No short of breath Cardiovascular: No chest pain; edema; No palpitations Gastrointestinal: No abdominal pain; diarrhea; No nausea, No vomiting Genitourinary: decreased output; No dysuria, No hematuria; other (dark urine) All Other Systems Reviewed Negative Unless Noted: Yes (Negative excepted noted.) Physical Exam Physical Exam Vital Signs Vital Signs - First Documented 10/06/22 12:22 Temp 36.0 Pulse 44 Resp 22 B/P (MAP) 90/58 (69) Pulse Ox 95 O2 Delivery Room Air Capillary Refill : Height, Weight, BMI Height: 5'10.00" Weight: 284lbs. 0.0oz. 128.190424hr; 38.85 BMI Method: General Appearance: No Apparent Distress, WD/WN HEENT: PERRL/EOMI, Moist Mucous Membranes Neck: Full Range of Motion, Normal Inspection Respiratory: Chest Non Tender, Lungs Clear, Normal Breath Sounds, No Accessory Muscle Use, No Respiratory Distress Cardiovascular: Normal Peripheral Pulses, Bradycardia (normal sinus rhythm) Gastrointestinal: Normal Bowel Sounds, Non Tender, Distended Extremity: Non Tender, Swelling (4+ b/l LE) Neurologic/Psychiatric: Alert, Oriented x3, Normal Mood/Affect Skin: Normal Color, Warm/Dry Results Results/Procedures Labs Laboratory Tests 10/06/22 12:34 10/07/22 04:55 Patient resulted labs reviewed. Assessment/Plan Admission Diagnosis TOMY Ascites Cirrhosis Bradycardia Admission Status: Inpatient Order (span 2 midnights) Reason for Inpatient Admission: TOMY needing medical management Ascites needing paracentesis Assessment and Plan TOMY Lower extremity edema Ascites Cirrhosis BUN/Cr up to 52/5.09, last admission 09/26 was 24/1.31 Receiving albumin Given still hypotensive, starting octreotide and midodrine Nephrology consult appreciated Surgery consulted, Dr. Rincon planning for paracentesis tomorrow Bradycardia Afib EKG sinus bradycardia Hold BP meds Consult cardiology Starting octreotide and midodrine given still hypotensive JOHNATHON GUZMAN MD 10/07/222012: History of Present Illness Source: patient, family Exam Limitations: no limitations Time Seen by a Provider: 11:30 Past Wuolxsx-Nxodcv-Cxycla Hx Family Medical History Colon cancer Assessment/Plan Admission Diagnosis Admission Status: Inpatient Order (span 2 midnights) Reason for Inpatient Admission: Decompensated cirrhosis TOMY Assessment and Plan Admitted with TOMY, likely hepatorenal syndrome. Started on albumin. Case discussed with Dr. Whalen, nephrology, will begin octreotide and midodrine. Case discussed with Dr. Covington, cardiology, holding amiodarone and metoprolol d ue to bradycardia. Case discussed with Dr. Rincon, surgery, planning for paracentesis tomorrow..Plans discussed with patient and daughter at bedside, both agree with plan and all questions were answered. He does not want liver transplant or dialysis. 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 I reviewed and verified all information documented by the medical student and made modifications to such information, when appropriate. I personally performed the physical exam and medical decision making. YANA MARTINS October 07, 2022 12:48 JOHNATHON GUZMAN MD October 07, 2022 20:13
--- NOTE | 2022-10-07 12:56 | Consultation - Surgery ---
History of Present Illness History of Present Illness Patient Consulted On(good/time) 10/07/22 12:43 Time Seen by Provider: 11:53 History of Present Illness Surgery asked to consult regarding ascites and possible Paracentesis. HPI per ED: 77-year-old male presents to the ER for concerns of ascites. He states that he noticed abdominal swelling starting about 4 days ago. Patient was admitted for ascites and pneumonia on 09/13/2022. He had almost 9 L removed via paracentesis during last admission. Patient states that last time he felt like he waited too long, so that is why he is here today. He denies any abdominal pain. Reports shortness of air with exertion, but states there has been no change in this since his admission. Denies fevers, chest pain, nausea, vomiting. He does report decreased appetite. Reports diarrhea, but states this is due to being given laxatives for constipation. He reports approximately 8 episodes of diarrhea in the last 10 hours. His liver cirrhosis is due to alcoholism. States he has not drank alcohol since March 2022. Other past medical history includes atrial fibrillation and hypertension. When I spoke to pt and his daughter this afternoon, he was eating lunch without any major complaints. His daughter states "it took too long last time to finally get drained, so we decided to come in early". He denied abdominal pain or trouble breathing when I asked him today. Did not appear to be in any respiratory distress. He is feeling weak. Daughter stated they know he is not gonna have transplant or anything to save him, they just want to be comfortable. She also stated they found he was in kidney failure; "I'm glad we came in". Allergies and Home Medications Allergies Coded Allergies: No Known Drug Allergies (Unverified , 11/21/09) Patient Home Medication List Home Medication List Reviewed: Yes Allopurinol (Allopurinol) 100 Mg Tablet, 100 MG PO BID, (Reported) Entered as Reported by: RAVEN BENJAMIN on 06/14/19 1021 Last Action: Reviewed Amiodarone HCl (Amiodarone HCl) 200 Mg Tablet, 200 MG PO BID, (Reported) Entered as Reported by: YOHANA GABRIEL on 09/13/22 1603 Last Action: Reviewed Amlodipine Besylate (Amlodipine Besylate) 5 Mg Tablet, 5 MG PO DAILY, (Reported) Entered as Reported by: KELLI CERON on 10/07/22814 Last Action: Reviewed Aspirin (Aspirin EC) 81 Mg Tablet.dr, 81 MG PO DAILY, (Reported) Entered as Reported by: RAVEN BENJAMIN on 06/14/19 1021 Last Action: Reviewed Cholecalciferol (Vitamin D3) (Vitamin D3) 25 Mcg (1000 Unit) Tablet, 50 MCG PO DAILY, (Reported) Entered as Reported by: KELLI CERON on 10/07/22810 Last Action: Reviewed Citalopram Hydrobromide (Citalopram HBr) 20 Mg Tablet, 20 MG PO DAILY, (Reported) Entered as Reported by: KELLI CERON on 10/07/22809 Last Action: Reviewed Furosemide (Furosemide) 20 Mg Tablet, 20 MG PO DAILY, (Reported) Entered as Reported by: KELLI CERON on 10/07/22810 Last Action: Reviewed Hydrocortisone Acetate (Hydrocortisone Acetate) 1 % Cream..g., 1 APPLIC TP Q12H PRN for ITCHING, (Reported) Entered as Reported by: KELLI CERON on 10/07/22813 Last Action: Reviewed Ketoconazole (Ketoconazole) 2 % Cream..g., 1 APPLIC TP BID PRN for IRRITATION, (Reported) Entered as Reported by: KELLI CERON on 10/07/22813 Last Action: Reviewed Losartan Potassium (Losartan Potassium) 100 Mg Tablet, 100 MG PO DAILY, (Reported) Entered as Reported by: KELLI CERON on 10/07/2216 Last Action: Reviewed Magnesium Oxide (Magnesium) 400 Mg Capsule, 400 MG PO BID, (Reported) Entered as Reported by: CHARLENE VILLAGRAN on 12/04/20 0740 Last Action: Reviewed Metoprolol Tartrate (Metoprolol Tartrate) 25 Mg Tablet, 25 MG PO BID, (Reported) Entered as Reported by: RAVEN BENJAMIN on 01/21/16 0929 Last Action: Reviewed Polyethylene Glycol 3350 (Miralax) 17 Gram Powd.pack, 17 GM PO DAILY PRN for CONSTIPATION-2ND LINE, (Reported) Entered as Reported by: KELLI CERON on 10/07/22814 Last Action: Reviewed Rivaroxaban (Xarelto) 20 Mg Tablet, 20 MG PO DAILY, (Reported) Entered as Reported by: YOHANA GABRIEL on 09/13/22 2083 Last Action: Reviewed Past Zejrcph-Fdsbrk-Dpdqhe Hx Patient Social History Smoking Status: Never a Smoker Former Smoker, Quit: Jan 13, 2005 Type Used: Cigarettes 2nd Hand Smoke Exposure: No Recent Hopitalizations: No Alcohol Use?: No (Hx of EtOH abuse, just quit) Have you traveled recently?: No Immunizations Up To Date Tetanus Booster (TDap): Unknown Date of Pneumonia Vaccine: Feb 19, 2015 Date of Influenza Vaccine: Mar 14, 2019 Seasonal Allergies Seasonal Allergies: No Surgeries History of Surgeries: Yes (Paracentesis beginning of the month, got 9L) Surgeries: Appendectomy Respiratory History of Respiratory Disorde: No Cardiovascular History of Cardiac Disorders: Yes Cardiac Disorders: Atrial Fibrillation Neurological History of Neurological Disord: No Reproductive System Hx Reproductive Disorders: No Sexually Transmitted Disease: No Genitourinary History of Genitourinary Disor: No Gastrointestinal History of Gastrointestinal Di: Yes Gastrointestinal Disorders: Polyps, Cirrhosis Musculoskeletal History of Musculoskeletal Dis: No Musculoskeletal Disorders: Gout Endocrine History of Endocrine Disorders: No HEENT History of HEENT Disorders: No Loss of Vision: Denies Hearing Impairment: Denies Cancer History of Cancer: No Psychosocial History of Psychiatric Problem: No Behavioral Health Disorders: Depression Integumentary History of Skin or Integumenta: No Blood Transfusions History of Blood Disorders: No Adverse Reaction to a Blood Tr: No Family Medical History Significant Family History: Cancer (Colon) Family Medial History: Colon cancer Review of Systems-General Constitutional: No chills; malaise, weakness, weight gain EENTM: No blurred vision, No mouth swelling, No epistaxis Respiratory: No cough; dyspnea on exertion; No hemoptysis; short of breath Cardiovascular: No chest pain; edema; No palpitations Gastrointestinal: No jaundice, No melena, No nausea, No vomiting Genitourinary: decreased output, hesitancy Musculoskeletal: back pain, joint pain, muscle stiffness Skin: No change in color, No change in hair/nails Psychiatric/Neurological: Denies Anxiety, Denies Depressed, Denies Seizure Physical Exam-General Problems Physical Exam Vital Signs Vital Signs - First Documented 10/06/22 12:22 Temp 36.0 Pulse 44 Resp 22 B/P (MAP) 90/58 (69) Pulse Ox 95 O2 Delivery Room Air Capillary Refill : General Appearance: no apparent distress, obese (morbidly) Eyes: Bilateral Eye PERRL, Bilateral Eye EOMI HEENT: pharynx normal; No scleral icterus (R), No scleral icterus (L) Neck: non-tender, supple Respiratory: lungs clear, normal breath sounds, no respiratory distress, no acc essory muscle use Cardiovascular: no murmur, bradycardia Gastrointestinal: soft, no organomegaly, distended, hernia (umbilical) Extremities: non-tender, no calf tenderness, pedal edema (+3 pitting edema) 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, alert, oriented x 3 Skin: normal color, warm/dry Lymphatic: no adenopathy (neck, axilla or groin) Data Review Labs Laboratory Tests 10/07/22 04:55: White Blood Count 9.3, Red Blood Count 3.00L, Hemoglobin 10.0L, Hematocrit 30L, Mean Corpuscular Volume 100H, Mean Corpuscular Hemoglobin 33, Mean Corpuscular Hemoglobin Concent 33, Red Cell Distribution Width 17.6H, Platelet Count 119L, Mean Platelet Volume 12.9H, Immature Granulocyte % (Auto) 0, Neutrophils (%) (Auto) 62, Lymphocytes (%) (Auto) 23, Monocytes (%) (Auto) 11, Eosinophils (%) (Auto) 3, Basophils (%) (Auto) 1, Neutrophils # (Auto) 5.8, Lymphocytes # (Auto) 2.2, Monocytes # (Auto) 1.1H, Eosinophils # (Auto) 0.3, Basophils # (Auto) 0.1, Immature Granulocyte # (Auto) 0.0, Prothrombin Time 28.7H, INR Comment 2.7H, Sodium Level 132L, Potassium Level 5.1H, Chloride Level 99, Carbon Dioxide Level 24, Anion Gap 9, Blood Urea Nitrogen 52H, Creatinine 5.09H, Estimat Glomerular Filtration Rate 11, BUN/Creatinine Ratio 10, Glucose Level 88, Calcium Level 8.4L, Magnesium Level 2.7H Assessment/Plan Assessment/Plan Assessment/Plan Liver Failure with Cirrhosis secondary to EtOH abuse Acute Renal Failure Ascites Coagulopathy secondary to liver failure Hyponatremia Hyperkalemia Pt still has an INR of 2.7 (which is down from 4) and I told him it would be better to wait one more day to allow that to come down more. I will try to use the portable machine. He also has renal failure that actually got worse and he may need to be transferred if that does not improve and he needs dialysis. He also needs fluids for his electrolyte imbalance; which unfortunately is only going to make everything worse. Last time he had paracentesis he did get some FFP, but I want to try and avoid that if we can. NETTE ROSS DO October 07, 2022 12:56
--- NOTE | 2022-10-07 13:01 | Consultation-Cardiology ---
HPI-Cardiology Cardiology Consultation: Date of Consultation 10/07/22 Date of Admission Attending Physician Paul Fuller MD Admitting Physician Admitting Physician: Clara Santos MD Attending Physician: Clara Santos MD Consulting Physician Tavia SMITH MD HPI: Time Seen by a Provider: 13:01 Chief Complaint: Abdominal swelling This is a 77-year-old gentleman who presents with abdominal swelling for the past few days. He has history of ascites and cirrhosis. He had previously 9 L drained via paracentesis.He lives at the [facility]. Shortness of breath. Decreased urine output. Denies active smoking. Family history is unremarkable. Review of Systems-Cardiology Review of Systems Constitutional: malaise Eyes: no symptoms reported Ears/Nose/Throat: no symptoms reported Respiratory: SOB at rest Cardiovascular: no symptoms reported Gastrointestinal: abdomen distended Genitourinary: burning, urine coloration changes Musculoskeletal: no symptoms reported Skin: no symptoms reported Psychiatric/Neurological: no symptoms reported Hematologic: no symptoms reported TPA-Psefwr-Vnvcqq Hx Patient Social History Smoking Status: Never a Smoker 2nd Hand Smoke Exposure: No Have you traveled recently?: No Alcohol Use?: No Pt feels they are or have been: No Immunizations Up To Date Tetanus Booster (TDap): Unknown Date of Pneumonia Vaccine: Feb 19, 2015 Date of Influenza Vaccine: Mar 14, 2019 Past Medical History PMH As described under Assessment. Family Medical History Family History: Colon cancer Allergies and Home Medications Allergies Coded Allergies: No Known Drug Allergies (Unverified , 11/21/09) Patient Home Medication List Home Medication List Reviewed: Yes Allopurinol (Allopurinol) 100 Mg Tablet, 100 MG PO BID, (Reported) Entered as Reported by: RAVEN BENJAMIN on 06/14/19 1021 Last Action: Reviewed Amiodarone HCl (Amiodarone HCl) 200 Mg Tablet, 200 MG PO BID, (Reported) Entered as Reported by: YOHANA GABRIEL on 09/13/22 1603 Last Action: Reviewed Amlodipine Besylate (Amlodipine Besylate) 5 Mg Tablet, 5 MG PO DAILY, (Reported) Entered as Reported by: KELLI CERON on 10/07/22 0815 Last Action: Reviewed Aspirin (Aspirin EC) 81 Mg Tablet.dr, 81 MG PO DAILY, (Reported) Entered as Reported by: RAVEN BENJAMIN on 06/14/19 1021 Last Action: Reviewed Cholecalciferol (Vitamin D3) (Vitamin D3) 25 Mcg (1000 Unit) Tablet, 50 MCG PO DAILY, (Reported) Entered as Reported by: KELLI CERON on 10/07/22810 Last Action: Reviewed Citalopram Hydrobromide (Citalopram HBr) 20 Mg Tablet, 20 MG PO DAILY, (Reported) Entered as Reported by: KELLI CERON on 10/07/22 08 Last Action: Reviewed Furosemide (Furosemide) 20 Mg Tablet, 20 MG PO DAILY, (Reported) Entered as Reported by: KELLI CERON on 10/07/22810 Last Action: Reviewed Hydrocortisone Acetate (Hydrocortisone Acetate) 1 % Cream..g., 1 APPLIC TP Q12H PRN for ITCHING, (Reported) Entered as Reported by: KELLI CERON on 10/07/22813 Last Action: Reviewed Ketoconazole (Ketoconazole) 2 % Cream..g., 1 APPLIC TP BID PRN for IRRITATION, (Reported) Entered as Reported by: KELLI CERON on 10/07/22813 Last Action: Reviewed Losartan Potassium (Losartan Potassium) 100 Mg Tablet, 100 MG PO DAILY, (Reported) Entered as Reported by: KELLI CERON on 10/07/22 0816 Last Action: Reviewed Magnesium Oxide (Magnesium) 400 Mg Capsule, 400 MG PO BID, (Reported) Entered as Reported by: CHARLENE VILLAGRAN on 12/04/20 0740 Last Action: Reviewed Metoprolol Tartrate (Metoprolol Tartrate) 25 Mg Tablet, 25 MG PO BID, (Reported) Entered as Reported by: RAVEN BENJAMIN on 01/21/16 0929 Last Action: Reviewed Polyethylene Glycol 3350 (Miralax) 17 Gram Powd.pack, 17 GM PO DAILY PRN for CONSTIPATION-2ND LINE, (Reported) Entered as Reported by: KELLI CERON on 10/07/22 0815 Last Action: Reviewed Rivaroxaban (Xarelto) 20 Mg Tablet, 20 MG PO DAILY, (Reported) Entered as Reported by: YOHANA GABRIEL on 09/13/22 1603 Last Action: Reviewed Exam Vital Signs Vital Signs Date Time Temp Pulse Resp B/P (MAP) Pulse Ox O2 Delivery O2 Flow Rate FiO2 10/08/22 11:24 35.9 46 16 107/53 (71) 94 Room Air Physical Exam Constitutional: Normal Chest examination bilateral breath sounds heard. CVS: Regular rhythm Abdominal distention. Labs Laboratory Tests Test 10/08/22 05:03 Range/Units White Blood Count 7.6 4.3-11.0 10^3/uL Red Blood Count 2.81 L 4.30-5.52 10^6/uL Hemoglobin 9.4 L 13.3-17.7 g/dL Hematocrit 28 L 40-54 % Mean Corpuscular Volume 101 H 80-99 fL Mean Corpuscular Hemoglobin 34 25-34 pg Mean Corpuscular Hemoglobin Concent 33 32-36 g/dL Red Cell Distribution Width 17.6 H 10.0-14.5 % Platelet Count 112 L 130-400 10^3/uL Mean Platelet Volume 13.6 H 9.0-12.2 fL Immature Granulocyte % (Auto) 0 % Neutrophils (%) (Auto) 64 42-75 % Lymphocytes (%) (Auto) 20 12-44 % Monocytes (%) (Auto) 12 0-12 % Eosinophils (%) (Auto) 3 0-10 % Basophils (%) (Auto) 1 0-10 % Neutrophils # (Auto) 4.9 1.8-7.8 10^3/uL Lymphocytes # (Auto) 1.5 1.0-4.0 10^3/uL Monocytes # (Auto) 0.9 0.0-1.0 10^3/uL Eosinophils # (Auto) 0.2 0.0-0.3 10^3/uL Basophils # (Auto) 0.1 0.0-0.1 10^3/uL Immature Granulocyte # (Auto) 0.0 0.0-0.1 10^3/uL Percent Immature Platelet Fraction 15.7 H 0.0-7.6 % Prothrombin Time 20.6 H 12.2-14.7 SEC INR Comment 1.8 H 0.8-1.4 Sodium Level 134 L 135-145 MMOL/L Potassium Level 5.2 H 3.6-5.0 MMOL/L Chloride Level 100 98-107 MMOL/L Carbon Dioxide Level 23 21-32 MMOL/L Anion Gap 11 5-14 MMOL/L Blood Urea Nitrogen 54 H 7-18 MG/DL Creatinine 5.07 H 0.60-1.30 MG/DL Estimat Glomerular Filtration Rate 11 BUN/Creatinine Ratio 11 Glucose Level 124 H 70-105 MG/DL Calcium Level 8.7 8.5-10.1 MG/DL Magnesium Level 3.0 H 1.6-2.4 MG/DL ECG Impression ECG Initial ECG Rhythm: S.Jesus Diagnosis/Problems Diagnosis/Problems (1) Liver failure Status: Acute (2) Ascites Status: Acute (3) Bradycardia Status: Acute (4) Afib Status: Chronic (5) TOMY (acute kidney injury) Status: Acute (6) Liver cirrhosis secondary to RODRIGUEZ (nonalcoholic steatohepatitis) Status: Acute A/P-Cardiology Assessment/Admission Diagnosis Liver cirrhosis, Severe ascites, Paroxysmal atrial fibrillation, Amiodarone therapy, Chronic oral anticoagulation, Sinus bradycardia, Acute kidney injury Plan Liver cirrhosis,Defer to the primary team Severe ascites,Dr. Rincon considering paracentesis. Paroxysmal atrial fibrillation,Currently in sinus rhythm.On oral anticoagulation. Amiodarone therapy,Discontinue due to Liver cirrhosis and sinus bradycardia. Chronic oral anticoagulation, Sinus bradycardia,Patient is not symptomatic. Denies syncope or near syncope.Discontinue amiodarone and metoprolol. Acute kidney injury, Defer to the primary team. Tavia SMITH MD October 07, 2022 13:01
[2022-10-07] MEDS: MIDODRINE 10 MG (PROAMATINE) TAB PO SCH ×2 (13:58→21:32)
[2022-10-07] MEDS: OCTREOTIDE (FOR SQ USE) 100 MCG/ML VIAL (SandoSTATIN) SC SCH ×2 (13:59→21:32)
[2022-10-07 16:14] VITALS: BP 90/45
[2022-10-07] MEDS: cefTRIAXone IV/IM 1,000 MG in NS (IVPB) 50 ML IV SCH (16:47)
[2022-10-07 19:42] VITALS: BP 101/57
[2022-10-07 23:03] VITALS: BP 102/54
[2022-10-08 03:43] VITALS: BP 118/55
[2022-10-08] MEDS: ALBUMIN 25% 25 GM/100 ML 100 ML IV SCH ×3 (06:08→21:51)
[2022-10-08 06:20] LABS: MEAN CORPUSCULAR VOLUME 101 fL (80-99)
[2022-10-08 06:23] LABS: BASOPHILS # (AUTO) 0.1 10^3/uL (0.0-0.1); BASOPHILS % (AUTO) 1 % (0-10); EOSINOPHILS # (AUTO) 0.2 10^3/uL (0.0-0.3); EOSINOPHILS % (AUTO) 3 % (0-10); HEMATOCRIT 28 % (40-54); HEMOGLOBIN 9.4 g/dL (13.3-17.7); LYMPHOCYTES # (AUTO) 1.5 10^3/uL (1.0-4.0); LYMPHOCYTES % (AUTO) 20 % (12-44); MEAN CORPUSCULAR HEMOGLOBIN 34 pg (25-34); MEAN CORPUSCULAR HGB CONC 33 g/dL (32-36); MEAN PLATELET VOLUME 13.6 fL (9.0-12.2); MONOCYTES # (AUTO) 0.9 10^3/uL (0.0-1.0); MONOCYTES % (AUTO) 12 % (0-12); NEUTROPHILS # (AUTO) 4.9 10^3/uL (1.8-7.8); NEUTROPHILS % (AUTO) 64 % (42-75); PLATELET COUNT 112 10^3/uL (130-400); WHITE BLOOD COUNT 7.6 10^3/uL (4.3-11.0)
[2022-10-08 06:30] LABS: INR 1.8 (0.8-1.4); PROTHROMBIN TIME PATIENT 20.6 SEC (12.2-14.7)
[2022-10-08 06:38] LABS: CALCIUM 8.7 MG/DL (8.5-10.1); CREATININE SERUM 5.07 MG/DL (0.60-1.30); POTASSIUM 5.2 MMOL/L (3.6-5.0)
[2022-10-08] MEDS: POTASSIUM CL 10MEQ/50ML IVPB 50 ML IV SCH (06:44)
[2022-10-08] MEDS: KCL 20 MEQ TAB (K-DUR) PO SCH (06:45)
[2022-10-08] MEDS: POTASSIUM BICARB 20 MEQ (EFFER-K) TABLET PO SCH (06:45)
[2022-10-08] MEDS: MAGNESIUM 1 GM/100 ML IVPB 100 ML IV SCH (06:45)
[2022-10-08] MEDS: OCTREOTIDE (FOR SQ USE) 100 MCG/ML VIAL (SandoSTATIN) SC SCH ×3 (07:01→21:51)
[2022-10-08 07:40] VITALS: BP 121/56
[2022-10-08] MEDS: ALLOPURINOL 100 MG (ZYLOPRIM) TAB PO SCH ×2 (08:12→17:44)
[2022-10-08] MEDS: MIDODRINE 10 MG (PROAMATINE) TAB PO SCH ×3 (08:12→21:52)
[2022-10-08] MEDS: SENNOSIDES 8.6 MG (SENOKOT) TAB PO SCH ×2 (08:15→21:51)
[2022-10-08] MEDS: DOCUSATE SODIUM 100 MG (COLACE) CAP PO SCH ×2 (08:15→21:51)
[2022-10-08 11:24] VITALS: BP 107/53
--- NOTE | 2022-10-08 14:11 | Cardiology Progress Note ---
Cardiology SOAP Progress Note Subjective: No cardiac complaints Objective: I&O/Vital Signs 10/08/22 10/08/22 10/08/22 10/08/22 03:43 07:40 08:00 11:24 Temp 35.8 35.9 Pulse 48 48 46 Resp 18 20 16 B/P (MAP) 118/55 (76) 121/56 (77) 107/53 (71) Pulse Ox 96 93 94 O2 Delivery Room Air Room Air Room Air 10/08/22 00:00 Intake Total 860 ml Output Total 150 ml Balance 710 ml Weight (Pounds): 284 Weight (Ounces): 0.0 Weight (Calculated Kilograms): 128.242012 Constitutional: AAO x 3 Respiratory: No accessory muscle use, No respiratory distress; lungs clear to auscultation Cardiovascular: regular rate-rhythm, S1 and S2 Gastrointestional: distended Extremities: pedal edema Neurologic/Psychiatric: no motor/sensory deficits, alert, normal mood/affect, oriented x 3 Skin: normal color Results/Procedures: Labs Laboratory Tests 10/08/22 05:03: White Blood Count 7.6, Red Blood Count 2.81L, Hemoglobin 9.4L, Hematocrit 28L, Mean Corpuscular Volume 101H, Mean Corpuscular Hemoglobin 34, Mean Corpuscular Hemoglobin Concent 33, Red Cell Distribution Width 17.6H, Platelet Count 112L, Mean Platelet Volume 13.6H, Immature Granulocyte % (Auto) 0, Neutrophils (%) (Auto) 64, Lymphocytes (%) (Auto) 20, Monocytes (%) (Auto) 12, Eosinophils (%) (Auto) 3, Basophils (%) (Auto) 1, Neutrophils # (Auto) 4.9, Lymphocytes # (Auto) 1.5, Monocytes # (Auto) 0.9, Eosinophils # (Auto) 0.2, Basophils # (Auto) 0.1, Immature Granulocyte # (Auto) 0.0, Percent Immature Platelet Fraction 15.7H, Prothrombin Time 20.6H, INR Comment 1.8H, Sodium Level 134L, Potassium Level 5.2H, Chloride Level 100, Carbon Dioxide Level 23, Anion Gap 11, Blood Urea Nitrogen 54H, Creatinine 5.07H, Estimat Glomerular Filtration Rate 11, BUN/Creatinine Ratio 11, Glucose Level 124H, Calcium Level 8.7, Magnesium Level 3.0H A/P: Assessment/Dx: Liver cirrhosis, Severe ascites, Paroxysmal atrial fibrillation, Amiodarone therapy, Chronic oral anticoagulation, Sinus bradycardia, Acute kidney injury Plan: Liver cirrhosis,Defer to the primary team Severe ascites,Dr. Rincon considering paracentesis. Paroxysmal atrial fibrillation,Currently in sinus rhythm.On oral anticoagulation. Amiodarone therapy,Discontinue due to Liver cirrhosis and sinus bradycardia. Chronic oral anticoagulation, Sinus bradycardia,Patient is not symptomatic. Denies syncope or near syncope. Discontinue amiodarone and metoprolol. Heart rate in the late 40s. Acute kidney injury, Defer to the primary team. Thank you for your consultation. Please call me if you have any questions. 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
--- NOTE | 2022-10-08 14:20 | Progress Note - Surgery ---
Subjective Time Seen by a Provider: 11:41 Subjective/Events-last exam Pt seen and examined, was asleep but easily arousable. He denied any abdominal pain or SOB. Tolerating diet. Review of Systems General: Fatigue, Malaise Pulmonary: No Dyspnea, No Cough Cardiovascular: No: Chest Pain, Palpitations Gastrointestinal: No: Nausea, Vomiting, Abdominal Pain Objective Exam Vital Signs Date Time Temp Pulse Resp B/P (MAP) Pulse Ox O2 Delivery O2 Flow Rate FiO2 10/08/22 11:24 35.9 46 16 107/53 (71) 94 Room Air 10/08/22 08:00 Room Air 10/08/22 07:40 35.8 48 20 121/56 (77) 93 Room Air 10/08/22 03:43 48 18 118/55 (76) 96 10/07/22 23:03 36.0 55 16 102/54 (70) 93 Room Air 10/07/22 19:42 36.0 52 20 101/57 (72) 92 Room Air 10/07/22 19:05 Room Air 10/07/22 16:14 36.7 60 20 90/45 (60) 93 Room Air I & O 10/08/22 07:00 Intake Total 960 ml Output Total 350 ml Balance 610 ml Capillary Refill : General Appearance: No Apparent Distress, Obese HEENT: PERRL/EOMI, Moist Mucous Membranes Respiratory: Chest Non Tender, Lungs Clear, Normal Breath Sounds, No Accessory Muscle Use, No Respiratory Distress Cardiovascular: Normal Peripheral Pulses, Bradycardia (normal sinus rhythm) Gastrointestinal: soft, no organomegaly, distended, hernia (umbilical) Extremity: Non Tender, Swelling (4+ b/l LE) Neurologic/Psychiatric: Alert, Oriented x3 Results Lab Laboratory Tests 10/08/22 05:03: White Blood Count 7.6, Red Blood Count 2.81L, Hemoglobin 9.4L, Hematocrit 28L, Mean Corpuscular Volume 101H, Mean Corpuscular Hemoglobin 34, Mean Corpuscular Hemoglobin Concent 33, Red Cell Distribution Width 17.6H, Platelet Count 112L, Mean Platelet Volume 13.6H, Immature Granulocyte % (Auto) 0, Neutrophils (%) (Auto) 64, Lymphocytes (%) (Auto) 20, Monocytes (%) (Auto) 12, Eosinophils (%) (Auto) 3, Basophils (%) (Auto) 1, Neutrophils # (Auto) 4.9, Lymphocytes # (Auto) 1.5, Monocytes # (Auto) 0.9, Eosinophils # (Auto) 0.2, Basophils # (Auto) 0.1, Immature Granulocyte # (Auto) 0.0, Percent Immature Platelet Fraction 15.7H, Prothrombin Time 20.6H, INR Comment 1.8H, Sodium Level 134L, Potassium Level 5.2H, Chloride Level 100, Carbon Dioxide Level 23, Anion Gap 11, Blood Urea Nitrogen 54H, Creatinine 5.07H, Estimat Glomerular Filtration Rate 11, BUN/Creatinine Ratio 11, Glucose Level 124H, Calcium Level 8.7, Magnesium Level 3.0H Assessment/Plan Assessment/Plan Assessment/Plan Liver Failure with Cirrhosis secondary to EtOH abuse Acute Renal Failure Ascites Coagulopathy secondary to liver failure Hyponatremia Hyperkalemia Pt now has an INR of 1.8 (which is down from 2.7), we probably could do a parac entesis now or wait one more day to allow that to come down more. I will try to use the portable machine. He also has renal failure that is the same today as yesterdy. He would need to be transferred if that does not improve and he needs dialysis. He still has electrolyte imbalance. NETTE ROSS DO October 08, 2022 14:20
[2022-10-08 15:38] VITALS: BP 107/53
[2022-10-08] MEDS: cefTRIAXone IV/IM 1,000 MG in NS (IVPB) 50 ML IV SCH (16:18)
[2022-10-08 19:56] VITALS: BP 104/54
--- NOTE | 2022-10-08 20:13 | Progress Note - Hospitalist ---
Subjective HPI/CC On Admission Date Seen by Provider: October 08, 2022 Time Seen by Provider: 10:05 Subjective/Events-last exam He is feeling better. He has no complaints. He denies abdominal pain. He denies shortness of breath. Objective Exam Vital Signs Vital Signs Date Time Temp Pulse Resp B/P (MAP) Pulse Ox O2 Delivery O2 Flow Rate FiO2 10/08/22 19:56 36.6 52 16 104/54 (71) 92 Room Air Capillary Refill : General Appearance: No Apparent Distress, Chronically ill, Obese Respiratory: Lungs Clear, No Respiratory Distress Cardiovascular: Regular Rate, Rhythm, No Murmur Gastrointestinal: Normal Bowel Sounds, Soft, Distended Extremity: Non Tender, Pedal Edema, Swelling Neurologic/Psychiatric: Alert, No Motor/Sensory Deficits Skin: Normal Color, Warm/Dry Results/Procedures Lab Laboratory Tests 10/08/22 05:03 Patient resulted labs reviewed. Assessment/Plan Assessment and Plan Assess & Plan/Chief Complaint Hepatorenal syndrome Decompensated RODRIGUEZ cirrhosis Ascites Renal function stable Continue albumin Continue octreotide and midodrine Nephrology consulted Surgery consulted, Dr. Rincon planning for paracentesis Bradycardia Afib EKG with sinus bradycardia Holding amiodarone and metoprolol Cardiology following Diagnosis/Problems Diagnosis/Problems (1) Hepatorenal syndrome Status: Acute (2) TOMY (acute kidney injury) Status: Acute (3) Decompensated hepatic cirrhosis Status: Acute (4) Liver cirrhosis secondary to RODRIGUEZ (nonalcoholic steatohepatitis) Status: Acute (5) Ascites Status: Acute (6) Afib Status: Chronic (7) Obesity Status: Chronic (8) Bradycardia Status: Acute JOHNATHON GUZMAN MD October 08, 2022 20:12
[2022-10-08 23:06] VITALS: BP 101/54
[2022-10-09 03:21] VITALS: BP 105/54
[2022-10-09] MEDS: ALBUMIN 25% 25 GM/100 ML 100 ML IV SCH ×3 (05:46→22:12)
[2022-10-09] MEDS: OCTREOTIDE (FOR SQ USE) 100 MCG/ML VIAL (SandoSTATIN) SC SCH ×3 (05:46→22:12)
[2022-10-09 06:21] LABS: BASOPHILS # (AUTO) 0.1 10^3/uL (0.0-0.1); BASOPHILS % (AUTO) 1 % (0-10); HEMOGLOBIN 9.3 g/dL (13.3-17.7); MONOCYTES % (AUTO) 13 % (0-12)
[2022-10-09 06:22] LABS: EOSINOPHILS # (AUTO) 0.3 10^3/uL (0.0-0.3); EOSINOPHILS % (AUTO) 4 % (0-10); HEMATOCRIT 28 % (40-54); LYMPHOCYTES % (AUTO) 24 % (12-44); MEAN CORPUSCULAR HEMOGLOBIN 33 pg (25-34); MEAN CORPUSCULAR HGB CONC 33 g/dL (32-36); MEAN CORPUSCULAR VOLUME 101 fL (80-99); MEAN PLATELET VOLUME 13.7 fL (9.0-12.2); MONOCYTES # (AUTO) 1.1 10^3/uL (0.0-1.0); NEUTROPHILS % (AUTO) 58 % (42-75); PLATELET COUNT 117 10^3/uL (130-400); WHITE BLOOD COUNT 8.5 10^3/uL (4.3-11.0)
[2022-10-09 06:44] LABS: CALCIUM 8.8 MG/DL (8.5-10.1); CREATININE SERUM 4.83 MG/DL (0.60-1.30); MAGNESIUM 2.8 MG/DL (1.6-2.4); POTASSIUM 4.9 MMOL/L (3.6-5.0)
[2022-10-09 06:47] LABS: INR 1.6 (0.8-1.4); PROTHROMBIN TIME PATIENT 18.8 SEC (12.2-14.7)
[2022-10-09 07:24] VITALS: BP 123/56
[2022-10-09] MEDS: POTASSIUM BICARB 20 MEQ (EFFER-K) TABLET PO SCH (07:39)
[2022-10-09] MEDS: MAGNESIUM 1 GM/100 ML IVPB 100 ML IV SCH (07:39)
[2022-10-09] MEDS: POTASSIUM CL 10MEQ/50ML IVPB 50 ML IV SCH (07:39)
[2022-10-09] MEDS: KCL 20 MEQ TAB (K-DUR) PO SCH (07:40)
[2022-10-09] MEDS: MIDODRINE 10 MG (PROAMATINE) TAB PO SCH ×3 (08:30→19:53)
[2022-10-09] MEDS: ALLOPURINOL 100 MG (ZYLOPRIM) TAB PO SCH ×2 (08:30→17:33)
[2022-10-09] MEDS: DOCUSATE SODIUM 100 MG (COLACE) CAP PO SCH ×2 (08:30→19:28)
[2022-10-09] MEDS: SENNOSIDES 8.6 MG (SENOKOT) TAB PO SCH ×2 (08:31→19:29)
[2022-10-09 11:12] VITALS: BP 106/71
--- NOTE | 2022-10-09 12:26 | Progress Note - Surgery ---
Subjective Time Seen by a Provider: 11:03 Subjective/Events-last exam Pt seen and examined with daughter in the room. He was lying in bed comfortable and denied any abd pain or SOB. Tolerating diet. Review of Systems Pulmonary: No Dyspnea, No Cough Cardiovascular: No: Chest Pain, Palpitations Gastrointestinal: No: Nausea, Vomiting, Abdominal Pain Objective Exam Vital Signs Date Time Temp Pulse Resp B/P (MAP) Pulse Ox O2 Delivery O2 Flow Rate FiO2 10/09/22 11:12 36.2 45 18 106/71 (83) 93 Room Air 10/09/22 08:00 Room Air 10/09/22 07:24 36.1 47 16 123/56 (78) 93 Room Air 10/09/22 03:21 36.3 61 16 105/54 (71) 96 Room Air 10/08/22 23:06 36.2 53 16 101/54 (70) 94 Room Air 10/08/22 19:56 36.6 52 16 104/54 (71) 92 Room Air 10/08/22 19:10 Room Air 10/08/22 15:38 36.3 55 16 107/53 (71) 91 Room Air I & O 10/09/22 07:00 Intake Total 1320 ml Output Total 540 ml Balance 780 ml Capillary Refill : General Appearance: No Apparent Distress, Chronically ill, Obese HEENT: PERRL/EOMI, Moist Mucous Membranes Respiratory: Lungs Clear, No Accessory Muscle Use, No Respiratory Distress Cardiovascular: No Murmur, Bradycardia Gastrointestinal: soft, no organomegaly, distended, hernia (umbilical) Extremity: Non Tender, Pedal Edema, Swelling Neurologic/Psychiatric: Alert Results Lab Laboratory Tests 10/09/22 05:34: White Blood Count 8.5, Red Blood Count 2.80L, Hemoglobin 9.3L, Hematocrit 28L, Mean Corpuscular Volume 101H, Mean Corpuscular Hemoglobin 33, Mean Corpuscular Hemoglobin Concent 33, Red Cell Distribution Width 17.7H, Platelet Count 117L, Mean Platelet Volume 13.7H, Immature Granulocyte % (Auto) 0, Neutrophils (%) (Auto) 58, Lymphocytes (%) (Auto) 24, Monocytes (%) (Auto) 13H, Eosinophils (%) (Auto) 4, Basophils (%) (Auto) 1, Neutrophils # (Auto) 5.0, Lymphocytes # (Auto) 2.0, Monocytes # (Auto) 1.1H, Eosinophils # (Auto) 0.3, Basophils # (Auto) 0.1, Immature Granulocyte # (Auto) 0.0, Percent Immature Platelet Fraction 15.1H, Prothrombin Time 18.8H, INR Comment 1.6H, Sodium Level 136, Potassium Level 4.9, Chloride Level 101, Carbon Dioxide Level 23, Anion Gap 12, Blood Urea Nitrogen 55H, Creatinine 4.83H, Estimat Glomerular Filtration Rate 12, BUN/Creatinine Ratio 11, Glucose Level 111H, Calcium Level 8.8, Magnesium Level 2.8H Assessment/Plan Assessment/Plan Assessment/Plan Liver Failure with Cirrhosis secondary to EtOH abuse Acute Renal Failure - appears stable Ascites Coagulopathy - almost resolved Hyponatremia - resolved Hyperkalemia - resolved Pt now has an INR of 1.6 and we probably could do a paracentesis. However, I used the portable US and did find some fluid on the left side but not very much on the right side. I could get some out, but pt is not in any distress and even though I found 2-3 cm of fluid on the left; the more fluid the safer it is for pt. I think it would be best to let is accumulate more to make the procedure safer for pt, especially since he does not have any symptoms right not. Both pt and daughter understood and agreed. I told them we could do a paracentesis pretty quickly and they would not have to wait like last time; which was there major concern. Electrolyte imbalance has mostly resolve, he does have high Magnesium. NETTE ROSS DO October 09, 2022 12:26
--- NOTE | 2022-10-09 12:56 | Progress Note - Hospitalist ---
[facility]256: Subjective HPI/CC On Admission Date Seen by Provider: October 09, 2022 Time Seen by Provider: 09:45 Subjective/Events-last exam Today patient has no complaints. No abdominal pain, SOB, nausea/vomiting. His daughter is at bedside. Review of Systems General: No Chills, No Night Sweats Pulmonary: No Dyspnea Cardiovascular: No: Chest Pain Gastrointestinal: No: Nausea, Vomiting, Abdominal Pain Objective Exam Vital Signs Vital Signs Date Time Temp Pulse Resp B/P (MAP) Pulse Ox O2 Delivery O2 Flow Rate FiO2 10/09/22 11:12 36.2 45 18 106/71 (83) 93 Room Air Capillary Refill : General Appearance: No Apparent Distress, Chronically ill, Obese Respiratory: Lungs Clear, Normal Breath Sounds, No Accessory Muscle Use, No Respiratory Distress Cardiovascular: Regular Rate, Rhythm, No Murmur Gastrointestinal: Normal Bowel Sounds, Non Tender, Soft, Distended Extremity: Non Tender, Pedal Edema, Swelling Neurologic/Psychiatric: Alert, Normal Mood/Affect Skin: Normal Color, Warm/Dry Results/Procedures Lab Laboratory Tests 10/09/22 05:34 Patient resulted labs reviewed. Assessment/Plan Assessment and Plan Assess & Plan/Chief Complaint Hepatorenal syndrome Decompensated RODRIGUEZ cirrhosis Ascites Renal function stable Continue albumin Continue octreotide and midodrine Surgery consulted, Dr. Rincon recommends pt f/u outpatient for paracentesis if continues to accumulate and becomes symptomatic Discussed patient will need to establish with nephrology and hepatology upon d/c Bradycardia Afib EKG with sinus bradycardia Holding amiodarone and metoprolol Cardiology following JOHNATHON GUZMAN MD 10/09/22 1647: Subjective HPI/CC On Admission Time Seen by Provider: 12:05 Objective Exam General Appearance: No Apparent Distress, Obese Respiratory: Lungs Clear, No Respiratory Distress Cardiovascular: Regular Rate, Rhythm, No Murmur Gastrointestinal: Normal Bowel Sounds, Non Tender, Soft, Distended Extremity: Non Tender, Pedal Edema Neurologic/Psychiatric: Alert, Normal Mood/Affect Skin: Normal Color, Warm/Dry Assessment/Plan Assessment and Plan Assess & Plan/Chief Complaint Continue treatment for HRS. Renal function improving. Likely discharge home in the next couple days with nephrology and hepatology follow up. 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 I reviewed and verified all information documented by the medical student and made modifications to such information, when appropriate. I personally performed the physical exam and medical decision making. YANA MARTINS October 09, 2022 12:56 JOHNATHON GUZMAN MD October 09, 2022 16:47
[2022-10-09 15:33] VITALS: BP 121/56
[2022-10-09] MEDS: cefTRIAXone IV/IM 1,000 MG in NS (IVPB) 50 ML IV SCH (15:49)
--- NOTE | 2022-10-09 15:57 | Cardiology Progress Note ---
Cardiology SOAP Progress Note Subjective: no cardiac complaints Objective: I&O/Vital Signs 10/09/22 10/09/22 10/09/22 10/09/22 07:24 08:00 11:12 15:33 Temp 36.1 36.2 36.2 Pulse 47 45 52 Resp 16 18 16 B/P (MAP) 123/56 (78) 106/71 (83) 121/56 (77) Pulse Ox 93 93 90 O2 Delivery Room Air Room Air Room Air Room Air 10/09/22 00:00 Intake Total 1080 ml Output Total 300 ml Balance 780 ml Weight (Pounds): 284 Weight (Ounces): 0.0 Weight (Calculated Kilograms): 128.035165 Constitutional: AAO x 3 Respiratory: No accessory muscle use, No respiratory distress; lungs clear to auscultation Cardiovascular: regular rate-rhythm, bradycardia, S1 and S2 Gastrointestional: distended Extremities: pedal edema Neurologic/Psychiatric: no motor/sensory deficits, alert, normal mood/affect, oriented x 3 Skin: normal color Results/Procedures: Labs Laboratory Tests 10/09/22 05:34: White Blood Count 8.5, Red Blood Count 2.80L, Hemoglobin 9.3L, Hematocrit 28L, Mean Corpuscular Volume 101H, Mean Corpuscular Hemoglobin 33, Mean Corpuscular Hemoglobin Concent 33, Red Cell Distribution Width 17.7H, Platelet Count 117L, Mean Platelet Volume 13.7H, Immature Granulocyte % (Auto) 0, Neutrophils (%) (Auto) 58, Lymphocytes (%) (Auto) 24, Monocytes (%) (Auto) 13H, Eosinophils (%) (Auto) 4, Basophils (%) (Auto) 1, Neutrophils # (Auto) 5.0, Lymphocytes # (Auto) 2.0, Monocytes # (Auto) 1.1H, Eosinophils # (Auto) 0.3, Basophils # (Auto) 0.1, Immature Granulocyte # (Auto) 0.0, Percent Immature Platelet Fraction 15.1H, Prothrombin Time 18.8H, INR Comment 1.6H, Sodium Level 136, Potassium Level 4.9, Chloride Level 101, Carbon Dioxide Level 23, Anion Gap 12, Blood Urea Nitrogen 55H, Creatinine 4.83H, Estimat Glomerular Filtration Rate 12, BUN/Creatinine Ratio 11, Glucose Level 111H, Calcium Level 8.8, Magnesium Level 2.8H A/P: Assessment/Dx: Liver cirrhosis, Severe ascites, Paroxysmal atrial fibrillation, Amiodarone therapy, Chronic oral anticoagulation, Sinus bradycardia, Acute kidney injury Plan: Liver cirrhosis,Defer to the primary team Severe ascites,Dr. Rincon considering paracentesis. Paroxysmal atrial fibrillation,Currently in sinus rhythm.On oral anticoagulation. Amiodarone therapy,Discontinue due to Liver cirrhosis and sinus bradycardia. Chronic oral anticoagulation, Sinus bradycardia,Patient is not symptomatic. Denies syncope or near syncope.Discontinue amiodarone and metoprolol. heart rate improved to 50s. Acute kidney injury, Defer to the primary team. Thank you for your consultation. Please call me if you have any questions. 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
[2022-10-09 20:29] VITALS: BP 118/58
[2022-10-09 23:39] VITALS: BP 115/64
[2022-10-10 03:51] VITALS: BP 130/60
[2022-10-10] MEDS: OCTREOTIDE (FOR SQ USE) 100 MCG/ML VIAL (SandoSTATIN) SC SCH (05:03)
[2022-10-10] MEDS: ALBUMIN 25% 25 GM/100 ML 100 ML IV SCH ×3 (05:03→21:13)
[2022-10-10 05:17] LABS: HEMOGLOBIN 9.5 g/dL (13.3-17.7)
[2022-10-10 05:19] LABS: BASOPHILS # (AUTO) 0.1 10^3/uL (0.0-0.1); BASOPHILS % (AUTO) 1 % (0-10); EOSINOPHILS # (AUTO) 0.3 10^3/uL (0.0-0.3); EOSINOPHILS % (AUTO) 2 % (0-10); HEMATOCRIT 28 % (40-54); LYMPHOCYTES # (AUTO) 2.4 10^3/uL (1.0-4.0); LYMPHOCYTES % (AUTO) 22 % (12-44); MEAN CORPUSCULAR HEMOGLOBIN 34 pg (25-34); MEAN CORPUSCULAR HGB CONC 34 g/dL (32-36); MEAN CORPUSCULAR VOLUME 101 fL (80-99); MEAN PLATELET VOLUME 13.6 fL (9.0-12.2); MONOCYTES # (AUTO) 1.2 10^3/uL (0.0-1.0); MONOCYTES % (AUTO) 11 % (0-12); NEUTROPHILS # (AUTO) 7.1 10^3/uL (1.8-7.8); NEUTROPHILS % (AUTO) 64 % (42-75); PLATELET COUNT 133 10^3/uL (130-400); WHITE BLOOD COUNT 11.2 10^3/uL (4.3-11.0)
[2022-10-10 05:27] LABS: INR 1.5 (0.8-1.4); PROTHROMBIN TIME PATIENT 18.2 SEC (12.2-14.7)
[2022-10-10 05:30] LABS: POTASSIUM 4.5 MMOL/L (3.6-5.0)
[2022-10-10 05:31] LABS: CALCIUM 9.1 MG/DL (8.5-10.1)
[2022-10-10 05:36] LABS: CREATININE SERUM 4.38 MG/DL (0.60-1.30)
[2022-10-10] MEDS: POTASSIUM CL 10MEQ/50ML IVPB 50 ML IV SCH (05:37)
[2022-10-10] MEDS: POTASSIUM BICARB 20 MEQ (EFFER-K) TABLET PO SCH (05:37)
[2022-10-10 05:38] LABS: MAGNESIUM 2.6 MG/DL (1.6-2.4)
[2022-10-10] MEDS: KCL 20 MEQ TAB (K-DUR) PO SCH (05:38)
[2022-10-10] MEDS: MAGNESIUM 1 GM/100 ML IVPB 100 ML IV SCH (05:41)
[2022-10-10 08:31] VITALS: BP 125/65
[2022-10-10] MEDS: SENNOSIDES 8.6 MG (SENOKOT) TAB PO SCH ×2 (09:12→20:10)
[2022-10-10] MEDS: MIDODRINE 10 MG (PROAMATINE) TAB PO SCH ×3 (09:12→20:17)
[2022-10-10] MEDS: DOCUSATE SODIUM 100 MG (COLACE) CAP PO SCH ×2 (09:12→20:10)
[2022-10-10] MEDS: ALLOPURINOL 100 MG (ZYLOPRIM) TAB PO SCH ×2 (09:13→18:13)
--- NOTE | 2022-10-10 10:24 | Progress Note - Hospitalist ---
Subjective HPI/CC On Admission Date Seen by Provider: October 10, 2022 Subjective/Events-last exam Pt reports doing ok today. No complaints. No feeling much better but not worse either. Discussed lab results with him and his daughter. Objective Exam Vital Signs Vital Signs Date Time Temp Pulse Resp B/P (MAP) Pulse Ox O2 Delivery O2 Flow Rate FiO2 10/10/22 08:31 36.2 54 18 125/65 (85) 91 Room Air 10/10/22 07:59 90.00 Capillary Refill : General Appearance: No Apparent Distress Respiratory: Lungs Clear, No Respiratory Distress Cardiovascular: Regular Rate, Rhythm, No Murmur Gastrointestinal: Soft, Distended; No Guarding, No Rebound Neurologic/Psychiatric: Alert, Oriented x3 Results/Procedures Lab Laboratory Tests 10/10/22 05:03 Patient resulted labs reviewed. Assessment/Plan Assessment and Plan Assess & Plan/Chief Complaint Hepatorenal syndrome Decompensated RODRIGUEZ cirrhosis Ascites Debility Renal function improved today Continue albumin Continue octreotide and midodrine Nephrology consulted Surgery consulted, Dr. Rincon evaluated and not enough ascites for paracentesis yesterday PT Bradycardia Afib EKG with sinus bradycardia Holding amiodarone and metoprolol Cardiology following Telemetry DVT ppx: autoanticoagulated on arrival, SCDs only GILLIAN LUI MD October 10, 2022 10:23
--- NOTE | 2022-10-10 10:58 | Occupational Therapy Eval ---
OT Evaluation-General/PLF Medical Diagnosis Admission Date October 06, 2022 at 15:11 Medical Diagnosis: TOMY, Hepatorenal, RODRIGUEZ cirrhosis Onset Date: October 06, 2022 Therapy Diagnosis Therapy Diagnosis: Weakness/debility Height/Weight Height (Feet): 5 Height (Inches): 10.00 Weight (Pounds): 284 Weight (Ounces): 0.0 Precautions Precautions/Isolations: Standard Precautions Weight Bear Status Weight Bearing Restriction: Weight Bearing/Tolerated Referral Physician: Dr. Carrasco Referral Reason: Activity Tolerance, Self Care, Evaluation/Treatment, Strengthening/ROM Medical History Pertinent Medical History: Atrial Fib, HTN Additional Medical History On 09-13-22 pt. had 9L of fluid drained via paracentesis Bradycardia, ascites, cirrhosis Current History Pt. states that he moved into [facility] approximately 10 days ago. Likely this was for skilled therapy. Per chart daughter reports that he had been doing well. His swelling had went down and approximately 4 days ago he began to swell again. Came to ER. Reviewed History: Yes Social History Home: Alf Current Living Status: Entry Into Home: Level Entry ADL-Prior Level of Function SCALE: Activities may be completed with or without assistive devices. 7-Uzswitoggz-bbjehxn completes the activity by him/herself with no assistance from a helper. 5-Set-up or Clean-up Assistance-helper sets up or cleans up; patient completes activity. [place] assists only prior to or following the activity. 4-Supervision or Touching Assistance-helper provides verbal cues and/or touching/steadying and/or contact guard assistance as patient completes activity. Assistance may be provided throughout the activity or intermittently. 3-Partial/Moderate Assistance-helper does LESS THAN HALF the effort. Holland lifts, holds or supports trunk or limbs, but provides less than half the effort. 2-Substantial/Maximal Assistance-helper does MORE THAN HALF the effort. Holland lifts or holds trunk or limbs and provides more than half the effort. 9-Idkzcfnvr-rivxoo does ALL the effort. Patient does none of the effort to complete the activity. Or, the assistance of 2 or more helpers is required for the patient to complete the activity. If activity was not attempted, code reason: 7-Patient Refused. 9-Not Applicable-not attempted and the patient did not perform the activity before the current illness, exacerbation or injury. 10-Not Attempted due to Environmental Limitations-(lack of equipment, weather restraints, etc.). 88-Not Attempted due to Medical Conditions or Safety Concerns. ADL PLOF Comments Pt. is able to report that he was not using a walker, but since going to [facility] [place] he has been. He also reports that he is independent with bathing, but that they give him help to dress. Pt. seems unsure about this. Self Care: Needed Some Help Functional Cognition: Unknown DME/Equipment Comments Pt. reports that he is using a walker. OT Current Status Subjective Pt. does not report pain level, but states that he isn't "doing too good" when asked. Mental Status/Objective Patient Orientation: Person, Place ADL-Treatment On/Off Footwear (QC): 1 Toileting Hygiene (QC): 2 Other Treatments Pt. is in bed, alert. He reports immediately that he needs to use the urinal. OT encourages him to sit EOB for this and he complies. Pt. transfers to EOB with min assistance, and then reports that he needs to use the commode. He states that he has been having loose bowels all day and thinks he might need to go now. It is noted that pt has wound/pressure padding on bilateral heels. OT dons slipper socks for him, and pt. requires mod assistance to stand from bed. Walker not available at this time due to pt. having to go now. OT assists pt. with min assist to take small steps and transfer onto toilet. Pt. asks for OT to doff his brief. OT does so and pt. is able to sit. Pt. would like to sit for awhile. Pt. given his call light, table, and water. Nursing notified that pt. is up on BSC, and is able to concur that he is safe doing so. All needs met. Education OT Patient Education: Correct positioning, Modified ADL techniques, Progress toward Goal/Update tx plan, Purpose of tx/functional activities, Reviewed precautions, Rehab process, Transfer techniques Teaching Recipient: Patient Teaching Methods: Demonstration, Discussion Response to Teaching: Verbalize Understanding, Return Demonstration OT Short Term Goals Short Term Goals Time Frame: Oct 17, 2022 Eatin Oral hygiene: 4 Toileting hygiene: 3 Upper body dressin Lower body dressin (With AE as needed) Putting on/taking off footwear: 3 (With AE as needed.) OT Senior Care Provider Goals Alf Goals Time Frame: Oct 24, 2022 Eating (QC): 6 Oral Hygiene (QC): 5 Toileting Hygiene (QC): 5 Upper Body Dressing (QC): 5 Lower Body Dressing (QC): 5 (with AE as needed.) On/Off Footwear (QC): 5 (With AE as needed.) Additional Goals: 1-Demonstrate ADL Tasks, 2-Verbalize Understanding, 3- ImproveStrength/Yordy 1=Demonstrate adherence to instructed precautions during ADL tasks. 2=Patient will verbalize/demonstrate understanding of assistive devices/modifications for ADL. 3=Patient will improve strength/tolerance for activity to enable patient to perform ADL's. OT Education/Plan Problem List/Assessment Assessment: Decreased Activ Tolerance, Decreased Safety Aware, Decreased UE Strength, Dependent Transfers, Impaired Funct Balance, Impaired I ADL's, Impaired Self-Care Skills Discharge Recommendations Plan/Recommendations: Continue POC Therapy Discharge Recommendati: Post Acute OT Equpiment Recommendations-D/C: Hip Kit Treatment Plan/Plan of Care Treatment,Training & Education: Yes Patient would benefit from OT for education, treatment and training to promote independence in ADL's, mobility, safety and/or upper extremity function for ADL's. Plan of Care: ADL Retraining, Functional Mobility, UE Funct Exercise/Act Treatment Duration: Oct 24, 2022 Frequency: 3 times per week (3-5x/week) Estimated Hrs Per Day: .25 hour per day Agreement: Yes Rehab Potential: Fair Time Start Time: 10:42 Stop Time: 10:50 DATE: October 10, 2022 Total Time Billed (hr/min): 8 Billed Treatment Time 1, EVM x 8minutes JO ANN LERNER OT October 10, 2022 10:58
[2022-10-10 11:26] VITALS: BP 121/63
--- NOTE | 2022-10-10 12:52 | Progress Note - Surgery ---
Subjective Time Seen by a Provider: 11:56 Subjective/Events-last exam Pt seen and examined, denies abdominal pain and SOB. Review of Systems Pulmonary: No Dyspnea, No Cough Cardiovascular: No: Chest Pain, Palpitations Gastrointestinal: No: Nausea, Vomiting, Abdominal Pain Objective Exam Vital Signs Date Time Temp Pulse Resp B/P (MAP) Pulse Ox O2 Delivery O2 Flow Rate FiO2 10/10/22 11:26 36.2 52 18 121/63 (82) 93 Room Air 10/10/22 08:31 36.2 54 18 125/65 (85) 91 Room Air 10/10/22 07:59 Room Air 90.00 10/10/22 03:51 36.0 46 14 130/60 (83) 89 Room Air 10/09/22 23:39 35.9 44 14 115/64 (81) 90 Room Air 10/09/22 20:29 36.5 47 16 118/58 (78) 92 Room Air 10/09/22 19:54 Room Air 10/09/22 15:33 36.2 52 16 121/56 (77) 90 Room Air I & O 10/10/22 07:00 Intake Total 1730 ml Output Total 525 ml Balance 1205 ml Capillary Refill : General Appearance: No Apparent Distress, Obese HEENT: PERRL/EOMI, Moist Mucous Membranes Respiratory: Lungs Clear, No Respiratory Distress Cardiovascular: Regular Rate, Rhythm, No Murmur Gastrointestinal: soft, no organomegaly, distended, hernia (umbilical) Extremity: Non Tender, Pedal Edema Neurologic/Psychiatric: Alert, Oriented x3 Results Lab Laboratory Tests 10/10/22 05:03: White Blood Count 11.2H, Red Blood Count 2.81L, Hemoglobin 9.5L, Hematocrit 28L, Mean Corpuscular Volume 101H, Mean Corpuscular Hemoglobin 34, Mean Corpuscular Hemoglobin Concent 34, Red Cell Distribution Width 17.8H, Platelet Count 133, Mean Platelet Volume 13.6H, Immature Granulocyte % (Auto) 0, Neutrophils (%) (Auto) 64, Lymphocytes (%) (Auto) 22, Monocytes (%) (Auto) 11, Eosinophils (%) (Auto) 2, Basophils (%) (Auto) 1, Neutrophils # (Auto) 7.1, Lymphocytes # (Auto) 2.4, Monocytes # (Auto) 1.2H, Eosinophils # (Auto) 0.3, Basophils # (Auto) 0.1, Immature Granulocyte # (Auto) 0.1, Percent Immature Platelet Fraction 15.7H, Prothrombin Time 18.2H, INR Comment 1.5H, Sodium Level 137, Potassium Level 4.5, Chloride Level 100, Carbon Dioxide Level 21, Anion Gap 16H, Blood Urea Nitrogen 55H, Creatinine 4.38#H, Estimat Glomerular Filtration Rate 13, BUN/Creatinine Ratio 13, Glucose Level 103, Calcium Level 9.1, Magnesium Level 2.6H Assessment/Plan Assessment/Plan Assessment/Plan Liver Failure with Cirrhosis secondary to EtOH abuse Acute Renal Failure - appears stable Ascites Coagulopathy - almost resolved Hyponatremia - resolved Hyperkalemia - resolved Pt still stable and doesn't need paracentesis, able to do a paracentesis pretty quickly if needed. Max medical management. NETTE ROSS DO October 10, 2022 12:52
--- NOTE | 2022-10-10 14:36 | Physical Therapy Evaluation ---
PT Evaluation-General Medical Diagnosis Admission Date October 06, 2022 at 15:11 Medical Diagnosis: TOMY, Hepatorenal, RODRIGUEZ cirrhosis Onset Date: October 06, 2022 Therapy Diagnosis Therapy Diagnosis: Gait Deficit, Strength deficit Height/Weight Height (Feet): 5 Height (Inches): 10.00 Weight (Pounds): 284 Weight (Ounces): 0.0 Precautions Precautions/Isolations: Fall Prevention, Standard Precautions Weight Bear Status Right Lower Extremity: Right Full Weight Bearing Left Lower Extremity: Left Full Weight Bearing Referral Physician: Dr. Carrasco Reason for Referral: Evaluation/Treatment Medical History Pertinent Medical History: Atrial Fib, HTN Reviewed History: Yes Social History Home: Single Level Current Living Status: Alone Entry Into Home: Level Entry PT Steps Into Home: 4 Prior Prior Level of Function SCALE: Activities may be completed with or without assistive devices. 5-Kuuqinltfw-ghdfkgg completes the activity by him/herself with no assistance from a helper. 5-Set-up or Clean-up Assistance-helper sets up or cleans up; patient completes activity. [place] assists only prior to or following the activity. 4-Supervision or Touching Assistance-helper provides verbal cues and/or touching/steadying and/or contact guard assistance as patient completes activity. Assistance may be provided throughout the activity or intermittently. 3-Partial/Moderate Assistance-helper does LESS THAN HALF the effort. [place] lifts, holds or supports trunk or limbs, but provides less than half the effort. 2-Substantial/Maximal Assistance-helper does MORE THAN HALF the effort. [place] lifts or holds trunk or limbs and provides more than half the effort. 1-Iyfbshazm-gxynwa does ALL the effort. Patient does none of the effort to compl ete the activity. Or, the assistance of 2 or more helpers is required for the patient to complete the activity. If activity was not attempted, code reason: 7-Patient Refused. 9-Not Applicable-not attempted and the patient did not perform the activity before the current illness, exacerbation or injury. 10-Not Attempted due to Environmental Limitations-(lack of equipment, weather restraints, etc.). 88-Not Attempted due to Medical Conditions or Safety Concerns. Bed Mobility: 6 Transfers (B,C,W/C): 6 Gait: 6 Stairs: 6 Indoor Mobility (Ambulation): Independent Stairs: Independent Prior Devices Use: Walker PT Evaluation-Current Subjective Patient lying supine in bed upon PT arrival, agreeable to treatment but reports he feels very weak and isn't sure how much he can do. Patient rates pain at 0/10 currently. Objective Patient Orientation: Person, Place, Time, Situation Attachments: [place] Catheter, IV ROM/Strength ROM Lower Extremities WFLs BLEs all planes Strength Lower Extremities 3+/5 BLEs all planes Sensory Vision: Functional Hearing: Functional Sensation Right Lower Extremit: Intact Sensation Left Lower Extremity: Intact Transfers Roll Left to Right (QC): 3 Sit to Lying (QC): 3 Lying to Sitting/Side of Bed(Q: 3 Sit to Stand (QC): 3 Gait Does the Patient Walk?: Yes Mode of Locomotion: Walk Anticipated Mode of Locomotion: Walk Walk 10 feet (QC): 3 Distance: 20' Gait Assistive Device: FWW Balance Sitting Static: Good Sitting Dynamic: Good Standing Static: Fair Standing Dynamic: Fair Assessment/Needs Patient tolerated treatment fair. He requires mod A for all observed bed mobility and transfers. He ambulates 20 feet with FWW, with min A and verbal cues for safety, progression, posture and conservation of energy. Patient in bed post treatment with all needs met, nursing notified, call light in hand. Rehab Potential: Fair PT Correction Goals Sewer Hand Goals PT Correction Goals Time Frame: Nov 05, 2022 Roll Left & Right (QC): 6 Sit to Lying (QC): 6 Lying-Sitting on Side/Bed(QC): 6 Sit to Stand (QC): 6 Chair/Ybk-ms-Gqoyd Xfer(QC): 5 Toilet Transfer (QC): 5 Car Transfer (QC): 5 Does the Patient Walk: Yes Walk 10 feet (QC): 6 Walk 50ft with 2 Turns (QC): 6 Walk 150 ft (QC): 4 1 Step (curb) (QC): 4 4 Steps (QC): 4 PT Plan Problem List Problem List: Activity Tolerance, Functional Strength, Safety, Balance, Gait, Transfer, Bed Mobility, ROM Treatment/Plan Treatment Plan: Continue Plan of Care Treatment Plan: Bed Mobility, Education, Functional Activity Yordy, Functional Strength, Group Therapy, Gait, Safety, Therapeutic Exercise, Transfers Treatment Duration: Nov 05, 2022 Frequency: 6 times per week Estimated Hrs Per Day: .25 hour per day Patient and/or Family Agrees t: Yes Safety Risks/Education Patient Education: Gait Training, Transfer Techniques Teaching Recipient: Patient Teaching Methods: Demonstration, Discussion Response to Teaching: Verbalize Understanding, Return Demonstration Time Time In: 1100 Time Out: 1125 DATE: October 10, 2022 Total Billed Treatment Time: 25 Total Billed Treatment Visit, CAROLINA HOWARD JOHN A PT October 10, 2022 14:36
--- NOTE | 2022-10-10 14:39 | Cardiology Progress Note ---
Cardiology SOAP Progress Note Subjective: No cardiac complaints Objective: I&O/Vital Signs 10/10/22 10/10/22 10/10/22 10/10/22 03:51 07:59 08:31 11:26 Temp 36.0 36.2 36.2 Pulse 46 54 52 Resp 14 18 18 B/P (MAP) 130/60 (83) 125/65 (85) 121/63 (82) Pulse Ox 89 91 93 O2 Delivery Room Air Room Air Room Air Room Air O2 Flow Rate 90.00 10/10/22 13:00 Pulse 49 10/10/22 00:00 Intake Total 1530 ml Output Total 325 ml Balance 1205 ml Weight (Pounds): 284 Weight (Ounces): 0.0 Weight (Calculated Kilograms): 128.251495 Constitutional: AAO x 3 Respiratory: No accessory muscle use, No respiratory distress; lungs clear to auscultation Cardiovascular: regular rate-rhythm, bradycardia, S1 and S2 Gastrointestional: distended Extremities: pedal edema Neurologic/Psychiatric: no motor/sensory deficits, alert, normal mood/affect, oriented x 3 Skin: normal color Results/Procedures: Labs Laboratory Tests 10/10/22 05:03: White Blood Count 11.2H, Red Blood Count 2.81L, Hemoglobin 9.5L, Hematocrit 28L, Mean Corpuscular Volume 101H, Mean Corpuscular Hemoglobin 34, Mean Corpuscular Hemoglobin Concent 34, Red Cell Distribution Width 17.8H, Platelet Count 133, Mean Platelet Volume 13.6H, Immature Granulocyte % (Auto) 0, Neutrophils (%) (Auto) 64, Lymphocytes (%) (Auto) 22, Monocytes (%) (Auto) 11, Eosinophils (%) (Auto) 2, Basophils (%) (Auto) 1, Neutrophils # (Auto) 7.1, Lymphocytes # (Auto) 2.4, Monocytes # (Auto) 1.2H, Eosinophils # (Auto) 0.3, Basophils # (Auto) 0.1, Immature Granulocyte # (Auto) 0.1, Percent Immature Platelet Fraction 15.7H, Prothrombin Time 18.2H, INR Comment 1.5H, Sodium Level 137, Potassium Level 4.5, Chloride Level 100, Carbon Dioxide Level 21, Anion Gap 16H, Blood Urea Nitrogen 55H, Creatinine 4.38#H, Estimat Glomerular Filtration Rate 13, BUN/Creatinine Ra emile 13, Glucose Level 103, Calcium Level 9.1, Magnesium Level 2.6H A/P: Assessment/Dx: Liver cirrhosis, Severe ascites, Paroxysmal atrial fibrillation, Amiodarone therapy, Chronic oral anticoagulation, Sinus bradycardia, Acute kidney injury Plan: Liver cirrhosis,Defer to the primary team Severe ascites,Dr. Rincon considering paracentesis. Paroxysmal atrial fibrillation,Currently in sinus rhythm.On oral anticoagulation. Amiodarone therapy,Discontinue due to Liver cirrhosis and sinus bradycardia. Chronic oral anticoagulation, Sinus bradycardia,Patient is not symptomatic. Denies syncope or near syncope. Discontinued amiodarone and metoprolol earlier in the admission. heart rate improved to 50s. Stable hemodynamics. Acute kidney injury, Defer to the primary team. Thank you for your consultation. Please call me if you have any questions. 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
[2022-10-10] MEDS: OCTREOTIDE (FOR BOLUS) 50 MCG/ML SYR (SandoSTATIN) SC SCH ×2 (14:49→21:13)
[2022-10-10 15:50] VITALS: BP 117/62
[2022-10-10] MEDS: cefTRIAXone IV/IM 1,000 MG in NS (IVPB) 50 ML IV SCH (16:36)
[2022-10-10 19:03] VITALS: BP 122/64
[2022-10-10 23:36] VITALS: BP 130/60
[2022-10-11 03:47] VITALS: BP 130/61
[2022-10-11] MEDS: OCTREOTIDE (FOR BOLUS) 50 MCG/ML SYR (SandoSTATIN) SC SCH (05:18)
[2022-10-11] MEDS: ALBUMIN 25% 25 GM/100 ML 100 ML IV SCH ×3 (05:18→21:14)
[2022-10-11 05:41] LABS: BASOPHILS # (AUTO) 0.1 10^3/uL (0.0-0.1); BASOPHILS % (AUTO) 1 % (0-10); HEMOGLOBIN 9.4 g/dL (13.3-17.7); MEAN CORPUSCULAR VOLUME 102 fL (80-99); MONOCYTES % (AUTO) 13 % (0-12)
[2022-10-11 05:44] LABS: EOSINOPHILS # (AUTO) 0.2 10^3/uL (0.0-0.3); EOSINOPHILS % (AUTO) 3 % (0-10); HEMATOCRIT 29 % (40-54); LYMPHOCYTES # (AUTO) 1.5 10^3/uL (1.0-4.0); LYMPHOCYTES % (AUTO) 17 % (12-44); MEAN CORPUSCULAR HEMOGLOBIN 34 pg (25-34); MEAN CORPUSCULAR HGB CONC 33 g/dL (32-36); MEAN PLATELET VOLUME 13.7 fL (9.0-12.2); MONOCYTES # (AUTO) 1.1 10^3/uL (0.0-1.0); NEUTROPHILS # (AUTO) 5.8 10^3/uL (1.8-7.8); NEUTROPHILS % (AUTO) 67 % (42-75); PLATELET COUNT 113 10^3/uL (130-400); WHITE BLOOD COUNT 8.8 10^3/uL (4.3-11.0)
[2022-10-11 05:57] LABS: INR 1.5 (0.8-1.4); PROTHROMBIN TIME PATIENT 18.4 SEC (12.2-14.7)
[2022-10-11 06:25] LABS: CALCIUM 9.2 MG/DL (8.5-10.1); CREATININE SERUM 3.53 MG/DL (0.60-1.30); MAGNESIUM 2.5 MG/DL (1.6-2.4); POTASSIUM 4.1 MMOL/L (3.6-5.0)
[2022-10-11] MEDS: POTASSIUM CL 10MEQ/50ML IVPB 50 ML IV SCH (06:30)
[2022-10-11] MEDS: KCL 20 MEQ TAB (K-DUR) PO SCH (06:30)
[2022-10-11] MEDS: POTASSIUM BICARB 20 MEQ (EFFER-K) TABLET PO SCH (06:30)
[2022-10-11] MEDS: MAGNESIUM 1 GM/100 ML IVPB 100 ML IV SCH (06:30)
[2022-10-11 07:15] VITALS: BP 133/58
--- NOTE | 2022-10-11 08:04 | Physical Therapy Daily Note ---
PT Daily Note-Current Subjective Patient reports he is feeling better and stronger today. Agrees to PT. Pain Section J - Health Conditions 1. Rarely or not at all 2. Occasionally 3. Frequently 4. Almost constantly 8. Unable to answer Pain Effect on Sleep: 1 Pain Interference with Therapy: 1 Pain Interference w/Day-to-Day: 1 Mental Status Patient Orientation: Normal For Age Attachments: IV Transfers SCALE: Activities may be completed with or without assistive devices. 3-Abhzqhdarb-vrsqpja completes the activity by him/herself with no assistance from a helper. 5-Set-up or Clean-up Assistance-helper sets up or cleans up; patient completes activity. [place] assists only prior to or following the activity. 4-Supervision or Touching Assistance-helper provides verbal cues and/or touching/steadying and/or contact guard assistance as patient completes activity. Assistance may be provided throughout the activity or intermittently. 3-Partial/Moderate Assistance-helper does LESS THAN HALF the effort. [place] lifts, holds or supports trunk or limbs, but provides less than half the effort. 2-Substantial/Maximal Assistance-helper does MORE THAN HALF the effort. [place] lifts or holds trunk or limbs and provides more than half the effort. 2-Pkqkyhvep-hnybkl does ALL the effort. Patient does none of the effort to complete the activity. Or, the assistance of 2 or more helpers is required for the patient to complete the activity. If activity was not attempted, code reason: 7-Patient Refused. 9-Not Applicable-not attempted and the patient did not perform the activity before the current illness, exacerbation or injury. 10-Not Attempted due to Environmental Limitations-(lack of equipment, weather restraints, etc.). 88-Not Attempted due to Medical Conditions or Safety Concerns. Lying to Sitting/Side of Bed(Q: 6 Sit to Stand (QC): 4 Chair/Yzq-yd-Bfmhk Xfer(QC): 4 Weight Bearing Right Lower Extremity: Right Full Weight Bearing Left Lower Extremity: Left Full Weight Bearing Gait Training Distance: 150' Walk 10 feet (QC): 4 Walk 50 ft with 2 Turns(QC): 4 Walk 150 ft (QC): 4 Gait Assistive Device: FWW extended UE's with FWW use/safe and functional gait sequence Assessment Patient up in recliner with needs met. Patient progressing with treatment plan and is currently SBA with all mobility. PT to continue to increase activity as tolerated by patient. PT Collar Trimmer Goals Collar Trimmer Goals PT Collar Trimmer Goals Time Frame: Nov 05, 2022 Roll Left & Right (QC): 6 Sit to Lying (QC): 6 Lying-Sitting on Side/Bed(QC): 6 Sit to Stand (QC): 6 Chair/Xur-lo-Jlxki Xfer(QC): 5 Toilet Transfer (QC): 5 Car Transfer (QC): 5 Does the Patient Walk: Yes Walk 10 feet (QC): 6 Walk 50ft with 2 Turns (QC): 6 Walk 150 ft (QC): 4 1 Step (curb) (QC): 4 4 Steps (QC): 4 PT Plan Treatment/Plan Treatment Plan: Continue Plan of Care Treatment Plan: Bed Mobility, Education, Functional Activity Yordy, Functional Strength, Group Therapy, Gait, Safety, Therapeutic Exercise, Transfers Treatment Duration: Nov 05, 2022 Frequency: 6 times per week Estimated Hrs Per Day: .25 hour per day Patient and/or Family Agrees t: Yes Time Time In: 745 Time Out: 756 DATE: October 11, 2022 Total Billed Treatment Time: 11 Total Billed Treatment 1 visit GT 11 min GEORGIE TOVAR PT October 11, 2022 08:04
[2022-10-11] MEDS: DOCUSATE SODIUM 100 MG (COLACE) CAP PO SCH ×2 (08:24→19:59)
[2022-10-11] MEDS: ALLOPURINOL 100 MG (ZYLOPRIM) TAB PO SCH ×2 (08:24→18:24)
[2022-10-11] MEDS: SENNOSIDES 8.6 MG (SENOKOT) TAB PO SCH ×2 (08:24→19:58)
[2022-10-11] MEDS: MIDODRINE 10 MG (PROAMATINE) TAB PO SCH ×3 (08:24→19:58)
--- NOTE | 2022-10-11 08:46 | Cardiology Progress Note ---
Subjective Date Seen by Provider: October 11, 2022 Time Seen by Provider: 08:43 Subjective/Events-last exam Patient was seen at bedside, sitting comfortably, feeling better. No new complaint Review of Systems General: No Chills, No Night Sweats, No Fatigue, No Malaise, No Appetite, No Other HEENT: No Head Aches, No Visual Changes, No Eye Pain, No Ear Pain, No Dysphasia , No Sinus Congestion, No Post Nasal Drip, No Sore Throat, No Other Pulmonary: No Dyspnea, No Cough, No Pleuritic Chest Pain, No Other Cardiovascular: No: Chest Pain, Palpitations, Orthopnea, Paroxysmal Noc. Dyspnea, Edema, Lt Headedness, Other Objective-Cardiology Exam Last Set of Vital Signs Vital Signs 10/11/22 10/11/22 03:47 07:15 Temp 36.2 Pulse 62 Resp 18 B/P (MAP) 133/58 (83) Pulse Ox 93 O2 Delivery Room Air O2 Flow Rate 0.00 0.00 I&O Intake and Output 10/11/22 00:00 Intake Total 990 ml Output Total 750 ml Balance 240 ml Intake Oral 640 ml IV Total 350 ml Output Urine Total 750 ml # Voids 1 # Bowel Movements 6 General: Alert, Oriented X3, Cooperative HEENT: Atraumatic, PERRLA Neck: Supple, No JVD, No Thyromegaly Lungs: Clear to Auscultation, Normal Air Movement Heart: Regular Rate, Normal S1, Normal S2, No Murmurs Abdomen: Normal Bowel Sounds, Soft, No Tenderness, No Hepatosplenomegaly, No Masses Extremities: No Clubbing, No Cyanosis, No Edema, Normal Pulses, No Tenderness/Swelling Skin: No Rashes, No Breakdown, No Significant Lesion Neuro: Normal Gait, Normal Speech, Strength at 5/5 X4 Ext, Normal Tone, Sensation Intact Psych/Mental Status: Mental Status NL, Mood NL Results Lab Laboratory Tests 10/11/22 05:11 A/P-Cardiology Admission Diagnosis Hepatic cirrhosis Ascites Paroxysmal atrial fibrillation Sinus node dysfunction Assessment/Plan Hepatic cirrhosis History of alcoholism, stopped drinking in March 2022 Currently off amiodarone Continue to monitor Ascites, followed and managed by primary care team Paroxysmal atrial fibrillation, currently maintained in sinus rhythm Maintained on oral anticoagulation. Continue to monitor Sinus bradycardia, asymptomatic Currently amiodarone was discontinued, metoprolol is on hold Continue to monitor heart rate Acute on chronic renal insufficiency, monitor renal function. Chronic left bundle branch block. Hyperlipidemia, continue to monitor lipids Mild bilateral carotid stenosis, last ultrasound done in September 2021. Continue to monitor JIMMY DOWNS MD October 11, 2022 08:46
--- NOTE | 2022-10-11 11:20 | Progress Note - Surgery ---
Subjective Time Seen by a Provider: 10:26 Subjective/Events-last exam Pt seen and examined, no new changes. He denies abdominal pain and SOB. Review of Systems Pulmonary: No Dyspnea, No Cough Cardiovascular: No: Chest Pain, Palpitations Gastrointestinal: No: Nausea, Vomiting, Abdominal Pain Objective Exam Vital Signs Date Time Temp Pulse Resp B/P (MAP) Pulse Ox O2 Delivery O2 Flow Rate FiO2 10/11/22 09:01 60 10/11/22 07:15 36.2 62 18 133/58 (83) 93 Room Air 10/11/22 07:06 62 10/11/22 03:47 36.5 58 16 130/61 (84) 92 Room Air 0.00 0.00 10/11/22 01:00 55 10/10/22 23:36 36.0 53 16 130/60 (83) 92 Room Air 0.00 0.00 10/10/22 20:37 Room Air 10/10/22 19:03 36.3 52 16 122/64 (83) 92 Room Air 10/10/22 19:00 51 10/10/22 15:50 36.3 50 16 117/62 (80) 91 Room Air 10/10/22 13:00 49 10/10/22 11:26 36.2 52 18 121/63 (82) 93 Room Air I & O 10/11/22 07:00 Intake Total 990 ml Output Total 825 ml Balance 165 ml Capillary Refill : General Appearance: No Apparent Distress, Obese HEENT: PERRL/EOMI, Moist Mucous Membranes Respiratory: Lungs Clear, No Respiratory Distress Cardiovascular: Regular Rate, Rhythm, No Murmur Gastrointestinal: soft, no organomegaly, distended, hernia (umbilical) Extremity: Non Tender, Pedal Edema Neurologic/Psychiatric: Alert, Oriented x3 Results Lab Laboratory Tests 10/11/22 05:11: White Blood Count 8.8, Red Blood Count 2.80L, Hemoglobin 9.4L, Hematocrit 29L, Mean Corpuscular Volume 102H, Mean Corpuscular Hemoglobin 34, Mean Corpuscular Hemoglobin Concent 33, Red Cell Distribution Width 17.9H, Platelet Count 113L, Mean Platelet Volume 13.7H, Immature Granulocyte % (Auto) 0, Neutrophils (%) (Auto) 67, Lymphocytes (%) (Auto) 17, Monocytes (%) (Auto) 13H, Eosinophils (%) (Auto) 3, Basophils (%) (Auto) 1, Neutrophils # (Auto) 5.8, Lymphocytes # (Auto) 1.5, Monocytes # (Auto) 1.1H, Eosinophils # (Auto) 0.2, Basophils # (Auto) 0.1, Immature Granulocyte # (Auto) 0.0, Percent Immature Platelet Fraction 14.8H, Prothrombin Time 18.4H, INR Comment 1.5H, Sodium Level 138, Potassium Level 4.1, Chloride Level 104, Carbon Dioxide Level 23, Anion Gap 11, Blood Urea Nitrogen 50H, Creatinine 3.53#H, Estimat Glomerular Filtration Rate 17, BUN/Creatinine Ratio 14, Glucose Level 111H, Calcium Level 9.2, Magnesium Level 2.5H Assessment/Plan Assessment/Plan Assessment/Plan Liver Failure with Cirrhosis secondary to EtOH abuse Acute Renal Failure - appears stable Ascites Coagulopathy - almost resolved Hyponatremia - resolved Hyperkalemia - resolved Pt still stable and doesn't need paracentesis, plan is to go to Detention tomorrow. NETTE ROSS DO October 11, 2022 11:20
[2022-10-11 11:28] VITALS: BP 126/62
--- NOTE | 2022-10-11 11:44 | Occupational Ther Daily Note ---
OT Current Status-Daily Note Subjective Resting in bed, agreeable to OT and set up for lunch. Mental Status/Objective Patient Orientation: Person, Place ADL-Treatment Toileting, hand and face hygiene and set up for lunch. BLE SAHIL wraps not on, OT provided clean new Yellow socks for ambulation Therapy Code Descriptions/Definitions Functional [place] Measure: 0=Not Assessed/NA 4=Minimal Assistance 1=Total Assistance 5=Supervision or Setup 2=Maximal Assistance 6=Modified [place] 3=Moderate Assistance 7=Complete IndependenceSCALE: Activities may be completed with or without assistive devices. 4-Dwuuakqalu-sjnshit completes the activity by him/herself with no assistance from a helper. 5-Set-up or Clean-up Assistance-helper sets up or cleans up; patient completes activity. [place] assists only prior to or following the activity. 4-Supervision or Touching Assistance-helper provides verbal cues and/or touching/steadying and/or contact guard assistance as patient completes activity. Assistance may be provided throughout the activity or intermittently. 3-Partial/Moderate Assistance-helper does LESS THAN HALF the effort. [place] lifts, holds or supports trunk or limbs, but provides less than half the effort. 2-Substantial/Maximal Assistance-helper does MORE THAN HALF the effort. [place] lifts or holds trunk or limbs and provides more than half the effort. 5-Xqaqeizvh-ulmmqh does ALL the effort. Patient does none of the effort to complete the activity. Or, the assistance of 2 or more helpers is required for the patient to complete the activity. If activity was not attempted, code reason: 7-Patient Refused. 9-Not Applicable-not attempted and the patient did not perform the activity before the current illness, exacerbation or injury. 10-Not Attempted due to Environmental Limitations-(lack of equipment, weather restraints, etc.). 88-Not Attempted due to Medical Conditions or Safety Concerns. Eating (QC): 6 Oral Hygiene (QC): 5 Shower/Bathe Self (QC): 7 Upper Body Dressing (QC): 5 Lower Body Dressing (QC): 4 On/Off Footwear: 2 Toileting Hygiene (QC): 3 Toilet Transfer (QC): 4 Education OT Patient Education: Correct positioning, Modified ADL techniques, Progress toward Goal/Update tx plan, Purpose of tx/functional activities, Reviewed preca utions, Rehab process, Safety issues, Transfer techniques, Use of adapted equipment Teaching Recipient: Patient Teaching Methods: Demonstration Response to Teaching: Reinforcement Needed OT Short Term Goals Short Term Goals Time Frame: Oct 17, 2022 Eatin Oral hygiene: 4 Toileting hygiene: 3 Upper body dressin Lower body dressin (With AE as needed) Putting on/taking off footwear: 3 (With AE as needed.) OT Commercial Loan Coordinator Goals Snf Goals Time Frame: Oct 24, 2022 Eating (QC): 6 Oral Hygiene (QC): 5 Toileting Hygiene (QC): 5 Upper Body Dressing (QC): 5 Lower Body Dressing (QC): 5 (with AE as needed.) On/Off Footwear (QC): 5 (With AE as needed.) Additional Goals: 1-Demonstrate ADL Tasks, 2-Verbalize Understanding, 3- ImproveStrength/Yordy 1=Demonstrate adherence to instructed precautions during ADL tasks. 2=Patient will verbalize/demonstrate understanding of assistive devices/modifications for ADL. 3=Patient will improve strength/tolerance for activity to enable patient to perform ADL's. OT Education/Plan Problem List/Assessment Assessment: Decreased Activ Tolerance, Decreased Safety Aware, Impaired Self- Care Skills Discharge Recommendations Plan/Recommendations: Continue POC Treatment Plan/Plan of Care Treatment,Training & Education: Yes Patient would benefit from OT for education, treatment and training to promote independence in ADL's, mobility, safety and/or upper extremity function for ADL's. Plan of Care: ADL Retraining, Functional Mobility, UE Funct Exercise/Act Treatment Duration: Oct 24, 2022 Frequency: 3 times per week (3-5x/week) Estimated Hrs Per Day: .25 hour per day Agreement: Yes Rehab Potential: Fair Time Start Time: 11:25 Stop Time: 11:37 DATE: October 11, 2022 Total Time Billed (hr/min): 12 Billed Treatment Time ADL 12 min ALCON JACK OT October 11, 2022 11:44
--- NOTE | 2022-10-11 12:42 | Progress Note - Hospitalist ---
Subjective HPI/CC On Admission Date Seen by Provider: October 11, 2022 Subjective/Events-last exam Pt reports doing well today. No family at bedside. Attempted to call his daughter but no answer. Objective Exam Vital Signs Vital Signs Date Time Temp Pulse Resp B/P (MAP) Pulse Ox O2 Delivery O2 Flow Rate FiO2 10/11/22 11:28 36.5 59 18 126/62 (83) 94 Room Air 10/11/22 03:47 0.00 0.00 Capillary Refill : General Appearance: No Apparent Distress, Chronically ill, Obese Respiratory: Lungs Clear Cardiovascular: Regular Rate, Rhythm, No Murmur Gastrointestinal: Normal Bowel Sounds, Soft, Distended (mild) Neurologic/Psychiatric: Alert, Oriented x3 Results/Procedures Lab Laboratory Tests 10/11/22 05:11 Patient resulted labs reviewed. Assessment/Plan Assessment and Plan Assess & Plan/Chief Complaint Hepatorenal syndrome Decompensated RODRIGUEZ cirrhosis Ascites Debility Renal function improved today even frutehr to 3.5 Continue albumin Continue octreotide and midodrine- will only continue midodrine on DC Nephrology consulted, appreciate recs Surgery consulted, spoke with Dr Rincon and no need for para today PT/OT Bradycardia Afib EKG with sinus bradycardia, improving Holding amiodarone and metoprolol Cardiology following Telemetry DVT ppx: autoanticoagulated on arrival, SCDs only GILLIAN LUI MD October 11, 2022 12:42
[2022-10-11] MEDS: OCTREOTIDE (FOR SQ USE) 100 MCG/ML VIAL (SandoSTATIN) SC SCH ×2 (14:07→21:13)
[2022-10-11 16:05] VITALS: BP 148/62
--- NOTE | 2022-10-11 17:13 | Discharge Inst-Skilled Nursing ---
Discharge Inst-Skilled NF Consult/Follow Up/Orders Skilled NF Admit to: [facility] Certification (SNF) I certify that SNF services are required to be given on an inpatient basis because of the above named patient's need for care home care on a continuing basis for the conditions(s) for which he/she was receiving inpatient hospital services prior to his/her transfer to the SNF. [facility] Facility Order: Nursing Services, Load Haul Dump Operator-Evaluate & Treat, Physical Therapy-Evaluate & Treat Oxygen Delivery Method: Room Air Discharge Diet: Low Sodium Diet Daily Activity as Tolerated: Yes Resuscitation Status: Do Not Resuscitate New & Resume Previous Orders Gillian Carrasco October 11, 2022 17:12 GILLIAN CARRASCO MD October 11, 2022 17:13
[2022-10-11 19:25] VITALS: BP 132/60
[2022-10-11 23:47] VITALS: BP 131/64
[2022-10-12 03:15] VITALS: BP 151/65
[2022-10-12] MEDS: OCTREOTIDE (FOR SQ USE) 100 MCG/ML VIAL (SandoSTATIN) SC SCH (05:57)
[2022-10-12] MEDS: ALBUMIN 25% 25 GM/100 ML 100 ML IV SCH (05:57)
[2022-10-12 06:00] LABS: CALCIUM 9.5 MG/DL (8.5-10.1); CREATININE SERUM 2.53 MG/DL (0.60-1.30); MAGNESIUM 2.3 MG/DL (1.6-2.4)
[2022-10-12] MEDS: POTASSIUM BICARB 20 MEQ (EFFER-K) TABLET PO SCH (06:06)
[2022-10-12] MEDS: POTASSIUM CL 10MEQ/50ML IVPB 50 ML IV SCH (06:06)
[2022-10-12] MEDS: MAGNESIUM 1 GM/100 ML IVPB 100 ML IV SCH (06:06)
[2022-10-12] MEDS: KCL 20 MEQ TAB (K-DUR) PO SCH (06:06)
[2022-10-12 06:11] LABS: BASOPHILS # (AUTO) 0.1 10^3/uL (0.0-0.1); BASOPHILS % (AUTO) 1 % (0-10); HEMOGLOBIN 9.3 g/dL (13.3-17.7); MEAN CORPUSCULAR HEMOGLOBIN 34 pg (25-34)
[2022-10-12 06:13] LABS: EOSINOPHILS # (AUTO) 0.2 10^3/uL (0.0-0.3); EOSINOPHILS % (AUTO) 2 % (0-10); HEMATOCRIT 28 % (40-54); LYMPHOCYTES # (AUTO) 1.2 10^3/uL (1.0-4.0); LYMPHOCYTES % (AUTO) 16 % (12-44); MEAN CORPUSCULAR HGB CONC 33 g/dL (32-36); MEAN CORPUSCULAR VOLUME 102 fL (80-99); MEAN PLATELET VOLUME 13.1 fL (9.0-12.2); MONOCYTES # (AUTO) 0.8 10^3/uL (0.0-1.0); MONOCYTES % (AUTO) 10 % (0-12); NEUTROPHILS # (AUTO) 5.3 10^3/uL (1.8-7.8); NEUTROPHILS % (AUTO) 71 % (42-75); PLATELET COUNT 108 10^3/uL (130-400); WHITE BLOOD COUNT 7.6 10^3/uL (4.3-11.0)
[2022-10-12 06:19] LABS: INR 1.5 (0.8-1.4); PROTHROMBIN TIME PATIENT 18.2 SEC (12.2-14.7)
[2022-10-12 07:16] VITALS: BP 138/65
[2022-10-12] MEDS: DOCUSATE SODIUM 100 MG (COLACE) CAP PO SCH (08:17)
[2022-10-12] MEDS: MIDODRINE 10 MG (PROAMATINE) TAB PO SCH (08:17)
[2022-10-12] MEDS: ALLOPURINOL 100 MG (ZYLOPRIM) TAB PO SCH (08:18)
[2022-10-12] MEDS: SENNOSIDES 8.6 MG (SENOKOT) TAB PO SCH (08:18)
--- NOTE | 2022-10-12 09:14 | Cardiology Progress Note ---
Subjective Date Seen by Provider: October 12, 2022 Time Seen by Provider: 08:40 Subjective/Events-last exam Patient is sitting up in bed, no new complaints. Review of Systems General: No Chills, No Night Sweats, No Fatigue, No Malaise, No Appetite, No Other HEENT: No Head Aches, No Visual Changes, No Eye Pain, No Ear Pain, No Dysphasia, No Sinus Congestion, No Post Nasal Drip, No Sore Throat, No Other Pulmonary: No Dyspnea, No Cough, No Pleuritic Chest Pain, No Other Cardiovascular: No: Chest Pain, Palpitations, Orthopnea, Paroxysmal Noc. Dyspnea, Edema, Lt Headedness, Other Objective-Cardiology Exam Last Set of Vital Signs Vital Signs 10/11/22 10/12/22 10/12/22 23:47 07:16 07:30 Temp 36.2 Pulse 69 Resp 18 B/P (MAP) 138/65 (89) Pulse Ox 92 O2 Delivery Room Air O2 Flow Rate 0.00 0.00 I&O Intake and Output 10/12/22 00:00 Intake Total 650 ml Output Total 1035 ml Balance -385 ml Intake Oral 550 ml IV Total 100 ml Output Urine Total 1035 ml # Bowel Movements 4 General: Alert, Oriented X3, Cooperative HEENT: Atraumatic, PERRLA Neck: Supple, No JVD, No Thyromegaly Lungs: Clear to Auscultation, Normal Air Movement Heart: Regular Rate, Normal S1, Normal S2, No Murmurs Abdomen: Normal Bowel Sounds, Soft, No Tenderness, No Hepatosplenomegaly, No Masses Extremities: No Clubbing, No Cyanosis, No Edema, Normal Pulses, No Tenderness/Swelling Skin: No Rashes, No Breakdown, No Significant Lesion Neuro: Normal Gait, Normal Speech, Strength at 5/5 X4 Ext, Normal Tone, Sensation Intact Psych/Mental Status: Mental Status NL, Mood NL Results Lab Laboratory Tests 10/12/22 05:20 A/P-Cardiology Admission Diagnosis Hepatic cirrhosis Ascites Paroxysmal atrial fibrillation Sinus node dysfunction Assessment/Plan Hepatic cirrhosis History of alcoholism, stopped drinking in March 2022 Currently off amiodarone Continue to monitor Ascites, followed and managed by primary care team Paroxysmal atrial fibrillation, currently maintained in sinus rhythm Currently off Xarelto. I am hesitant to restart Xarelto due to hepatic ci rrhosis I will proceed with loop monitor implantation. Sinus bradycardia, asymptomatic Currently amiodarone was discontinued, metoprolol is on hold Heart rate has improved. Continue to monitor heart rate Acute on chronic renal insufficiency, monitor renal function. Chronic left bundle branch block. Hyperlipidemia, continue to monitor lipids Mild bilateral carotid stenosis, last ultrasound done in September 2021. Continue to monitor Supervisory-Addendum Brief Supervisory Addendum Participated in pt care: history, MDM, physical Personally performed: exam, history, MDM Care discussed with: JOSE ALFREDO Results interpretation: Verified all documentation Notes: Patient was seen and evaluated with Cheryl, examination performed, management plan was discussed, agree with the current scribed note, I made few changes to the note using Italic font Patient was seen at bedside, we discussed the management plan. I am hesitant to restart his oral anticoagulation, he is currently in sinus rhythm and he is off amiodarone I will proceed with loop monitor implantation and I will try to avoid oral anticoagulation especially with his liver cirrhosis Monitor blood pressure and heart rate Okay for discharge CHERYL CHAVEZ October 12, 2022 09:14 JIMMY DOWNS MD October 12, 2022 10:01
--- NOTE | 2022-10-12 09:55 | Physical Therapy Progress Note ---
Therapy Progress Note Attempted to see patient for treatment. Patient politely refuses treatment stating he is going home soon. Patient will be D/C from PT treatment. ELIU HERRON PT October 12, 2022 09:55
[2022-10-12] MEDS ORDERED: LIDOCAINE 1% INJ 20 ML VIAL ONE (10:26)
--- NOTE | 2022-10-12 11:35 | Discharge Summary ---
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) Status: Acute Discharge Summary Discharge Physical Exam Allergies: Coded Allergies: No Known Drug Allergies (Unverified , 11/21/09) Vitals & I&Os Vital Signs Date Time Temp Pulse Resp B/P (MAP) Pulse Ox O2 Delivery O2 Flow Rate FiO2 10/12/22 14:38 36.2 69 18 138/65 92 Room Air 0.00 General Appearance: No Apparent Distress, Chronically ill, Obese Respiratory: Lungs Clear, No Respiratory Distress Cardiovascular: Regular Rate, Rhythm, No Murmur Gastrointestinal: Normal Bowel Sounds, Soft Neurologic/Psychiatric: Alert, Oriented x3 Hospital Course Patient was admitted to the hospital secondary to decompensated liver failure with acute kidney injury. At first there was concern for hepatorenal syndrome but kidney injury is likely due to intravascular depletion from decompensated cirrhosis. Nephrology was consulted and they recommended octreotide, albumin, midodrine. He responded to this and creatinine improved from 5.0-2.5 upon dis charge. A referral was placed for outpatient nephrology follow-up and for referral to Dr. Lauren Curran to start hepatology work-up. He was seen in consultation by surgery and cardiology and his loop monitor was replaced prior to discharge. He is to follow-up with his primary care physician, Dr. Fuller to follow-up this hospital stay and was discharged back to his alf in stable improved condition. Labs (last 24 hrs) Patient resulted labs reviewed. Pending Labs Discussion & Recommendations Discharge Planning: >30 minutes discharge planning Discharge Home Medications: Active Scripts Active Midodrine HCl 10 Mg Tablet 10 Mg PO TID Reported Miralax (Polyethylene Glycol 3350) 17 Gram Powd.pack 17 Gm PO DAILY PRN Ketoconazole 2 % Cream..g. 1 Applic TP BID PRN Hydrocortisone Acetate 1 % Cream..g. 1 Applic TP Q12H PRN Vitamin D3 (Cholecalciferol (Vitamin D3)) 25 Mcg (1000 Unit) Tablet 50 Mcg PO DAILY TAKES 2 (25MCG) TABS Furosemide 20 Mg Tablet 20 Mg PO DAILY Citalopram HBr (Citalopram Hydrobromide) 20 Mg Tablet 20 Mg PO DAILY Amiodarone HCl 200 Mg Tablet 200 Mg PO BID Magnesium (Magnesium Oxide) 400 Mg Capsule 400 Mg PO BID Aspirin EC (Aspirin) 81 Mg Tablet.dr 81 Mg PO DAILY Allopurinol 100 Mg Tablet 100 Mg PO BID Metoprolol Tartrate 25 Mg Tablet 25 Mg PO BID Instructions to patient/family Please see electronic discharge instructions given to patient. GILLIAN LUI MD October 12, 2022 11:35
[2022-10-12] MEDS ORDERED: MIDO10TA PO (11:37)
--- NOTE | 2022-10-12 11:41 | Implantation of Loop Monitor ---
Implant of Loop Monitior IMPLANTATION OF LOOP MONITOR REPORT DATE OF PROCEDURE: 10/12/22 PREOP DIAGNOSIS: Paroxysmal atrial fibrillation POSTOP DIAGNOSIS: Paroxysmal atrial fibrillation PROCEDURE DETAILS: The patient is a 77 male with history of paroxysmal atrial fibrillation requiring long-term surveillance due to hepatic cirrhosis, I am hesitant to keep him on long-term oral anticoagulation unless he is having episodes of atrial fibrillation. He is unable to tolerate antiarrhythmic medication at this point. Therefore implantable loop recorder was discussed and agreed with the patient. Informed consent was taken. All risks and complications were discussed at length. The patient was draped and prepped in the usual sterile fashion. Local anesthesia was lidocaine, which was given in the substernal area close to the 4th intercostal space. Patient had an old loop monitor with depleted battery, the skin incision was made then I extracted the old loop device and I proceeded with implantation of a new [employer] device with serial number [id number] according to the protocol. Steri-Strips were placed at the end of the procedure. There were no complications and the patient tolerated the procedure well. ANESTHESIA: Local anesthesia with lidocaine. COMPLICATIONS: None CONTRAST/FLUOROSCOPY: None CONCLUSION: Successful extraction of a depleted old loop monitor device Successful implantation of a loop monitor FINAL DIAGNOSIS: Paroxysmal atrial fibrillation Hypertension Hyperlipidemia JIMMY DOWNS MD October 12, 2022 11:41
[2022-10-12 14:38] VITALS: BP 138/65
--- NOTE | 2022-10-13 11:42 | Physician Query Clarification ---
PQ-Conflicting Diagnosis Admission/Discharge Admission Date: October 06, 2022 at 15:11 Discharge Date: October 12, 2022 at 15:08 Dr. Carrasco, The medical record reflects the following clinical scenario: History/Risk Factors: [list no more than 2] Clinical Findings: [list no more than 2] Treatment: [list no more than 2] Question: Do you agree with the impression of the [diagnosis/condition] per [consulting physician]. Please document a response in Progress Note or Discharge Summary. 1. Yes 2. No 3. Other, with explanation of clinical findings 4. Clinically undetermined, no explanation for clinical findings. In responding to this query, please exercise your independent professional judgment. The purpose of this communication is to more accurately reflect the complexity of your patients condition. The fact that a question is asked does not imply that any particular answer is desired or expected. Thank you for your timely response to this clarification. Requestors name: [ ] Phone # [ ] THIS PHYSICIAN QUERY FORM IS A PERMANENT PART OF THE MEDICAL RECORD WICHO CARSON Oct 13, 2022 11:41
== END 2022-10-12 15:08 | DRG 981 ==
LOC: EDUNIT# 12:08 → ER 12:11 → 4TH 15:11
PROVIDERS: ADMIT Internal Medicine; ATTEND Internal Medicine
PROC: 0JH632Z Insertion of Monitoring Device into Chest Subcutaneous Tissue and Fascia, Percutaneous Approach (ICD-10-PCS; principal; 2022-10-12)
PROC: 0JPT32Z Removal of Monitoring Device from Trunk Subcutaneous Tissue and Fascia, Percutaneous Approach (ICD-10-PCS; 2022-10-12)
DX: K74.69 Other cirrhosis of liver (principal); K76.7 Hepatorenal syndrome; D68.4 Acquired coagulation factor deficiency; N17.9 Acute kidney failure, unspecified; E87.1 Hypo-osmolality and hyponatremia; K75.81 Nonalcoholic steatohepatitis (NASH); I48.0 Paroxysmal atrial fibrillation; I12.9 Hypertensive chronic kidney disease with stage 1 through stage 4 chronic kidney disease, or unspecified chronic kidney disease; Z66 Do not resuscitate; N18.9 Chronic kidney disease, unspecified; E66.9 Obesity, unspecified; Z68.38 Body mass index [BMI] 38.0-38.9, adult; E87.5 Hyperkalemia; I49.5 Sick sinus syndrome; I44.7 Left bundle-branch block, unspecified; I65.23 Occlusion and stenosis of bilateral carotid arteries; I95.9 Hypotension, unspecified; M10.9 Gout, unspecified; F32.A Depression, unspecified; F10.21 Alcohol dependence, in remission; Z87.891 Personal history of nicotine dependence; Z79.899 Other long term (current) drug therapy; Z79.82 Long term (current) use of aspirin; Z79.01 Long term (current) use of anticoagulants
CPT/HCPCS: 33286; 36415; 80048; 80053; 82140; 83735; 85007; 85025; 85027; 85610; 85730; 93005